=== PATIENT | female | born 1940 | race Caucasian/White ===

== ENCOUNTER 2017-02-06 15:46 | Outpatient (CLI) | payer OTHER, MEDICARE ==
[2017-02-06] MEDS ORDERED: ACETAMINOPHEN 325 MG TAB ONE (16:18)
[2017-02-06] MEDS ORDERED: ACETAMINOPHEN 325 MG TAB PO ONE (16:30)
== END 2017-02-06 20:00 | disposition home or self-care (01) ==
LOC: FOBOP 15:46
PROVIDERS: ATTEND Internal Medicine Hematology & Oncology
PROC: 30233N1 Transfusion of Nonautologous Red Blood Cells into Peripheral Vein, Percutaneous Approach (ICD-10-PCS; principal; 2017-02-06)
DX: D46.9 Myelodysplastic syndrome, unspecified (principal); Z88.2 Allergy status to sulfonamides
CPT/HCPCS: 36430; P9021

== ENCOUNTER 2017-02-12 02:13 | Inpatient (IN) | payer OTHER, MEDICARE ==
--- NOTE | 2017-02-12 02:21 | EDPHY ---
H & P HPI/ROS: HPI CHIEF COMPLAINT: Shortness of breath, cough HISTORY OF PRESENT ILLNESS: This patient very pleasant 76-year-old female she has significant past medical history for myelodysplastic syndrome, she recently had a blood transfusion of 1 unit packed red blood cells on Thursday. She tells me after getting this blood transfusion she immediately had chills she has been in bed over the entire weekend for the past 4 days with chills however no fever. Patient tells me that she has had a cough that is started nonproductive she does feel shortness of breath with dyspnea on exertion. Generalized weakness. No recorded fever at home. She does have nausea but no vomiting. Denies chest pain abdominal pain or back pain. Past Medical History: MDS, right-sided heart failure remote pulmonary embolism from prolonged hip surgery years ago Past Surgical History: No recent surgical history Social History: Denies daily use of drugs alcohol tobacco products Family History: Noncontributory ROS REVIEW OF SYSTEMS: A comprehensive 10 point review of systems is otherwise negative aside from elements mentioned in the history of present illness. Exam Constitutional appears well nontoxic, pale, triage nursing summary reviewed, vital signs reviewed, awake/alert. (Vital signs noted to be hypoxic 85%) Eyes normal conjunctivae and sclera, EOMI, PERRLA. HENT normal inspection, atraumatic, moist mucus membranes, no epistaxis, neck supple/ no meningismus, no raccoon eyes. Respiratory clear to auscultation bilaterally, normal breath sounds, no respiratory distress, no wheezing. Cardiovascular rate normal, regular rhythm, no murmur, no edema, distal pulses normal. Gastrointestinal soft, non-tender, no rebound, no guarding, normal bowel sounds, no distension, no pulsatile mass. Genitourinary no CVA tenderness. Musculoskeletal no midline vertebral tenderness, full range of motion, no calf swelling, no tenderness of extremities, no meningismus, good pulses, neurovascularly intact. Skin pale,pink, warm, & dry, no rash, skin atraumatic. Neurologic awake, alert and oriented x 3, AAOx3, moves all 4 extremities equally, motor intact, sensory intact, CN II-XII intact, normal cerebellar, normal vision, normal speech. Psychiatric normal mood/affect. Heme/Lymph/Immune no lymphadenopathy. Differential Diagnosis: includes but is not limited to in a particular order transfusion related lung injury or trauma early, pneumonia, pulmonary embolism, CHF, ACS, viral illness, influenza, dehydration, electrolyte abnormality, anemia , thrombocytopenia Medical Decision Making: Plan for this patient's patient have an IV established be placed on full cardiac rehabilitation specialist noted she is hypoxic at triage 85% patient be placed on supplemental oxygen should be given a breathing treatment, we will obtain blood cultures, lactic acid she will be gently hydrated, she will need a chest x-ray and a CT scan of her chest. I will also touch base with Oncology. Re-evaluation: ED x-ray chest one view: this shows cardiomegaly present, patchy infiltrates throughout lung reddy either diffuse pneumonia or pulmonary edema versus transfusion related lung injury 0312: The patient is afebrile however has a leukocytosis of 34,000 elevated lactic acid I will cover her with broad-spectrum antibiotics including IV vancomycin IV Zosyn she will have blood cultures. She will need a CT scan of her chest to make sure she does not have a pulmonary embolism and also help delineate these infiltrates. Differential includes pneumonia multifocal versus CHF versus transfusion related lung injury this patient will need hospitalization. 0318AM: I spoke with Dr. Arteaga with Oncology on-call he understands this patient be admitted to the hospital. He will see the patient in consultation. 0322AM: Re-examination at this time patient is resting comfortably no respiratory distress noted to be hypoxic upon arrival. She is pending a CT scan of her chest to rule out PE and further delineate lung parenchyma infiltrate. Differential is pulmonary embolism, heart failure, pneumonia. I have covered her with IV vanc and IV Zosyn for pneumonia given her white count, elevated lactic acid and hypoxia. She did receive 1 L normal saline fluid when she arrived here due to low blood pressure. Blood pressure has improved. She is hemodynamically stable at this time. Plan for this patient this time is admit to the hospitalist service Dr. Mcclain agrees to admit this patient reason for admission is hypoxia lung infiltrate. CT scan pending. Blood cultures have been pulled, lactic acid been pull, IV vancomycin IV Zosyn has been given. Most likely reason for hypoxia and infiltrates is decompensated heart failure given cardiomegaly elevated BNP[place] [id number] is most likely due to Neulasta. It is noted this patient is not febrile here. Hemodynamically stable safe for admission to the PCU. EKG interpretation by me on record in [facility] system. Impression time of EKG 3:20 a.m., this is sinus rhythm rate of 86 LVH present, left bundle-branch block present. This EKG does have some motion artifact in the inferior leads however when I compare this EKG to her old EKG 11/03/2016 there is no acute change specifically I do not appreciate acute ST elevation MN on this EKG. Critical Care: Total Critical Care Time Spent Managing this Patient: 65 Minutes. This time was spent Exclusively with this patient. This Care was exclusive of procedures. The Organ System/life at risk was respiratory, pulmonary This Patient was in Critical Condition because severe hypoxia CT scan of the angiogram chest with IV contrast The results of the study are negative for acute pulmonary embolism there is cardiomegaly present bilateral pulmonary edema consistent with decompensated heart failure. The study was read by Dr. Alcaraz. I viewed the images myself on the PACS system. 0424AM: This patient's CT scan consistent with decompensated acute heart failure. I have ordered her IV Lasix 40 mg. Restrict her fluids. She did receive IV vancomycin IV Zosyn due to patchy infiltrates on her lungs however most likely this is pulmonary edema less likely to be pneumonia. Patient admitted in stable condition to the hospitalist service. Source: Patient - Personal History Tetanus Vaccine Date: 2014 - Medical/Surgical History Hx Asthma: No Hx Chronic Respiratory Disease: No Hx Diabetes: No Hx Cardiac Disease: Yes Hx Renal Disease: Yes Hx Cirrhosis: No Hx Alcoholism: No Hx HIV/AIDS: No Hx Splenectomy or Spleen Trauma: No Other PMH: ANXIETY, HTN, KIDNEY DISFUNCTION, NEPHRITIS, HYPOTHYROID, GALLBLADDER OUT, ISCHEMIC COLOTIS, PARTIAL HYSTERECTOMY, L KNEE REPLACEMENT, R HIP REPLACEMENT - Social History Smoking Status: Never smoked Constitutional: Initial Vital Signs O2 Sat (%) 94 02/12/17 02:25 O2 Delivery Mode Room Air O2 (L/minute) 2 Allergies/Adverse Reactions: cefuroxime [Cefuroxime] Allergy (Severe, Verified 02/12/17 02:29) SYNCOPE Cephalosporins Allergy (Severe, Verified 02/12/17 02:29) THROAT SWELLING ciprofloxacin [From Cipro] Allergy (Severe, Verified 02/12/17 02:29) CRUSHING CHANG, SYNCOPE ciprofloxacin HCl [From Cipro] Allergy (Severe, Verified 02/12/17 02:29) CRUSHING CHANG, SYNCOPE fructooligosaccharides (FOS) [From Probiotic & Acidophilus] Allergy (Severe, Verified 02/12/17 02:29) LIPS SWELL, CRACK, REDDENED AREA BURNING FEELING Lactobacillus Combo No.3 [From Probiotic & Acidophilus] Allergy (Severe, Verified 02/12/17 02:29) LIPS SWELL, CRACK, REDDENED AREA BURNING FEELING levofloxacin [From Levaquin] Allergy (Severe, Verified 02/12/17 02:29) THROAT SWELLING Pantethine [From Probiotic & Acidophilus] Allergy (Severe, Verified 02/12/17 02: 29) LIPS SWELL, CRACK, REDDENED AREA BURNING FEELING Sulfa (Sulfonamide Antibiotics) Allergy (Severe, Verified 02/12/17 02:29) THROAT SWELLING, ANAPHYLACTIC Home Medications: Medication Instructions Recorded Pantoprazole Sodium [Protonix 40mg 40 mg PO DAILY 03/15/13 (*)] methYLPHENIDATE HCL [Ritalin 10mg 15 mg PO DAILY 02/27/15 (*)] Methenamine Fabian [Hiprex 1 gm (*)] 0.5 gm PO BID 04/24/16 ALPRAZolam [Xanax 0.5 MG (*)] 0.25 mg PO BID 11/03/16 Ascorbic Acid [Vitamin C 250 mg 250 mg PO DAILY 11/03/16 (*)] Aspirin EC [Aspirin EC 81 mg (*)] 81 mg PO DAILY 11/03/16 Calcium Carbonate [Oyster Shell 500 mg PO DAILY 11/03/16 Calcium 500 mg (*)] FEXOFENADINE HCL 90 mg PO BID 11/03/16 Furosemide [Lasix 40 MG (*)] 40 mg PO DAILY 11/03/16 Herbals/Supplements -Info Only 1 ea PO DAILY 11/03/16 Levothyroxine [Synthroid 125 mcg 125 mcg PO DAILY06 11/03/16 (*)] Multivitamins [Multivitamin (*)] 1 each PO DAILY 11/03/16 Nitrofurantoin Macrobid [Macrobid] 100 mg PO DAILY 11/03/16 Nortriptyline HCl [Pamelor 50 mg 100 mg PO HS 11/03/16 (*)] Potassium Cl [Klor-Con 20 meq (*)] 60 meq PO DAILY 11/03/16 Vit B Comp/C/FA/Iron/Vit E 1 each PO DAILY 11/03/16 [Vitamin B Complex Tablet] buPROPion [Wellbutrin 100mg (*)] 100 mg PO BID 11/03/16 methYLPHENIDATE HCL [Ritalin 10mg 10 mg PO DAILY@18 11/03/16 (*)] Medical Decision Making - Data Points Laboratory Results: Laboratory Results 02/12/17 02:35 02/12/17 02:35 02/12/17 02/12/17 02/12/17 02:59 02:40 02:35 WBC RBC Hgb Hct MCV MCH MCHC RDW Plt Count MPV Neut % (Auto) Lymph % (Auto) [place] % (Auto) Eos % (Auto) Baso % (Auto) Nucleat RBC Rel Count Absolute Neuts (auto) Absolute Lymphs (auto) Absolute Monos (auto) Absolute Eos (auto) Absolute Basos (auto) Absolute Nucleated RBC Immature Gran % Seg Neutrophils % Band Neutrophils % Lymphocytes % Monocytes % Eosinophils % Basophils % Immature Gran # Absolute Seg Neuts Absolute Band Neuts Absolute Monocytes Absolute Eosinophils Absolute Basophils Nucleated RBCs Differential Comment Platelet Estimate Polychromasia Hypochromasia Tear Drop Cells Oval Macrocytes Schistocytes Smear Review By PT INR APTT Puncture Site RIGHT RADIAL Patient Temperature 37.0 DEGREES DEGREES pCO2 30 mmHg L mmHg (34-38) pO2 82 mmHg H mmHg (65-75) Total CO2 20 mEq/L L mEq/L (23-27) ABG pH 7.41 (7.35-7.45) ABG O2 Saturation 95 % % (92-95) ABG Base Excess -4.7 mEq/L L mEq/L (-2.5-2.5) VBG Lactic Acid Total O2 Concentration 2.0 LITERS LITERS Sodium Potassium Chloride Carbon Dioxide Bicarbonate 19 mEq/L L mEq/L (22-26) Anion Gap BUN Creatinine Estimated GFR Glucose Calcium Total Bilirubin Conjugated Bilirubin Unconjugated Bilirubin AST ALT Alkaline Phosphatase Troponin I NT-Pro-B Natriuret Pep Total Protein Albumin Influenza Typ A,B (DFA) NEGATIVE FOR FLU (NEGATIVE) Patient ABO/Rh Pending Antibody Screen Pending 02/12/17 02/12/17 02/12/17 02:35 02:35 02:35 WBC 34.06 10^3/uL H 10^3/uL (3.80-9.50) RBC 2.00 10^6/uL L 10^6/uL (4.18-5.33) Hgb 7.4 g/dL L g/dL (12.6-16.3) Hct 22.7 % L % (38.0-47.0) MCV 113.5 fL H fL (81.5-99.8) MCH 37.0 pg H pg (27.9-34.1) MCHC 32.6 g/dL g/dL (32.4-36.7) RDW 26.7 % H % (11.5-15.2) Plt Count 93 10^3/uL L 10^3/uL (150-400) MPV 11.3 fL fL (8.7-11.7) Neut % (Auto) Not Reported Lymph % (Auto) Not Reported [place] % (Auto) Not Reported Eos % (Auto) Not Reported Baso % (Auto) Not Reported Nucleat RBC Rel Count 1.7 % H % (0.0-0.2) Absolute Neuts (auto) Not Reported Absolute Lymphs (auto) Not Reported Absolute Monos (auto) Not Reported Absolute Eos (auto) Not Reported Absolute Basos (auto) Not Reported Absolute Nucleated RBC 0.58 10^3/uL H 10^3/uL (0-0.01) Immature Gran % Not Reported Seg Neutrophils % 8 % % Band Neutrophils % 5 % % Lymphocytes % 14 % % Monocytes % 72 % % Eosinophils % 1 % % Basophils % 1 % % Immature Gran # Not Reported Absolute Seg Neuts 2.72 10^/uL 10^/uL (1.70-6.50) Absolute Band Neuts 1.70 10^3/uL H 10^3/uL (0.00-0.70) Absolute Monocytes 24.52 10^3/uL H 10^3/uL (0.30-0.80) Absolute Eosinophils 0.34 10^3/uL 10^3/uL (0.03-0.40) Absolute Basophils 0.34 10^3/uL H 10^3/uL (0.02-0.10) Nucleated RBCs 7 /100 WBC H /100 WBC (0-0) Differential Comment Platelet Estimate DECREASED L (ADEQ) Polychromasia 1+ H Hypochromasia 1+ H Tear Drop Cells 1+ H Oval Macrocytes 2+ H Schistocytes 1+ H Smear Review By Pending PT 18.2 SEC H SEC (12.0-15.0) INR 1.51 H (0.83-1.16) APTT 35.1 SEC SEC (23.0-38.0) Puncture Site Patient Temperature pCO2 pO2 Total CO2 ABG pH ABG O2 Saturation ABG Base Excess VBG Lactic Acid Total O2 Concentration Sodium 135 mEq/L mEq/L (134-144) Potassium 3.4 mEq/L L mEq/L (3.5-5.2) Chloride 103 mEq/L mEq/L (97-110) Carbon Dioxide 20 mEq/l L mEq/l (22-31) Bicarbonate Anion Gap 12 mEq/L mEq/L (8-16) BUN 19 mg/dL mg/dL (7-23) Creatinine 1.4 mg/dL H mg/dL (0.6-1.0) Estimated GFR 37 Glucose 154 mg/dL H mg/dL (70-100) Calcium 8.6 mg/dL mg/dL (8.5-10.4) Total Bilirubin 1.3 mg/dL mg/dL (0.1-1.4) Conjugated Bilirubin 0.7 mg/dL H mg/dL (0.0-0.5) Unconjugated Bilirubin 0.6 mg/dL mg/dL (0.0-1.1) AST 89 IU/L H IU/L (14-46) ALT 89 IU/L H IU/L (9-52) Alkaline Phosphatase 136 IU/L H IU/L (38-126) Troponin I 0.151 ng/mL H ng/mL (0-0.034) NT-Pro-B Natriuret Pep 7310 pg/mL H pg/mL (0-125) Total Protein 6.1 g/dL L g/dL (6.3-8.2) Albumin 3.3 g/dL L g/dL (3.5-5.0) Influenza Typ A,B (DFA) Patient ABO/Rh Antibody Screen 02/12/17 02:35 WBC RBC Hgb Hct MCV MCH MCHC RDW Plt Count MPV Neut % (Auto) Lymph % (Auto) [place] % (Auto) Eos % (Auto) Baso % (Auto) Nucleat RBC Rel Count Absolute Neuts (auto) Absolute Lymphs (auto) Absolute Monos (auto) Absolute Eos (auto) Absolute Basos (auto) Absolute Nucleated RBC Immature Gran % Seg Neutrophils % Band Neutrophils % Lymphocytes % Monocytes % Eosinophils % Basophils % Immature Gran # Absolute Seg Neuts Absolute Band Neuts Absolute Monocytes Absolute Eosinophils Absolute Basophils Nucleated RBCs Differential Comment Platelet Estimate Polychromasia Hypochromasia Tear Drop Cells Oval Macrocytes Schistocytes Smear Review By PT INR APTT Puncture Site Patient Temperature pCO2 pO2 Total CO2 ABG pH ABG O2 Saturation ABG Base Excess VBG Lactic Acid 2.2 mmol/L H mmol/L (0.7-2.1) Total O2 Concentration Sodium Potassium Chloride Carbon Dioxide Bicarbonate Anion Gap BUN Creatinine Estimated GFR Glucose Calcium Total Bilirubin Conjugated Bilirubin Unconjugated Bilirubin AST ALT Alkaline Phosphatase Troponin I NT-Pro-B Natriuret Pep Total Protein Albumin Influenza Typ A,B (DFA) Patient ABO/Rh Antibody Screen Medications Given: Discontinued Medications Albuterol/Ipratropium (Duoneb) 3 ml IH EDNOW ONE Stop: 02/12/17 02:33 Last Admin: 02/12/17 02:38 Dose: 3 ml Sodium Chloride (Ns) 1,000 mls @ 0 mls/hr IV ONCE ONE PRN Reason: Wide Open Stop: 02/12/17 02:32 Last Admin: 02/12/17 02:35 Dose: 1,000 mls Departure - Departure Disposition: [facility] Clinical Impression: Hypoxia Pneumonia Qualifiers: Pneumonia type: due to unspecified organism Laterality: bilateral Lung location : unspecified part of lung Qualified Code(s): J18.9 - Pneumonia, unspecified organism CHF (congestive heart failure) Qualifiers: Congestive heart failure type: systolic Congestive heart failure chronicity: acute Qualified Code(s): I50.21 - Acute systolic (congestive) heart failure Condition: Critical
[2017-02-12] MEDS ORDERED: NS 1,000 ML IV ONE (02:31)
[2017-02-12] MEDS ORDERED: IPRATROPIUM/ALBUTEROL 3 ML DEYVIAL IH ONE (02:32)
[2017-02-12 02:47] LABS: ABSOLUTE NRBC COUNT 0.58 10^3/uL (0-0.01); ADD DIFF? YES; ATYPICAL LYMPHOCYTE FLAG 110 (0-99); FRAGMENT RBC FLAG 80 (0-99); HEMATOCRIT 22.7 % (38.0-47.0); HEMOGLOBIN 7.4 g/dL (12.6-16.3); LEFT SHIFT FLG 10 (0-99); LIPEMIA HEMOLYSIS FLAG 80 (0-99); MEAN CELL HEMOGLOBIN CONCENTR. 32.6 g/dL (32.4-36.7); MEAN CELL VOLUME 113.5 fL (81.5-99.8); MEAN PLATELET VOLUME 11.3 fL (8.7-11.7); NRBC-AUTO% 1.7 % (0.0-0.2); PLATELET CLUMPS FLAG 0 (0-99); PLATELET COUNT 93 10^3/uL (150-400); RED CELL DISTRIBUTION WIDTH 26.7 % (11.5-15.2)
[2017-02-12 02:48] LABS: ADD MORPH? NO; ADD SCAN? NO
[2017-02-12 02:57] LABS: ALANINE AMINOTRANSFERASE 89 IU/L (9-52); ALBUMIN 3.3 g/dL (3.5-5.0); ALKALINE PHOSPHATASE 136 IU/L (38-126); ANION GAP 12 mEq/L (8-16); ASPARTATE AMINOTRANSFERASE 89 IU/L (14-46); BILIRUBIN,TOTAL 1.3 mg/dL (0.1-1.4); BILIRUBIN-CONJUGATED 0.7 mg/dL (0.0-0.5); BILIRUBIN-UNCONJUGATED 0.6 mg/dL (0.0-1.1); CALCIUM 8.6 mg/dL (8.5-10.4); CARBON DIOXIDE 20 mEq/l (22-31); CHLORIDE 103 mEq/L (97-110); CREATININE 1.4 mg/dL (0.6-1.0); GLOMERULAR FILTRATION RATE 37; GLUCOSE 154 mg/dL (70-100); INR 1.51 (0.83-1.16); POTASSIUM 3.4 mEq/L (3.5-5.2); PROTIME(PATIENT) 18.2 SEC (12.0-15.0); SODIUM 135 mEq/L (134-144); TOTAL PROTEIN 6.1 g/dL (6.3-8.2)
[2017-02-12 02:58] LABS: APTT 35.1 SEC (23.0-38.0)
[2017-02-12 03:09] LABS: TROPONIN I 0.151 ng/mL (0-0.034)
[2017-02-12 03:09] LABS: BASE EXCESS -4.7 mEq/L (-2.5-2.5); BICARBONATE 19 mEq/L (22-26); MEASURED OXYGEN SATURATION 95 % (92-95); PCO2 30 mmHg (34-38); PO2 82 mmHg (65-75); TCO2 20 mEq/L (23-27)
[2017-02-12] MEDS ORDERED: VANCOMYCIN HCL/NORMAL SALINE 250 ML IV ONE (03:10)
[2017-02-12] MEDS ORDERED: PIPERACILLIN/TAZO 4.5 GM/DEX 100 ML IV ONE (03:10)
[2017-02-12] MEDS ORDERED: IOPAMIDOL (ISOVUE 370) 100 ML BTL IV ONE (03:20)
[2017-02-12 03:36] LABS: MACROCYTES 2+; POLYCHROMASIA 1+
[2017-02-12 03:37] LABS: HYPOCHROMIA 1+; PLATELET ESTIMATE DECREASED (ADEQ); SCHISTOCYTES 1+
[2017-02-12] MEDS ORDERED: FUROSEMIDE 40 MG/4 ML VIAL IVP ONE (04:23)
[2017-02-12] MEDS ORDERED: ACETAMINOPHEN 325 MG TAB PO PRN (04:35)
[2017-02-12] MEDS ORDERED: ONDANSETRON DISINTEGRATING 4 MG TAB PO PRN (04:35)
[2017-02-12] MEDS ORDERED: ALBUTEROL 3 ML DEYVIAL IH PRN (04:35)
[2017-02-12] MEDS ORDERED: ONDANSETRON 4 MG/2 ML VIAL IVP PRN (04:35)
[2017-02-12] MEDS ORDERED: oxyCODONE IR 5 MG TAB PO PRN (04:35)
--- NOTE | 2017-02-12 05:50 | PDGENHP ---
History and Physical - Chief Complaint shortness of breath - History of Present Illness Patient is a 76 year old female with MDS, diastolic CHF, hypothyroidism and history of hypertension (now mostly resolved) who presents to the ED with complaint of chills, shortness of breath and cough. Patient is currently receiving treatment for her MDS with weekly injections and on 02/06 received her first PRBC transfusion for symptomatic anemia. Patient states prior to her transfusion she had felt generally fatigued and some dyspnea with exertion, but no symptoms of fever, chills, cough or chest pain. She awoke the following day feeling like she was coming down with the flu; describes some chills, generalized malaise and she reports she slept most of the day, with little PO intake. These symptoms continued and progressed so that by day of presentation she was reporting rigors, cough, headache and nausea, without vomiting. Since her symptoms started on 02/07, she has not had much oral food or fluid intake. She denies any overt chest pain, abdominal pain, diarrhea or dysuria. On arrival to the ED, patient was noted to be afebrile, but slightly hypotensive and hypoxic on room air, without tachycardia. Labs revealed significantly elevated wbc, monocyte predominance, as well as elevated Cr, elevated troponin and significantly elevated BNP. CXR showed bilateral infiltrates vs effusions. CT chest was then obtained and revealed diffuse pulmonary edema without obvious infiltrate/pneumonia. She was cultured, initiated on broad spectrum antibiotics and admitted to the hospitalist service for further management. History Information - Allergies/Home Medication List Allergies/Adverse Reactions: cefuroxime [Cefuroxime] Allergy (Severe, Verified 02/12/17 02:29) SYNCOPE Cephalosporins Allergy (Severe, Verified 02/12/17 02:29) THROAT SWELLING ciprofloxacin [From Cipro] Allergy (Severe, Verified 02/12/17 02:29) CRUSHING CHANG, SYNCOPE ciprofloxacin HCl [From Cipro] Allergy (Severe, Verified 02/12/17 02:29) CRUSHING CHANG, SYNCOPE fructooligosaccharides (FOS) [From Probiotic & Acidophilus] Allergy (Severe, Verified 02/12/17 02:29) LIPS SWELL, CRACK, REDDENED AREA BURNING FEELING Lactobacillus Combo No.3 [From Probiotic & Acidophilus] Allergy (Severe, Verified 02/12/17 02:29) LIPS SWELL, CRACK, REDDENED AREA BURNING FEELING levofloxacin [From Levaquin] Allergy (Severe, Verified 02/12/17 02:29) THROAT SWELLING Pantethine [From Probiotic & Acidophilus] Allergy (Severe, Verified 02/12/17 02: 29) LIPS SWELL, CRACK, REDDENED AREA BURNING FEELING Sulfa (Sulfonamide Antibiotics) Allergy (Severe, Verified 02/12/17 02:29) THROAT SWELLING, ANAPHYLACTIC Home Medications: Pantoprazole Sodium [Protonix 40mg (*)] 40 mg PO DAILY 03/15/13 [Last Taken Unknown] methYLPHENIDATE HCL [Ritalin 10mg (*)] 15 mg PO DAILY 02/27/15 [Last Taken Unknown] Methenamine Fabian [Hiprex 1 gm (*)] 0.5 gm PO BID 04/24/16 [Last Taken Unknown] ALPRAZolam [Xanax 0.5 MG (*)] 0.25 mg PO BID 11/03/16 [Last Taken Unknown] Ascorbic Acid [Vitamin C 250 mg (*)] 250 mg PO DAILY 11/03/16 [Last Taken Unknown] Aspirin EC [Aspirin EC 81 mg (*)] 81 mg PO DAILY 11/03/16 [Last Taken Unknown] Calcium Carbonate [Oyster Shell Calcium 500 mg (*)] 500 mg PO DAILY 11/03/16 [ Last Taken Unknown] FEXOFENADINE HCL 90 mg PO BID 11/03/16 [Last Taken Unknown] Furosemide [Lasix 40 MG (*)] 40 mg PO DAILY 11/03/16 [Last Taken Unknown] Herbals/Supplements -Info Only 1 ea PO DAILY 11/03/16 [Last Taken Unknown] Levothyroxine [Synthroid 125 mcg (*)] 125 mcg PO DAILY06 11/03/16 [Last Taken Unknown] Multivitamins [Multivitamin (*)] 1 each PO DAILY 11/03/16 [Last Taken Unknown] Nitrofurantoin Macrobid [Macrobid] 100 mg PO DAILY 11/03/16 [Last Taken Unknown] Nortriptyline HCl [Pamelor 50 mg (*)] 100 mg PO HS 11/03/16 [Last Taken Unknown] Potassium Cl [Klor-Con 20 meq (*)] 60 meq PO DAILY 11/03/16 [Last Taken Unknown] Vit B Comp/C/FA/Iron/Vit E [Vitamin B Complex Tablet] 1 each PO DAILY 11/03/16 [ Last Taken Unknown] buPROPion [Wellbutrin 100mg (*)] 100 mg PO BID 11/03/16 [Last Taken Unknown] methYLPHENIDATE HCL [Ritalin 10mg (*)] 10 mg PO DAILY@18 11/03/16 [Last Taken Unknown] I have personally reviewed and updated: family history, medical history, social history, surgical history - Past Medical History Additional medical history: Myelodysplastic disorder. hypothyroidism. diastolic CHF (negative lexiscan 10/2016). ADD. h/o ischemic colitis - Surgical History Additional surgical history: lumpectomy. cholecystectomy. R hip replacement. L TKA. bowel resection for an episode of ischemic bowel. appendectomy - Family History Positive for: non-pertinent - Social History Smoking Status: Never smoked Alcohol Use: None Drug Use: None Additional social history: Patient lives with her , requires 2 canes for ambulation Review of Systems ROS: 10pt was reviewed & negative except for what was stated in HPI & below Physical Exam Temp Pulse Resp BP Pulse Ox 36.8 C 90 20 113/69 94 02/12/17 05:25 02/12/17 05:25 02/12/17 05:25 02/12/17 05:25 02/12/17 05:25 O2 (L/minute) 2 Constitutional: no apparent distress, appears nourished, not in pain Eyes: PERRL, anicteric sclera, EOMI Ears, Nose, Mouth, Throat: hearing normal, ears appear normal, no oral mucosal ulcers, dry mucous membranes (extremely dry mm) Cardiovascular: regular rate and rhythym, no murmur, rub, or gallop, pulses symmetric bilaterally, No JVD, No edema Peripheral Pulses: 2+: dorsalis-pedis (R), dorsalis-pedis (L) Respiratory: no respiratory distress, no rales or rhonchi, inspiratory crackles (bilaterally ) Gastrointestinal: normoactive bowel sounds, soft, non-tender abdomen, no palpable masses, No guarding, No rebound, No distension Genitourinary: no bladder fullness, no bladder tenderness Skin: warm, normal color, no rashes or abrasions, no fluctuance, no induration, No mottled Musculoskeletal: full muscle strength, no muscle tenderness, normal joint ROM, no joint effusions Neurologic: AAOx3, sensation intact bilaterally, CN II-XII Intact, No weakness, No numbness, No facial droop Psychiatric: interacting appropriately, not anxious, not encephalopathic, thought process linear Lab Data & Imaging Review 02/12/17 02:35 02/12/17 02:35 WBC 34.06 10^3/uL (3.80-9.50) H 02/12/17 02:35 RBC 2.00 10^6/uL (4.18-5.33) L 02/12/17 02:35 Hgb 7.4 g/dL (12.6-16.3) L 02/12/17 02:35 Hct 22.7 % (38.0-47.0) L 02/12/17 02:35 MCV 113.5 fL (81.5-99.8) H 02/12/17 02:35 MCH 37.0 pg (27.9-34.1) H 02/12/17 02:35 MCHC 32.6 g/dL (32.4-36.7) 02/12/17 02:35 RDW 26.7 % (11.5-15.2) H 02/12/17 02:35 Plt Count 93 10^3/uL (150-400) L 02/12/17 02:35 MPV 11.3 fL (8.7-11.7) 02/12/17 02:35 Neut % (Auto) Not Reported 02/12/17 02:35 Lymph % (Auto) Not Reported 02/12/17 02:35 [place] % (Auto) Not Reported 02/12/17 02:35 Eos % (Auto) Not Reported 02/12/17 02:35 Baso % (Auto) Not Reported 02/12/17 02:35 Nucleat RBC Rel Count 1.7 % (0.0-0.2) H 02/12/17 02:35 Absolute Neuts (auto) Not Reported 02/12/17 02:35 Absolute Lymphs (auto) Not Reported 02/12/17 02:35 Absolute Monos (auto) Not Reported 02/12/17 02:35 Absolute Eos (auto) Not Reported 02/12/17 02:35 Absolute Basos (auto) Not Reported 02/12/17 02:35 Absolute Nucleated RBC 0.58 10^3/uL (0-0.01) H 02/12/17 02:35 Immature Gran % Not Reported 02/12/17 02:35 Seg Neutrophils % 8 % 02/12/17 02:35 Band Neutrophils % 5 % 02/12/17 02:35 Lymphocytes % 14 % 02/12/17 02:35 Monocytes % 72 % 02/12/17 02:35 Eosinophils % 1 % 02/12/17 02:35 Basophils % 1 % 02/12/17 02:35 Immature Gran # Not Reported 02/12/17 02:35 Absolute Seg Neuts 2.72 10^/uL (1.70-6.50) 02/12/17 02:35 Absolute Band Neuts 1.70 10^3/uL (0.00-0.70) H 02/12/17 02:35 Absolute Monocytes 24.52 10^3/uL (0.30-0.80) H 02/12/17 02:35 Absolute Eosinophils 0.34 10^3/uL (0.03-0.40) 02/12/17 02:35 Absolute Basophils 0.34 10^3/uL (0.02-0.10) H 02/12/17 02:35 Nucleated RBCs 7 /100 WBC (0-0) H 02/12/17 02:35 Differential Comment 02/12/17 02:35 Platelet Estimate DECREASED (ADEQ) L 02/12/17 02:35 Polychromasia 1+ H 02/12/17 02:35 Hypochromasia 1+ H 02/12/17 02:35 Tear Drop Cells 1+ H 02/12/17 02:35 Oval Macrocytes 2+ H 02/12/17 02:35 Schistocytes 1+ H 02/12/17 02:35 PT 18.2 SEC (12.0-15.0) H 02/12/17 02:35 INR 1.51 (0.83-1.16) H 02/12/17 02:35 APTT 35.1 SEC (23.0-38.0) 02/12/17 02:35 Puncture Site RIGHT RADIAL 02/12/17 02:59 Patient Temperature 37.0 DEGREES 02/12/17 02:59 pCO2 30 mmHg (34-38) L 02/12/17 02:59 pO2 82 mmHg (65-75) H 02/12/17 02:59 Total CO2 20 mEq/L (23-27) L 02/12/17 02:59 ABG pH 7.41 (7.35-7.45) 02/12/17 02:59 ABG O2 Saturation 95 % (92-95) 02/12/17 02:59 ABG Base Excess -4.7 mEq/L (-2.5-2.5) L 02/12/17 02:59 VBG Lactic Acid 1.5 mmol/L (0.7-2.1) D 02/12/17 04:09 Total O2 Concentration 2.0 LITERS 02/12/17 02:59 Sodium 135 mEq/L (134-144) 02/12/17 02:35 Potassium 3.4 mEq/L (3.5-5.2) L 02/12/17 02:35 Chloride 103 mEq/L (97-110) 02/12/17 02:35 Carbon Dioxide 20 mEq/l (22-31) L 02/12/17 02:35 Bicarbonate 19 mEq/L (22-26) L 02/12/17 02:59 Anion Gap 12 mEq/L (8-16) 02/12/17 02:35 BUN 19 mg/dL (7-23) 02/12/17 02:35 Creatinine 1.4 mg/dL (0.6-1.0) H 02/12/17 02:35 Estimated GFR 37 02/12/17 02:35 Glucose 154 mg/dL (70-100) H 02/12/17 02:35 Calcium 8.6 mg/dL (8.5-10.4) 02/12/17 02:35 Total Bilirubin 1.3 mg/dL (0.1-1.4) 02/12/17 02:35 Conjugated Bilirubin 0.7 mg/dL (0.0-0.5) H 02/12/17 02:35 Unconjugated Bilirubin 0.6 mg/dL (0.0-1.1) 02/12/17 02:35 AST 89 IU/L (14-46) H 02/12/17 02:35 ALT 89 IU/L (9-52) H 02/12/17 02:35 Alkaline Phosphatase 136 IU/L (38-126) H 02/12/17 02:35 Troponin I 0.151 ng/mL (0-0.034) H 02/12/17 02:35 NT-Pro-B Natriuret Pep 7310 pg/mL (0-125) H 02/12/17 02:35 Total Protein 6.1 g/dL (6.3-8.2) L 02/12/17 02:35 Albumin 3.3 g/dL (3.5-5.0) L 02/12/17 02:35 Influenza Typ A,B (DFA) NEGATIVE FOR FLU (NEGATIVE) 02/12/17 02:40 Patient ABO/Rh O POSITIVE 02/12/17 02:35 Antibody Screen POSITIVE 02/12/17 02:35 Visualized and Interpreted Chest x-ray results: Yes Chest X-Ray results: infiltrate (bilateral ) Visualized and Interpreted imaging results: Yes Interpretation: CT chest: bilateral pulmonary edema, cardiomegaly; no obvious infiltrate Visualized and Interpreted EKG results: Yes EKG Interpretation: Positive for: left bundle branch block (chronic since 2015) Assessment & Plan Assessment: Patient is a 76/F with diastolic dysfunction, MDS s/p recent PRBC transfusion, hypothyroidism who presents to the ED complaining of chills, cough and shortness of breath, which have been progressive over the past 5 days. ED work up revealed significantly leukocytosis, diffuse pulmonary edema, consistent with acute CHF exacerbation, with possible underlying pneumonia. Plan: # acute hypoxic respiratory failure Patient's main complaint on presentation was dyspnea and cough. Given her immunocompromised status, cxr and leukocytosis, leading differential includes acute pneumonia. Then CT was obtained and revealed findings more consistent with pulmonary edema/pleural effusions, rather than infiltrate, seemingly more consistent with acute diastolic heart failure exacerbation. Patient also reports symptoms started shortly after receiving a PRBC transfusion, although unlikely TRALI is also possible. PE was ruled out on CT. Will continue broad spectrum antibiotics for pneumonia coverage, give IV diuresis and monitor respiratory status. # leukocytosis, MDS Patient with a significant jump in her WBC since last check on 02/05, with monocyte predominance. Etiologies include acute infection vs acute worsening of MDS. Patient's oncology group has been notified of her admission. She does not meet sepsis criteria due to her lack of fever, tachypnea, tachycardia, however, given her immunocompromised status will continue empiric broad spectrum antibiotics until cultures result. UA and influenza are negative. # acute fluid overload, elevated troponin, diastolic dysfunction, LBBB Admission in 10/2016 was for decompensated HF due to septal dyskinesia presumed to be secondary to her LBBB. Lexiscan was performed in that admission and did not show evidence of reversible ischemia. Today, presenting work up reveals diffuse pulmonary edema, indeterminately elevated troponin and markedly elevated BNP. However, patient appears clinically dry (very dry mm, no lower extremity edema, reports history of decreased PO intake for past 5 days) and creatinine is elevated. She has been initiated on IV diuresis. Will cautiously continue diuresis, as tolerated by BP and renal function. Cardiology has also been consulted. Repeat TTE to assess for change in cardiomyopathy. # anemia, thrombocytopenia H/H are at patient's previous baseline. She denies any obvious signs of bleeding. Will cont to monitor h/h, platelets. If plts < 70, will hold dvt ppx. # elevated creatinine Cr is above previous baseline. May be related to decompensated heart failure. Will diurese and continue to trend. # hypothyroidism Cont home synthroid. # dispo: admit to inpatient service for likely > 2 [place] stay. # gen: cardiac diet DVT ppx: lovenox DNR, as discussed with patient on this admission
[2017-02-12] MEDS: ENOXAPARIN 40 MG/0.4 ML SYR SC SCH (09:13)
--- NOTE | 2017-02-12 11:39 | ECHO ---
[id number] + + [address] : : [place] [address] : : [phone] + + Adult Echocardiographic Report + -------+ :Name: KEITH NOONAN JStudy Date: 02/12/2017 07:59 AM : : Hospital Admission Number: [id number] Locati on: 221: :: 1940 Gender: Female Height: 68 in : :Age: 76 yrs Race: WH Weight: 168 lb : :Reason For Study: Eval LV/RV Fx : : BSA: 1.9 meter s2 : :History: Pulmonary Edema : + -------+ MMode/2D Measurements \T\ Calculations IVSd: 0.82 cm LVIDd: 4.1 cm FS: 37.4 % Ao root diam: 2.8 cm LVPWd: 0.89 cm LVIDs: 2.6 cm EDV(Teich): 76.0 ml ACS: 1.9 cm ESV(Teich): 24.4 ml EF(Teich): 67.9 % Normal Measurement Values: + + :LVIDd (3.5-5.7cm) IVSd (0.6-1.1cm) LVPWd (0.6-1.1cm) Aortic Root (2.0-3.7cm)Left Atrium (1.5-4.0cm): :LV Vol(d) (76-115ml) LV Vol(s) (29-48ml) Ejec Fraction (50-65%)PV Freddie (0.6- 1.2m/s) TV Freddie (0.4-1.0m/s) : :MV E Freddie (0.8-1.0m/s)MV A Freddie (0.3-1.0m/s)LVOT Freddie (0.7-1.2m/s) Asc Ao Freddie ( 0.9-1.8m/s) : + + Doppler Measurements \T\ Calculations MV E max freddie: Ao V2 max: LV V1 max: PA V2 max: 80.9 cm/sec 142.5 cm/sec 100.7 cm/sec 95.0 cm/sec MV A max freddie: Ao max PG: LV V1 max PG: PA max P.2 cm/sec 8.1 mmHg 4.1 mmHg 3.6 mmHg MV E/A: 0.79 TR max freddie: 298.6 cm/sec TR max P.7 mmHg RAP systole: 5.0 mmHg RVSP(TR): 40.7 mmHg Left Ventricle The left ventricle is normal in size. There is normal left ventricular wall thickness. The left ventricular ejection fraction is normal. There is Doppler evidence for diastolic dysfunction. Ejection Fraction = 68%. Flattened septum is consistent with RV pressure/volume overload. Right Ventricle The right ventricle is normal size. Atria The left atrial size is normal. Right atrial size is normal. Mitral Valve The mitral valve is normal in structure and function. There is no evidence of mitral valve prolapse. There is no mitral valve stenosis. There is mild to moderate mitral regurgitation. Tricuspid Valve There is trace tricuspid regurgitation. Right ventricular systolic pressure is 41mmHg. There is Doppler evidence for mild pulmonary hypertension. Pulmonary pressures most likely underestimated due to right venticular function. Aortic Valve The aortic valve opens well. Mild Aortic Valve Calcification. There is no aortic stenosis. There is no aortic insufficiency. Pulmonic Valve The pulmonic valve is normal in structure and function. Great Vessels The aortic root is normal size. Pericardium/Pleural Fat pad versus pericardial effusion. Conclusion A complete two-dimensional transthoracic echocardiogram was performed (2D, M-mode, Doppler and color flow Doppler). The patient has a dilated IVC. Compared to prior study, changes are noted. The left ventricular ejection fraction is normal. There is Doppler evidence for diastolic dysfunction. Ejection Fraction = 68%. Flattened septum is consistent with RV pressure/volume overload. The right ventricle is normal size. The mitral valve is normal in structure and function. There is trace tricuspid regurgitation. Right ventricular systolic pressure is 41mmHg. There is Doppler evidence for mild pulmonary hypertension. Pulmonary pressures most likely underestimated due to right venticular function. The aortic valve opens well. Mild Aortic Valve Calcification The pulmonic valve is normal in structure and function. Fat pad versus pericardial effusion. The patient has a dilated IVC. Compared to prior study, changes are noted. Final Reading Physician: Shelby Feliciano signed on 02/12/2017 11:38 AM Ordering Physician: Brooklyn Mcclain Performed By: Sorin Rose, NOHEMYCS
--- NOTE | 2017-02-12 12:34 | GCON ---
[f rep st] CONSULTATION CARDIOLOGY CONSULTATION REFERRING PHYSICIAN: Brooklyn Mcclain MD REASON FOR CONSULTATION: We were asked by Dr. Mcclain of [facility] to evaluate the patient for her new worsening shortness of breath. PRIMARY ONCOLOGIST: Dr. Radha Molina. HISTORY OF PRESENT ILLNESS: The patient is a 76-year-old female who has been followed by our office for diastolic heart failure. She also has a known history of myelodysplastic syndrome, hypothyroidism, chronic left bundle branch block, hypertension, who is admitted for shortness of breath. She reports being in her usual state of health up until last week. She was seen at her oncologist's office and was told that due to her low blood counts, she would benefit from having a transfusion. This was done on February 06. On Thursday morning, she awoke feeling chilled. The next day, on Thursday, she had stronger chills. On Thursday, she felt very poorly and was in bed all day. She noted associated headache, nausea, aching in her bones, and very low energy. On Thursday, the chills had subsided; however, her headache persisted, for which she took Tylenol. She noted very poor appetite. Yesterday, she was short of breath at rest, with associated wheezing and "bubbling" in her chest. She was coughing, but this was nonproductive. She had 2 episodes of chest pain during the course of the day. It was a left-sided discomfort without radiation. She noted it at 2/10. She describes it as a dull discomfort. There was no associated diaphoresis or nausea with it. She came in overnight due to her witnessing episodes of apnea, followed by coughing. She has also been having 2-3 pillow orthopnea. Typically, she was sleeping on 1 pillow prior to last week. Her last admission was in October for diastolic heart failure. Her echo at that time showed an EF of 63% with [id number] MR. Her nuclear stress test with Lexiscan was negative for any ischemia. Upon arrival to the ED on this admission, the patient was noted to be afebrile, hypoxic on room air, with a very elevated white blood cell count at 36. Her BNP was elevated higher than her baseline at 7300. Her chest x-ray showed bilateral infiltrates. A CT chest was also obtained, and this showed diffuse pulmonary edema, without evidence of overt pneumonia. Currently, she denies any chest pain, dyspnea, palpitations, or dizziness. In general, she has been very limited in her physical activity due to hip pain. PAST MEDICAL HISTORY: 1. Chronic left bundle branch block. 2. Osteoporosis. 3. Anxiety and depression. 4. GERD. 5. Hypothyroidism. 6. Diastolic heart failure. 7. ADD. 8. History of ischemic colitis. 9. 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 10. Hip and knee osteoarthritis. PAST SURGICAL HISTORY: 1. Lumpectomy, which was benign. 2. Cholecystectomy. 3. Right hip replacement in 1997, requiring 3 units of packed red blood cells for anemia. 4. History of left TKA. 5. History of bowel resection for ischemic colitis. 6. History of appendectomy. 7. History of 2 C-sections. 8. History of hysterectomy. MEDICATIONS: Outpatient medications are reported to be lisinopril, potassium, furosemide, aspirin, Tylenol, Tums, multivitamin, Xanax, calcium, fexofenadine, levothyroxine, Macrobid, methenamine, pantoprazole, Pamelor, vitamin B complex, methylphenidate, bupropion, ascorbic acid. ALLERGIES: Cefuroxime, cephalosporin, ciprofloxacin, fructooligosaccharides, lactobacillus, pantethine, and sulfonamides. FAMILY HISTORY: CVA, type 2 diabetes mellitus, liver cancer, and lung cancer. SOCIAL HISTORY: Patient is . She is a never smoker. She denies any alcohol use. REVIEW OF SYSTEMS: As per HPI. A complete 10-point review of systems was obtained and is negative, except for what is dictated. PHYSICAL EXAM: VITAL SIGNS: BP of 106/60, heart rate of 76, respirations 16, O2 saturation 92% on 2 L/minute, temp of 98.1 degrees Fahrenheit. GENERAL: She is a very pleasant female, appearing somewhat pale. HEENT: Normocephalic, atraumatic. Eyes are round and equal in size. NECK: With no JVD. HEART: Regular rate and rhythm. LUNGS: Clear, with mild crackles diffusely. ABDOMEN : Soft, nontender, with normoactive bowel sounds. SKIN: Warm and dry, without edema present. PSYCH: Normal mood and affect for given situation. LABORATORY DATA: CBC with WBC 34.06, hemoglobin 7.4, hematocrit 22.7, platelet count of 93. BMP was sodium 135, potassium 3.4, chloride 103, CO2 20, BUN 19, creatinine 1.4. Glucose 154. AST 89, ALT 89. Troponin 0.151, followed by a troponin of 0.141. NT proBNP of 7300. Negative flu. IMPRESSION AND PLAN: The patient is a 76-year-old female who presents with acute onset of shortness of breath after a recent transfusion. 1. Acute hypoxic respiratory failure. She presented with an O2 saturation of 85% on room air. Her chest x-ray and CTA rule out definite pneumonia. Likely, her hypoxia is related to her pulmonary edema. 2. Acute diastolic heart failure. She has a history of chronic diastolic heart failure and had been stable on her Lasix dosing. Echo has been obtained and is being finalized at this point. Her BNP is much higher than previous measurements in the 100s. Query if some of this could be a delayed reaction to her transfusion. A one-time dose of furosemide has been given. She does appear clinically dry given the elevated creatinine and no lower extremity edema. We will cautiously re-dose her on oral diuretics. 3. Leukocytosis. She has had a very significant increase in her white blood cell count. We recommend that Hem/Onc be consulted on patient's further care regarding this. 4. Elevated troponin. This is minimally elevated and is flat. She has had a negative nuclear stress test. Given her anemia and overall looking euvolemic versus clinically dry, she may have an elevated troponin related to her fluid status. Will await Oncology's input regarding possible transfusion reaction. /[id number]/MODL MTDD
[2017-02-12] MEDS: PIPERACILLIN/TAZO 3.375 GM/DEX 50 ML IV SCH ×3 (12:38→22:41)
[2017-02-12] MEDS ORDERED: PIPERACILLIN/TAZO 3.375 GM/DEX 50 ML IV SCH (14:00)
--- NOTE | 2017-02-12 14:30 | GPROG ---
[f rep st] PROGRESS NOTE HEMATOLOGIC DIAGNOSIS: Myelodysplastic syndrome. HISTORY OF PRESENT ILLNESS: The patient is a 76-year-old white female known to our service, taken c are of by Dr. Radha Molina for myelodysplastic syndrome. Her diagnosis was established in September and she is known to have RAEB-1 with a previous bone marrow showing 5% to 10% blasts, good karyoty pe, 30% ring sideroblasts, but has developed progressive pancytopenia and was last seen 01/30/2017 i n our office. She has been on Aranesp therapy without significant improvement in her anemia. She was hospitalized earlier today through the [facility] Emergency Department and i s now being followed up by me as part of her inpatient Hematology/Oncology followup. The patient had red blood cell transfusion last February 06 and was stable until she developed chills without fever on February 07 which gradually worsened. She developed headache, skelet al pain, joint pain, anorexia and chest tightness over the next several days. She had a nonproducti ve cough and wheezing and then came to the hospital with worsening symptomatology Thursday night af ter midnight and was admitted earlier this morning through the emergency department. She was found to have hypoxemia cephalization on chest x-ray and CTA of the chest without evidence for pulmonary e mbolism. She has now been hospitalized on . The patient's acute history is notable as above. She also noted some GI discomfort. Her pulmonary symptoms are new to her. In October, she was h ospitalized for diastolic heart failure. In the emergency department, she had a BNP over 7000. 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 PRIOR SURGICAL HISTORY: Right hip replacement 1997, left total knee, ischemic colitis requiring bow el resection, appendectomy, x2, total abdominal hysterectomy, cholecystectomy. ALLERGIES: Cefuroxime, ciprofloxacin, lactobacillus, sulfa medications. OUTPATIENT MEDICINES: Noted. SOCIAL HISTORY: She is . Has had a radiation exposure as noted above in an occupational set ting. No history of alcohol or tobacco use. PHYSICAL EXAMINATION: GENERAL: This is a pleasant middle-aged white female who looks pale. Has a nasal cannula oxygen in place, but is in no acute distress. HEENT: No facial asymmetry. Sclerae anicteric. Oral mucosa intact. NECK: There is no JVD. No HJR. LUNGS: Goff show crackles at the right lung base. PMI nondisplaced. HEART: Regular rhythm. NECK: No thyroid enlargement or lymphadenopathy. ABDOMEN: Soft without mass, tenderness or HSM. Bowel sounds normal. EXTREMITIES: No peripheral edema. SKIN: Intact. No ecchymoses. No petechiae. LABORATORY REVIEW: Hemoglobin 7.4, platelet count 93. White count 34, potassium 3.4, BUN 19, creat inine 1.4, glucose 154. ALT 89, AST 89. Troponin 0.15. Influenza assay negative. Chest x-ray shows cephalization. CT of the chest shows no pulmonary embolism with cephalization. Echocardiography shows ejection fraction of 68%. IMPRESSION: Acute cardiopulmonary decompensation, possibly related to blood transfusion without porfirio dence of right-sided heart failure, now improving since hospitalization. Started antibiotic therapy and given a single dose of furosemide diuresis. COMMENTS: This patient has been refractory to initial treatment with Aranesp and was being consider ed for other therapies. She has now developed an intervening presentation of hypoxemia, which may b e related to her recent red cell transfusion such as transfusion-associated lung injury. I think th e next 24 hour course will help determine whether this is implicated in her deterioration or otherwi se. Her in-hospital management is noted and appreciated Cardiology input noted. Continue current measures. Monitor vital signs, telemetry, and lab findings. No acute need for tra nsfusion support. Our service will follow during her hospitalization. /[id number]/MODL
--- NOTE | 2017-02-12 14:56 | CPEKG ---
Heart Rate: 81 RR Interval: 741 P-R Interval: 188 QRSD Interval: 102 QT Interval: 436 QTC Interval: 506 P [place]: 63 QRS [place]: 80 T Wave [place]: 183 EKG Severity - ABNORMAL ECG - EKG Impression: SINUS RHYTHM EKG Impression: VENTRICULAR PREMATURE COMPLEX EKG Impression: PROBABLE INFERIOR INFARCT, AGE INDETERMINATE EKG Impression: ABNRM R PROG, CONSIDER ASMI OR LEAD PLACEMENT EKG Impression: ABNORMAL T, CONSIDER ISCHEMIA, ANT-LAT LEADS EKG Impression: BORDERLINE PROLONGED QT INTERVAL EKG Impression: Resolution of left bundle-branch block since November 03, 2016 EKG Impression: Low voltage throughout Electronically Signed By: Zheng Calvillo 12-Feb-2017 14:59:18
--- NOTE | 2017-02-12 15:06 | CPEKG ---
Heart Rate: 86 RR Interval: 698 P-R Interval: 167 QRSD Interval: 170 QT Interval: 436 QTC Interval: 522 P [place]: 57 QRS [place]: -75 T Wave [place]: 80 EKG Severity - ABNORMAL ECG - EKG Impression: SINUS TACHYCARDIA EKG Impression: VENTRICULAR PREMATURE COMPLEX EKG Impression: PROBABLE LEFT ATRIAL ABNORMALITY EKG Impression: NONSPECIFIC IVCD WITH LAD EKG Impression: LEFT VENTRICULAR HYPERTROPHY EKG Impression: More obvious left bundle branch block on November 03, 2016 EKG Impression: Significant artifact interferes with accurate reading. Please consider EKG Impression: repeating. Electronically Signed By: Zheng Calvillo 15-Feb-2017 12:23:02
[2017-02-12] MEDS ORDERED: NITROFURANTOIN MACROBID 100 MG CAP PO PRN (15:26)
[2017-02-12] MEDS ORDERED: CALCIUM CARBONATE 500 MG CHEWABLE TAB PO PRN (15:26)
--- NOTE | 2017-02-12 15:39 | HOSPPROG ---
Hospitalist Progress Note Assessment/Plan: # pulmonary infiltrates - ddx pna vs TRALI vs TACO - I favor TRALI at this point - check resp viral PCR - cont abx for now - hold an additional dose of lasix in setting of elevated SCr # leukocytosis/MDS - unclear if new leukocytosis represents a leukemic transformation # elev trop - appreciate cards eval - likely d/t demand # DNR # lovenox Subjective: less SOB Objective: Vital Signs Temp Pulse Resp BP Pulse Ox 36.7 C 76 16 106/60 92 02/12/17 11:24 02/12/17 11:24 02/12/17 11:24 02/12/17 11:24 02/12/17 11:24 02/11/17 02/12/17 02/13/17 05:59 05:59 05:59 Intake Total 1000 300 Output Total 80 750 Balance 920 -450 PT 18.2 SEC (12.0-15.0) H 02/12/17 02:35 INR 1.51 (0.83-1.16) H 02/12/17 02:35 - Physical Exam Constitutional: no apparent distress, appears nourished Cardiovascular: regular rate and rhythym, no murmur, rub, or gallop Respiratory: no respiratory distress, other (bilat basilar crackles), No expiratory wheeze, No inspiratory crackles Gastrointestinal: normoactive bowel sounds, soft, non-tender abdomen, no palpable masses ICD10 Worksheet Patient Problems: Problems Problem Status Onset CHF (congestive heart failure) Acute Hypoxia Acute Pneumonia Acute Cardiomegaly Acute LBBB (left bundle branch block) Acute Peripheral edema Acute
[2017-02-12] MEDS: ALPRAZolam 0.25 MG TAB PO SCH (16:11)
[2017-02-12] MEDS: NORTRIPTYLINE HCL 50 MG CAP PO SCH (20:23)
[2017-02-12] MEDS: METHENAMINE HIPP 1 GM TAB PO SCH (20:23)
[2017-02-12] MEDS: buPROPion 100 MG TAB PO SCH (20:29)
[2017-02-12] MEDS: ASPIRIN EC 81 MG TAB PO SCH (20:30)
[2017-02-12] MEDS: CALCIUM CARBONATE 500 MG TAB PO SCH (20:35)
[2017-02-12] MEDS ORDERED: FEXOFENADINE HCL PO SCH (21:00)
[2017-02-12] MEDS: guaiFENesin/CODEINE PHOS 10 ML UDCUP PO PRN (22:48)
[2017-02-13 04:37] LABS: LEFT SHIFT FLG 0 (0-99); LIPEMIA HEMOLYSIS FLAG 80 (0-99); PLATELET CLUMPS FLAG 0 (0-99)
[2017-02-13 04:53] LABS: ANION GAP 11 mEq/L (8-16); CALCIUM 7.9 mg/dL (8.5-10.4); CARBON DIOXIDE 21 mEq/l (22-31); CHLORIDE 107 mEq/L (97-110); CREATININE 1.3 mg/dL (0.6-1.0); GLOMERULAR FILTRATION RATE 40; GLUCOSE 127 mg/dL (70-100); POTASSIUM 3.1 mEq/L (3.5-5.2); SODIUM 139 mEq/L (134-144)
[2017-02-13 04:55] LABS: ABSOLUTE NRBC COUNT 0.15 10^3/uL (0-0.01); FRAGMENT RBC FLAG 80 (0-99); HEMATOCRIT 19.5 % (38.0-47.0); MEAN CELL HEMOGLOBIN 36.9 pg (27.9-34.1); MEAN CELL HEMOGLOBIN CONCENTR. 31.8 g/dL (32.4-36.7); MEAN PLATELET VOLUME 12.8 fL (8.7-11.7); NRBC-AUTO% 0.9 % (0.0-0.2); PLATELET COUNT 82 10^3/uL (150-400); RED BLOOD CELL COUNT 1.68 10^6/uL (4.18-5.33)
[2017-02-13 05:11] LABS: ADD DIFF? YES; ADD MORPH? NO; ADD SCAN? NO; ATYPICAL LYMPHOCYTE FLAG 100 (0-99); HEMOGLOBIN 6.2 g/dL (12.6-16.3); MEAN CELL VOLUME 116.1 fL (81.5-99.8); RED CELL DISTRIBUTION WIDTH 26.9 % (11.5-15.2)
[2017-02-13 06:15] LABS: POLYCHROMASIA 1+; SCHISTOCYTES 1+
[2017-02-13 06:16] LABS: ACANTHOCYTES 1+; MACROCYTES 2+
[2017-02-13 06:17] LABS: PLATELET ESTIMATE DECREASED (ADEQ)
[2017-02-13] MEDS: PIPERACILLIN/TAZO 3.375 GM/DEX 50 ML IV SCH ×4 (06:31→23:20)
[2017-02-13] MEDS: LEVOTHYROXINE 125 MCG TAB PO SCH (06:34)
[2017-02-13] MEDS: POTASSIUM CL 20 MEQ TAB PO SCH (08:54)
[2017-02-13] MEDS: ALPRAZolam 0.25 MG TAB PO SCH ×2 (08:55→14:50)
[2017-02-13] MEDS: ASCORBIC ACID 250 MG TAB PO SCH (08:56)
[2017-02-13] MEDS: METHENAMINE HIPP 1 GM TAB PO SCH ×2 (08:56→21:19)
[2017-02-13] MEDS: PANTOPRAZOLE SODIUM 40 MG TAB PO SCH (08:56)
[2017-02-13] MEDS: CETIRIZINE 10 MG TAB PO SCH (08:56)
[2017-02-13] MEDS: buPROPion 100 MG TAB PO SCH ×2 (08:58→21:19)
[2017-02-13] MEDS ORDERED: ALPRAZolam 0.5 MG TAB PO SCH ×2 (09:00→14:00)
[2017-02-13] MEDS: ENOXAPARIN 40 MG/0.4 ML SYR SC SCH (09:11)
[2017-02-13] MEDS ORDERED: FUROSEMIDE 40 MG/4 ML VIAL IVP ONE (12:25)
--- NOTE | 2017-02-13 12:50 | SOAPPROG ---
SOAP Progress Note Assessment/Plan: Assessment: 1. Diastolic dysfunction. 2. Abnormal EKG with intermittent left bundle branch block. Impression: Stable hemodynamics. EKG today shows normal ventricular conduction with T-wave inversions. Her troponins have drifted down. BNP is decreased. Recommendations are for continued medical therapy with clinical follow-up. Plan: 02/13/17 12:47 Subjective: Patient is feeling somewhat better. She is having no symptoms at rest. She is weak with walking. She denies chest pain, PND, orthopnea, palpitations, syncope, near syncope. Objective: Ambulatory Orders Aspirin EC [Aspirin EC 81 mg (*)] 81 mg PO HS 11/03/16 Furosemide [Lasix 40 MG (*)] 60 mg PO DAILY 11/03/16 Levothyroxine [Synthroid 125 mcg (*)] 125 mcg PO DAILY06 11/03/16 Potassium Cl [Klor-Con 20 meq (*)] 40 meq PO DAILY 11/03/16 Lisinopril [Zestril 5 mg (*)] 5 mg PO DAILY PRN 02/12/17 Vital Signs Temp Pulse Resp BP Pulse Ox 36.6 C 87 19 113/66 97 02/13/17 11:47 02/13/17 11:47 02/13/17 11:47 02/13/17 11:47 02/13/17 11:47 Laboratory Results 02/13/17 04:13 02/13/17 04:13 02/12/17 02/13/17 02/14/17 05:59 05:59 05:59 Intake Total 1000 1050 Output Total 80 1650 Balance 920 -600 PT 18.2 SEC (12.0-15.0) H 02/12/17 02:35 INR 1.51 (0.83-1.16) H 02/12/17 02:35 Laboratory Tests 02/12/17 02/12/17 02/12/17 02:35 05:40 12:08 Troponin I 0.151 H 0.141 H 0.067 H NT-Pro-B Natriuret Pep 7310 H 02/12/17 02/13/17 18:45 04:13 Troponin I 0.055 H NT-Pro-B Natriuret Pep 1440 H Physical Exam - Physical Exam General Appearance: alert, no apparent distress Neck: non-tender, full range of motion Respiratory: chest non-tender, lungs clear Cardiac/Chest: normal peripheral pulses, regular rate, rhythm, No edema, No gallop, No JVD ICD10 Worksheet Patient Problems: Problems Problem Status Onset Cardiomegaly Acute Peripheral edema Acute LBBB (left bundle branch block) Acute Hypoxia Acute Pneumonia Acute CHF (congestive heart failure) Acute Review of Systems - Review of Systems Constitutional: denies: chills, fever EENTM: no symptoms reported Respiratory: no symptoms reported Cardiac: no symptoms reported Gastrointestinal/Abdominal: no symptoms reported Genitourinary: no symptoms Musculoskelatal: no symptoms
--- NOTE | 2017-02-13 12:57 | HOSPPROG ---
Hospitalist Progress Note Assessment/Plan: # pulmonary infiltrates - ddx pna vs TRALI vs TACO - I favor TRALI at this point - check resp viral PCR - pending - cont abx for now - hope to stop soon - lasix again today # leukocytosis/MDS - unclear if new leukocytosis represents a leukemic transformation - appreciate onc assistance # anemia - will defer transfusion to heme # diastolic dysfunction # elev trop - appreciate cards eval - likely d/t demand # DNR # lovenox ## chart reviewed (Dr Lopez's note) ECG personally reviewed - precordial TWIs Subjective: has many questions about prognosis, treatments Objective: Vital Signs Temp Pulse Resp BP Pulse Ox 36.6 C 87 19 113/66 97 02/13/17 11:47 02/13/17 11:47 02/13/17 11:47 02/13/17 11:47 02/13/17 11:47 Laboratory Results 02/13/17 04:13 02/13/17 04:13 02/12/17 02/13/17 02/14/17 05:59 05:59 05:59 Intake Total 1000 1050 Output Total 80 1650 Balance 920 -600 PT 18.2 SEC (12.0-15.0) H 02/12/17 02:35 INR 1.51 (0.83-1.16) H 02/12/17 02:35 - Physical Exam Constitutional: no apparent distress, appears nourished Cardiovascular: regular rate and rhythym, no murmur, rub, or gallop Respiratory: no respiratory distress, inspiratory crackles (bilat bases), No reduced air movement, No rhonchi Gastrointestinal: normoactive bowel sounds, soft, non-tender abdomen, no palpable masses ICD10 Worksheet Patient Problems: Problems Problem Status Onset Cardiomegaly Acute Peripheral edema Acute LBBB (left bundle branch block) Acute Hypoxia Acute Pneumonia Acute CHF (congestive heart failure) Acute
[2017-02-13] MEDS ORDERED: ACETAMINOPHEN 325 MG TAB PO ONE (13:16)
[2017-02-13] MEDS ORDERED: ACETAMINOPHEN 500 MG TAB PO PRN (13:18)
--- NOTE | 2017-02-13 13:23 | SOAPPROG ---
SOAP Progress Note Assessment/Plan: Assessment: 1.) MDS- having shown no meaningful response to escalating doses of EPO/ Aranesp in the outpt. setting. With CHF and hypoxemic circumstances possibly related to vol. overload or transfusion reaction - lung injury (TRALI)- though lung injury occurs within 6 hours of transfusion to meet this diagnostic criterion. Nonetheless, with decline to Hgb of 6.2 today, she wants to continue with medical care and discontinuation of transfusion support would lead to end of life situation very rapidly. Therefore, as discussed with the patient at length, will transfuse 2 U PRBCs tomorrow AM with std. premeds and will add IV methylprednisolone prior to transfusion. Will check LDH and serum haptoglobin to evaluate for hemolysis prior to transfusion tomorrow. Plan: 1.) See above discussion. 2.) Transfuse 2 U PRBCs tomorrow with premeds + steroids. 3.) Contiune diuresis, monitoring and supportive measures. 4.) Possibly home if stable in next 48-72 hours. Pt agreeable as described here. 02/13/17 13:23 Subjective: Feeling better with inpt. care, no new sx. Denies sx. of GI or blood loss Objective: Pale, alert, talkative, in NAD. HEENT- anicteric, no oral lesions Neck - supple Chest- bibasilar crackles CVS- distant HS, RR, no S3, S4 ABD- soft, NT, BS+, no mass or HSM EXT- warm, well perfused Labs- note Hgb down to 6.2 PLT 82, WBC down to 17.2 BUN/Cr 25/1.3, K3.1 Vital Signs Temp Pulse Resp BP Pulse Ox 36.6 C 87 19 113/66 97 02/13/17 11:47 02/13/17 11:47 02/13/17 11:47 02/13/17 11:47 02/13/17 11:47 Laboratory Results 02/13/17 04:13 02/13/17 04:13 02/12/17 02/13/17 02/14/17 05:59 05:59 05:59 Intake Total 1000 1050 Output Total 80 1650 Balance 920 -600 PT 18.2 SEC (12.0-15.0) H 02/12/17 02:35 INR 1.51 (0.83-1.16) H 02/12/17 02:35 ICD10 Worksheet Patient Problems: Problems Problem Status Onset CHF (congestive heart failure) Acute Hypoxia Acute Pneumonia Acute Cardiomegaly Acute LBBB (left bundle branch block) Acute Peripheral edema Acute
[2017-02-13 16:22] LABS: RESPPCR RESULT SEE COMMENTS
[2017-02-13] MEDS: ASPIRIN EC 81 MG TAB PO SCH (21:18)
[2017-02-13] MEDS: NORTRIPTYLINE HCL 50 MG CAP PO SCH (21:19)
[2017-02-13] MEDS: CALCIUM CARBONATE 500 MG TAB PO SCH (21:19)
[2017-02-13] MEDS: guaiFENesin/CODEINE PHOS 10 ML UDCUP PO PRN (21:26)
[2017-02-14] MEDS: PIPERACILLIN/TAZO 3.375 GM/DEX 50 ML IV SCH ×2 (05:20→11:59)
[2017-02-14] MEDS: LEVOTHYROXINE 125 MCG TAB PO SCH (05:20)
[2017-02-14 05:26] LABS: ANION GAP 9 mEq/L (8-16); CALCIUM 8.2 mg/dL (8.5-10.4); CARBON DIOXIDE 24 mEq/l (22-31); CHLORIDE 108 mEq/L (97-110); CREATININE 1.3 mg/dL (0.6-1.0); GLOMERULAR FILTRATION RATE 40; GLUCOSE 110 mg/dL (70-100); LACTATE DEHYDROGENASE 652 IU/L (313-618); POTASSIUM 3.2 mEq/L (3.5-5.2); SODIUM 141 mEq/L (134-144)
[2017-02-14] MEDS ORDERED: ACETAMINOPHEN 325 MG TAB PO ONE (07:00)
[2017-02-14] MEDS ORDERED: D5W IV SCH (09:00)
[2017-02-14] MEDS ORDERED: METHYLPREDNISOLONE SOD SUCC IV SCH (09:00)
[2017-02-14] MEDS: methylPREDNISolone SOD SUCC 125 MG/2 ML VIAL IVP SCH (09:16)
[2017-02-14] MEDS: ENOXAPARIN 40 MG/0.4 ML SYR SC SCH (09:19)
[2017-02-14] MEDS: PANTOPRAZOLE SODIUM 40 MG TAB PO SCH (09:26)
[2017-02-14] MEDS: POLYETHYLENE GLYCOL 3350 17 GM PKT PO PRN (09:35)
[2017-02-14] MEDS: METHENAMINE HIPP 1 GM TAB PO SCH ×2 (09:35→20:52)
[2017-02-14] MEDS: ALPRAZolam 0.25 MG TAB PO SCH ×2 (09:39→14:06)
[2017-02-14] MEDS: CETIRIZINE 10 MG TAB PO SCH (09:40)
[2017-02-14] MEDS: buPROPion 100 MG TAB PO SCH ×2 (09:40→20:51)
[2017-02-14] MEDS: POTASSIUM CL 20 MEQ TAB PO SCH (09:40)
[2017-02-14] MEDS: ASCORBIC ACID 250 MG TAB PO SCH (09:42)
[2017-02-14] MEDS: FUROSEMIDE 40 MG/4 ML VIAL IVP SCH ×2 (12:00→16:47)
--- NOTE | 2017-02-14 12:46 | HOSPPROG ---
Hospitalist Progress Note Assessment/Plan: # pulmonary infiltrates - ddx pna vs TRALI vs TACO - I favor TACO at this point - taper abx to augmentin - cont lasix # leukocytosis/MDS - unclear if new leukocytosis represents a leukemic transformation - appreciate onc assistance # anemia - transfusing 2U PRBC today, lasix 40 iv between each unit - positive TAZ - possible component of hemolysis # diastolic dysfunction # elev trop - appreciate cards eval - likely d/t demand # DNR # lovenox ## moderate risk getting repeat transfusion Subjective: nervious about getting a transfusion today Objective: Vital Signs Temp Pulse Resp BP Pulse Ox 36.8 C 80 19 109/62 96 02/14/17 08:00 02/14/17 08:00 02/14/17 08:00 02/14/17 08:00 02/14/17 08:00 Microbiology 02/12/17 05:15 Urine Culture - Final Urine,Clean Catch Gram Neg 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 Laboratory Results 02/13/17 04:13 02/14/17 04:43 02/13/17 02/14/17 02/15/17 05:59 05:59 05:59 Intake Total 1050 620 Output Total 1650 3400 Balance -600 -2780 PT 18.2 SEC (12.0-15.0) H 02/12/17 02:35 INR 1.51 (0.83-1.16) H 02/12/17 02:35 - Physical Exam Constitutional: no apparent distress, appears nourished Cardiovascular: regular rate and rhythym, no murmur, rub, or gallop Respiratory: no respiratory distress, inspiratory crackles (bilat basilar), No expiratory wheeze, No rhonchi Gastrointestinal: normoactive bowel sounds, soft, non-tender abdomen, no palpable masses ICD10 Worksheet Patient Problems: Problems Problem Status Onset Cardiomegaly Acute Peripheral edema Acute LBBB (left bundle branch block) Acute Hypoxia Acute Pneumonia Acute CHF (congestive heart failure) Acute
[2017-02-14] MEDS: BENEFIBER/NUTRISOURCE FIBER PKT 1 EACH PO SCH ×2 (13:52→20:51)
--- NOTE | 2017-02-14 15:30 | SOAPPROG ---
SOAP Progress Note Assessment/Plan: Assessment: 1.) MDS- having shown no meaningful response to escalating doses of EPO/ Aranesp in the outpt. setting. Her WBC is down to 17k, but she does have 8% blasts today. In view of her increasing transfusion requirement the question is whether or not she has had a transformation into an acute leukemia. Depending on the results of her bone marrow biopsy (I'll arrange as an outpatient this week), we discussed Rx with Vidaza vs. best supportive care vs. induction. 2.) Severe symptomatic anemia with pulmonary infiltrates - TACO vs TRALI. She is getting 2 units of PRBC today with aggressive diuresis. Plan: 1.) See above discussion. 2.) Transfuse 2 U PRBCs today with premeds + steroids. 3.) Contiune diuresis, monitoring and supportive measures. I spent approximately 40 minutes at the bedside with the patient and family discussing the above issues and in coordination of care. Subjective: Biggest complaint is L hip pain (not new) and fatigue. She is worried about her bone marrow and underlying change in her disease process as well as the possibility of transformation into acute leukemia. She would like to have her bone marrow biopsy done LILIAN next week so that she can evaluate her options for care going forward. 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
[2017-02-14] MEDS: ASPIRIN EC 81 MG TAB PO SCH (20:51)
[2017-02-14] MEDS: NORTRIPTYLINE HCL 50 MG CAP PO SCH (20:51)
[2017-02-14] MEDS: CALCIUM CARBONATE 500 MG TAB PO SCH (20:51)
[2017-02-14] MEDS: AMOXICILLIN/CLAVULANATE POT 875/125 MG TAB PO SCH (20:51)
[2017-02-15 04:50] LABS: ADD DIFF? YES; ATYPICAL LYMPHOCYTE FLAG 0 (0-99); FRAGMENT RBC FLAG 40 (0-99); HEMATOCRIT 28.5 % (38.0-47.0); HEMOGLOBIN 9.6 g/dL (12.6-16.3); LEFT SHIFT FLG 50 (0-99); LIPEMIA HEMOLYSIS FLAG 80 (0-99); MEAN CELL HEMOGLOBIN CONCENTR. 33.7 g/dL (32.4-36.7); MEAN CELL VOLUME 106.7 fL (81.5-99.8); MEAN PLATELET VOLUME 11.2 fL (8.7-11.7); NRBC-AUTO% 0.9 % (0.0-0.2); PLATELET CLUMPS FLAG 0 (0-99); PLATELET COUNT 82 10^3/uL (150-400); RED BLOOD CELL COUNT 2.67 10^6/uL (4.18-5.33)
[2017-02-15 04:53] LABS: RED CELL DISTRIBUTION WIDTH 25.2 % (11.5-15.2)
[2017-02-15 04:57] LABS: ADD MORPH? NO; ADD SCAN? NO
[2017-02-15 05:03] LABS: ANION GAP 10 mEq/L (8-16); CALCIUM 8.5 mg/dL (8.5-10.4); CARBON DIOXIDE 29 mEq/l (22-31); CHLORIDE 104 mEq/L (97-110); CREATININE 1.2 mg/dL (0.6-1.0); GLOMERULAR FILTRATION RATE 44; GLUCOSE 127 mg/dL (70-100); POTASSIUM 3.3 mEq/L (3.5-5.2); SODIUM 143 mEq/L (134-144)
[2017-02-15] MEDS: LEVOTHYROXINE 125 MCG TAB PO SCH (06:04)
[2017-02-15 06:11] LABS: POLYCHROMASIA 1+
[2017-02-15 06:12] LABS: PLATELET ESTIMATE DECREASED (ADEQ); SCHISTOCYTES 1+; TOXIC VACUOLIZATION PRESENT
[2017-02-15 06:13] LABS: ACANTHOCYTES 1+; MACROCYTES 1+
[2017-02-15] MEDS: ALPRAZolam 0.25 MG TAB PO SCH ×2 (08:26→15:03)
[2017-02-15] MEDS: AMOXICILLIN/CLAVULANATE POT 875/125 MG TAB PO SCH ×2 (08:27→22:12)
[2017-02-15] MEDS: METHENAMINE HIPP 1 GM TAB PO SCH ×2 (08:27→22:12)
[2017-02-15] MEDS: buPROPion 100 MG TAB PO SCH ×2 (08:28→22:12)
[2017-02-15] MEDS: PANTOPRAZOLE SODIUM 40 MG TAB PO SCH (08:28)
[2017-02-15] MEDS: POTASSIUM CL 20 MEQ TAB PO SCH (08:28)
[2017-02-15] MEDS: CETIRIZINE 10 MG TAB PO SCH (08:28)
[2017-02-15] MEDS: BENEFIBER/NUTRISOURCE FIBER PKT 1 EACH PO SCH ×2 (08:30→22:24)
[2017-02-15] MEDS: FUROSEMIDE 40 MG/4 ML VIAL IVP SCH ×2 (08:30→15:03)
[2017-02-15] MEDS: ASCORBIC ACID 250 MG TAB PO SCH (08:31)
[2017-02-15] MEDS: methylPREDNISolone SOD SUCC 125 MG/2 ML VIAL IVP SCH (08:32)
[2017-02-15] MEDS: ENOXAPARIN 40 MG/0.4 ML SYR SC SCH (08:32)
[2017-02-15] MEDS: POLYETHYLENE GLYCOL 3350 17 GM PKT PO PRN (08:44)
--- NOTE | 2017-02-15 11:43 | SOAPPROG ---
SOAP Progress Note Assessment/Plan: Assessment: 1.) MDS- having shown no meaningful response to escalating doses of EPO/ Aranesp in the outpt. setting. Her WBC is up to 45K with 12% blasts. I suspect she is transforming into an acute leukemia. I think it is OK to discharge her today. I am arranging for a bone marrow biopsy in the office tomorrow 02/16/2017. She has a history of radiation and benzene exposure. 2.) She tolerated her 2 units of PRBC yesterday with aggressive diuresis. Her pulmonary infiltrates are better today. I suspect she had TACO and not TRALI. Plan: 1.) See above discussion. 2.) d/c to home with plans to be seen in the office for a bmbx on 02/16/2017 3.) Contiune diuresis, monitoring and supportive measures. Subjective: She feels much better today. She feels stronger. L hip feels stronger. 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 Laboratory Results 02/15/17 04:09 02/15/17 04:09 02/13/17 02/14/17 02/15/17 23:59 23:59 23:59 Intake Total 360 2110 400 Output Total 3200 4450 200 Balance -2840 -2340 200 PT 18.2 SEC (12.0-15.0) H 02/12/17 02:35 INR 1.51 (0.83-1.16) H 02/12/17 02:35 Physical Exam - Physical Exam General Appearance: alert, no apparent distress Respiratory: No rales Cardiac/Chest: regular rate, rhythm Abdomen: normal bowel sounds Skin: pallor (but better than yesterday) Neuro/Psych: normal mood/affect, oriented x 3 ICD10 Worksheet Patient Problems: Problems Problem Status Onset CHF (congestive heart failure) Acute Hypoxia Acute Pneumonia Acute Cardiomegaly Acute LBBB (left bundle branch block) Acute Peripheral edema Acute
--- NOTE | 2017-02-15 15:50 | HOSPPROG ---
Hospitalist Progress Note Assessment/Plan: # pulmonary infiltrates - ddx pna vs TRALI vs TACO - I favor TACO at this point - taper abx to augmentin - will dc soon - cont lasix 40 iv bid # hypoxia - continues d/t pulm edema # leukocytosis/MDS - unclear if new leukocytosis represents a leukemic transformation - planning BMBx as outpatient # anemia - better after transfusion - she has a warm auto agglutinin on TAZ testing # diastolic dysfunction # elev trop - appreciate cards eval - likely d/t demand # DNR # lovenox ## CXR personally reviewed chart reviewed including Dr Jones's note Subjective: slightly less SOB today; Objective: Vital Signs Temp Pulse Resp BP Pulse Ox 36.6 C 84 18 106/59 L 95 02/15/17 12:00 02/15/17 12:00 02/15/17 12:00 02/15/17 12:00 02/15/17 12:00 Microbiology 02/12/17 05:15 Urine Culture - Final Urine,Clean Catch Gram Neg 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 Laboratory Results 02/15/17 04:09 02/15/17 04:09 02/14/17 02/15/17 02/16/17 05:59 05:59 05:59 Intake Total 620 1950 500 Output Total 3400 4350 800 Balance -2780 -2400 -300 PT 18.2 SEC (12.0-15.0) H 02/12/17 02:35 INR 1.51 (0.83-1.16) H 02/12/17 02:35 - Physical Exam Constitutional: no apparent distress, appears nourished Cardiovascular: regular rate and rhythym, no murmur, rub, or gallop, systolic murmur Respiratory: no respiratory distress, no rales or rhonchi, clear to auscultation Gastrointestinal: normoactive bowel sounds, soft, non-tender abdomen, no palpable masses ICD10 Worksheet Patient Problems: Problems Problem Status Onset Cardiomegaly Acute Peripheral edema Acute LBBB (left bundle branch block) Acute Hypoxia Acute Pneumonia Acute CHF (congestive heart failure) Acute
[2017-02-15] MEDS: NORTRIPTYLINE HCL 50 MG CAP PO SCH (22:11)
[2017-02-15] MEDS: CALCIUM CARBONATE 500 MG TAB PO SCH (22:12)
[2017-02-15] MEDS: ASPIRIN EC 81 MG TAB PO SCH (22:18)
[2017-02-16 04:50] LABS: ANION GAP 9 mEq/L (8-16); CALCIUM 8.6 mg/dL (8.5-10.4); CARBON DIOXIDE 29 mEq/l (22-31); CHLORIDE 104 mEq/L (97-110); CREATININE 1.1 mg/dL (0.6-1.0); GLOMERULAR FILTRATION RATE 49; GLUCOSE 126 mg/dL (70-100); SODIUM 142 mEq/L (134-144)
[2017-02-16] MEDS: LEVOTHYROXINE 125 MCG TAB PO SCH (05:43)
[2017-02-16] MEDS: CETIRIZINE 10 MG TAB PO SCH (09:24)
[2017-02-16] MEDS: ENOXAPARIN 40 MG/0.4 ML SYR SC SCH (09:24)
[2017-02-16] MEDS: AMOXICILLIN/CLAVULANATE POT 875/125 MG TAB PO SCH (09:24)
[2017-02-16] MEDS: FUROSEMIDE 40 MG/4 ML VIAL IVP SCH ×2 (09:24→14:20)
[2017-02-16] MEDS: PANTOPRAZOLE SODIUM 40 MG TAB PO SCH (09:24)
[2017-02-16] MEDS: buPROPion 100 MG TAB PO SCH (09:25)
[2017-02-16] MEDS: METHENAMINE HIPP 1 GM TAB PO SCH (09:25)
[2017-02-16] MEDS: ASCORBIC ACID 250 MG TAB PO SCH (09:27)
[2017-02-16] MEDS: POTASSIUM CL 20 MEQ TAB PO SCH (09:27)
[2017-02-16] MEDS: ALPRAZolam 0.25 MG TAB PO SCH ×2 (09:27→14:11)
[2017-02-16] MEDS: BENEFIBER/NUTRISOURCE FIBER PKT 1 EACH PO SCH ×2 (09:29→09:36)
[2017-02-16 12:56] VITALS: BP 124/71; PULSE 127; RESP 21; TEMP 97.7; O2SAT 92
[2017-02-16] MEDS ORDERED: POTASSIUM CL 20 MEQ TAB PO ONE (14:51)
--- NOTE | 2017-02-16 16:45 | SOAPPROG ---
SOAP Progress Note Assessment/Plan: Assessment: Myelodysplastic syndrome, concern re: transformation to acute leukemia. Plan: - d/c to home today - BMBx this Thursday in clinic - will make additional Rx plans based on those results 02/16/17 16:44 Subjective: feeling better today. ready to go home. Objective: exam: Gen NAD Lungs CTAB CV RRR no MGR Abd: +BS NT ND Ext: 1+ edema Vital Signs Temp Pulse Resp BP Pulse Ox 36.5 C 127 H 21 H 124/71 H 92 02/16/17 12:00 02/16/17 12:00 02/16/17 12:00 02/16/17 12:00 02/16/17 12:00 Laboratory Results 02/15/17 04:09 02/16/17 04:12 02/15/17 02/16/17 02/17/17 05:59 05:59 05:59 Intake Total 1950 2175 Output Total 4350 1600 600 Balance -2400 575 -600 PT 18.2 SEC (12.0-15.0) H 02/12/17 02:35 INR 1.51 (0.83-1.16) H 02/12/17 02:35 ICD10 Worksheet Patient Problems: Problems Problem Status Onset CHF (congestive heart failure) Acute Hypoxia Acute Pneumonia Acute Cardiomegaly Acute LBBB (left bundle branch block) Acute Peripheral edema Acute
--- NOTE | 2017-02-16 19:37 | GDS ---
[f rep st] DISCHARGE SUMMARY DIAGNOSES: 1. Pulmonary infiltrates suspected likely due to TACO (transfusion-associated circulatory overload) . 2. Hypoxia. 3. Leukocytosis and myelodysplastic syndrome. 4. Anemia. 5. Diastolic dysfunction. 6. Mildly elevated troponin. HOSPITAL COURSE: A 76-year-old female who is admitted with shortness of breath. It started a few d ays before her presentation, notably the evening after she had gotten her 1st blood transfusion for MDS. Chest x-ray showed bilateral diffuse pulmonary infiltrates. She was initially treated for pneum onia as well as diuresed. Given clinical course, cardiopulmonary overload is much more likely. On the day of discharge, she is ambulating without oxygen, maintaining her saturations above 92%. Jordy espinoza had previously been taking 60 mg of furosemide at home due to some diastolic dysfunction and volum e overload. She had been getting 40 mg IV b.i.d. here. I will give her 40 mg p.o. b.i.d. as well as increasing her home potassium for the time being. She is scheduled to get labs, including chemistrie s, 4 days after discharge. She may be able to go back down to her previous home dose of furosemide a nd potassium at that point. I have discussed this with her as well as Dr. Lara. For her MDS, notably her leukocytosis has gotten significantly worse. There is some concern that thi s may represent a leukemic transformation. She will get a bone marrow biopsy 4 days after discharge as well. BILLING: I spent more than 30 minutes on the day of discharge coordinating care. /[id number]/MODL
== END 2017-02-16 17:31 | disposition home or self-care (01) | DRG 641 ==
LOC: F2W 05:01
PROVIDERS: ADMIT Internal Medicine; ATTEND Internal Medicine
PROC: 30233N1 Transfusion of Nonautologous Red Blood Cells into Peripheral Vein, Percutaneous Approach (ICD-10-PCS; principal; 2017-02-14)
DX: E87.71 Transfusion associated circulatory overload (principal); R09.02 Hypoxemia; D46.9 Myelodysplastic syndrome, unspecified; I11.0 Hypertensive heart disease with heart failure; I50.32 Chronic diastolic (congestive) heart failure; E03.9 Hypothyroidism, unspecified; Z96.652 Presence of left artificial knee joint; Z96.641 Presence of right artificial hip joint
CPT/HCPCS: 83010-90; 86860-90; 86870-90; 86905-90; 86922-90; 97110-GP; 97116-GP; 97161-GP; 99001-90; G8978-GP-CK; G8979-GP-CJ; G8981-GP-CJ; J1200; J1650; J2543; J2930; J3370; P9016; Q9967

== ENCOUNTER 2017-02-24 14:42 | Inpatient (IN) | payer OTHER, MEDICARE ==
[2017-02-24] MEDS ORDERED: ONDANSETRON 4 MG/2 ML VIAL IVP PRN (15:57)
[2017-02-24] MEDS ORDERED: oxyCODONE IR 5 MG TAB PO PRN (15:57)
[2017-02-24] MEDS ORDERED: ALLOPURINOL 100 MG TAB PO SCH (16:00)
--- NOTE | 2017-02-24 16:38 | CPEKG ---
Heart Rate: 88 RR Interval: 682 P-R Interval: 208 QRSD Interval: 164 QT Interval: 424 QTC Interval: 513 P [place]: 70 QRS [place]: -56 T Wave [place]: 89 EKG Severity - ABNORMAL ECG - EKG Impression: SINUS RHYTHM EKG Impression: IVCD, CONSIDER ATYPICAL LBBB EKG Impression: LBBB PATTERN HAS RETURNED IN COMPARISON TO PRIOR ECG FINDINGS Electronically Signed By: Sekou Mackenzie 26-Feb-2017 00:46:35
--- NOTE | 2017-02-24 16:59 | GHP ---
[f rep st] HISTORY AND PHYSICAL DATE OF ADMISSION: 02/24/2017 CHIEF COMPLAINT: Renal failure. 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 She was just discharged by me 8 days ago. On a previous hospitalization, she had what I think is likely TACO due to a transfusion. She has known diastolic dysfunction. She was diuresed as an inpatient eventually received another transfusion which was fol lowed with Lasix without a significant reaction. She was discharged home on Lasix. She also takes lisinopril but no NSAIDs. She presented to see Dr. De Anda with Oncology today for a followup. Labs today are notable for a creatinine of 2.1 with a uric acid of 13.2. Her white count is notably 121, 000. She has 16% blasts seen and 63% monocytes. Her platelets are 69. She tells me that her breathing has felt good since discharge. She has not been terribly short of b reath though she has taken her pulse ox regularly and notes that it is usually around 90% or 91%, so metimes will drop lower. Her urine recently has been less productive and it has been cloudy. She d oes not have any dysuria. PAST MEDICAL/SURGICAL HISTORY: 1. MDS/AML as above. 2. Hypothyroid. 3. Diastolic CHF. 4. Attention deficit disorder. 5. History of ischemic colitis. 6. Lumpectomy. 7. Cholecystectomy. 8. Right hip replacement. 9. Left TKA. 10. Bowel resection for ischemic bowel. 11. Appendectomy. MEDICATIONS: Please see medication reconciliation. ALLERGIES: She has multiple allergies including cefuroxime, cephalosporin, ciprofloxacin, levofloxa jacques, pantethine and sulfa, lactobacillus, other probiotics and acidophilus. FAMILY HISTORY: No AML or MDS. SOCIAL HISTORY: She is . She lives with her . She never smoked. She does not use a lcohol or any other drugs. REVIEW OF SYSTEMS: Ten-point review of systems is conducted and is negative except per HPI. PHYSICAL EXAM: VITAL SIGNS: Blood pressure 115/64, heart rate 94, respiration rate 16, saturating 91% on room air, temperature is 36.9. GENERAL: The patient is a pleasant female who is resting com fortably in bed. Otherwise, in no acute distress. HEENT: Shows her to be normocephalic, atraumati c. CARDIOVASCULAR: Shows a 2/6 crescendo-decrescendo murmur heard best at the left upper sternal b order. PULMONARY: Shows rales in the right base with very mild rales in the left base. She is not in any respiratory distress. LUNGS: Otherwise clear. ABDOMEN: Soft, nontender, nondistended. S KIN: Shows no rash. : No [place]. NEUROLOGIC: Shows her to be alert and oriented x3. She is mo ving all extremities. PSYCHIATRIC: Shows normal mood and affect. EXTREMITIES: Shows left lower e xtremity with 1+ pitting edema. Right lower extremity with trace pitting edema. LABS: White count 121,000, uric acid 13, creatinine 2.1, BUN 33, LDH is 1437. DATA: 1. I reviewed her chart. 2. I discussed this with Dr. De Anda. We will admit to med/surg for renal failure. IMPRESSION/PLAN: A 76-year-old female with myelodysplastic syndrome/AML who presents with new renal failure. 1. Renal failure: Suspect that this is likely due to tumor lysis syndrome in the setting of a whit e count of 120,000 with 16% blasts. She is also occasionally taking lisinopril, has been on Lasix. We will treat her with rasburicase, dose per Oncology, and allopurinol. We will also give her gent le hydration knowing that she was volume overloaded as recently as 1 week ago. She will notify us i f she gets short of breath at all. I have checked urine electrolytes as well as a urinalysis. If c reatinine is not improved tomorrow, would involve Renal. 2. Myelodysplastic syndrome/AML: She is quite concerned about starting treatment as soon as possib le. Per Dr. De Anda's recommendation, I have written her to get Hydrea, dose per Oncology, at [address] Desai is aware of her admission. 3. Diastolic dysfunction, currently no signs of volume overload: We will check a chest x-ray now a nd tomorrow morning. We will get a BNP. We will follow daily weights and I's and O's. We will megha ch closely for signs of pulmonary edema and place her on a pulse ox. 4. Attention deficit disorder: Continue her Ritalin. 5. Hypothyroid: Continue her Synthroid. /[id number]/MODL
[2017-02-24] MEDS ORDERED: RASBURICASE 3 MG in NS 50 ML IV ONE (17:00)
[2017-02-24] MEDS ORDERED: NITROFURANTOIN MACROBID 100 MG CAP PO PRN (17:28)
[2017-02-24] MEDS ORDERED: NON-FORMULARY NEW DRUG (Ondansetron [Zofran Odt] 8 MG) PO SCH (17:30)
--- NOTE | 2017-02-24 17:44 | GCON ---
[f rep st] CONSULTATION ONCOLOGY INITIAL VISIT PRIMARY ONCOLOGIST: Dr. Molina or Dr. Jones. REASON FOR VISIT: Elevated creatinine and hyperuricemia. HISTORY OF PRESENT ILLNESS: The patient is a 76-year-old woman with myelodysplastic syndrome. A pr evious bone marrow on September 2016 showed good karyotype, 5-10% blasts and 30% ring sideroblasts. However, since the beginning of the year she has had progressive pancytopenia and she had been tried on Aranesp without significant improvement. On Thursday, she underwent a bone marrow biopsy and at t he time her white count had jumped up to 126,000. Previously, in the end of January, it was 13,000. Hemoglobin was 9.9 g/dL and platelet count was 87,000. She was back in to see Dr. De Anda today to re view the bone marrow biopsy, which revealed acute myelogenous leukemia with myelodysplasia, 38% jhon ts and blast equivalents, 85% cellularity with multilineage dyspoiesis and cytogenetics are still pe nding. She was otherwise doing well and was going to go home with some hydroxyurea because she has had a little bit of dyspnea and increased fatigue. However, when her labs returned, her creatinine had jumped up to 2.1 from 1 and her uric acid had jumped up to 13.2. Dr. De Anda recommended admissio n to the hospital to help get her situation under better control with the plan of perhaps starting t reatment next week. ALLERGIES: She is allergic to cefuroxime, ciprofloxacin, lactobacillus and sulfa. HOME MEDICATIONS: Include vitamin C, Zofran, Ritalin, nortriptyline, multivitamin, Lasix, fexofenad ine, bupropion, calcium carbonate, aspirin, alprazolam, potassium, B complex, pantoprazole, nitrofur antoin, lisinopril and Synthroid. 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 Hwang. SURGICAL HISTORY: Includes right hip replacement in 1998, left knee replacement, ischemic colitis r equiring bowel resection, appendectomy, , abdominal hysterectomy and cholecystectomy. SOCIAL HISTORY: She is . Denies tobacco or alcohol use. FAMILY HISTORY: Her mother and aunts had pernicious anemia. Mother of lung cancer. She was a smoker. Father of liver cancer. REVIEW OF SYSTEMS: Ten-point review is performed, pertinent positives in HPI otherwise negative. PHYSICAL EXAMINATION: VITAL SIGNS: Temperature is 36.9, pulse is 94, blood pressure is 115/64, sat urating 91% on room air. GENERAL: She is mildly pale but in no distress. HEENT: Sclerae are cirilo cteric. Her oral mucosa does have some small petechiae. LUNGS: Clear without wheezing. CARDIAC: Regular with soft systolic murmur. ABDOMEN: Soft. She is tender in the left upper quadrant and s he has a palpable spleen tip. NODE: Reveals no peripheral lymphadenopathy. NEUROLOGIC: Grossly i ntact. LABS: Today, her white count was 121,000 with 7000 neutrophils. Previous flow showed that she has had about 30% blasts peripheral blood. Hemoglobin was 8.9, platelet count 69,000. BUN and creatini ne were 33 and 2.1. Her other chemistries were okay except for LDH was elevated at 1400 and uric ac id was 13.2. IMPRESSION: 1. 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 2. Hyperuricemia. 3. Elevated creatinine. 4. Worsening pancytopenia. 5. Congestive heart failure. PLAN: Admit her to the hospital and gently hydrate her. We will have to watch carefully with her h istory of CHF. In the meantime, we will bring her uric acid down with rasburicase. I will start wi th just 3 mg and we will reassess. We will also start her on 300 mg twice daily of allopurinol. We will also start on hydroxyurea 1 g q.8 hours and need to watch her other blood counts closely as sh e may start needing to have transfusion support. The plan is if we can reverse the acute kidney dys function she might be able to go home in a couple days and then start new chemotherapy on Thursday. /[id number]/MODL
[2017-02-24 18:30] LABS: COLOR YELLOW; LEUKOCYTE ESTERASE,URINE NEGATIVE (NEGATIVE); NITRITE,URINE NEGATIVE (NEGATIVE)
[2017-02-24 18:44] LABS: GRANULAR CASTS 25-50 /lpf (0-1); MUCUS TRACE /lpf (NONE-1+)
[2017-02-24] MEDS ORDERED: FEXOFENADINE HCL PO SCH (21:00)
[2017-02-24] MEDS: ONDANSETRON DISINTEGRATING 4 MG TAB PO SCH (21:05)
[2017-02-24] MEDS: METHENAMINE HIPP 1 GM TAB PO SCH (21:17)
[2017-02-24] MEDS: NORTRIPTYLINE HCL 50 MG CAP PO SCH (21:21)
[2017-02-24] MEDS: HYDROXYUREA 500 MG CAP PO SCH (21:21)
[2017-02-24] MEDS: ALLOPURINOL 300 MG TAB PO SCH (21:22)
[2017-02-24] MEDS ORDERED: NORTRIPTYLINE HCL 50 MG CAP PO ONE (21:30)
[2017-02-24] MEDS: buPROPion 100 MG TAB PO SCH (21:41)
[2017-02-24] MEDS: NS 1,000 ML IV SCH (21:54)
[2017-02-25] MEDS: ONDANSETRON DISINTEGRATING 4 MG TAB PO SCH ×3 (01:40→18:27)
[2017-02-25 05:14] LABS: ABSOLUTE NRBC COUNT 0.17 10^3/uL (0-0.01); ADD DIFF? YES; ATYPICAL LYMPHOCYTE FLAG 0 (0-99); FRAGMENT RBC FLAG 60 (0-99); HEMATOCRIT 24.4 % (38.0-47.0); HEMOGLOBIN 7.6 g/dL (12.6-16.3); LEFT SHIFT FLG 50 (0-99); LIPEMIA HEMOLYSIS FLAG 80 (0-99); MEAN CELL HEMOGLOBIN 34.5 pg (27.9-34.1); MEAN CELL HEMOGLOBIN CONCENTR. 31.1 g/dL (32.4-36.7); MEAN CELL VOLUME 110.9 fL (81.5-99.8); MEAN PLATELET VOLUME 9.7 fL (8.7-11.7); NRBC-AUTO% 0.2 % (0.0-0.2); PLATELET CLUMPS FLAG 10 (0-99); PLATELET COUNT 53 10^3/uL (150-400)
[2017-02-25 05:19] LABS: ADD MORPH? NO; RED CELL DISTRIBUTION WIDTH 23.2 % (11.5-15.2)
[2017-02-25 05:21] LABS: ADD SCAN? NO
[2017-02-25 05:30] LABS: ALANINE AMINOTRANSFERASE 39 IU/L (9-52); ALBUMIN 3.1 g/dL (3.5-5.0); ALKALINE PHOSPHATASE 68 IU/L (38-126); ANION GAP 7 mEq/L (8-16); ASPARTATE AMINOTRANSFERASE 27 IU/L (14-46); BILIRUBIN,TOTAL 0.4 mg/dL (0.1-1.4); CALCIUM 8.8 mg/dL (8.5-10.4); CARBON DIOXIDE 24 mEq/l (22-31); CHLORIDE 107 mEq/L (97-110); GLOMERULAR FILTRATION RATE 24; GLUCOSE 110 mg/dL (70-100); LACTATE DEHYDROGENASE 1072 IU/L (313-618); POTASSIUM 3.9 mEq/L (3.5-5.2); SODIUM 138 mEq/L (134-144); TOTAL PROTEIN 5.6 g/dL (6.3-8.2); URIC ACID 7.1 mg/dL (2.5-6.8)
[2017-02-25 05:57] LABS: ACANTHOCYTES 1+; MACROCYTES 1+; MICROCYTES 1+; POLYCHROMASIA 1+
[2017-02-25 05:58] LABS: PLATELET ESTIMATE DECREASED (ADEQ); SCHISTOCYTES 1+
[2017-02-25] MEDS: HYDROXYUREA 500 MG CAP PO SCH ×3 (06:02→20:41)
[2017-02-25] MEDS: LEVOTHYROXINE 125 MCG TAB PO SCH (06:02)
--- NOTE | 2017-02-25 10:18 | HOSPPROG ---
Hospitalist Progress Note Assessment/Plan: # ALETHEA -concerning for failure 2/2 Tumor lysis syndrome -baseline creatinine 1.0 - 2.0 in clinic with WBC 120 and uric acid of 13 creatinine remains 2.0 this am after IVF and rasburicase EKG (personally reviewed and interpreted) sinus LBBB no acute changes- potassium 3.9 - s/p rasburicase (uric acid 7.o this am) - cont IVF - consulting nephrology # AML - WBC count 120 this am - hydroxyurea/rasburicase/allopurinol started overnight working to stabilize renal function for outpatient treatment after discharge - oncology following # chronic diastolic heart failure- patient with recent hospitalization for volume overload- oxygen saturations 98% on 2 L chest x-ray( personally reviewed and interpreted) without pulmonary edema - careful hydration - monitoring closely # hypothyroidism- continue Synthroid replacement # attention deficit disorder- continue Ritalin # prophylaxis- holding heparin secondary to platelets of 50 # diet as tolerated # disposition- greater than 2 midnights the patient is presenting with acute kidney injury thought related to AML needs Nephrology consultation and care I have discussed the case with the Pharm D- we will closely monitor uric acid and cell counts after treatment with rasburicase Subjective: very tired Objective: Vital Signs Temp Pulse Resp BP Pulse Ox 36.4 C 78 16 108/58 L 98 02/25/17 07:52 02/25/17 07:52 02/25/17 07:52 02/25/17 07:52 02/25/17 07:52 Laboratory Results 02/25/17 04:55 02/25/17 04:55 02/24/17 02/25/17 02/26/17 05:59 05:59 05:59 Intake Total 400 900 Output Total 400 Balance 0 900 - Physical Exam Constitutional: appears nourished Eyes: anicteric sclera Ears, Nose, Mouth, Throat: moist mucous membranes Cardiovascular: regular rate and rhythym Respiratory: no respiratory distress, no rales or rhonchi Gastrointestinal: normoactive bowel sounds, soft, non-tender abdomen Genitourinary: no bladder fullness Skin: warm, normal color Musculoskeletal: No asymmetric calves Neurologic: AAOx3 Psychiatric: interacting appropriately, not anxious Lymph, Heme, Immunologic: no cervical LAD ICD10 Worksheet Patient Problems: Problems Problem Status Onset CHF (congestive heart failure) Acute Cardiomegaly Acute Hypoxia Acute LBBB (left bundle branch block) Acute Peripheral edema Acute Pneumonia Acute
[2017-02-25] MEDS: ALLOPURINOL 300 MG TAB PO SCH ×2 (10:28→20:42)
[2017-02-25] MEDS: METHENAMINE HIPP 1 GM TAB PO SCH ×2 (10:28→20:40)
[2017-02-25] MEDS: PANTOPRAZOLE SODIUM 40 MG TAB PO SCH (10:29)
[2017-02-25] MEDS: ALPRAZolam 0.5 MG TAB PO SCH ×2 (10:29→15:45)
[2017-02-25] MEDS: CETIRIZINE 10 MG TAB PO SCH (10:30)
[2017-02-25] MEDS: buPROPion 100 MG TAB PO SCH ×2 (10:37→20:42)
[2017-02-25] MEDS: NS 1,000 ML IV SCH (10:45)
--- NOTE | 2017-02-25 14:45 | SOAPPROG ---
SOMATHEW Progress Note Assessment/Plan: E&M for AML/MDS * AML from underlying MDS: plan is to stabilize her counts and kidney dysfunction so she can start chemotherapy next week; probably Azacitidine. * Leukocytosis: Hydrea started yesterday and will continue at 1 gm/ 8 hours * Anemia and thrombocytopenia: due to underlying disease; no need for transfusion today * Acute renal failure: Scr stable; continue gentle hydration * Hyperuricemia: Rasburicase given 02/24 and is better; continue allopurinol bid. Subjective: She is feeling better today without acute complaints. Objective: Vital Signs Temp Pulse Resp BP Pulse Ox 36.9 C 89 16 105/56 L 95 02/25/17 11:53 02/25/17 11:53 02/25/17 11:53 02/25/17 11:53 02/25/17 11:53 Laboratory Results 02/25/17 04:55 02/25/17 04:55 02/24/17 02/25/17 02/26/17 05:59 05:59 05:59 Intake Total 400 900 Output Total 400 Balance 0 900 Laboratory Tests 02/24/17 02/24/17 02/25/17 09:12 09:12 04:55 WBC 121.26 H* 102.01 H* Hgb 8.9 L 7.6 L Plt Count 69 L 53 L Creatinine 2.1 H Uric Acid 13.2 H Phosphorus 02/25/17 04:55 WBC Hgb Plt Count Creatinine 2.0 H Uric Acid 7.1 H D Phosphorus 4.3 Physical Exam - Physical Exam General Appearance: no apparent distress Respiratory: lungs clear Cardiac/Chest: regular rate, rhythm Abdomen: splenomegaly ICD10 Worksheet Patient Problems: Problems Problem Status Onset CHF (congestive heart failure) Acute Cardiomegaly Acute Hypoxia Acute LBBB (left bundle branch block) Acute Peripheral edema Acute Pneumonia Acute
[2017-02-25] MEDS: NORTRIPTYLINE HCL 50 MG CAP PO SCH (20:41)
[2017-02-26] MEDS: ONDANSETRON DISINTEGRATING 4 MG TAB PO SCH ×3 (02:05→17:50)
[2017-02-26] MEDS: HYDROXYUREA 500 MG CAP PO SCH ×3 (04:33→20:35)
[2017-02-26] MEDS: LEVOTHYROXINE 125 MCG TAB PO SCH (04:33)
[2017-02-26 04:36] LABS: HEMATOCRIT 22.9 % (38.0-47.0); HEMOGLOBIN 7.1 g/dL (12.6-16.3); MEAN CELL VOLUME 112.8 fL (81.5-99.8); RED BLOOD CELL COUNT 2.03 10^6/uL (4.18-5.33)
[2017-02-26 04:37] LABS: RED CELL DISTRIBUTION WIDTH 23.1 % (11.5-15.2)
[2017-02-26 05:10] LABS: ALBUMIN 2.9 g/dL (3.5-5.0); ANION GAP 7 mEq/L (8-16); CALCIUM 8.3 mg/dL (8.5-10.4); CARBON DIOXIDE 25 mEq/l (22-31); CHLORIDE 109 mEq/L (97-110); CREATININE 1.6 mg/dL (0.6-1.0); GLOMERULAR FILTRATION RATE 32; GLUCOSE 124 mg/dL (70-100); POTASSIUM 3.7 mEq/L (3.5-5.2); SODIUM 141 mEq/L (134-144); URIC ACID 1.9 mg/dL (2.5-6.8)
[2017-02-26] MEDS: METHENAMINE HIPP 1 GM TAB PO SCH ×2 (09:34→20:36)
[2017-02-26] MEDS: CETIRIZINE 10 MG TAB PO SCH (09:35)
[2017-02-26] MEDS: PANTOPRAZOLE SODIUM 40 MG TAB PO SCH (09:36)
[2017-02-26] MEDS: buPROPion 100 MG TAB PO SCH ×2 (09:36→20:36)
[2017-02-26] MEDS: ALLOPURINOL 300 MG TAB PO SCH ×2 (09:37→20:35)
[2017-02-26] MEDS: ALPRAZolam 0.5 MG TAB PO SCH ×2 (09:37→13:50)
--- NOTE | 2017-02-26 10:10 | HOSPPROG ---
Hospitalist Progress Note Assessment/Plan: DIAGNOSES: # ALETHEA -likely due to hyperuricemia from Tumor lysis syndrome - s/p rasburicase 02/24 and receiving allopurinol - cont IVF -creatinine improved to 1.6 today -reviewed the uric acid level with clinical pharmacist, there is concern for possible false low reading as there can be interactions in the tube between the medication and uric acid; needs repeating # AML - -on hydroxy urea - white count decreased to 92,000 today -slightly decreased hemoglobin is 7.1 today platelets 53 # chronic diastolic heart failure -recently diuresed as an inpatient, no sign of volume overload or heart failure now # hypothyroidism -on Synthroid replacement # attention deficit disorder- continue Ritalin # prophylaxis- holding heparin secondary to platelets of 50 # diet as tolerated # disposition- greater than 2 midnights the patient is presenting with acute kidney injury thought related to AML needs Nephrology consultation and care PLANS: -continue hydration and allopurinol, follow renal function and- uric acid level -repeat uric acid level pending as above -Will discuss her anemia with Dr. 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, my review: Exam: alert oriented Fairly depressed affect, but is conversing normally, no signs of suicidality skin warm dry color ok resps not labored lungs clear BSs heart regular abd soft nondistended nontender, bowel sounds present limbs warm, no edema iv site ok Objective: Vital Signs Temp Pulse Resp BP Pulse Ox 36.9 C 102 H 16 116/60 92 02/26/17 08:00 02/26/17 08:00 02/26/17 08:00 02/26/17 08:00 02/26/17 08:00 Laboratory Results 02/26/17 04:26 02/26/17 04:26 02/25/17 02/26/17 02/27/17 06:59 06:59 06:59 Intake Total 1300 2357 275 Output Total 400 1000 Balance 900 1357 275 ICD10 Worksheet Patient Problems: Problems Problem Status Onset CHF (congestive heart failure) Acute Cardiomegaly Acute Hypoxia Acute LBBB (left bundle branch block) Acute Peripheral edema Acute Pneumonia Acute
--- NOTE | 2017-02-26 12:13 | SOAPPROG ---
SOAP Progress Note Assessment/Plan: Assessment:Plan: ARF-improving -creatinine down to 1.6 -baseline 1.1 -lytes okay -urine output good -volume replete -CPM TLS-uric acid down to 1.9 -management per Heme -discussed with patient the role of dialysis if things become unstable 02/26/17 12:09 Subjective: stable overnite Objective: Vital Signs Temp Pulse Resp BP Pulse Ox 36.9 C 102 H 16 116/60 92 02/26/17 08:00 02/26/17 08:00 02/26/17 08:00 02/26/17 08:00 02/26/17 08:00 Laboratory Results 02/26/17 04:26 02/26/17 04:26 02/25/17 02/26/17 02/27/17 05:59 05:59 05:59 Intake Total 400 3257 275 Output Total 400 1000 Balance 0 2257 275 Physical Exam - Physical Exam General Appearance: WD/WN, alert, no apparent distress EENT: normal ENT inspection Neck: normal inspection Respiratory: decreased breath sounds (at bases) Cardiac/Chest: regular rate, rhythm, systolic murmur (2/6) Abdomen: normal bowel sounds, non-tender Extremities: swelling (trace) ICD10 Worksheet Patient Problems: Problems Problem Status Onset CHF (congestive heart failure) Acute Cardiomegaly Acute Hypoxia Acute LBBB (left bundle branch block) Acute Peripheral edema Acute Pneumonia Acute
[2017-02-26] MEDS: ONDANSETRON DISINTEGRATING 4 MG TAB PO PRN (13:50)
[2017-02-26] MEDS: NS 1,000 ML IV SCH (15:15)
--- NOTE | 2017-02-26 15:15 | SOAPPROG ---
SOAP Progress Note Assessment/Plan: E&M for AML/MDS * AML from underlying MDS: plan is to stabilize her counts and kidney dysfunction so she can start Azacitidine next week. * Leukocytosis: Continue Hydrea 1 gm/ 8 hours * Anemia and thrombocytopenia: due to underlying disease; will give one unit of blood today * Acute renal failure: Scr improved; continue gentle hydration; appreciate nephrology input * Hyperuricemia: Rasburicase given 02/24 and is better; continue allopurinol bid. Subjective: Little nauseated and tired today. No other c/o. Objective: Vital Signs Temp Pulse Resp BP Pulse Ox 36.9 C 102 H 16 125/60 H 92 02/26/17 08:00 02/26/17 08:00 02/26/17 08:00 02/26/17 14:08 02/26/17 08:00 Laboratory Results 02/26/17 04:26 02/26/17 04:26 02/25/17 02/26/17 02/27/17 05:59 05:59 05:59 Intake Total 400 3257 525 Output Total 400 1000 1300 Balance 0 2257 -082 Physical Exam - Physical Exam General Appearance: no apparent distress Respiratory: crackles Cardiac/Chest: tachycardia Abdomen: non-tender, soft ICD10 Worksheet Patient Problems: Problems Problem Status Onset CHF (congestive heart failure) Acute Cardiomegaly Acute Hypoxia Acute LBBB (left bundle branch block) Acute Peripheral edema Acute Pneumonia Acute
[2017-02-26] MEDS: ACETAMINOPHEN 325 MG TAB PO PRN ×2 (16:26→20:36)
[2017-02-26] MEDS: NORTRIPTYLINE HCL 50 MG CAP PO SCH (20:36)
[2017-02-26] MEDS: BENEFIBER/NUTRISOURCE FIBER PKT 1 EACH PO SCH (20:39)
[2017-02-27] MEDS: ONDANSETRON DISINTEGRATING 4 MG TAB PO SCH ×3 (04:45→18:13)
[2017-02-27] MEDS: HYDROXYUREA 500 MG CAP PO SCH ×3 (04:45→22:58)
[2017-02-27] MEDS: LEVOTHYROXINE 125 MCG TAB PO SCH (04:45)
[2017-02-27] MEDS: NS 1,000 ML IV SCH (04:46)
[2017-02-27 04:54] LABS: ABSOLUTE NRBC COUNT 0.07 10^3/uL (0-0.01); ADD DIFF? YES; ADD MORPH? YES; ATYPICAL LYMPHOCYTE FLAG 0 (0-99); FRAGMENT RBC FLAG 40 (0-99); HEMATOCRIT 25.9 % (38.0-47.0); HEMOGLOBIN 8.3 g/dL (12.6-16.3); LEFT SHIFT FLG 20 (0-99); LIPEMIA HEMOLYSIS FLAG 80 (0-99); MEAN CELL HEMOGLOBIN 34.6 pg (27.9-34.1); MEAN CELL VOLUME 107.9 fL (81.5-99.8); NRBC-AUTO% 0.1 % (0.0-0.2); PLATELET CLUMPS FLAG 20 (0-99)
[2017-02-27 04:57] LABS: ALBUMIN 2.9 g/dL (3.5-5.0); ANION GAP 6 mEq/L (8-16); CARBON DIOXIDE 25 mEq/l (22-31); CHLORIDE 108 mEq/L (97-110); CREATININE 1.4 mg/dL (0.6-1.0); GLOMERULAR FILTRATION RATE 37; GLUCOSE 138 mg/dL (70-100); POTASSIUM 3.4 mEq/L (3.5-5.2); SODIUM 139 mEq/L (134-144)
[2017-02-27 04:59] LABS: PLATELET COUNT 46 10^3/uL (150-400); RED CELL DISTRIBUTION WIDTH 23.2 % (11.5-15.2)
[2017-02-27 05:48] LABS: ACANTHOCYTES 1+; MACROCYTES 1+; SCHISTOCYTES 1+
[2017-02-27 05:49] LABS: PLATELET ESTIMATE DECREASED (ADEQ)
[2017-02-27] MEDS: PANTOPRAZOLE SODIUM 40 MG TAB PO SCH (08:48)
[2017-02-27] MEDS: ONDANSETRON DISINTEGRATING 4 MG TAB PO PRN ×2 (08:48→14:00)
[2017-02-27] MEDS ORDERED: POLYETHYLENE GLYCOL 3350 17 GM PKT PO PRN (09:22)
[2017-02-27] MEDS ORDERED: BISACODYL 10 MG SUPP PR PRN (09:22)
[2017-02-27] MEDS ORDERED: LACTULOSE 20 GM/30 ML UDCUP PO PRN (09:22)
[2017-02-27] MEDS ORDERED: MAGNESIUM HYDROXIDE 30 ML UDCUP PO PRN (09:22)
[2017-02-27] MEDS: CETIRIZINE 10 MG TAB PO SCH (09:32)
[2017-02-27] MEDS: ALLOPURINOL 300 MG TAB PO SCH ×2 (09:32→21:25)
[2017-02-27] MEDS: METHENAMINE HIPP 1 GM TAB PO SCH ×2 (09:32→21:26)
[2017-02-27] MEDS: BENEFIBER/NUTRISOURCE FIBER PKT 1 EACH PO SCH ×4 (09:35→21:27)
[2017-02-27] MEDS: POLYETHYLENE GLYCOL 3350 17 GM PKT PO PRN (09:35)
[2017-02-27] MEDS: FUROSEMIDE 40 MG/4 ML VIAL IVP SCH ×2 (09:42→15:58)
[2017-02-27] MEDS: buPROPion 100 MG TAB PO SCH ×2 (09:44→21:25)
[2017-02-27] MEDS: ALPRAZolam 0.5 MG TAB PO SCH ×2 (09:47→14:00)
--- NOTE | 2017-02-27 10:55 | SOAPPROG ---
SOAP Progress Note Assessment/Plan: Assessment: 1)Non-oliguric ALETHEA -baseline Cr 1.1 -improved with IVF, down to 1.4 today- ok to give dose lasix today as looks a bit volume up, hold IVF today- will need to resume low dose IVF though nay when time for chemo -at risk for deterioration given tumor lysis and will need continued close monitoring of labs 2)AML -WBC improving, oncology planning Azacitidine soon, on hydroxyurea -low plts and anemia- received PRBCs 02/26 3)Hypokalemia -replete gently today 4)high uric acid s/p rasburicase and on allopurinol, stable (now low) and continue to follow closely 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 Tells me she feels a bit congested and will get some lasix. No cp, n/v. Cr improved, good UOP. On 2L O2. Objective: Vital Signs Temp Pulse Resp BP Pulse Ox 36.8 C 92 18 126/58 H 94 02/27/17 07:43 02/27/17 07:43 02/27/17 07:43 02/27/17 07:43 02/27/17 07:43 Laboratory Results 02/27/17 04:20 02/27/17 04:20 02/26/17 02/27/17 02/28/17 05:59 05:59 05:59 Intake Total 3257 2756 Output Total 1000 2800 900 Balance 2257 44 900 Physical Exam - Physical Exam General Appearance: no apparent distress, other (on O2 by NC, not tachypneic, lying in bed comfortably) EENT: other (mmm) Neck: supple Respiratory: lungs clear Cardiac/Chest: regular rate, rhythm, other (no rub) Abdomen: normal bowel sounds, non-tender, soft Skin: warm/dry Extremities: other (trace bilat LE edema) Neuro/Psych: alert, oriented x 3 ICD10 Worksheet Patient Problems: Problems Problem Status Onset CHF (congestive heart failure) Acute Cardiomegaly Acute Hypoxia Acute LBBB (left bundle branch block) Acute Peripheral edema Acute Pneumonia Acute
--- NOTE | 2017-02-27 11:03 | HOSPPROG ---
Hospitalist Progress Note Assessment/Plan: DIAGNOSES: # ALETHEA -likely due to hyperuricemia from Tumor lysis syndrome; -s/p rasburicase 02/24 and receiving allopurinol -creatinine improved to 1.4 today # AML - -on hydroxy urea -white count decreased to 77,000 today -hemoglobin up to 8.3 after transfusion yesterday, platelets down slightly 46 # mild acute on chronic diastolic heart failure -at this point is developing some rales and sensation of chest congestion, no anginal symptoms or arrhythmia # hypothyroidism -on Synthroid replacement # attention deficit disorder- continue Ritalin # prophylaxis- holding heparin secondary to platelets of 50 # diet as tolerated # disposition- greater than 2 midnights the patient is presenting with acute kidney injury thought related to AML needs Nephrology consultation and care PLANS: -for now will hold IV fluids due to her pulmonary edema, and will give Lasix but follow uric acid levels very closely, may need to resume some hydration -continue allopurinol, follow renal function and uric acid level -follow blood counts closely SUBJECTIVE: Less depressed today Does feel some chest congestion without angina or palpitations symptoms Eating well OBJECTIVE Vitals reviewed: Stable without fever 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, my review: Exam: alert oriented Fairly depressed affect, but is conversing normally, no signs of suicidality skin warm dry color ok resps not labored lungs some bibasilar rales are now present heart regular abd soft nondistended nontender, bowel sounds present limbs warm, no edema iv site ok Objective: Vital Signs Temp Pulse Resp BP Pulse Ox 36.8 C 92 18 126/58 H 94 02/27/17 07:43 02/27/17 07:43 02/27/17 07:43 02/27/17 07:43 02/27/17 07:43 Laboratory Results 02/27/17 04:20 02/27/17 04:20 02/26/17 02/27/17 02/28/17 06:59 06:59 06:59 Intake Total 2357 2756 Output Total 1000 2800 900 Balance 5770 -34 -900 ICD10 Worksheet Patient Problems: Problems Problem Status Onset CHF (congestive heart failure) Acute Cardiomegaly Acute Hypoxia Acute LBBB (left bundle branch block) Acute Peripheral edema Acute Pneumonia Acute
[2017-02-27] MEDS ORDERED: POTASSIUM CL 20 MEQ/15 ML UDCUP PO ONE (13:07)
[2017-02-27] MEDS: ACETAMINOPHEN 325 MG TAB PO PRN (14:13)
--- NOTE | 2017-02-27 14:38 | SOAPPROG ---
TERESITA Progress Note Assessment/Plan: E&M for AML/MDS * AML from underlying MDS: plan is to stabilize her counts and kidney dysfunction so she can start Azacitidine on Thursday in the office. * Leukocytosis: Continue Hydrea 1 gm/ 8 hours; much improved * Anemia and thrombocytopenia: due to underlying disease; will d/w internal medicine about give another unit * Acute renal failure: Scr improved; continue gentle hydration; * Hyperuricemia: Rasburicase given 02/24 and is better; continue allopurinol bid. Subjective: Not feeling as well today due to chest congestion. Objective: Vital Signs Temp Pulse Resp BP Pulse Ox 37.3 C 103 H 22 H 130/56 H 91 L 02/27/17 12:05 02/27/17 12:03 02/27/17 12:05 02/27/17 12:03 02/27/17 12:03 Laboratory Results 02/27/17 04:20 02/27/17 04:20 02/26/17 02/27/17 02/28/17 05:59 05:59 05:59 Intake Total 3257 2756 Output Total 1000 2800 2800 Balance 2257 -44 -2800 Laboratory Tests 02/25/17 02/25/17 02/26/17 04:55 04:55 04:26 WBC 102.01 H* Hgb 7.6 L Plt Count 53 L Creatinine 2.0 H 1.6 H Uric Acid 7.1 H D 1.9 L D 02/26/17 02/27/17 02/27/17 04:26 04:20 04:20 WBC 92.22 H* 77.61 H* Hgb 7.1 L 8.3 L Plt Count 53 L 46 L Creatinine 1.4 H Uric Acid Physical Exam - Physical Exam General Appearance: no apparent distress Respiratory: crackles, rales Cardiac/Chest: tachycardia, systolic murmur Abdomen: non-tender, soft ICD10 Worksheet Patient Problems: Problems Problem Status Onset CHF (congestive heart failure) Acute Cardiomegaly Acute Hypoxia Acute LBBB (left bundle branch block) Acute Peripheral edema Acute Pneumonia Acute
[2017-02-27 15:39] LABS: COLOR YELLOW; LEUKOCYTE ESTERASE,URINE TRACE (NEGATIVE); NITRITE,URINE NEGATIVE (NEGATIVE)
[2017-02-27 15:45] LABS: MUCUS TRACE /lpf (NONE-1+)
[2017-02-27] MEDS: NORTRIPTYLINE HCL 50 MG CAP PO SCH (21:25)
[2017-02-27] MEDS: SENNOSIDES/DOCUSATE SODIUM TAB PO SCH (21:25)
[2017-02-28] MEDS: ONDANSETRON DISINTEGRATING 4 MG TAB PO SCH ×3 (02:33→18:38)
[2017-02-28 05:39] LABS: ADD DIFF? YES; ATYPICAL LYMPHOCYTE FLAG 0 (0-99); FRAGMENT RBC FLAG 40 (0-99); HEMATOCRIT 24.9 % (38.0-47.0); HEMOGLOBIN 8.3 g/dL (12.6-16.3); LEFT SHIFT FLG 20 (0-99); LIPEMIA HEMOLYSIS FLAG 80 (0-99); MEAN CELL HEMOGLOBIN CONCENTR. 33.3 g/dL (32.4-36.7); MEAN CELL VOLUME 105.1 fL (81.5-99.8); PLATELET CLUMPS FLAG 30 (0-99); RED BLOOD CELL COUNT 2.37 10^6/uL (4.18-5.33)
[2017-02-28 05:40] LABS: PLATELET COUNT 38 10^3/uL (150-400); RED CELL DISTRIBUTION WIDTH 22.7 % (11.5-15.2)
[2017-02-28 05:41] LABS: ADD MORPH? NO; ADD SCAN? NO
[2017-02-28 05:45] LABS: ALBUMIN 2.8 g/dL (3.5-5.0); ANION GAP 4 mEq/L (8-16); CALCIUM 7.8 mg/dL (8.5-10.4); CARBON DIOXIDE 28 mEq/l (22-31); CHLORIDE 103 mEq/L (97-110); CREATININE 1.4 mg/dL (0.6-1.0); GLOMERULAR FILTRATION RATE 37; GLUCOSE 118 mg/dL (70-100); MAGNESIUM 1.9 mg/dL (1.6-2.3); POTASSIUM 3.4 mEq/L (3.5-5.2); SODIUM 135 mEq/L (134-144); URIC ACID 1.8 mg/dL (2.5-6.8)
[2017-02-28 06:13] LABS: MACROCYTES 1+
[2017-02-28 06:14] LABS: ACANTHOCYTES 1+; PLATELET ESTIMATE DECREASED (ADEQ); SCHISTOCYTES 1+
[2017-02-28] MEDS: LEVOTHYROXINE 125 MCG TAB PO SCH (06:14)
[2017-02-28] MEDS: HYDROXYUREA 500 MG CAP PO SCH ×3 (06:14→20:27)
[2017-02-28] MEDS: ALLOPURINOL 300 MG TAB PO SCH ×2 (08:59→20:27)
[2017-02-28] MEDS: PANTOPRAZOLE SODIUM 40 MG TAB PO SCH (08:59)
[2017-02-28] MEDS: SENNOSIDES/DOCUSATE SODIUM TAB PO SCH ×2 (08:59→20:27)
[2017-02-28] MEDS: METHENAMINE HIPP 1 GM TAB PO SCH ×2 (08:59→20:28)
[2017-02-28] MEDS: CETIRIZINE 10 MG TAB PO SCH (09:00)
[2017-02-28] MEDS: ALPRAZolam 0.5 MG TAB PO SCH ×2 (09:00→14:25)
[2017-02-28] MEDS: BENEFIBER/NUTRISOURCE FIBER PKT 1 EACH PO SCH ×3 (09:00→20:27)
[2017-02-28] MEDS: POLYETHYLENE GLYCOL 3350 17 GM PKT PO PRN (09:01)
[2017-02-28] MEDS: FUROSEMIDE 40 MG/4 ML VIAL IVP SCH ×2 (09:02→14:25)
[2017-02-28] MEDS: buPROPion 100 MG TAB PO SCH ×2 (09:06→20:27)
--- NOTE | 2017-02-28 11:40 | SOAPPROG ---
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 2. Leukocytosis 3. Tumor lysis syndrome 4. Volume overload Her peripheral blast count is coming down nicely on Hydrea (3000 mg daily in divided doses). Tumor lysis resolving as well and creatine is near normal at 1.4. Fever last night likely due to lysis of blast cells. urine culture results appears to be a contaminant. Plan: - continue to diurese x 1 more day - should be ready for discharge tomorrow - f/u in clinic on Friday 03/02 for first dose of Vidaza 02/28/17 11:38 Subjective: feeling much better today. Objective: exam: comfortable, NAD Lungs: crackles @ bases CV RRR no MGR Abd: +BS NT ND Ext: 1+ edema Neuro: a+ox3 Vital Signs Temp Pulse Resp BP Pulse Ox 36.3 C 89 16 102/50 L 96 02/28/17 08:35 02/28/17 08:35 02/28/17 08:35 02/28/17 08:35 02/28/17 08:35 Laboratory Results 02/28/17 05:10 02/28/17 05:10 02/27/17 02/28/17 03/01/17 05:59 05:59 05:59 Intake Total 2756 2250 Output Total 2800 2800 1300 Balance -44 -550 -1300 ICD10 Worksheet Patient Problems: Problems Problem Status Onset CHF (congestive heart failure) Acute Cardiomegaly Acute Hypoxia Acute LBBB (left bundle branch block) Acute Peripheral edema Acute Pneumonia Acute
--- NOTE | 2017-02-28 13:05 | HOSPPROG ---
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 mild acute on chronic diastolic heart failure vs pneumonia vs inflammatory due to tumor lysis -better today but remains dyspneic and hypoxemic # hypothyroidism -on Synthroid replacement # attention deficit disorder -continue Ritalin # prophylaxis- holding heparin secondary to platelets of 50 # diet as tolerated # disposition- greater than 2 midnights the patient is presenting with acute kidney injury thought related to AML needs Nephrology consultation and care PLANS: -continue lasix, will recheck cxr later today -continue allopurinol, follow renal function and uric acid level -follow blood counts closely SUBJECTIVE: still with cough and dyspnea but both a bit better than yest no pain no nausea, eating ok no chills OBJECTIVE Vitals reviewed: still w some tachypneano fever overnight or today so far, otherwise stable still hypoxemia, 82% on room air Exam: alert oriented notably less depressed skin warm dry color ok resps not labored lungs rales present but decreased heart regular abd soft nondistended nontender, bowel sounds present limbs warm, no edema iv site ok wbc down to 50 K, plts down to 38 K uric acid remains low, creat stable Objective: Vital Signs Temp Pulse Resp BP Pulse Ox 36.3 C 89 16 102/50 L 96 02/28/17 08:35 02/28/17 08:35 02/28/17 08:35 02/28/17 08:35 02/28/17 08:35 Laboratory Results 02/28/17 05:10 02/28/17 05:10 02/27/17 02/28/17 03/01/17 06:59 06:59 06:59 Intake Total 2756 2250 Output Total 2800 3300 1600 Balance -44 1050 -1600 ICD10 Worksheet Patient Problems: Problems Problem Status Onset CHF (congestive heart failure) Acute Cardiomegaly Acute Hypoxia Acute LBBB (left bundle branch block) Acute Peripheral edema Acute Pneumonia Acute
--- NOTE | 2017-02-28 15:28 | SOAPPROG ---
SOAP Progress Note Assessment/Plan: Assessment: 1)Non-oliguric ALETHEA -baseline Cr 1.1 -improved with IVF,stable at 1.4 today- ok for prn lasix, holding IVF -at risk for deterioration given tumor lysis and when chemo starts and will need continued close monitoring of labs 2)AML -WBC improving, oncology planning Azacitidine soon, on hydroxyurea -low plts and anemia- received PRBCs 02/26 3)Hypoxia- CXR with interstitial edema- ?TRALI vs related to AML vs volume. Symptoms improved some today but still requiring O2. 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 No cp, n/v. She tells me she is hoping to d/c tomorrow. Objective: Vital Signs Temp Pulse Resp BP Pulse Ox 36.3 C 89 16 102/50 L 93 02/28/17 08:35 02/28/17 08:35 02/28/17 08:35 02/28/17 08:35 02/28/17 12:10 Laboratory Results 02/28/17 05:10 02/28/17 05:10 02/27/17 02/28/17 03/01/17 05:59 05:59 05:59 Intake Total 2756 2250 Output Total 2800 2800 2525 Balance -44 -966 -2527 Physical Exam - Physical Exam General Appearance: alert, no apparent distress EENT: other (mmm) Neck: supple Respiratory: other (crackles bilat bases) Cardiac/Chest: regular rate, rhythm, other (no rub) Abdomen: normal bowel sounds, non-tender, soft Extremities: other (trace LE edema bilat) Neuro/Psych: alert, oriented x 3 ICD10 Worksheet Patient Problems: Problems Problem Status Onset CHF (congestive heart failure) Acute Cardiomegaly Acute Hypoxia Acute LBBB (left bundle branch block) Acute Peripheral edema Acute Pneumonia Acute
[2017-02-28] MEDS: NORTRIPTYLINE HCL 50 MG CAP PO SCH (20:26)
[2017-03-01 04:55] LABS: ABSOLUTE NRBC COUNT 0.02 10^3/uL (0-0.01); ADD DIFF? YES; ATYPICAL LYMPHOCYTE FLAG 0 (0-99); FRAGMENT RBC FLAG 40 (0-99); HEMOGLOBIN 7.4 g/dL (12.6-16.3); LEFT SHIFT FLG 0 (0-99); LIPEMIA HEMOLYSIS FLAG 80 (0-99); MEAN CELL HEMOGLOBIN 34.4 pg (27.9-34.1); MEAN CELL HEMOGLOBIN CONCENTR. 32.2 g/dL (32.4-36.7); NRBC-AUTO% 0.1 % (0.0-0.2); PLATELET CLUMPS FLAG 10 (0-99); RED BLOOD CELL COUNT 2.15 10^6/uL (4.18-5.33)
[2017-03-01 04:57] LABS: RED CELL DISTRIBUTION WIDTH 22.2 % (11.5-15.2)
[2017-03-01 04:59] LABS: ADD MORPH? NO; ADD SCAN? NO; PLATELET COUNT 26 10^3/uL (150-400)
[2017-03-01 05:08] LABS: ALBUMIN 2.8 g/dL (3.5-5.0); ANION GAP 7 mEq/L (8-16); CALCIUM 7.8 mg/dL (8.5-10.4); CARBON DIOXIDE 30 mEq/l (22-31); CHLORIDE 101 mEq/L (97-110); CREATININE 1.4 mg/dL (0.6-1.0); GLOMERULAR FILTRATION RATE 37; GLUCOSE 115 mg/dL (70-100); POTASSIUM 3.1 mEq/L (3.5-5.2); SODIUM 138 mEq/L (134-144); URIC ACID 2.3 mg/dL (2.5-6.8)
[2017-03-01 05:28] LABS: ACANTHOCYTES 1+; MACROCYTES 1+; PLATELET ESTIMATE DECREASED (ADEQ); SCHISTOCYTES 1+
[2017-03-01] MEDS: LEVOTHYROXINE 125 MCG TAB PO SCH (05:45)
[2017-03-01] MEDS: HYDROXYUREA 500 MG CAP PO SCH ×2 (05:45→21:04)
[2017-03-01] MEDS: ONDANSETRON DISINTEGRATING 4 MG TAB PO SCH ×3 (05:46→18:35)
--- NOTE | 2017-03-01 10:04 | SOAPPROG ---
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 2. Leukocytosis 3. Tumor lysis syndrome 4. Volume overload Her peripheral blast count is coming down nicely on Hydrea. Tumor lysis resolving as well and creatine is near normal at 1.4. Plan: - ok for discharge from my perspective - lower hydrea to 1000 mg BID; will likely d/c when she starts Vidaza - f/u in clinic tomorrow to begin Vidaza Subjective: feeling better today. Objective: exam: NAD Lungs: scant crackles @ bases CV RRR no MGR Abd: +BS ND NT Ext: 1+ edema Skin: no petechie Vital Signs Temp Pulse Resp BP Pulse Ox 36.6 C 78 16 106/54 L 94 03/01/17 09:25 03/01/17 09:25 03/01/17 09:25 03/01/17 09:25 03/01/17 09:25 Laboratory Results 03/01/17 04:22 03/01/17 04:22 02/28/17 03/01/17 03/02/17 05:59 05:59 05:59 Intake Total 2250 440 Output Total 2600 7263 Balance -550 -4414 ICD10 Worksheet Patient Problems: Problems Problem Status Onset CHF (congestive heart failure) Acute Cardiomegaly Acute Hypoxia Acute LBBB (left bundle branch block) Acute Peripheral edema Acute Pneumonia Acute
[2017-03-01] MEDS: SENNOSIDES/DOCUSATE SODIUM TAB PO SCH ×2 (10:33→21:04)
[2017-03-01] MEDS: ALPRAZolam 0.5 MG TAB PO SCH ×2 (10:35→15:08)
[2017-03-01] MEDS: METHENAMINE HIPP 1 GM TAB PO SCH ×2 (10:35→21:02)
[2017-03-01] MEDS: CETIRIZINE 10 MG TAB PO SCH (10:35)
[2017-03-01] MEDS: PANTOPRAZOLE SODIUM 40 MG TAB PO SCH (10:35)
[2017-03-01] MEDS: buPROPion 100 MG TAB PO SCH ×2 (10:36→21:10)
[2017-03-01] MEDS: ALLOPURINOL 300 MG TAB PO SCH ×2 (10:37→21:05)
[2017-03-01] MEDS: FUROSEMIDE 40 MG/4 ML VIAL IVP SCH ×2 (10:41→15:08)
[2017-03-01] MEDS: POLYETHYLENE GLYCOL 3350 17 GM PKT PO PRN (10:58)
[2017-03-01] MEDS: BENEFIBER/NUTRISOURCE FIBER PKT 1 EACH PO SCH ×3 (12:50→21:08)
--- NOTE | 2017-03-01 15:09 | HOSPPROG ---
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 -white count decreased to 50,000 today -platelets down slightly 38 # Acute hypoxemic resp failure; appears due most likely to volume overload with history of diastolic heart failure and large volume resuscitation given here at this time, currently diuresing with Lasix -better today but remains dyspneic and hypoxemic # acute pancytopenia from chemotherapy for leukemia -no specific transfusion indications at this time # hypothyroidism -on Synthroid replacement # attention deficit disorder -continue Ritalin # prophylaxis- holding heparin secondary to platelets of 26,000 # diet as tolerated Overall she is much better and stabilized from a tumor lysis syndrome and renal standpoint. She is improving remarkably in terms of her respiratory issues. However at this point she remains too weak to be able to get by at home by herself and her is currently hospitalized with upper GI bleed. PLANS: -continue lasix, will recheck cxr later today -continue allopurinol, follow renal function and uric acid level -follow blood counts closely - Continue PT and OT SUBJECTIVE: feeling better overall, less sob, but still very weak and sob during exertion and w exertional hypoxemia eating well no other new sxs OBJECTIVE Vitals reviewed: stable without fever Exam: alert oriented notably less depressed skin warm dry color ok resps not labored lungs rales present but decreased heart regular abd soft nondistended nontender, bowel sounds present limbs warm, no edema iv site ok wbc down to 17 K, plts down to 26 K, hemoglobin 7.4 uric acid remains low, creat stable Objective: Vital Signs Temp Pulse Resp BP Pulse Ox 36.6 C 96 20 106/54 L 92 03/01/17 09:25 03/01/17 12:51 03/01/17 12:51 03/01/17 09:25 03/01/17 12:51 Laboratory Results 03/01/17 04:22 03/01/17 04:22 02/28/17 03/01/17 03/02/17 06:59 06:59 06:59 Intake Total 2250 440 Output Total 3300 4325 440 Balance -1050 -3885 -440 ICD10 Worksheet Patient Problems: Problems Problem Status Onset CHF (congestive heart failure) Acute Cardiomegaly Acute Hypoxia Acute LBBB (left bundle branch block) Acute Peripheral edema Acute Pneumonia Acute
[2017-03-01] MEDS: NORTRIPTYLINE HCL 50 MG CAP PO SCH (21:02)
[2017-03-01] MEDS: ONDANSETRON DISINTEGRATING 4 MG TAB PO PRN (21:04)
[2017-03-02 05:21] LABS: ADD DIFF? YES; ADD MORPH? YES; ADD SCAN? YES; ATYPICAL LYMPHOCYTE FLAG 0 (0-99); FRAGMENT RBC FLAG 20 (0-99); HEMATOCRIT 23.9 % (38.0-47.0); HEMOGLOBIN 7.9 g/dL (12.6-16.3); LEFT SHIFT FLG 0 (0-99); LIPEMIA HEMOLYSIS FLAG 80 (0-99); MEAN CELL HEMOGLOBIN 35.3 pg (27.9-34.1); MEAN CELL HEMOGLOBIN CONCENTR. 33.1 g/dL (32.4-36.7); MEAN CELL VOLUME 106.7 fL (81.5-99.8); PLATELET CLUMPS FLAG 10 (0-99); RED BLOOD CELL COUNT 2.24 10^6/uL (4.18-5.33)
[2017-03-02 05:26] LABS: RED CELL DISTRIBUTION WIDTH 21.7 % (11.5-15.2)
[2017-03-02] MEDS: ONDANSETRON DISINTEGRATING 4 MG TAB PO SCH ×3 (05:33→17:12)
[2017-03-02 05:34] LABS: ALBUMIN 2.8 g/dL (3.5-5.0); ANION GAP 7 mEq/L (8-16); CALCIUM 7.9 mg/dL (8.5-10.4); CARBON DIOXIDE 30 mEq/l (22-31); CHLORIDE 101 mEq/L (97-110); CREATININE 1.3 mg/dL (0.6-1.0); GLOMERULAR FILTRATION RATE 40; GLUCOSE 119 mg/dL (70-100); POTASSIUM 3.1 mEq/L (3.5-5.2); SODIUM 138 mEq/L (134-144)
[2017-03-02] MEDS: LEVOTHYROXINE 125 MCG TAB PO SCH (05:36)
[2017-03-02 06:07] LABS: ACANTHOCYTES 1+; PLATELET ESTIMATE DECREASED (ADEQ); SCHISTOCYTES 1+
[2017-03-02 06:08] LABS: MACROCYTES 1+
[2017-03-02 06:50] LABS: SCAN POSITIVE
[2017-03-02 06:53] LABS: PLATELET COUNT 24 10^3/uL (150-400)
[2017-03-02] MEDS: HYDROXYUREA 500 MG CAP PO SCH (09:11)
[2017-03-02] MEDS: ALPRAZolam 0.5 MG TAB PO SCH ×2 (09:12→14:31)
[2017-03-02] MEDS: PANTOPRAZOLE SODIUM 40 MG TAB PO SCH (09:12)
[2017-03-02] MEDS: FUROSEMIDE 40 MG/4 ML VIAL IVP SCH ×2 (09:12→14:31)
[2017-03-02] MEDS: ALLOPURINOL 300 MG TAB PO SCH (09:12)
[2017-03-02] MEDS: CETIRIZINE 10 MG TAB PO SCH (09:12)
[2017-03-02] MEDS: METHENAMINE HIPP 1 GM TAB PO SCH ×2 (09:13→20:03)
[2017-03-02] MEDS: SENNOSIDES/DOCUSATE SODIUM TAB PO SCH ×2 (09:28→20:03)
[2017-03-02] MEDS: POLYETHYLENE GLYCOL 3350 17 GM PKT PO PRN (09:32)
[2017-03-02] MEDS: buPROPion 100 MG TAB PO SCH ×2 (09:38→20:03)
[2017-03-02] MEDS: BENEFIBER/NUTRISOURCE FIBER PKT 1 EACH PO SCH ×3 (09:38→20:05)
[2017-03-02 11:10] LABS: RESPPCR RESULT SEE COMMENTS
--- NOTE | 2017-03-02 15:10 | SOAPPROG ---
SOAP Progress Note Assessment/Plan: Assessment: Assessment: 1. 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 2. Leukocytosis, resolved 3. Tumor lysis syndrome 4. Volume overload Her peripheral blast count is coming down nicely on Hydrea. Tumor lysis resolving as well and creatine is near normal at 1.3. Plan: - will decrease hydrea to 1000 mg daily, d/c when stronger and able to care for self at home 03/02/17 15:08 Subjective: Feels better was able to climb stairs but a bit of an effort Objective: Vital Signs Temp Pulse Resp BP Pulse Ox 97.3 F 72 20 100/52 L 93 03/02/17 08:23 03/02/17 08:23 03/02/17 08:23 03/02/17 08:23 03/02/17 08:23 Microbiology 02/27/17 15:30 Urine Culture - Final Urine,Clean Catch Escherichia Coli Three [place] Types Laboratory Results 03/02/17 04:34 03/02/17 04:34 03/01/17 03/02/17 03/03/17 05:59 05:59 05:59 Intake Total 440 1086 660 Output Total 4825 3740 1700 [facility] -4385 -2654 -1040 ICD10 Worksheet Patient Problems: Problems Problem Status Onset CHF (congestive heart failure) Acute Cardiomegaly Acute Hypoxia Acute LBBB (left bundle branch block) Acute Peripheral edema Acute Pneumonia Acute
--- NOTE | 2017-03-02 17:15 | HOSPPROG ---
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 -on hydroxy urea -white count decreased to 5,000 today; Blasts decreased drom 3880 to 170 -platelets down slightly 38, anemia a bit better today # Acute hypoxemic resp failure; appears due most likely to volume overload with history of diastolic heart failure and large volume resuscitation given here at this time -currently diuresing well with Lasix and doing much better but still needs low flow O2, fairly symptomatic without it # acute pancytopenia from chemotherapy for leukemia -no specific transfusion indications at this time # hypothyroidism -on Synthroid replacement # attention deficit disorder -continue Ritalin # prophylaxis- holding heparin secondary to platelets of 26,000 # diet as tolerated Overall she is much better and stabilized from a tumor lysis syndrome and renal standpoint. She is improving remarkably in terms of her respiratory issues. However at this point she remains weak and will need another day for us to set up things for DC home; importantly we are getting a bed for her first floor (she failed stairs here) and setting up home health aids (her currently admitted here w UGI bleed) PLANS: -continue lasix -continue allopurinol, follow renal function and uric acid level -follow blood counts closely -Continue PT and OT -likely home tomorrow w [facility] and hosptial bed SUBJECTIVE: feeling better overall, less sob, but still very weak and sob during exertion and w exertional hypoxemia eating well no other new sxs OBJECTIVE Vitals reviewed: stable without fever Exam: alert oriented notably less depressed skin warm dry color ok resps not labored lungs rales present but decreased heart regular abd soft nondistended nontender, bowel sounds present limbs warm, no edema iv site ok wbc down to 5 K, plts down to 24 K, hemoglobin up slightly 7.9 uric acid remains low, creat stable Objective: Vital Signs Temp Pulse Resp BP Pulse Ox 36.9 C 90 18 120/68 95 03/02/17 16:01 03/02/17 16:01 03/02/17 16:01 03/02/17 16:01 03/02/17 16:01 Microbiology 02/27/17 15:30 Urine Culture - Final Urine,Clean Catch Escherichia Coli Three [place] Types Laboratory Results 03/02/17 04:34 03/02/17 04:34 03/01/17 03/02/17 03/03/17 06:59 06:59 06:59 Intake Total 440 1086 1060 Output Total 4325 3740 2700 Balance -3885 -2654 -1640 ICD10 Worksheet Patient Problems: Problems Problem Status Onset CHF (congestive heart failure) Acute Cardiomegaly Acute Hypoxia Acute LBBB (left bundle branch block) Acute Peripheral edema Acute Pneumonia Acute
[2017-03-02] MEDS: NORTRIPTYLINE HCL 50 MG CAP PO SCH (20:03)
[2017-03-03] MEDS: ONDANSETRON DISINTEGRATING 4 MG TAB PO SCH ×3 (03:35→17:04)
[2017-03-03] MEDS: LEVOTHYROXINE 125 MCG TAB PO SCH (05:54)
[2017-03-03] MEDS: FUROSEMIDE 40 MG/4 ML VIAL IVP SCH ×2 (09:14→17:05)
[2017-03-03] MEDS: POLYETHYLENE GLYCOL 3350 17 GM PKT PO PRN (09:15)
[2017-03-03] MEDS: METHENAMINE HIPP 1 GM TAB PO SCH ×2 (09:15→21:54)
[2017-03-03] MEDS: SENNOSIDES/DOCUSATE SODIUM TAB PO SCH ×2 (09:16→21:54)
[2017-03-03] MEDS: CETIRIZINE 10 MG TAB PO SCH (09:17)
[2017-03-03] MEDS: HYDROXYUREA 500 MG CAP PO SCH (09:17)
[2017-03-03] MEDS: PANTOPRAZOLE SODIUM 40 MG TAB PO SCH (09:18)
[2017-03-03] MEDS: ALPRAZolam 0.5 MG TAB PO SCH ×2 (09:19→13:17)
[2017-03-03] MEDS: BENEFIBER/NUTRISOURCE FIBER PKT 1 EACH PO SCH ×3 (09:19→21:55)
--- NOTE | 2017-03-03 10:54 | SOAPPROG ---
SOAP Progress Note Assessment/Plan: Assessment: Assessment: 1. 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 2. Leukocytosis, resolved 3. Tumor lysis syndrome 4. Volume overload 5.hypokalemia Her peripheral blast count is coming down nicely on Hydrea. Tumor lysis resolving as well and creatine is near normal at 1.3 as of yesterday Plan: - will d/c on hydrea to 1000 mg daily, if todays labs ok , plan on follow up for outpt Jahaira, primary oncologist is Dr Jones 03/02/17 15:08 03/03/17 10:51 Subjective: Feels ok this am Objective: Vital Signs Temp Pulse Resp BP Pulse Ox 97.8 F 78 16 94/50 L 96 03/03/17 07:53 03/03/17 07:53 03/03/17 07:53 03/03/17 07:53 03/03/17 07:53 Microbiology 02/27/17 15:30 Urine Culture - Final Urine,Clean Catch Escherichia Coli Three [place] Types Laboratory Results 03/02/17 04:34 03/02/17 04:34 03/02/17 03/03/17 03/04/17 05:59 05:59 05:59 Intake Total 1086 2635 325 Output Total 3740 2700 Balance -2654 -65 325 Physical Exam - Physical Exam General Appearance: alert, no apparent distress Respiratory: lungs clear ICD10 Worksheet Patient Problems: Problems Problem Status Onset CHF (congestive heart failure) Acute Cardiomegaly Acute Hypoxia Acute LBBB (left bundle branch block) Acute Peripheral edema Acute Pneumonia Acute
[2017-03-03] MEDS: buPROPion 100 MG TAB PO SCH ×2 (11:31→21:54)
[2017-03-03 11:59] LABS: ANION GAP 11 mEq/L (8-16); CARBON DIOXIDE 30 mEq/l (22-31); CHLORIDE 97 mEq/L (97-110); CREATININE 1.2 mg/dL (0.6-1.0); GLOMERULAR FILTRATION RATE 44; GLUCOSE 160 mg/dL (70-100); POTASSIUM 2.8 mEq/L (3.5-5.2); SODIUM 138 mEq/L (134-144)
[2017-03-03] MEDS ORDERED: POTASSIUM Cl (KCl) 100 ML IV ONE ×2 (12:15→13:05)
[2017-03-03] MEDS ORDERED: POTASSIUM CL 20 MEQ TAB PO ONE (12:15)
--- NOTE | 2017-03-03 12:33 | HOSPPROG ---
Hospitalist Progress Note Assessment/Plan: # ALETHEA on CKD - resolved, likely d/t TLS # acute hypoxic resp failure - better today, d/t pulm edema - cont lasix # hypokalemia - replete # MDS/AML conversion - will start tx with Vidaza as outpatient - hydroxyurea # anemia # diastolic dysfunction # ADHD - Ritalin # hypothyroid - synthroid # DNR # lovenox Subjective: breathing feels better Objective: Vital Signs Temp Pulse Resp BP Pulse Ox 36.6 C 103 H 16 94/50 L 92 03/03/17 07:53 03/03/17 10:53 03/03/17 07:53 03/03/17 07:53 03/03/17 10:53 Microbiology 02/27/17 15:30 Urine Culture - Final Urine,Clean Catch Escherichia Coli Three [place] Types Laboratory Results 03/02/17 04:34 03/03/17 11:11 03/02/17 03/03/17 03/04/17 05:59 05:59 05:59 Intake Total 1086 2635 325 Output Total 9110 2700 Balance -2654 -65 325 - Time Spent With Patient Time Spent with Patient: greater than 35 minutes Time Spent with Patient: Greater than 35 minutes spent on this patients care, greater than 50% of time spent counseling, educating, and coordinating care regarding the above mentioned plan. - Physical Exam Constitutional: no apparent distress, appears nourished Respiratory: no respiratory distress ICD10 Worksheet Patient Problems: Problems Problem Status Onset Cardiomegaly Acute Peripheral edema Acute LBBB (left bundle branch block) Acute Hypoxia Acute Pneumonia Acute CHF (congestive heart failure) Acute
[2017-03-03] MEDS: NORTRIPTYLINE HCL 50 MG CAP PO SCH (21:54)
[2017-03-04] MEDS: ONDANSETRON DISINTEGRATING 4 MG TAB PO SCH ×2 (01:48→09:48)
[2017-03-04] MEDS: LEVOTHYROXINE 125 MCG TAB PO SCH (05:41)
[2017-03-04 06:02] LABS: ANION GAP 7 mEq/L (8-16); CALCIUM 8.2 mg/dL (8.5-10.4); CARBON DIOXIDE 31 mEq/l (22-31); CHLORIDE 100 mEq/L (97-110); CREATININE 1.2 mg/dL (0.6-1.0); GLOMERULAR FILTRATION RATE 44; GLUCOSE 118 mg/dL (70-100); POTASSIUM 3.2 mEq/L (3.5-5.2); SODIUM 138 mEq/L (134-144)
[2017-03-04 06:14] VITALS: RESP 16; O2SAT 96
[2017-03-04] MEDS ORDERED: POTASSIUM CL 10 MEQ TAB PO SCH (09:00)
[2017-03-04 09:33] VITALS: BP 110/60; PULSE 94; TEMP 98
[2017-03-04] MEDS: METHENAMINE HIPP 1 GM TAB PO SCH (09:47)
[2017-03-04] MEDS: ALPRAZolam 0.5 MG TAB PO SCH ×2 (09:47→13:15)
[2017-03-04] MEDS: HYDROXYUREA 500 MG CAP PO SCH (09:48)
[2017-03-04] MEDS: SENNOSIDES/DOCUSATE SODIUM TAB PO SCH (09:48)
[2017-03-04] MEDS: CETIRIZINE 10 MG TAB PO SCH (09:48)
[2017-03-04] MEDS: PANTOPRAZOLE SODIUM 40 MG TAB PO SCH (09:49)
[2017-03-04] MEDS: FUROSEMIDE 40 MG/4 ML VIAL IVP SCH (09:49)
[2017-03-04] MEDS: BENEFIBER/NUTRISOURCE FIBER PKT 1 EACH PO SCH (09:50)
[2017-03-04] MEDS: buPROPion 100 MG TAB PO SCH (09:52)
[2017-03-04 11:24] LABS: ADD DIFF? YES; ADD MORPH? YES; ADD SCAN? YES; ATYPICAL LYMPHOCYTE FLAG 0 (0-99); FRAGMENT RBC FLAG 20 (0-99); HEMATOCRIT 26.3 % (38.0-47.0); HEMOGLOBIN 8.6 g/dL (12.6-16.3); LEFT SHIFT FLG 0 (0-99); LIPEMIA HEMOLYSIS FLAG 80 (0-99); MEAN CELL HEMOGLOBIN 34.4 pg (27.9-34.1); MEAN CELL HEMOGLOBIN CONCENTR. 32.7 g/dL (32.4-36.7); MEAN CELL VOLUME 105.2 fL (81.5-99.8); PLATELET CLUMPS FLAG 0 (0-99)
[2017-03-04 11:30] LABS: PLATELET COUNT 36 10^3/uL (150-400); RED CELL DISTRIBUTION WIDTH 20.3 % (11.5-15.2)
--- NOTE | 2017-03-04 12:28 | GDS ---
[f rep st] DISCHARGE SUMMARY ALL DIAGNOSES: 1. [id number] kidney injury. 2. Acute hypoxic respiratory failure. 3. Pulmonary edema. 4. Hypokalemia. 5. 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 6. Anemia. 7. Thrombocytopenia. 8. Diastolic dysfunction. 9. Attention deficit hyperactivity disorder. 10. Hypothyroid. HOSPITAL COURSE: A 76-year-old female admitted with worsening renal function. This is likely due t o urate nephropathy in the setting of conversion to from MDS to AML. She was initially treated with rasburicase with significant improvement in her uric acid as well as renal function. She has been started on hydroxyurea with good response. Initially, her furosemide and potassium were held; those have been restarted. She was requiring some oxygen given her pulmonary edema. However, she does n ot have an oxygen requirement on discharge. FOLLOWUP: 1. She will go to our [facility] [place] office today for Vidaza. 2. She will make lab appointments for later this week and desires to follow up with Dr. Jones. BILLING: I spent more than 30 minutes on the day of discharge coordinating care. /[id number]/MODL
[2017-03-04 12:29] LABS: ELLIPTOCYTES 1+; PLATELET ESTIMATE DECREASED (ADEQ)
--- NOTE | 2017-03-04 15:57 | PDIAF ---
- Diagnosis Diagnosis: Renal Failure Code Status: Do Not Resuscitate - Medication Management Discharge Medications: Medications to Continue on Transfer Pantoprazole Sodium [Protonix 40mg (*)] 40 mg PO DAILY 03/15/13 [Last Taken 10/02] methYLPHENIDATE HCL [Ritalin 10mg (*)] 15 mg PO DAILY 02/27/15 [Last Taken 02/24] Methenamine Fabian [Hiprex 1 gm (*)] 0.5 gm PO BID 04/24/16 [Last Taken 02/24/17] ALPRAZolam [Xanax 0.5 MG (*)] 0.25 mg PO DAILY@14 11/03/16 [Last Taken 02/24/17] Ascorbic Acid [Vitamin C 250 mg (*)] 250 mg PO DAILY 11/03/16 [Last Taken ] Calcium Carbonate [Oyster Shell Calcium 500 mg (*)] 500 mg PO HS 11/03/16 [Last Taken Unknown] FEXOFENADINE HCL 90 mg PO BID 11/03/16 [Last Taken 02/11/17] Levothyroxine [Synthroid 125 mcg (*)] 125 mcg PO DAILY06 11/03/16 [Last Taken ] Multivitamins [Multivitamin (*)] 1 each PO DAILY 11/03/16 [Last Taken 02/10/17] Nitrofurantoin Macrobid [Macrobid] 100 mg PO DAILY PRN 11/03/16 [Last Taken ] Nortriptyline HCl [Pamelor 50 mg (*)] 100 mg PO HS 11/03/16 [Last Taken 02/23/17 ] buPROPion [Wellbutrin 100mg (*)] 100 mg PO BID 11/03/16 [Last Taken 02/24/17] methYLPHENIDATE HCL [Ritalin 10mg (*)] 10 mg PO DAILY@14 11/03/16 [Last Taken ] ALPRAZolam [Xanax 0.5 MG (*)] 0.5 mg PO DAILY 02/12/17 [Last Taken 02/24/17] Calcium Carbonate [Tums 500MG (*)] 500 mg PO TID PRN 02/12/17 [Last Taken ] Allopurinol [Zyloprim] 300 mg PO BID 02/24/17 [Last Taken Unknown] Ondansetron [Zofran Odt] 8 mg PO Q8H 02/24/17 [Last Taken Unknown] Furosemide [Lasix] 40 mg PO BID #60 tab 03/04/17 [Last Taken Unknown] Hydroxyurea [Hydrea 500 mg (*)] 1,000 mg PO DAILY cap 03/04/17 [Last Taken Unknown] Hydroxyurea [Hydrea 500 mg (*)] 1,000 mg PO DAILY #60 cap 03/04/17 [Last Taken Unknown] Ondansetron Odt [Zofran Odt 4 mg (*)] 4 mg PO Q4 #30 tab 03/04/17 [Last Taken Unknown] Potassium Cl [Klor-Con 20 meq (*)] 20 meq PO DAILY@16 #30 tab 03/04/17 [Last Taken Unknown] Potassium Cl [Klor-Con 20 meq (*)] 40 meq PO DAILY #60 tab 03/04/17 [Last Taken Unknown] Discharge Medications: Refer to the Discharge Home Medication list for PRN reason. - Orders Services needed: Home Care, Registered Nurse, Physical Therapy Home Care Face to Face: I certify that this patient was under my care and that I had the required [id number] encounter meeting the encounter requirements on the discharge day. My findings support the fact that the patient is homebound as defined in CMS Chapter 7 Medicare Benefits Manual 30.1.1, The condition of the patient is such that there exists a normal inability to leave home and consequently, leaving home would require a considerable and taxing effort. - Follow Up Care Current Providers and Referrals: Airam Doan MD [Primary Care Provider] -
[2017-03-04] MEDS ORDERED: POTASSIUM CL 20 MEQ TAB PO SCH (16:00)
[2017-03-04 18:21] LABS: SCAN POSITIVE
== END 2017-03-04 14:32 | disposition home or self-care (01) | DRG 682 ==
LOC: F1N 15:37 → PREOBSVTOIN 15:50
PROVIDERS: ADMIT Internal Medicine; ATTEND Student in an Organized Health Care Education/Training Program
PROC: 30233N1 Transfusion of Nonautologous Red Blood Cells into Peripheral Vein, Percutaneous Approach (ICD-10-PCS; principal; 2017-02-26)
DX: N17.8 Other acute kidney failure (principal); J96.01 Acute respiratory failure with hypoxia; J81.1 Chronic pulmonary edema; C92.00 Acute myeloblastic leukemia, not having achieved remission; D61.818 Other pancytopenia; I50.32 Chronic diastolic (congestive) heart failure; E87.6 Hypokalemia; D46.9 Myelodysplastic syndrome, unspecified; E03.9 Hypothyroidism, unspecified; F90.9 Attention-deficit hyperactivity disorder, unspecified type; Z96.652 Presence of left artificial knee joint; Z96.641 Presence of right artificial hip joint
CPT/HCPCS: 86860-90; 86870-90; 97116-GP; 97162-GP; 97164-GP; 97530-GP; G8978-GP-CI; G8978-GP-CJ; G8979-GP-CI; G8980-GP-CI; J2783; P9016

== ENCOUNTER 2017-03-09 16:45 | Outpatient (CLI) | payer OTHER, MEDICARE ==
[2017-03-09] MEDS ORDERED: ACETAMINOPHEN 325 MG TAB PO ONE (17:30)
== END 2017-03-09 21:58 | disposition home or self-care (01) ==
LOC: FOBOP 16:45
PROVIDERS: ATTEND Internal Medicine Hematology & Oncology
PROC: 30233N1 Transfusion of Nonautologous Red Blood Cells into Peripheral Vein, Percutaneous Approach (ICD-10-PCS; principal; 2017-03-09)
DX: D46.9 Myelodysplastic syndrome, unspecified (principal); C92.00 Acute myeloblastic leukemia, not having achieved remission; D46.21 Refractory anemia with excess of blasts 1
CPT/HCPCS: 36430; P9040

== ENCOUNTER 2017-03-14 03:16 | Inpatient (IN) | payer OTHER, MEDICARE ==
[2017-03-14] MEDS ORDERED: ONDANSETRON 4 MG/2 ML VIAL ONE (03:30)
[2017-03-14] MEDS ORDERED: METOCLOPRAMIDE 10 MG/2 ML VIAL IVP ONE (03:43)
[2017-03-14] MEDS ORDERED: NS 1,000 ML IV ONE ×3 (03:43→06:10)
[2017-03-14] MEDS ORDERED: ONDANSETRON 4 MG/2 ML VIAL IVP ONE ×2 (03:45→04:30)
[2017-03-14] MEDS ORDERED: NS 50 ML BAG IV ONE (03:47)
--- NOTE | 2017-03-14 03:49 | EDPHY ---
H & P Stated Complaint: N and V and "bloody diarrhea" since 2099, recent chemo Time Seen by Provider: 03/14/17 03:33 HPI/ROS: HPI The patient presents with abdominal pain, nausea and vomiting and bloody diarrhea for the last 1 day. Her symptoms began at about 9:00 p.m. when she felt nauseated and vomited several times. She then had 3 episodes of bloody diarrhea after using senna to have a bowel movement because she was feeling constipated. 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 She has not had any fevers. 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 She had a transfusion earlier this week. REVIEW OF SYSTEMS Constitutional: No fever, no chills. Eyes: No discharge. ENT: No sore throat. Cardiovascular: No chest pain, no palpitations. Respiratory: No cough, no shortness of breath. Gastrointestinal: No abdominal pain, no vomiting. Genitourinary: No hematuria. Musculoskeletal: No back pain. Skin: No rashes. Neurological: No headache. 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 Soc Hx: Housed with her PHYSICAL General Appearance: Pale and uncomfortable appearing Eyes: Pupils equal and round no pallor or injection ENT, Mouth: Mucous membranes dry Respiratory: There are no retractions, lungs are clear to auscultation Cardiovascular: Regular rate and rhythm Gastrointestinal: Abdomen is soft with mild tenderness in the left lower quadrant Neurological: A&O, moves all extremities Skin: Warm and dry, no rashes Musculoskeletal: Neck is supple non tender Extremities: symmetrical, full range of motion Psychiatric: Patient is oriented X 3, there is no agitation Source: Patient, Family, Old records - Personal History Current Tetanus/Diphtheria Vaccine: Yes Current Tetanus Diphtheria and Acellular Pertussis (TDAP): Yes Tetanus Vaccine Date: 2014 - Medical/Surgical History Hx Asthma: No Hx Chronic Respiratory Disease: No Hx Diabetes: No Hx Cardiac Disease: Yes Hx Renal Disease: Yes Hx Cirrhosis: No Hx Alcoholism: No Hx HIV/AIDS: No Hx Splenectomy or Spleen Trauma: No Other PMH: ANXIETY, HTN, KIDNEY DISFUNCTION, NEPHRITIS, HYPOTHYROID, GALLBLADDER OUT, ISCHEMIC COLOTIS, PARTIAL COLOCTEMY,HYSTERECTOMY, L KNEE REPLACEMENT, R HIP REPLACEMENT, BETA RADIATION EXPOSURE FROM WORK, R SIDED CHF, elevated uric acid levels - Social History Smoking Status: Never smoked Constitutional: Initial Vital Signs Temperature (C) 36.5 C 03/14/17 03:43 Heart Rate 107 H 03/14/17 03:43 Respiratory Rate 20 03/14/17 03:43 Blood Pressure 118/69 03/14/17 03:43 O2 Sat (%) 92 03/14/17 03:43 O2 Delivery Mode Nasal Cannula O2 (L/minute) 2 Allergies/Adverse Reactions: cefuroxime [Cefuroxime] Allergy (Severe, Verified 02/12/17 02:29) SYNCOPE Cephalosporins Allergy (Severe, Verified 02/12/17 02:29) THROAT SWELLING ciprofloxacin [From Cipro] Allergy (Severe, Verified 02/12/17 02:29) CRUSHING CHANG, SYNCOPE ciprofloxacin HCl [From Cipro] Allergy (Severe, Verified 02/12/17 02:29) CRUSHING CHANG, SYNCOPE fructooligosaccharides (FOS) [From Probiotic & Acidophilus] Allergy (Severe, Verified 02/12/17 02:29) LIPS SWELL, CRACK, REDDENED AREA BURNING FEELING Lactobacillus Combo No.3 [From Probiotic & Acidophilus] Allergy (Severe, Verified 02/12/17 02:29) LIPS SWELL, CRACK, REDDENED AREA BURNING FEELING levofloxacin [From Levaquin] Allergy (Severe, Verified 02/12/17 02:29) THROAT SWELLING Pantethine [From Probiotic & Acidophilus] Allergy (Severe, Verified 02/12/17 02: 29) LIPS SWELL, CRACK, REDDENED AREA BURNING FEELING Sulfa (Sulfonamide Antibiotics) Allergy (Severe, Verified 02/12/17 02:29) THROAT SWELLING, ANAPHYLACTIC Home Medications: Medication Instructions Recorded Pantoprazole Sodium [Protonix 40mg 40 mg PO DAILY 03/15/13 (*)] methYLPHENIDATE HCL [Ritalin 10mg 15 mg PO DAILY 02/27/15 (*)] Methenamine Fabian [Hiprex 1 gm (*)] 0.5 gm PO BID 04/24/16 ALPRAZolam [Xanax 0.5 MG (*)] 0.25 mg PO DAILY@14 11/03/16 Calcium Carbonate [Oyster Shell 500 mg PO HS 11/03/16 Calcium 500 mg (*)] FEXOFENADINE HCL 90 mg PO BID 11/03/16 Levothyroxine [Synthroid 125 mcg 125 mcg PO DAILY06 11/03/16 (*)] Multivitamins [Multivitamin (*)] 1 each PO DAILY 11/03/16 Nitrofurantoin Macrobid [Macrobid] 100 mg PO DAILY PRN 11/03/16 Nortriptyline HCl [Pamelor 50 mg 100 mg PO HS 11/03/16 (*)] buPROPion [Wellbutrin 100mg (*)] 100 mg PO BID 11/03/16 methYLPHENIDATE HCL [Ritalin 10mg 10 mg PO DAILY@14 11/03/16 (*)] ALPRAZolam [Xanax 0.5 MG (*)] 0.5 mg PO DAILY 02/12/17 Allopurinol [Zyloprim] 300 mg PO DAILY 02/24/17 Ondansetron [Zofran Odt] 8 mg PO BID PRN 02/24/17 Furosemide [Lasix] 40 mg PO BID #60 tab 03/04/17 Potassium Cl [Klor-Con 20 meq (*)] 20 meq PO DAILY@16 #30 tab 03/04/17 Potassium Cl [Klor-Con 20 meq (*)] 40 meq PO DAILY #60 tab 03/04/17 Lisinopril [Lisinopril] 5 mg PO DAILY PRN 03/14/17 Medical Decision Making - Diagnostics Imaging Results: Chest x-ray two view shows cardiomegaly, no infiltrate, interpreted by me, radiology interpretation is pending. CT scan abdomen pelvis with IV contrast demonstrates colitis most prominently in the sigmoid colon, no free air, discussed with Dr. Montemayor of Radiology. ED Course/Re-evaluation: 4:45a- Patient began to experience rigors in the emergency room. Repeat lactate was checked and went from 3.1 to 5.5. Patient has received IV fluids, however now we will give her the full fluid bolus for sepsis. She does have a history of pulmonary edema so we will have to watch her closely. I have ordered her meropenem as well, she does have a cephalosporin allergy. I have held on her CT scan as I would like her to receive fluids and antibiotics before she goes to have imaging. Her blood pressure is stable in the 120s over 70s. 6:45 a.m.- The patient was given a fluid bolus, meropenem. She had improvement in her symptoms and felt better, however her blood pressure was marginal in the 100s to 1 teens over 50s to 60s with maps just above 65. She says this is actually close to her usual blood pressures. She is pancytopenic with low platelets. She also is DNR. I discussed with her placement of central line, given her low maps. She would like to avoid this, however if it is necessary, she agrees to proceed. I will hold on this for now given that she is stable. 7:30 a.m.- CT scan is performed and demonstrates colitis. It appears to be more infectious on CT scan then ischemic. I feel this is likely infectious given her sepsis. We will need to monitor her clinically. I have discussed the case with Dr. Horn of the hospitalist service and he will admit the patient. I have ordered her a bed. We will plan to transfuse her given her hemoglobin of 7 and her sepsis. Differential Diagnosis: This is a 76-year-old female with recent diagnosis of AML on chemotherapy, also with history of colon resection for ischemic colitis, who presents with nausea, vomiting, abdominal pain, bloody stools for the last several hours. On exam, she is tachycardic in the 100s, she has mild tenderness of her left lower quadrant. Differential diagnosis includes recurrent ischemic colitis, diverticulitis, viral gastroenteritis, toxin mediated enterocolitis. Plan for IV fluid bolus, basic labs, CT scan of abdomen. Critical Care Time: CRITICAL CARE Critical care time spent by me, Dr. Pimentel, exclusively with this patient was 60 minutes, exclusive of PA time and exclusive of procedures. The organ system at risk was cardiac, abdominal and I gave IV fluids, antibiotics, transfer the patient to the ICU to prevent worsening of the patients condition. - Data Points Laboratory Results: Laboratory Results 03/14/17 03:34 03/14/17 03:34 Microbiology Results: MICROBIOLOGY 03/14/17 06:15 Stool Gastrointestinal Tract Panel (PCR) - Final No Organism Detected Medications Given: Discontinued Medications Acetaminophen (Tylenol) 1,000 mg PO EDNOW ONE Stop: 03/14/17 04:31 Last Admin: 03/14/17 05:11 Dose: 1,000 mg Sodium Chloride (Ns) 1,000 mls @ 0 mls/hr IV ONCE ONE PRN Reason: Wide Open Stop: 03/14/17 03:44 Last Admin: 03/14/17 03:52 Dose: 1,000 mls Meropenem 1 gm/ Sodium (Chloride) 120 mls @ 120 mls/hr IV EDNOW ONE PRN Reason: Protocol Stop: 03/14/17 05:48 Last Admin: 03/14/17 05:00 Dose: 120 mls Sodium Chloride (Ns) 1,000 mls @ 0 mls/hr IV ONCE ONE PRN Reason: Wide Open Stop: 03/14/17 04:54 Last Admin: 03/14/17 04:45 Dose: 1,000 mls Sodium Chloride (Ns) 1,000 mls @ 0 mls/hr IV ONCE ONE PRN Reason: Wide Open Stop: 03/14/17 06:11 Last Admin: 03/14/17 06:10 Dose: 1,000 mls Sodium Chloride (Ns) 1,000 mls @ 125 mls/hr IV CONT MICHELE Stop: 09/10/17 08:29 Last Admin: 03/14/17 09:22 Dose: 1,000 mls Metoclopramide HCl (Reglan Injection) 10 mg IVP EDNOW ONE Stop: 03/14/17 03:44 Last Admin: 03/14/17 03:53 Dose: 10 mg Ondansetron HCl (Zofran) 4 mg IVP EDNOW ONE Stop: 03/14/17 03:46 Last Admin: 03/14/17 03:40 Dose: 4 mg Ondansetron HCl (Zofran) 4 mg IVP EDNOW ONE Stop: 03/14/17 04:31 Last Admin: 03/14/17 05:11 Dose: 4 mg Departure - Departure Disposition: [facility] In[facility] Acute Clinical Impression: Pancytopenia, Colitis Sepsis Qualifiers: Sepsis type: sepsis due to unspecified organism Qualified Code(s): A41.9 - Sepsis, unspecified organism AML (acute myeloid leukemia) Qualifiers: Leukemia Active/Remission status: without remission Qualified Code(s): C92.00 - Acute myeloblastic leukemia, not having achieved remission Condition: Critical
[2017-03-14 03:51] LABS: % IMMATURE GRANULYOCYTES 1.5 % (0.0-1.1); ABSOLUTE IMMATURE GRANULOCYTES 0.03 10^3/uL (0.00-0.10); ADD DIFF? NO; ADD MORPH? NO; ADD SCAN? YES; ATYPICAL LYMPHOCYTE FLAG 80 (0-99); FRAGMENT RBC FLAG 20 (0-99); HEMATOCRIT 22.6 % (38.0-47.0); HEMOGLOBIN 7.5 g/dL (12.6-16.3); LEFT SHIFT FLG 0 (0-99); LIPEMIA HEMOLYSIS FLAG 80 (0-99); MEAN CELL HEMOGLOBIN 33.5 pg (27.9-34.1); MEAN CELL HEMOGLOBIN CONCENTR. 33.2 g/dL (32.4-36.7); MEAN CELL VOLUME 100.9 fL (81.5-99.8); PLATELET CLUMPS FLAG 10 (0-99); RED BLOOD CELL COUNT 2.24 10^6/uL (4.18-5.33)
[2017-03-14 03:53] LABS: PLATELET COUNT 33 10^3/uL (150-400)
[2017-03-14 03:57] LABS: ALANINE AMINOTRANSFERASE 33 IU/L (9-52); ALBUMIN 3.9 g/dL (3.5-5.0); ALKALINE PHOSPHATASE 93 IU/L (38-126); ANION GAP 11 mEq/L (8-16); ASPARTATE AMINOTRANSFERASE 21 IU/L (14-46); BILIRUBIN,TOTAL 0.9 mg/dL (0.1-1.4); BILIRUBIN-CONJUGATED 0.3 mg/dL (0.0-0.5); BILIRUBIN-UNCONJUGATED 0.6 mg/dL (0.0-1.1); CALCIUM 9.6 mg/dL (8.5-10.4); CARBON DIOXIDE 27 mEq/l (22-31); CHLORIDE 98 mEq/L (97-110); CREATININE 1.4 mg/dL (0.6-1.0); GLOMERULAR FILTRATION RATE 37; GLUCOSE 158 mg/dL (70-100); POTASSIUM 3.4 mEq/L (3.5-5.2); SODIUM 136 mEq/L (134-144); TOTAL PROTEIN 6.9 g/dL (6.3-8.2)
[2017-03-14 03:58] LABS: INR 1.11 (0.83-1.16); PROTIME(PATIENT) 14.2 SEC (12.0-15.0)
[2017-03-14 03:59] LABS: APTT 29.2 SEC (23.0-38.0)
[2017-03-14] MEDS ORDERED: IOPAMIDOL (ISOVUE-300) 100 ML BTL IV ONE (04:18)
[2017-03-14 04:23] LABS: SCAN NEGATIVE
[2017-03-14 04:28] LABS: PLATELET ESTIMATE DECREASED (ADEQ)
[2017-03-14] MEDS ORDERED: ACETAMINOPHEN 500 MG TAB PO ONE (04:30)
[2017-03-14] MEDS ORDERED: MEROPENEM 1 GM in NS 100 ML IV ONE (04:49)
[2017-03-14 07:08] LABS: COLOR YELLOW; LEUKOCYTE ESTERASE,URINE NEGATIVE (NEGATIVE); NITRITE,URINE NEGATIVE (NEGATIVE)
[2017-03-14 07:19] LABS: MUCUS TRACE /lpf (NONE-1+)
[2017-03-14] MEDS ORDERED: NS 1,000 ML IV SCH ×2 (08:30→19:00)
--- NOTE | 2017-03-14 09:28 | GHP ---
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 She presents to the hospital early this morning with rigors and some bloody diarrhea. Yesterday at about 9 p.m. she felt rigors and then had them a couple of times during the night. She feels consti pated but is also having liquid stool. At about 11 p.m. she noticed some blood in the stool, a few tablespoons again and then she sought care early this morning, being seen in the ER at about 3 a.m. She denies cough or shortness of breath or chest pain. She has no other abdominal pain. She has h ad an appendectomy in the past. She has had no painful areas on her skin. No urgency, frequency, d ysuria. She is currently not taking antibiotics although she is receiving chemotherapy in the form of hydroxyurea and Vidaza. Her primary oncologist is Dr. Zheng Jones. In the emergency department she had a CT scan showing colitis. She received IV bolus for sepsis and was noted to be pancytopenic. REVIEW OF SYSTEMS: Complete 10-point review of systems conducted. Negative except as noted in the HPI. She expressed concern about getting a transfusion because of a previous episode of TACO known as transfusion associated circulatory overload. PAST MEDICAL HISTORY: 1. 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 2. History of colon resection for ischemic colitis. 3. 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 4. Attention deficit hyperactivity disorder. 5. Hypothyroidism. 6. Diastolic heart failure. 7. Multiple lumpectomies. 8. Cholecystectomy. 9. History of right hip replacement. 10. Left knee arthroplasty. 11. Depression/anxiety. ALLERGIES: Cefuroxime, cephalosporin, ciprofloxacin, fructooligosaccharides lactobacillus combo. Le vofloxacin, pantethine. Sulfa fructooligosaccharides, lactobacillus and pantethine are all componen ts of probiotics. HOME MEDICATIONS: Include Ritalin, bupropion, potassium, ondansetron, nortriptyline, nitrofurantoin , multivitamin, ethanamine, levothyroxine, hydroxyurea, furosemide, fexofenadine, calcium carbonate, ascorbic acid, allopurinol, alprazolam. SOCIAL HISTORY: She lived in [place] for 50 years. Lifelong nonsmoker. Nondrinker. prese nt at the bedside. FAMILY HISTORY: Parents . PHYSICAL EXAMINATION: Presenting vitals, temp 38.9, blood pressure 122/80, pulse 133, breathing 20 times a minute, 94% on 2 L. In general, no acute distress. Sclerae anicteric. Oropharynx clear. Mucous membranes are dry. Neck is supple without lymphadenopathy or JVD. Lungs clear to auscultati on bilaterally. Heart is S1, S2, tachycardic. Abdomen is soft, nontender, nondistended. Bowel richard nds are hypoactive but present. There is no rebound or guarding. Lower extremities show 1+ edema b ilaterally. Calves are nontender. Skin is without rash. Neurologic exam is nonfocal. White count 2.03, hemoglobin and hematocrit is 7.5 and 23.6, yesterday it was 7.3 and 21.5. Her hem oglobin has been lingering in the 7s since the twenty-first. Platelets are low at 33. INR is 1.11. Venous lactate on presentation was 3.1, and it viri to 5.5, it has now fallen to 2.4. Sodium 136, potassium 3.4, chloride 98, bicarb 27, BUN 34, creatinine 1.4. Her baseline is in the low 1s, this is actually even a little better than she has been. LFTs are normal. UA shows 1-3 red cells, 1-3 white cells, otherwise unremarkable. Chest x-ray, interpreted by me, shows no acute cardiopulmonary disease although radiologist suggests findings consistent with CHF. Abdominal CAT scan; I have rev iewed and discussed with the emergency medicine doctor it shows colitis with some firm stool in it. There is no official read as of yet. I have discussed the case with Dr. Floresita Pimentel. ASSESSMENT AND PLAN: This is a 76-year-old female with AML who presents with sepsis. 1. Sepsis. The source is likely her colon. Patient is at very high risk for C difficile and I braon l empirically treat with p.o. vancomycin as well as continue meropenem broad-spectrum antibiotics. ER started a GI panel. I verified this includes C difficile. This patient is high risk for the dev elopment of toxic megacolon. I have discussed the case with Dr. Ashlyn Morales who will be assuming her care today, and should she be C difficile negative, she will discontinue the vancomycin. Lungs and urine are relatively exonerated by the workup but I think meropenem therapy alone is reasonable. 2. We will follow her lactate to resolution. I have ordered a lactate for approximately 11 o'clock this morning. She has received IV fluids and will now be getting blood. 3. Anemia. The patient has hematologic malignancy and is getting active chemotherapy. There appea rs to be scant, if any, active bleeding. She will receive 2 units of packed cells for a crit that i s essentially stable. Once again, I do not suspect a tremendous amount of active bleeding but certa inly should she develop more bright red blood per rectum, then this needs to be considered. For the time being, endoscopy is not considered. 4. Acute myelogenous leukemia. Chemotherapy is on hold given her critical illness. Oncology will see her today. Dr. Morales will speak with them. 5. Prophylaxis. Pharmacologic prophylaxis contraindicated given her pancytopenia. 6. ADHD/depression/anxiety. Will continue her medicines once they have been reconciled. 7. Acute kidney injury. This is likely secondary to urate nephropathy. Review of her long-standin g creatinine suggests that her baseline is in the low 1's, which is essentially where she is. Prior to diagnosis in late October, she had normal creatinine. Will follow. Dose medications according ly. 8. Disposition: Inpatient status, step-down unit. /[id number]/MODL
[2017-03-14] MEDS ORDERED: FAMOTIDINE 20 MG/NACL 50 ML IV SCH (10:30)
--- NOTE | 2017-03-14 10:57 | HOSPPROG ---
Hospitalist Progress Note Assessment/Plan: Pt admitted this am. Chart reviewed. Pt seen and examined. Septic shock - MAP in the 40's after >30 cc/kg NS boluses. Place PICC (opt for PICC over central line given low platelets), start pressors. Cont to trend lactate (coming down). Given her h/o ischemic colitis s/p partial colectomy with elevated lactate and hematochezia, considered recurrent ischemic colitis vs infectious / neutropenic colitis. Discussed case with Dr. Godinez, gen surg, who doubts ischemic colitis given her lack of obvious vascular dz. GI pathogen panel negative. D/C PO Vanc. Cont Meropenem. Will review case with ID. Neutropenia - As above, cover for neutropenic colitis, f/u ID recs. AML recently converted from MDS - Followed by Dr. Jones. I've requested Oncology consult from Dr. De Anda. Pancytopenia secondary to chemo - plts 33K. Scant rectal bleeding, if more significant bleeding occurs, will give plts. 2 units prbc's ordered. Will give IV Lasix after transfusion to prevent volume overload given her h/o TACO. ALETHEA - baseline Cr 1.1 - 1.3, up to 1.4 here in setting of sepsis. Volume resuscitation, follow. Holding Lasix, Lisinopril. Depression / Anxiety - cont outpt meds once reconciled. Dispo - ICU Greater than 30 minutes spent providing critical care including managing septic shock, securing central venous access and initiating pressors. Subjective: Pt doing okay. Some abdominal discomfort. Reports h/o constipation and straining prior to rectal bleeding. No fevers. No CP or SOB. Objective: Vital Signs Temp Pulse Resp BP Pulse Ox 37.2 C 108 H 12 95/34 L 98 03/14/17 09:12 03/14/17 10:17 03/14/17 10:17 03/14/17 10:17 03/14/17 10:17 03/13/17 03/14/17 03/15/17 05:59 05:59 05:59 Intake Total 3000 Balance 3000 PT 14.2 SEC (12.0-15.0) 03/14/17 03:34 INR 1.11 (0.83-1.16) 03/14/17 03:34 - Physical Exam Constitutional: chronically ill appearing Eyes: PERRL Ears, Nose, Mouth, Throat: moist mucous membranes Cardiovascular: regular rate and rhythym Respiratory: no respiratory distress, clear to auscultation Gastrointestinal: normoactive bowel sounds, other (soft, nd, moderate TTP, some voluntary guarding, no r/r) Skin: warm Musculoskeletal: full muscle strength Neurologic: AAOx3 Psychiatric: interacting appropriately ICD10 Worksheet Patient Problems: Problems Problem Status Onset AML (acute myeloid leukemia) Acute Colitis Acute Pancytopenia Acute Sepsis Acute CHF (congestive heart failure) Acute Cardiomegaly Acute Hypoxia Acute LBBB (left bundle branch block) Acute Peripheral edema Acute Pneumonia Acute
[2017-03-14] MEDS ORDERED: PHENYLEPHRINE HCL 50 MG in D5W 250 ML IV SCH (11:00)
[2017-03-14] MEDS ORDERED: VASOPRESSIN/DEXTROSE 250 ML IV SCH (11:00)
[2017-03-14] MEDS ORDERED: DOBUTamine/DEXTROSE 250 ML IV SCH (11:00)
[2017-03-14 11:04] LABS: MIXED VENOUS O2 SATURATION 99 % (65-75)
[2017-03-14] MEDS ORDERED: FEXOFENADINE HCL PO SCH (11:15)
[2017-03-14] MEDS ORDERED: VANCOMYCIN 125 MG/2.5 ML UDL PO SCH (12:00)
[2017-03-14] MEDS: buPROPion 100 MG TAB PO SCH ×2 (12:00→21:10)
[2017-03-14] MEDS: PANTOPRAZOLE SODIUM 40 MG TAB PO SCH (12:00)
[2017-03-14] MEDS: ACETAMINOPHEN 325 MG TAB PO PRN ×2 (14:19→21:10)
[2017-03-14] MEDS: ALPRAZolam 0.5 MG TAB PO SCH (14:32)
--- NOTE | 2017-03-14 14:52 | GHP ---
[f rep st] HISTORY AND PHYSICAL DATE OF ADMISSION: 03/14/2017 HISTORY OF PRESENT ILLNESS: The patient is a 76-year-old female with a history of mild dysplasia which recently evolved into acute myelogenous leukemia. She was hospitalized at [facility] a few weeks ago with a very high white count and renal failure. This was improved with hydration, Hydrea and allopurinol. She has recently been started on Vidaza as an outpatient. She was admitted last night complaining of rigors and bloody diarrhea. She was febrile with a temperature of 38.9. She was admitted and placed on broad- spectrum antibiotics as well as oral vancomycin to cover for C. diff. She was hypotensive and was given fluid resuscitation. Currently, she feels somewhat better. Her white count is 2000 with an ANC of 750, hemoglobin 7.5, hematocrit 22.6, platelets are 33,000. A ct scan showed evidence of inflammation in the sigmoid colon area, although at least by history she has lexi a resection of her sigmoid colon. PAST MEDICAL HISTORY: Significant for AML, history of colon resection for ischemic colitis, history of acute kidney injury, attention deficit disorder, hypothyroidism, diastolic heart failure, multiple lumpectomies, cholecystectomy , history of right hip replacement, left knee arthroplasty, and some depression and anxiety. PHYSICAL EXAMINATION: GENERAL: She is alert. VITAL SIGNS: Blood pressure 97/ 66, pulse 105, respiratory rate 22, temperature 100.9. EYES: She is not icteric. LUNGS: Clear. THROAT: Pharynx unremarkable. CARDIAC: Unremarkable except for tachycardia. ABDOMEN: Normal bowel sounds and is nontender. CBC is as discussed above. Sodium is 136, potassium 3.4, creatinine 1.4. Panel for GI pathogens is negative IMPRESSION: Patient with AML on Vidaza. She is immunocompromised and presumably has sepsis, possibly from a GI source, may be some variant of neutropenic colitis. PLAN: The plan is to continue with broad-spectrum antibiotics. Pressors as needed. She is going to be transfused 1 and possibly 2 units of packed RBCs. Hold plt txn for now unless evidence of bleeding. Our service will follow with you. /[id number]/MODL MTDD
[2017-03-14] MEDS ORDERED: LIDOCAINE 1% 30 ML SDV ONE (15:17)
--- NOTE | 2017-03-14 15:29 | GCON ---
[f rep st] CONSULTATION PULMONARY/CRITICAL CARE CONSULTATION DATE OF CONSULTATION: 03/14/2017 REFERRING PHYSICIAN: Ashlyn Morales MD REASON FOR REFERRAL: Evaluation and management of hypotension and anemia. HISTORY: Ms. Agustin is a 76-year-old woman with a history of AML, currently on hydroxyurea and Vidaza. She was admitted to the hospital early this morning with rigors and some intermittent diarrhea alternating with constipation that was accompanied by some bloody stools. She denies any chest pain or shortness of breath and does not have abdominal pain. She is not having any dysuria, cough, shortness of breath or chest pain. She was seen in the emergency department, and a CT scan showed colitis. She was started on IV fluids, and the sepsis protocol was initiated. PAST MEDICAL HISTORY: 1. AML following several years of MDS. 2. History of colon resection for ischemic colitis. 3. History of recent acute kidney injury. 4. ADD. 5. Hypothyroid. 6. Diastolic heart failure. 7. Depression/anxiety. MEDICATIONS: Include Ritalin, bupropion, ondansetron, nortriptyline, nitrofurantoin, phentermine, levothyroxine, hydroxyurea, furosemide, fexofenadine, allopurinol, and alprazolam. ALLERGIES: Cephalosporins, ciprofloxacin, levofloxacin. SOCIAL HISTORY: The patient does not smoke or drink. She is and lives in [place]. FAMILY HISTORY: Unremarkable. REVIEW OF SYSTEMS: A 10-point review of systems adds nothing to the history of present illness. PHYSICAL EXAMINATION: GENERAL: The patient is awake, alert, and in no acute distress. VITAL SIGNS: Blood pressure is 97/66 with a mean arterial pressure of 73. Her mean arterial pressure was 50 two hours ago, but it has responded to a red blood cell transfusion as well as fluids. Heart rate is 105. Her temperature is 38.3. Oxygen saturations are 99% on 2 L. HEENT: Normocephalic and atraumatic. No icterus. NECK: No adenopathy. Trachea is midline. CHEST : Clear to auscultation. CARDIAC: Regular, tachycardia without murmur. ABDOMEN: Soft. She has no tenderness. Bowel sounds are present. EXTREMITIES : No clubbing, cyanosis, or edema. LABORATORY: White blood count is 2.0 with a hemoglobin of 7.5 and MCV of 100.9. Her platelet count is 33. Chemistry group shows a potassium of 3.4 with a creatinine of 1.4 and BUN of 34. Her glucose is 158. Lactate is 1.7, down from 5.5 earlier this morning. Urinalysis is unremarkable. Influenza A and B are negative. A GI panel is negative, including C. diff. A chest x-ray is unremarkable. Images reviewed. A CT scan of the abdomen shows thickening of the sigmoid colon with pericolic edema. ASSESSMENT: 1. Severe sepsis. The patient has an elevated lactate as well as hypotension that has taken a while to respond to IV fluids. She has now met the blood pressure goal of therapy without the use of pressors. The most likely sources would appear to be a colitis, perhaps infectious or ischemic, although the patient's abdominal exam is fairly benign currently. She is negative for C. diff. 2. Anemia. This is likely related to bone marrow failure as well as sepsis. The patient has received a unit of packed red blood cells and will receive another one shortly. 3. Renal insufficiency. The patient's creatinine appears to be slightly higher than her recent baseline of 1.1-1.2. This is likely related to the sepsis. 4. Thrombocytopenia. This has been chronic and likely related to her underlying leukemia. 5. Neutropenia. RECOMMENDATIONS: 1. Agree with empiric meropenem for probable neutropenic colitis. In addition , this would cover other possible sources including respiratory tract infections. 2. ID will be consulted to help guide antibiotic management. 3. Continue sepsis protocol with a goal of achieving a mean arterial pressure of greater than 65. 4. Follow CBC following transfusion of red blood cells. /[id number]/MODL MTDD
[2017-03-14] MEDS: NOREPINEPHRINE/NS 500 ML IV SCH (16:33)
[2017-03-14] MEDS: ONDANSETRON 4 MG/2 ML VIAL IVP PRN (16:44)
[2017-03-14] MEDS ORDERED: PROTOCOL POTASSIUM 1 DOSE MISC PRN (17:05)
--- NOTE | 2017-03-14 17:29 | GCON ---
[f rep st] CONSULTATION INFECTIOUS DISEASE CONSULTATION DATE OF CONSULTATION: 03/14/2017 REASON FOR CONSULTATION: Neutropenic fever. 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 She took a senna S 4 tablets and subsequently describes increased abdominal c ramping, passing hard stool followed by a bowel movement with bright red blood per rectum with some liquid and hard stool. She had some, as above, mild abdominal cramping but not to the degree when s he had ischemic colitis 10 years ago. She presented to the emergency room for further evaluation an d underwent a CT scan which showed thickening of the sigmoid wall with associated edema of the peric olic fat associated with a small amount of ascites. Blood cultures were taken, and patient was empi rically started on meropenem 1 g IV q.12. Patient denies any recent travel. She does have contact with her 9-year-old grandchild but not repo rtedly ill. REVIEW OF SYSTEMS: A complete 10-point review of systems was performed and is negative except as me ntioned in the HPI. PAST MEDICAL/SURGICAL HISTORY: 1. 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 Patient received her la st dose of Vidaza March 08. 2. History of colon resection secondary to ischemic colitis. 3. 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 4. ADD. 5. Hypothyroidism. 6. Diastolic heart failure. 7. Multiple lumpectomies. 8. Cholecystectomy. 9. Appendectomy. 10. Left hip replacement. 11. Right hip replacement. 12. Left knee arthroplasty. 13. Depression. 14. Hysterectomy. ALLERGIES: Cephalosporins and Cipro, need to follow up on specific reactions. Levofloxacin causes throat swelling, cephalosporins throat swelling, and sulfa throat swelling. HOME MEDICATIONS: Ritalin, bupropion, potassium, Zofran, nitrofurantoin but she has not been taking this recently, multivitamin, ethionamide, hydroxy urea, Lasix, potassium, Pepcid, calcium carbonate , vitamin C, allopurinol, and alprazolam. She was started on meropenem 1 g IV q.12 as above in hous e. SOCIAL HISTORY: Lived in [place] 50 years. Lifelong nonsmoker, nondrinker. FAMILY HISTORY: Positive for lung cancer and coronary artery disease. PHYSICAL EXAMINATION: VITAL SIGNS: Blood pressure 103/46, heart rate 103, respiratory rates 15, sa turation 97% on 2 L, temperature 38.5. GENERAL: This is a pleasant woman with fluent speech. Nota ble pallor. HEENT: She has conjunctival pallor. No conjunctival hemorrhages. Oropharynx is dry. Good dentition. NECK: Supple. No lymphadenopathy. CARDIOVASCULAR: Regular rate and rhythm with a 2/6 systolic murmur. CHEST: Fair inspiratory effort. No crackles were appreciated. ABDOMEN: Diffuse discomfort to palpation. No peritoneal signs. Bowel sounds are present. She had some ecch ymotic lesions at injection sites of chemotherapy. EXTREMITIES: She had trace lower extremity [place] a. No joint swelling. SKIN: No rashes. LINES: She had a left upper extremity PICC line that was just placed. Branham was in place with ambe r urine. NEUROLOGICAL: She was alert and oriented x4. Moving all 4 extremities equally. LABORATORIES: Urinalysis was negative for RBCs and WBCs. WBC is 2.0, hematocrit 22, platelets of 3 3 with 36% neutrophils, 46% , 15% . ANC is 750. Creatinine is 1.4. INR 1.1. Lactate on presentation peaked at 5.5. Influenza PCR was negative. CT scan as per HPI. Chest x-ray showed no focal infiltrates but evidence of chronic CHF. ASSESSMENT AND PLAN: This is a 76-year-old woman with acute myelogenous leukemia, status post Vidaz a approximately 1 week ago. Presents with fever, abdominal pain, and diarrhea with CT showing sigmo id colitis. Patient with relatively low ANC of 750 and negative GI PCR panel suggested that her col itis is in the spectrum of neutropenic enterocolitis. Also concern patient described rigors yesterd ay evening, increasing concern for complication of bacteremia. 1. Septic shock likely due to neutropenic enterocolitis, concern for bacteremia. 2. Pancytopenia due to chemotherapy including neutropenia, anemia, and thrombocytopenia. 3. Acute on chronic renal failure with a creatinine 1.4. RECOMMENDATIONS: 1. Agree with meropenem renally dosed at 1 g IV q.12. 2. If persistent fever without clear source, may have to consider evaluating ascites. 3. Follow blood cultures. Past culture data was reviewed, and the patient has no history of resist ant organisms. Thank you for this consultation. Will continue to follow on a daily basis. /[id number]/MODL
[2017-03-14] MEDS: MEROPENEM 1 GM in NS 100 ML IV SCH ×2 (17:31→21:10)
[2017-03-14 18:16] LABS: HEMATOCRIT 21.4 % (38.0-47.0); HEMOGLOBIN 7.5 g/dL (12.6-16.3)
[2017-03-14 18:28] LABS: POTASSIUM 2.8 mEq/L (3.5-5.2)
[2017-03-14] MEDS: POTASSIUM Cl (KCl) 50 ML IV SCH ×2 (20:09→20:10)
[2017-03-14] MEDS ORDERED: PROTOCOL MAGNESIUM 1 DOSE IV PRN (21:01)
[2017-03-14] MEDS ORDERED: MAGNESIUM SULF 1 GM/DEXTROSE 100 ML IV ONE (21:04)
[2017-03-14] MEDS: NORTRIPTYLINE HCL 50 MG CAP PO SCH (21:10)
[2017-03-15 01:02] LABS: POTASSIUM 2.7 mEq/L (3.5-5.2)
[2017-03-15] MEDS: POTASSIUM Cl (KCl) 50 ML IV SCH ×3 (02:42→06:50)
[2017-03-15] MEDS: NOREPINEPHRINE/NS 500 ML IV SCH (05:00)
[2017-03-15 05:19] LABS: ADD DIFF? YES; ADD MORPH? NO; ATYPICAL LYMPHOCYTE FLAG 0 (0-99); FRAGMENT RBC FLAG 0 (0-99); HEMATOCRIT 22.8 % (38.0-47.0); HEMOGLOBIN 7.8 g/dL (12.6-16.3); LEFT SHIFT FLG 10 (0-99); LIPEMIA HEMOLYSIS FLAG 90 (0-99); MEAN CELL HEMOGLOBIN 34.1 pg (27.9-34.1); MEAN CELL HEMOGLOBIN CONCENTR. 34.2 g/dL (32.4-36.7); MEAN CELL VOLUME 99.6 fL (81.5-99.8); MEAN PLATELET VOLUME 10.3 fL (8.7-11.7); PLATELET CLUMPS FLAG 20 (0-99); RED BLOOD CELL COUNT 2.29 10^6/uL (4.18-5.33); RED CELL DISTRIBUTION WIDTH 18.5 % (11.5-15.2)
[2017-03-15 05:29] LABS: ANION GAP 6 mEq/L (8-16); CARBON DIOXIDE 25 mEq/l (22-31); CHLORIDE 109 mEq/L (97-110); CREATININE 0.9 mg/dL (0.6-1.0); GLOMERULAR FILTRATION RATE > 60; GLUCOSE 144 mg/dL (70-100); MAGNESIUM 1.9 mg/dL (1.6-2.3); POTASSIUM 3.2 mEq/L (3.5-5.2); SODIUM 140 mEq/L (134-144)
[2017-03-15 05:37] LABS: ADD SCAN? NO
[2017-03-15 05:38] LABS: PLATELET COUNT 20 10^3/uL (150-400)
[2017-03-15 05:39] LABS: INR 1.55 (0.83-1.16); PROTIME(PATIENT) 18.6 SEC (12.0-15.0)
[2017-03-15 05:40] LABS: APTT 37.4 SEC (23.0-38.0)
[2017-03-15] MEDS: LEVOTHYROXINE 125 MCG TAB PO SCH (05:50)
[2017-03-15] MEDS: ONDANSETRON 4 MG/2 ML VIAL IVP PRN ×3 (05:50→20:30)
[2017-03-15] MEDS: PANTOPRAZOLE SODIUM 40 MG TAB PO SCH (05:51)
[2017-03-15 06:35] LABS: MACROCYTES 1+; MICROCYTES 1+
[2017-03-15 06:36] LABS: KERATOCYTES 1+; PLATELET ESTIMATE DECREASED (ADEQ)
[2017-03-15] MEDS: ALPRAZolam 0.5 MG TAB PO SCH ×2 (08:27→14:27)
[2017-03-15] MEDS: buPROPion 100 MG TAB PO SCH ×2 (08:28→20:30)
[2017-03-15] MEDS: CETIRIZINE 10 MG TAB PO SCH (08:28)
--- NOTE | 2017-03-15 09:07 | PCMIDPN ---
Assessment/Plan: Sepsis due to Neutropenic fever with current working etiology is enterocolitis. Still with significant fever but relative hemodynamic stability. GI panel PCR negative and blood cultures are NGTD. CT shows findings consistent with sigmoid inflammation. ANC better today with bands is totaling 1800. Patient reports less abdominal pain but persistent nausea. Suspect blood on initial presentation may have been hemorrhoids. Pneumonia she is currently on chronic O2 at 2 L and no focal infiltrates on chest x-ray yesterday. LFTs on admission normal --continue meropenem, increase dose to 1 g IV Q 8 with improved renal function after hydration --if continued fever tomorrow consider antifungal coverage and/or reimaging. --duration of antibiotic therapy dependent on response Medications Meropenem 1 g IV Q 12, # 1 Microbiology 03/14 blood cultures (2): No growth today Subjective: Persistent nausea and diarrhea, no further blood. Objective: Vital Signs Temp Pulse Resp BP Pulse Ox 37.8 C 93 21 H 108/42 L 96 03/15/17 04:57 03/15/17 04:57 03/15/17 04:57 03/15/17 04:00 03/15/17 04:57 Laboratory Results 03/15/17 04:45 03/15/17 04:45 03/14/17 03/15/17 03/16/17 05:59 05:59 05:59 Intake Total 6809 Output Total 1050 Balance 5759 Tm 38.6 General: Pale woman, pleasant with fluent speech HEENT fair dentition moist mucous membranes no oral ulcerations or exudates Cardiovascular tachycardic regular rate Chest: Poor inspiratory effort, decreased breath sounds in the bases Abdomen: Slight distention mild discomfort to palpation of the bilateral lower quadrants, bowel sounds present to slightly hyperactive Extremities: Mild lower extremity edema Left upper extremity PICC C/D/I Skin: No rashes, notable pallor ICD10 Worksheet Patient Problems: Problems Problem Status Onset AML (acute myeloid leukemia) Acute Colitis Acute Pancytopenia Acute Sepsis Acute CHF (congestive heart failure) Acute Cardiomegaly Acute Hypoxia Acute LBBB (left bundle branch block) Acute Peripheral edema Acute Pneumonia Acute
[2017-03-15] MEDS: MEROPENEM 1 GM in NS 100 ML IV SCH ×2 (09:42→16:36)
[2017-03-15] MEDS ORDERED: FUROSEMIDE 20 MG/2 ML VIAL IVP ONE (10:11)
--- NOTE | 2017-03-15 10:16 | HOSPPROG ---
Hospitalist Progress Note Assessment/Plan: Septic shock - Has PICC, on Levophed, maintaining MAP >65. Suspect source is neutropenic enterocolitis. Appreciate ID assistance. -Cont Meropenem, dose adjusted for improved renal function -Follow culture data -Wean pressors as able Neutropenic fever - neutropenia resolved. WBC's on the rise. AML recently converted from MDS - Followed by Dr. Jones. Appreciate Oncology input. Chemo on hold while acutely ill. Pancytopenia secondary to chemo - plts down to 20K, no e/o bleeding. Hgb stable. S/P 2 units prbc's, which she tolerated well despite her h/o TACO. Volume overload, mild - she required aggressive IVF resuscitation for septic shock, now with signs/symptoms of volume overload, which she is susceptible to given hx above. -20 mg IV Lasix today ALETHEA - Cr 1.4 --> 0.9 today after IVF resuscitation. Giving Lasix today as above , cont to hold Lisinopril. Depression / Anxiety - cont outpt meds Dispo - ICU for ongoing pressor needs, remove chapman after diuresis Subjective: Pt c/o orthopnea and SOB. She feels volume overloaded. Has persistent fevers. Abdominal pain is a bit improved. Still having diarrhea, but no bloody stools. Objective: Vital Signs Temp Pulse Resp BP Pulse Ox 38.4 C H 98 24 H 119/63 96 03/15/17 09:00 03/15/17 09:00 03/15/17 09:00 03/15/17 09:00 03/15/17 09:00 Laboratory Results 03/15/17 04:45 03/15/17 04:45 03/14/17 03/15/17 03/16/17 05:59 05:59 05:59 Intake Total 6809 Output Total 1050 Balance 5759 PT 18.6 SEC (12.0-15.0) H 03/15/17 04:45 INR 1.55 (0.83-1.16) H 03/15/17 04:45 - Physical Exam Constitutional: no apparent distress Eyes: PERRL Ears, Nose, Mouth, Throat: moist mucous membranes Cardiovascular: regular rate and rhythym Respiratory: no respiratory distress, inspiratory crackles Gastrointestinal: normoactive bowel sounds, soft, non-tender abdomen Skin: warm Musculoskeletal: generalized weakness, other (1+ b/l LE edema) Neurologic: AAOx3 Psychiatric: interacting appropriately ICD10 Worksheet Patient Problems: Problems Problem Status Onset AML (acute myeloid leukemia) Acute Colitis Acute Pancytopenia Acute Sepsis Acute CHF (congestive heart failure) Acute Cardiomegaly Acute Hypoxia Acute LBBB (left bundle branch block) Acute Peripheral edema Acute Pneumonia Acute
[2017-03-15] MEDS: ACETAMINOPHEN 325 MG TAB PO PRN ×2 (12:31→21:41)
--- NOTE | 2017-03-15 13:00 | SOAPPROG ---
SOAP Progress Note Assessment/Plan: Assessment: 1. AML, wbc increasing with monocytosis, if continues may need to restart hydrea 2.Neutropenic colitis, on antibiotics 3. anemia, thrombocytopenia, minimal response to 2 units prbcs. probably plts tomorrow 4. increased inr Plan: Continue iv antibiotics, continue to monitor counts, vit k today 03/15/17 12:55 Subjective: Feels ok, some abd discomfort Objective: Vital Signs Temp Pulse Resp BP Pulse Ox 101.5 F H 95 15 115/53 L 98 03/15/17 12:32 03/15/17 12:32 03/15/17 12:00 03/15/17 12:32 03/15/17 12:00 Laboratory Results 03/15/17 04:45 03/15/17 04:45 03/14/17 03/15/17 03/16/17 05:59 05:59 05:59 Intake Total 6809 400 Output Total 1050 1400 Balance 5759 -1000 PT 18.6 SEC (12.0-15.0) H 03/15/17 04:45 INR 1.55 (0.83-1.16) H 03/15/17 04:45 ICD10 Worksheet Patient Problems: Problems Problem Status Onset AML (acute myeloid leukemia) Acute Colitis Acute Pancytopenia Acute Sepsis Acute CHF (congestive heart failure) Acute Cardiomegaly Acute Hypoxia Acute LBBB (left bundle branch block) Acute Peripheral edema Acute Pneumonia Acute
[2017-03-15] MEDS ORDERED: PHYTONADIONE 10 MG in NS 50 ML IV ONE (13:01)
--- NOTE | 2017-03-15 14:27 | PDINTPN ---
Building Guard Deputy Sheriff Progress Note Assessment/Plan: Assessment: Severe Sepsis: Likely due to neutropenic colitis. Neutropenia resolved. Symptoms persist but improving a bit. Meeting sepsis goals, with adequate MAP, but still requiring low-dose NE to do so. Anemia: Stable Thrombocytopenia: Plts down today. No signs active bleeding. ALETHEA: Improved, with normal Cr and good uring output. Hypokalemia Plan: Wean NE as tolerated. D/C Branham. Follow lytes. Continue Meropenem. 03/15/17 14:27 Subjective: Feels a bit better, was dyspneic this AM, now better. Has some abdominal bloating, gas, and discomfort. Starting to take PO. Objective: Vital Signs Temp Pulse Resp BP Pulse Ox 38.7 C H 101 H 20 109/65 92 03/15/17 13:45 03/15/17 13:45 03/15/17 13:45 03/15/17 13:45 03/15/17 13:45 Laboratory Results 03/15/17 04:45 03/15/17 04:45 03/14/17 03/15/17 03/16/17 05:59 05:59 05:59 Intake Total 6809 760 Output Total 1050 1950 Balance 5759 -1190 PT 18.6 SEC (12.0-15.0) H 03/15/17 04:45 INR 1.55 (0.83-1.16) H 03/15/17 04:45 Physical Exam - Physical Exam General Appearance: alert, no apparent distress EENT: normal ENT inspection Neck: normal inspection Respiratory: lungs clear, normal breath sounds Cardiac/Chest: regular rate, rhythm, No edema Abdomen: normal bowel sounds, soft, No non-tender (mildly tender), No organomegaly Skin: normal color, warm/dry Extremities: normal inspection Neuro/Psych: alert, normal mood/affect, oriented x 3 ICD10 Worksheet Patient Problems: Problems Problem Status Onset AML (acute myeloid leukemia) Acute Colitis Acute Pancytopenia Acute Sepsis Acute CHF (congestive heart failure) Acute Cardiomegaly Acute Hypoxia Acute LBBB (left bundle branch block) Acute Peripheral edema Acute Pneumonia Acute
[2017-03-15 18:29] LABS: POTASSIUM 3.3 mEq/L (3.5-5.2)
[2017-03-15] MEDS ORDERED: POTASSIUM Cl (KCl) 50 ML IV SCH (19:57)
[2017-03-15] MEDS: NORTRIPTYLINE HCL 50 MG CAP PO SCH (20:30)
[2017-03-15] MEDS ORDERED: POTASSIUM Cl (KCl) 50 ML IV ONE (21:00)
[2017-03-16] MEDS: NOREPINEPHRINE/NS 500 ML IV SCH (00:31)
[2017-03-16] MEDS: MEROPENEM 1 GM in NS 100 ML IV SCH ×3 (00:37→16:32)
[2017-03-16 00:51] LABS: POTASSIUM 3.4 mEq/L (3.5-5.2)
[2017-03-16] MEDS ORDERED: POTASSIUM Cl (KCl) 50 ML IV ONE ×2 (01:00→02:00)
[2017-03-16 05:56] LABS: ABSOLUTE NRBC COUNT 0.02 10^3/uL (0-0.01); ADD DIFF? YES; ADD MORPH? NO; ATYPICAL LYMPHOCYTE FLAG 0 (0-99); FRAGMENT RBC FLAG 0 (0-99); HEMOGLOBIN 7.4 g/dL (12.6-16.3); LEFT SHIFT FLG 0 (0-99); LIPEMIA HEMOLYSIS FLAG 80 (0-99); MEAN CELL HEMOGLOBIN 34.3 pg (27.9-34.1); MEAN CELL HEMOGLOBIN CONCENTR. 33.6 g/dL (32.4-36.7); MEAN CELL VOLUME 101.9 fL (81.5-99.8); NRBC-AUTO% 0.3 % (0.0-0.2); PLATELET CLUMPS FLAG 0 (0-99); RED BLOOD CELL COUNT 2.16 10^6/uL (4.18-5.33); RED CELL DISTRIBUTION WIDTH 17.4 % (11.5-15.2)
[2017-03-16 05:59] LABS: ADD SCAN? NO; PLATELET COUNT 20 10^3/uL (150-400)
[2017-03-16 06:16] LABS: ANION GAP 5 mEq/L (8-16); CALCIUM 7.9 mg/dL (8.5-10.4); CARBON DIOXIDE 25 mEq/l (22-31); CHLORIDE 107 mEq/L (97-110); CREATININE 0.8 mg/dL (0.6-1.0); GLOMERULAR FILTRATION RATE > 60; GLUCOSE 118 mg/dL (70-100); MAGNESIUM 1.8 mg/dL (1.6-2.3); POTASSIUM 3.8 mEq/L (3.5-5.2); SODIUM 137 mEq/L (134-144)
[2017-03-16 06:26] LABS: MACROCYTES 1+
[2017-03-16 06:27] LABS: MICROCYTES 1+
[2017-03-16 06:28] LABS: PLATELET ESTIMATE DECREASED (ADEQ)
[2017-03-16 06:29] LABS: HYPOCHROMIA 1+
[2017-03-16] MEDS: LEVOTHYROXINE 125 MCG TAB PO SCH (06:29)
[2017-03-16] MEDS: PANTOPRAZOLE SODIUM 40 MG TAB PO SCH (06:29)
[2017-03-16] MEDS: CETIRIZINE 10 MG TAB PO SCH (07:25)
[2017-03-16] MEDS: buPROPion 100 MG TAB PO SCH ×2 (07:25→20:22)
[2017-03-16] MEDS: ALPRAZolam 0.5 MG TAB PO SCH ×2 (07:25→13:54)
[2017-03-16] MEDS ORDERED: POTASSIUM CL 10 MEQ TAB PO ONE ×3 (07:40→19:30)
[2017-03-16] MEDS ORDERED: MAGNESIUM SULF 1 GM/DEXTROSE 100 ML IV ONE (07:42)
--- NOTE | 2017-03-16 10:15 | SOAPPROG ---
SOAP Progress Note Assessment/Plan: Assessment: 1) AML arising from preceding MDS (s/p 1 cycle Vidaza completed 03/08) 2) Pancytopenia secondary to #1 3) Neutropenic colitis 4) Elevated INR (? secondary to nutritional deficiency) Plan: Overall doing well. Minimal abdominal pain at this point. Diarrhea improved, but not completely resolved. Continue ABX. Will hold off on transfusion today. WBC count better. Monocytosis heralds marrow recovery. No blasts seen on smear yesterday. Will repeat INR today. If remains elevated, could give 1 dose PO Vitamin K (5 mg ). Hopeful d/c over next 2 - 3 days. Plan discussed with patient and nursing. 03/16/17 10:10 Subjective: Feels better. Tolerating diet. Minimal abd pain. Objective: Vital Signs Temp Pulse Resp BP Pulse Ox 36.8 C 96 23 H 108/57 L 95 03/16/17 07:34 03/16/17 09:00 03/16/17 07:34 03/16/17 09:00 03/16/17 07:34 Laboratory Results 03/16/17 05:40 03/16/17 05:40 03/15/17 03/16/17 03/17/17 05:59 05:59 05:59 Intake Total 6809 4035 400 Output Total 1050 2410 600 Balance 5759 1625 -200 PT 18.6 SEC (12.0-15.0) H 03/15/17 04:45 INR 1.55 (0.83-1.16) H 03/15/17 04:45 - Time Spent With Patient Time Spent With Patient: 25 minutes Physical Exam - Physical Exam General Appearance: alert, no apparent distress EENT: PERRL/EOMI Abdomen: non-tender, soft Neuro/Psych: alert, normal mood/affect ICD10 Worksheet Patient Problems: Problems Problem Status Onset AML (acute myeloid leukemia) Acute Colitis Acute Pancytopenia Acute Sepsis Acute CHF (congestive heart failure) Acute Cardiomegaly Acute Hypoxia Acute LBBB (left bundle branch block) Acute Peripheral edema Acute Pneumonia Acute
[2017-03-16] MEDS ORDERED: FUROSEMIDE 20 MG/2 ML VIAL IVP ONE (10:18)
--- NOTE | 2017-03-16 10:26 | PCMIDPN ---
Assessment/Plan: Assessment: neutropenic enterocolitis -- improving on meropenem. White blood cell count has recovered. Plan to continue empiric coverage. Suspect at least 7 days required. If blood cultures become positive this increases to 2 weeks. Plan: 1. Continue meropenem IV. 2. Follow clinical course. 3. Follow blood cultures. Subjective: Fevers yesterday but none today so far. Patient feels well and is eager to get up and walk. No other overnight events. Objective: Meropenem #2 Vital Signs Temp Pulse Resp BP Pulse Ox 36.8 C 96 23 H 108/57 L 95 03/16/17 07:34 03/16/17 09:00 03/16/17 07:34 03/16/17 09:00 03/16/17 07:34 Laboratory Results 03/16/17 05:40 03/16/17 05:40 03/15/17 03/16/17 03/17/17 05:59 05:59 05:59 Intake Total 6809 4035 400 Output Total 1050 2410 600 Balance 5759 1625 -200 - Physical Exam General Appearance: WD/WN, alert, no apparent distress, non-toxic Respiratory: lungs clear, normal breath sounds, No respiratory distress Cardiac/Chest: regular rate, rhythm, No tachycardia Skin: normal color, warm/dry, No rash Neuro/Psych: alert, normal mood/affect, oriented x 3 ICD10 Worksheet Patient Problems: Problems Problem Status Onset AML (acute myeloid leukemia) Acute Colitis Acute Pancytopenia Acute Sepsis Acute CHF (congestive heart failure) Acute Cardiomegaly Acute Hypoxia Acute LBBB (left bundle branch block) Acute Peripheral edema Acute Pneumonia Acute
--- NOTE | 2017-03-16 13:08 | HOSPPROG ---
Hospitalist Progress Note Assessment/Plan: 76 yo F with hx of AML presenting with sepsis in the setting of colitis # Septic shock - now resolved and maintaining BP off of levophed. Source of infection presumed to be enterocolitis as next. Continued merrem. GI panel and blood cultures negative. # neutropenic colitis: abdominal CT personally reviewed showing sigmoid inflammation with etiology presumably being neutropenic colitis. Symptomatically improving. # pancytopenia: in setting of AML with recent chemo, wbc improving, remains anemic s/p transfusion of 2 units prbcs during this hospitalization, platelets remain low but no e/o bleeding. 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 , now better than baseline # depression/anxiety: stable on op meds # chronic hip pain: limiting mobility, working with pt/ot, may need snf # dispo: IP status, will require another 1-2 days in house likely Patient new to my care. Old records reviewed and summarized as above. Care plan reviewed on multidisciplinary team rounds. Subjective: no significant overnight events, patient notes she is currently feeling better, a bit of residual abdominal pain but much better than it was Objective: Vital Signs Temp Pulse Resp BP Pulse Ox 37 C 92 16 114/69 94 03/16/17 12:00 03/16/17 12:00 03/16/17 12:00 03/16/17 12:00 03/16/17 12:00 Laboratory Results 03/16/17 05:40 03/16/17 05:40 03/15/17 03/16/17 03/17/17 05:59 05:59 05:59 Intake Total 6809 4035 900 Output Total 1050 2410 1550 Balance 5759 1625 -650 PT 18.6 SEC (12.0-15.0) H 03/15/17 04:45 INR 1.55 (0.83-1.16) H 03/15/17 04:45 awake alert nad anicteric op clear rrr no mrg left basilar crackles, normal wob soft nt nd trace ble edema warm dry pale oriented appropriate ICD10 Worksheet Patient Problems: Problems Problem Status Onset Cardiomegaly Acute Peripheral edema Acute LBBB (left bundle branch block) Acute Hypoxia Acute Pneumonia Acute CHF (congestive heart failure) Acute Sepsis Acute AML (acute myeloid leukemia) Acute Pancytopenia Acute Colitis Acute
[2017-03-16] MEDS: ALTEPLASE 2 MG VIAL IVP PRN ×2 (15:44→16:31)
[2017-03-16 16:15] LABS: INR 1.25 (0.83-1.16); PROTIME(PATIENT) 15.7 SEC (12.0-15.0)
--- NOTE | 2017-03-16 16:33 | PDINTPN ---
Die Keeper Progress Note Assessment/Plan: Assessment: Severe Sepsis: Likely due to neutropenic colitis. Neutropenia resolved. Symptoms persist but improving. Sepsis resolving. 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 Anemia: Stable. Hct 22. Thrombocytopenia: Plts remain at 20,000. No signs active bleeding. Follow ALETHEA: Resolved. Hypokalemia - on replacement protocols Plan: Continue supportive care, follow lab. Continue Meropenem. 30 minutes of critical care time spent directly with the patient. Discussed with the patient directly, nursing, the ICU multi disciplinary team. Subjective: Feels better. Denies abdominal pain. Denies shortness of breath. Objective: Vital Signs Temp Pulse Resp BP Pulse Ox 37 C 90 15 109/56 L 96 03/16/17 13:46 03/16/17 13:46 03/16/17 13:46 03/16/17 13:46 03/16/17 13:46 Laboratory Results 03/16/17 05:40 03/16/17 05:40 03/15/17 03/16/17 03/17/17 05:59 05:59 05:59 Intake Total 6809 4035 900 Output Total 1050 2410 1550 Balance 5759 1625 -650 PT 15.7 SEC (12.0-15.0) H 03/16/17 15:45 INR 1.25 (0.83-1.16) H 03/16/17 15:45 Laboratory Tests 03/14/17 03/16/17 03/16/17 08:47 05:40 15:45 PT 15.7 H INR 1.25 H Calcium 7.9 L Magnesium 1.8 Influenza A & B (PCR) NEGATIVE FOR FLU Physical Exam - Physical Exam General Appearance: alert, no apparent distress, moderate distress, other (In chair) EENT: other (Nasal cannula 2 L, 94%) Neck: normal inspection (No obvious JVD) Respiratory: lungs clear, decreased breath sounds (At bases), No rhonchi, No wheezing Cardiac/Chest: regular rate, rhythm Abdomen: soft, No normal bowel sounds (Decreased, present), No non-tender (Some tenderness in the lower abdomen) Pelvic Exam: other (Branham catheter out, good urine output) Skin: normal color, warm/dry Extremities: pedal edema (Trace +) Neuro/Psych: no motor/sensory deficits, No cognition abnormalities ICD10 Worksheet Patient Problems: Problems Problem Status Onset Cardiomegaly Acute Peripheral edema Acute LBBB (left bundle branch block) Acute Hypoxia Acute Pneumonia Acute CHF (congestive heart failure) Acute Sepsis Acute AML (acute myeloid leukemia) Acute Pancytopenia Acute Colitis Acute
[2017-03-16 19:00] LABS: POTASSIUM 3.5 mEq/L (3.5-5.2)
[2017-03-16] MEDS: NORTRIPTYLINE HCL 50 MG CAP PO SCH (20:22)
[2017-03-16] MEDS: ONDANSETRON 4 MG/2 ML VIAL IVP PRN (22:17)
[2017-03-16] MEDS: CALCIUM CARBONATE 500 MG CHEWABLE TAB PO PRN (22:35)
[2017-03-17] MEDS: MEROPENEM 1 GM in NS 100 ML IV SCH ×3 (00:22→16:35)
[2017-03-17] MEDS: LEVOTHYROXINE 125 MCG TAB PO SCH (05:33)
[2017-03-17 05:47] LABS: ABSOLUTE NRBC COUNT 0.02 10^3/uL (0-0.01); ADD DIFF? YES; ADD SCAN? NO; ATYPICAL LYMPHOCYTE FLAG 0 (0-99); FRAGMENT RBC FLAG 0 (0-99); HEMATOCRIT 18.8 % (38.0-47.0); LEFT SHIFT FLG 0 (0-99); LIPEMIA HEMOLYSIS FLAG 80 (0-99); MEAN CELL HEMOGLOBIN 33.2 pg (27.9-34.1); MEAN CELL HEMOGLOBIN CONCENTR. 32.4 g/dL (32.4-36.7); MEAN CELL VOLUME 102.2 fL (81.5-99.8); MEAN PLATELET VOLUME 11.5 fL (8.7-11.7); NRBC-AUTO% 0.5 % (0.0-0.2); PLATELET CLUMPS FLAG 10 (0-99); RED BLOOD CELL COUNT 1.84 10^6/uL (4.18-5.33); RED CELL DISTRIBUTION WIDTH 17.1 % (11.5-15.2)
[2017-03-17 06:01] LABS: HEMOGLOBIN 6.1 g/dL (12.6-16.3)
[2017-03-17 06:05] LABS: ADD MORPH? NO; ANION GAP 5 mEq/L (8-16); CALCIUM 7.6 mg/dL (8.5-10.4); CARBON DIOXIDE 26 mEq/l (22-31); CHLORIDE 106 mEq/L (97-110); CREATININE 0.8 mg/dL (0.6-1.0); GLOMERULAR FILTRATION RATE > 60; GLUCOSE 100 mg/dL (70-100); PLATELET COUNT 17 10^3/uL (150-400); POTASSIUM 3.4 mEq/L (3.5-5.2); SODIUM 137 mEq/L (134-144)
[2017-03-17 07:13] LABS: MACROCYTES 1+; MICROCYTES 1+; PLATELET ESTIMATE DECREASED (ADEQ)
[2017-03-17] MEDS: CETIRIZINE 10 MG TAB PO SCH (08:45)
[2017-03-17] MEDS: buPROPion 100 MG TAB PO SCH ×2 (08:45→19:49)
[2017-03-17] MEDS: ALPRAZolam 0.5 MG TAB PO SCH ×2 (08:45→15:18)
[2017-03-17] MEDS: PANTOPRAZOLE SODIUM 40 MG TAB PO SCH (08:45)
--- NOTE | 2017-03-17 11:44 | SOAPPROG ---
SOAP Progress Note Assessment/Plan: Assessment: 1) AML arising from preceding MDS (s/p 1 cycle Vidaza completed 03/08) 2) Pancytopenia secondary to #1 3) Neutropenic colitis (improved) 4) Elevated INR (? secondary to nutritional deficiency)--improving without intervention Plan: Continued improvement. Agree with plan for PRBC transfusion. Will likely will need platelets tomorrow. Will hold off on platelet transfusion today. The blood in her stool is likely secondary to her resolving colitis. No intervention currently. Expect that this should gradually improve. Case d/w ID. Will consider transitioning her to an oral abx in anticipation of possible d/c in the next few days. Next Vidaza would be due April 06. Will plan on giving as outpatient. Plan d/w patient. Her questions were answered. 03/16/17 10:10 03/17/17 11:40 03/17/17 11:40 Subjective: Feels better. Tolerating oral diet. Rates abd pain as a 1/10. Had one episode BRBPR this AM. Objective: Vital Signs Temp Pulse Resp BP Pulse Ox 37.0 C 82 18 97/52 L 97 03/17/17 08:00 03/17/17 08:00 03/17/17 08:00 03/17/17 08:00 03/17/17 08:00 Laboratory Results 03/17/17 05:30 03/17/17 05:30 03/16/17 03/17/17 03/18/17 05:59 05:59 05:59 Intake Total 4035 1422 Output Total 2410 1900 Balance 1625 -478 PT 15.7 SEC (12.0-15.0) H 03/16/17 15:45 INR 1.25 (0.83-1.16) H 03/16/17 15:45 - Time Spent With Patient Time Spent With Patient: 25 minutes Physical Exam - Physical Exam General Appearance: alert, no apparent distress EENT: PERRL/EOMI Abdomen: non-tender Neuro/Psych: alert, normal mood/affect ICD10 Worksheet Patient Problems: Problems Problem Status Onset AML (acute myeloid leukemia) Acute Colitis Acute Pancytopenia Acute Sepsis Acute CHF (congestive heart failure) Acute Cardiomegaly Acute Hypoxia Acute LBBB (left bundle branch block) Acute Peripheral edema Acute Pneumonia Acute
[2017-03-17] MEDS ORDERED: POTASSIUM CL 10 MEQ TAB PO ONE ×2 (12:04→19:30)
--- NOTE | 2017-03-17 12:10 | PCMIDPN ---
Assessment/Plan: Assessment/Plan: 1. Sepsis secondary to neutrapenic colitis: -Currently on broad coverage with Merem - blood cx ngtd - stool study neg - no further fevers. last fever on 03/15/17. - Continue with Merem for now. -care coordinated with Hem/Onc 2. Multiple antibiotic allergies: significant - cephalosporins-throat swelling, levaquin -throat swelling, sulfa- throat swelling Meds merem 1 q8-#4 overall (initially started on 03/14/17, dose changed on 03/15/17) Subjective: Afebrile. She is feeling better overall. still with low level of pain in right and mid lower abdomen. Watery loose stools with some blood present.Denies nausea. Appetite intact. Denies sob but occasinally with cough/phlegm. On 4L o2 via nc. Objective: Vital Signs Temp Pulse Resp BP Pulse Ox 37.0 C 82 18 97/52 L 97 03/17/17 08:00 03/17/17 08:00 03/17/17 08:00 03/17/17 08:00 03/17/17 08:00 Laboratory Results 03/17/17 05:30 03/17/17 05:30 03/16/17 03/17/17 03/18/17 05:59 05:59 05:59 Intake Total 4035 1422 Output Total 2410 1900 Balance 1625 -808 - Physical Exam General Appearance: alert, no apparent distress Respiratory: coarse breath sounds (mild) Cardiac/Chest: regular rate, rhythm Extremities: No swelling Abdomen: normal bowel sounds, soft, tender (right lower abdomen. no guarding.), No distended Skin: No rash ICD10 Worksheet Patient Problems: Problems Problem Status Onset AML (acute myeloid leukemia) Acute Colitis Acute Pancytopenia Acute Sepsis Acute CHF (congestive heart failure) Acute Cardiomegaly Acute Hypoxia Acute LBBB (left bundle branch block) Acute Peripheral edema Acute Pneumonia Acute
--- NOTE | 2017-03-17 12:57 | HOSPPROG ---
Hospitalist Progress Note Assessment/Plan: 76 yo F with hx of AML presenting with sepsis in the setting of colitis # Septic shock - now resolved and maintaining BP off of levophed. Source of infection presumed to be enterocolitis as next. Continued merrem. GI panel and blood cultures negative. # neutropenic colitis: abdominal CT personally reviewed showing sigmoid inflammation with etiology presumably being neutropenic colitis. Symptomatically improving, no longer having any abdominal pain and eating well. # pancytopenia: in setting of AML with recent chemo, wbc improving, will transfuse another 2 units prbc today for hct of 18, plts low but no e/o active bleeding. Did have blood in stool during this stay in setting of colitis as above, but no e/o significant active bleeding. Discussed with patient that OP colonoscopy could be considered in the future, but would not do that currently unless e/o significant blood loss. 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 , now better than baseline # depression/anxiety: stable on op meds # chronic hip pain: limiting mobility, working with pt/ot, may need snf # dispo: IP status, will require another 1-2 days in house likely Subjective: no significant overnight events, patient feeling better today, has more of an appetite Objective: Vital Signs Temp Pulse Resp BP Pulse Ox 37.0 C 82 18 97/52 L 97 03/17/17 08:00 03/17/17 08:00 03/17/17 08:00 03/17/17 08:00 03/17/17 08:00 Laboratory Results 03/17/17 05:30 03/17/17 05:30 03/16/17 03/17/17 03/18/17 05:59 05:59 05:59 Intake Total 4035 1422 Output Total 2410 1900 Balance 1625 -478 PT 15.7 SEC (12.0-15.0) H 03/16/17 15:45 INR 1.25 (0.83-1.16) H 03/16/17 15:45 awake alert nad anicteric op clear rrr no mrg left basilar crackles, normal wob soft nt nd trace ble edema warm dry pale oriented appropriate - Time Spent With Patient Time Spent with Patient: greater than 35 minutes Time Spent with Patient: Greater than 35 minutes spent on this patients care, greater than 50% of time spent counseling, educating, and coordinating care regarding the above mentioned plan. ICD10 Worksheet Patient Problems: Problems Problem Status Onset AML (acute myeloid leukemia) Acute Colitis Acute Pancytopenia Acute Sepsis Acute CHF (congestive heart failure) Acute Cardiomegaly Acute Hypoxia Acute LBBB (left bundle branch block) Acute Peripheral edema Acute Pneumonia Acute
--- NOTE | 2017-03-17 14:14 | PDINTPN ---
Caterer'S Aide Progress Note Assessment/Plan: Assessment: Severe Sepsis: Likely due to neutropenic colitis. Neutropenia resolved. Symptoms persist but improving. Sepsis resolving. 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 Anemia: Hct 18, for 2 units of packed red cells today. Thrombocytopenia: Plts remain low, 17,000 today. No signs active bleeding. Follow ALETHEA: Resolved. Hypokalemia - on replacement protocols Plan: Continue supportive care, follow lab. Blood today. Continue Meropenem per Infectious Disease. I will sign off at this point. Please call if I can be of further assistance. Subjective: Doing well. No complaints. Denies significant abdominal pain. No shortness of breath. Objective: Vital Signs Temp Pulse Resp BP Pulse Ox 37.0 C 82 18 97/52 L 97 03/17/17 08:00 03/17/17 08:00 03/17/17 08:00 03/17/17 08:00 03/17/17 08:00 Laboratory Results 03/17/17 05:30 03/17/17 05:30 03/16/17 03/17/17 03/18/17 05:59 05:59 05:59 Intake Total 4035 1422 Output Total 2410 1900 Balance 1625 -478 PT 15.7 SEC (12.0-15.0) H 03/16/17 15:45 INR 1.25 (0.83-1.16) H 03/16/17 15:45 Physical Exam - Physical Exam EENT: other (Nasal cannula 3 L: ) Neck: normal inspection ( 99%) Respiratory: lungs clear, decreased breath sounds Cardiac/Chest: regular rate, rhythm Abdomen: soft, No normal bowel sounds (Decreased, present), No non-tender ( Decreased tenderness) Skin: warm/dry, pallor Extremities: pedal edema (Trace +) Neuro/Psych: no motor/sensory deficits, No cognition abnormalities ICD10 Worksheet Patient Problems: Problems Problem Status Onset Cardiomegaly Acute Peripheral edema Acute LBBB (left bundle branch block) Acute Hypoxia Acute Pneumonia Acute CHF (congestive heart failure) Acute Sepsis Acute AML (acute myeloid leukemia) Acute Pancytopenia Acute Colitis Acute
[2017-03-17 18:01] LABS: POTASSIUM 3.5 mEq/L (3.5-5.2)
[2017-03-17] MEDS: NORTRIPTYLINE HCL 50 MG CAP PO SCH (19:49)
[2017-03-17] MEDS: CALCIUM CARBONATE 500 MG CHEWABLE TAB PO PRN (19:49)
[2017-03-17] MEDS: ONDANSETRON 4 MG/2 ML VIAL IVP PRN (20:37)
[2017-03-18] MEDS: MEROPENEM 1 GM in NS 100 ML IV SCH ×4 (00:07→23:50)
[2017-03-18] MEDS: LEVOTHYROXINE 125 MCG TAB PO SCH (05:44)
[2017-03-18 06:11] LABS: HEMATOCRIT 24.8 % (38.0-47.0); HEMOGLOBIN 8.4 g/dL (12.6-16.3); LIPEMIA HEMOLYSIS FLAG 90 (0-99); MEAN CELL HEMOGLOBIN 33.3 pg (27.9-34.1); MEAN CELL HEMOGLOBIN CONCENTR. 33.9 g/dL (32.4-36.7); MEAN CELL VOLUME 98.4 fL (81.5-99.8); PLATELET CLUMPS FLAG 0 (0-99); RED BLOOD CELL COUNT 2.52 10^6/uL (4.18-5.33); RED CELL DISTRIBUTION WIDTH 16.6 % (11.5-15.2)
[2017-03-18 06:33] LABS: ANION GAP 5 mEq/L (8-16); CALCIUM 7.9 mg/dL (8.5-10.4); CARBON DIOXIDE 26 mEq/l (22-31); CHLORIDE 106 mEq/L (97-110); CREATININE 0.8 mg/dL (0.6-1.0); GLOMERULAR FILTRATION RATE > 60; GLUCOSE 103 mg/dL (70-100); MAGNESIUM 1.8 mg/dL (1.6-2.3); POTASSIUM 3.8 mEq/L (3.5-5.2); SODIUM 137 mEq/L (134-144)
[2017-03-18 07:06] LABS: PLATELET COUNT 19 10^3/uL (150-400)
[2017-03-18 07:36] LABS: PLATELET ESTIMATE DECREASED (ADEQ)
[2017-03-18] MEDS: ALPRAZolam 0.5 MG TAB PO SCH ×2 (09:08→14:01)
[2017-03-18] MEDS: CETIRIZINE 10 MG TAB PO SCH (09:08)
[2017-03-18] MEDS: PANTOPRAZOLE SODIUM 40 MG TAB PO SCH (09:08)
[2017-03-18] MEDS: buPROPion 100 MG TAB PO SCH ×2 (09:08→21:38)
[2017-03-18] MEDS ORDERED: POTASSIUM CL 10 MEQ TAB PO ONE ×2 (09:52→21:40)
[2017-03-18] MEDS ORDERED: MAGNESIUM SULF 1 GM/DEXTROSE 100 ML IV ONE ×3 (09:53→09:56)
[2017-03-18] MEDS ORDERED: FUROSEMIDE 20 MG/2 ML VIAL IVP ONE (10:33)
--- NOTE | 2017-03-18 12:12 | PCMIDPN ---
Assessment/Plan: Assessment/Plan: * Neutropenic enterocolitis with associated AML and ongoing neutropenia: Clinically improved without abdominal pain. Suspect likely to have protracted neutropenia. Continue meropenem given allergy history. Allergies will make transition to oral therapy problematic although patient has tolerated penicillin in past raising possibility of Augmentin. However, she is concerned about diarrhea with use of amoxicillin which she has experienced in the past. Other option may be to complete course of therapy with ertapenem as outpatient once ready for discharge. 03/18/17 12:09 Subjective: Patient feels much better. No abdominal pain or diarrhea. Tolerating oral intake. Objective: Vital Signs Temp Pulse Resp BP Pulse Ox 36.7 C 84 14 118/60 91 L 03/18/17 08:00 03/18/17 08:00 03/18/17 08:00 03/18/17 08:00 03/18/17 08:00 Laboratory Results 03/18/17 05:50 03/18/17 05:50 03/17/17 03/18/17 03/19/17 05:59 05:59 05:59 Intake Total 1422 1550 Output Total 1900 650 Balance -478 900 Meropenem # 5 Blood cultures x2 no growth GI pathogen panel by PCR negative - Physical Exam General Appearance: alert, no apparent distress EENT: pharynx normal, No scleral icterus Respiratory: other (Decreased breath sounds right base), No respiratory distress Cardiac/Chest: regular rate, rhythm Extremities: No inflammation Abdomen: non-tender, No distended - Line/s LUE PICC Lines: No drainage, No erythema ICD10 Worksheet Patient Problems: Problems Problem Status Onset AML (acute myeloid leukemia) Acute Colitis Acute Pancytopenia Acute Sepsis Acute CHF (congestive heart failure) Acute Cardiomegaly Acute Hypoxia Acute LBBB (left bundle branch block) Acute Peripheral edema Acute Pneumonia Acute
--- NOTE | 2017-03-18 13:50 | SOAPPROG ---
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 secondary to nutritional deficiency)--improved without intervention Plan: Continued improvement. She had a good response to PRBC transfusion yesterday. She does not require blood transfusion today. Her blood counts are improving. I think that she could potentially be discharged tomorrow or Thursday. She does have a follow up appointment at [facility] on Thursday of this week. ID favors completing a course of Ertapenem as outpatient. Will discuss possible discharge with hopitalist service. The blood in her stool is likely secondary to her resolving colitis. No intervention currently. Expect that this should gradually improve. Next Vidaza would be due April 06. Will plan on giving as outpatient. Plan d/w patient and family. Her questions were answered. Subjective: Feels well. Working with PT. Good response to PRBC transfusion yesterday. Objective: Vital Signs Temp Pulse Resp BP Pulse Ox 36.7 C 84 14 118/60 91 L 03/18/17 08:00 03/18/17 08:00 03/18/17 08:00 03/18/17 08:00 03/18/17 08:00 Laboratory Results 03/18/17 05:50 03/18/17 05:50 03/17/17 03/18/17 03/19/17 05:59 05:59 05:59 Intake Total 1422 1550 Output Total 1900 650 Balance -478 900 PT 15.7 SEC (12.0-15.0) H 03/16/17 15:45 INR 1.25 (0.83-1.16) H 03/16/17 15:45 - Time Spent With Patient Time Spent With Patient: 25 minutes Physical Exam - Physical Exam General Appearance: alert, no apparent distress EENT: PERRL/EOMI Abdomen: non-tender, soft Neuro/Psych: alert, normal mood/affect ICD10 Worksheet Patient Problems: Problems Problem Status Onset AML (acute myeloid leukemia) Acute Colitis Acute Pancytopenia Acute Sepsis Acute CHF (congestive heart failure) Acute Cardiomegaly Acute Hypoxia Acute LBBB (left bundle branch block) Acute Peripheral edema Acute Pneumonia Acute
--- NOTE | 2017-03-18 15:38 | HOSPPROG ---
Hospitalist Progress Note Assessment/Plan: 76 yo F with hx of AML presenting with sepsis in the setting of colitis # Septic shock - now resolved and maintaining BP off of levophed. Source of infection presumed to be enterocolitis as next. Continued merrem. GI panel and blood cultures negative. # neutropenic colitis: abdominal CT personally reviewed showing sigmoid inflammation with etiology presumably being neutropenic colitis. Symptomatically improving, no longer having any abdominal pain and eating well. Treated with merrrem currently, given multiple allergies will likely transition to ertapenem for discharge. Reviewed plan with ID/case mgmt. # pancytopenia: in setting of AML with recent chemo, wbc improving, s/p tranfusion of 2 units 5/2 and feeling better, wbc improving, plts still low but no indication for tx currently # volume overload: in setting of recent sepsis and fluid resuscitation as well as blood tx, weight is up 9kg since admission, starting lasix IV today # acute hypoxic respiratory failure: has had o2 as low as 85% on RA, improved to mid to high 90s on 2-3 L, weaning as able. Likely due to volume overload as above as well as likely atelectasis, will get repeat cxr. IS/ambulation. 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 Further hx obtained from patients present at bedside. Subjective: no significant overnight events, patient currently feeling well, denies new issues overnight other than increased shortness of breath and new cough, eating well, walking is better but still weak Objective: Vital Signs Temp Pulse Resp BP Pulse Ox 36.7 C 84 14 118/60 91 L 03/18/17 08:00 03/18/17 08:00 03/18/17 08:00 03/18/17 08:00 03/18/17 08:00 Laboratory Results 03/18/17 05:50 03/18/17 05:50 03/17/17 03/18/17 03/19/17 05:59 05:59 05:59 Intake Total 1422 1550 Output Total 1900 650 Balance -478 900 PT 15.7 SEC (12.0-15.0) H 03/16/17 15:45 INR 1.25 (0.83-1.16) H 03/16/17 15:45 awake alert nad anicteric op clear rrr no mrg bibasilar crackles, normal wob soft nt nd 1+ ble edema warm dry pale oriented appropriate - Time Spent With Patient Time Spent with Patient: greater than 35 minutes Time Spent with Patient: Greater than 35 minutes spent on this patients care, greater than 50% of time spent counseling, educating, and coordinating care regarding the above mentioned plan. ICD10 Worksheet Patient Problems: Problems Problem Status Onset AML (acute myeloid leukemia) Acute Colitis Acute Pancytopenia Acute Sepsis Acute CHF (congestive heart failure) Acute Cardiomegaly Acute Hypoxia Acute LBBB (left bundle branch block) Acute Peripheral edema Acute Pneumonia Acute
[2017-03-18] MEDS: FUROSEMIDE 20 MG/2 ML VIAL IVP SCH (16:27)
[2017-03-18 18:15] LABS: POTASSIUM 3.4 mEq/L (3.5-5.2)
[2017-03-18] MEDS: NORTRIPTYLINE HCL 50 MG CAP PO SCH (21:38)
[2017-03-18] MEDS: ONDANSETRON DISINTEGRATING 4 MG TAB PO PRN (22:08)
[2017-03-19 04:43] LABS: ADD DIFF? YES; ADD MORPH? NO; ATYPICAL LYMPHOCYTE FLAG 0 (0-99); FRAGMENT RBC FLAG 0 (0-99); HEMATOCRIT 24.8 % (38.0-47.0); HEMOGLOBIN 8.4 g/dL (12.6-16.3); LEFT SHIFT FLG 0 (0-99); LIPEMIA HEMOLYSIS FLAG 90 (0-99); MEAN CELL HEMOGLOBIN 33.2 pg (27.9-34.1); MEAN CELL HEMOGLOBIN CONCENTR. 33.9 g/dL (32.4-36.7); MEAN PLATELET VOLUME 11.3 fL (8.7-11.7); PLATELET CLUMPS FLAG 10 (0-99); RED BLOOD CELL COUNT 2.53 10^6/uL (4.18-5.33); RED CELL DISTRIBUTION WIDTH 16.1 % (11.5-15.2)
[2017-03-19 04:46] LABS: ADD SCAN? NO
[2017-03-19 04:48] LABS: PLATELET COUNT 25 10^3/uL (150-400)
[2017-03-19 04:56] LABS: ANION GAP 5 mEq/L (8-16); CARBON DIOXIDE 30 mEq/l (22-31); CHLORIDE 104 mEq/L (97-110); CREATININE 0.8 mg/dL (0.6-1.0); GLOMERULAR FILTRATION RATE > 60; GLUCOSE 100 mg/dL (70-100); POTASSIUM 3.5 mEq/L (3.5-5.2); SODIUM 139 mEq/L (134-144)
[2017-03-19] MEDS: LEVOTHYROXINE 125 MCG TAB PO SCH (05:35)
[2017-03-19 05:51] LABS: ELLIPTOCYTES 1+; PLATELET ESTIMATE DECREASED (ADEQ)
[2017-03-19 05:52] LABS: MICROCYTES 1+
[2017-03-19] MEDS: FUROSEMIDE 20 MG/2 ML VIAL IVP SCH ×2 (07:57→14:55)
[2017-03-19] MEDS: buPROPion 100 MG TAB PO SCH ×2 (07:57→20:42)
[2017-03-19] MEDS: PANTOPRAZOLE SODIUM 40 MG TAB PO SCH (07:57)
[2017-03-19] MEDS: ALPRAZolam 0.5 MG TAB PO SCH ×2 (07:57→14:55)
[2017-03-19] MEDS: CETIRIZINE 10 MG TAB PO SCH (07:58)
[2017-03-19] MEDS: MEROPENEM 1 GM in NS 100 ML IV SCH ×3 (07:58→23:57)
[2017-03-19] MEDS ORDERED: POTASSIUM CL 20 MEQ/15 ML UDCUP PO ONE (08:00)
[2017-03-19] MEDS: ONDANSETRON DISINTEGRATING 4 MG TAB PO PRN ×2 (08:43→20:44)
--- NOTE | 2017-03-19 10:14 | SOAPPROG ---
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 secondary to nutritional deficiency)--improved without intervention Plan: Continued improvement. She does not require blood transfusion today. Her blood counts are improving. She is ok for discharge from a Hematology standpoint. She will likely be sent home tomorrow. ID favors completing a course of Ertapenem as outpatient. Next Vidaza would be due April 06. Will plan on giving as outpatient. I will notify Dr. Jones of her impending discharge. Plan d/w patient. Her questions were answered. 03/19/17 10:11 Subjective: Feels well. Hoping to go home soon. Denies abdominal pain or diarrhea. Objective: Vital Signs Temp Pulse Resp BP Pulse Ox 36.8 C 88 20 111/54 L 89 L 03/19/17 07:22 03/19/17 07:22 03/19/17 07:22 03/19/17 07:22 03/19/17 07:22 Laboratory Results 03/19/17 04:15 03/19/17 04:15 03/18/17 03/19/17 03/20/17 05:59 05:59 05:59 Intake Total 1550 24 Output Total 650 1500 Balance 900 -1476 PT 15.7 SEC (12.0-15.0) H 03/16/17 15:45 INR 1.25 (0.83-1.16) H 03/16/17 15:45 - Time Spent With Patient Time Spent With Patient: 20 minutes Physical Exam - Physical Exam General Appearance: alert, no apparent distress EENT: PERRL/EOMI Abdomen: non-tender, soft Neuro/Psych: alert, normal mood/affect ICD10 Worksheet Patient Problems: Problems Problem Status Onset AML (acute myeloid leukemia) Acute Colitis Acute Pancytopenia Acute Sepsis Acute CHF (congestive heart failure) Acute Cardiomegaly Acute Hypoxia Acute LBBB (left bundle branch block) Acute Peripheral edema Acute Pneumonia Acute
--- NOTE | 2017-03-19 11:24 | HOSPPROG ---
Hospitalist Progress Note Assessment/Plan: DIAGNOSES: # Septic shock, resolved # neutropenic colitist. 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 I have reviewed today in detail with Dr Bell Overall she has made very good progress. At this point is up walking in the hallways eating well, has minimal abdominal discomfort and a benign exam. She remains neutropenic so she will require ongoing antibiotic therapy. There are no current indications for transfusion and her counts actually are potentially starting to trend up at this point She had excellent ejection fraction 68% on her echocardiogram 02/12; as there is a concern for possible cardiotoxicity of chemotherapy we should reassess w echo at this time. Howerver, she does have diastolic dysfunction on echo, and with 4 units of RBCs as well as large volume of IVF resuscitation, severe anemia, and low albumin, her fluid retention could be due to these factors, so until we assess w echo would not assume that cardiotoxicity is present. PLANS: -echocardiogram -diuresis -PT OT SUBJECTIVE: Feels better with better energy, not short of breath, eating, walking short distances on hallway OBJECTIVE Vitals reviewed: Stable without fever Manager Clinical [employer], my review: Sinus Exam: alert oriented skin warm dry color ok resps not labored lungs clear BSs heart regular abd soft nondistended nontender, bowel sounds present limbs warm, slight edema iv site ok Objective: Vital Signs Temp Pulse Resp BP Pulse Ox 36.8 C 88 20 111/54 L 89 L 03/19/17 07:22 03/19/17 07:22 03/19/17 07:22 03/19/17 07:22 03/19/17 07:22 Laboratory Results 03/19/17 04:15 03/19/17 04:15 03/18/17 03/19/17 03/20/17 06:59 06:59 06:59 Intake Total 1550 24 Output Total 650 1500 Balance 900 -1476 PT 15.7 SEC (12.0-15.0) H 03/16/17 15:45 INR 1.25 (0.83-1.16) H 03/16/17 15:45 ICD10 Worksheet Patient Problems: Problems Problem Status Onset AML (acute myeloid leukemia) Acute Colitis Acute Pancytopenia Acute Sepsis Acute CHF (congestive heart failure) Acute Cardiomegaly Acute Hypoxia Acute LBBB (left bundle branch block) Acute Peripheral edema Acute Pneumonia Acute
--- NOTE | 2017-03-19 13:56 | PCMIDPN ---
Assessment/Plan: Assessment: neutropenic enterocolitis while on treatment for AML. Neutropenia ongoing. Mild at present but unclear when this will fully resolved. Given her underlying reports of allergies to penicillin and cephalosporins we will continue on meropenem. Plan: 1. Continue meropenem IV. 2. Follow clinical course. 3. Determine clinically how long IV meropenem should continue versus change to oral antibiotics. Patient requests that amoxicillin is not the oral agent due to past experiences with severe diarrhea. 03/19/17 13:54 Subjective: Patient is resting in her hospital bed. She is in good spirits. She has no complaints of fevers or chills. No abdominal discomfort at present. Objective: Meropenem # 6 Vital Signs Temp Pulse Resp BP Pulse Ox 36.9 C 84 18 110/58 L 94 03/19/17 11:41 03/19/17 11:41 03/19/17 11:41 03/19/17 11:41 03/19/17 11:41 Laboratory Results 03/19/17 04:15 03/19/17 04:15 03/18/17 03/19/17 03/20/17 05:59 05:59 05:59 Intake Total 1550 24 Output Total 650 1500 Balance 900 -1476 - Physical Exam General Appearance: WD/WN, alert, no apparent distress, non-toxic Respiratory: lungs clear, normal breath sounds, No respiratory distress Cardiac/Chest: regular rate, rhythm, tachycardia (Occasional) Skin: normal color, warm/dry, No rash Neuro/Psych: alert, normal mood/affect, oriented x 3 ICD10 Worksheet Patient Problems: Problems Problem Status Onset AML (acute myeloid leukemia) Acute Colitis Acute Pancytopenia Acute Sepsis Acute CHF (congestive heart failure) Acute Cardiomegaly Acute Hypoxia Acute LBBB (left bundle branch block) Acute Peripheral edema Acute Pneumonia Acute
[2017-03-19 19:21] LABS: POTASSIUM 3.5 mEq/L (3.5-5.2)
[2017-03-19] MEDS ORDERED: POTASSIUM CL 10 MEQ TAB PO ONE (19:40)
[2017-03-19] MEDS: NORTRIPTYLINE HCL 50 MG CAP PO SCH (20:55)
[2017-03-20] MEDS: LEVOTHYROXINE 125 MCG TAB PO SCH (05:06)
[2017-03-20 05:35] LABS: POTASSIUM 3.8 mEq/L (3.5-5.2)
[2017-03-20] MEDS: buPROPion 100 MG TAB PO SCH ×2 (10:00→20:54)
[2017-03-20] MEDS: PANTOPRAZOLE SODIUM 40 MG TAB PO SCH (10:00)
[2017-03-20] MEDS: ALPRAZolam 0.25 MG TAB PO SCH ×2 (10:00→15:31)
[2017-03-20] MEDS: MEROPENEM 1 GM in NS 100 ML IV SCH ×2 (10:00→16:18)
[2017-03-20] MEDS: CETIRIZINE 10 MG TAB PO SCH (10:00)
[2017-03-20] MEDS: FUROSEMIDE 20 MG/2 ML VIAL IVP SCH ×2 (10:00→15:31)
[2017-03-20] MEDS: ALPRAZolam 0.5 MG TAB PO SCH (10:01)
[2017-03-20] MEDS ORDERED: POTASSIUM CL 10 MEQ TAB PO ONE (11:30)
--- NOTE | 2017-03-20 12:22 | PDIAF ---
- Diagnosis Diagnosis: Neutropenic enterocolitis Code Status: Do Not Resuscitate - Medication Management Discharge Medications: Medications to Continue on Transfer Pantoprazole Sodium [Protonix 40mg (*)] 40 mg PO DAILY 03/15/13 [Last Taken 10/02] methYLPHENIDATE HCL [Ritalin 10mg (*)] 15 mg PO DAILY 02/27/15 [Last Taken 02/24] Methenamine Fabian [Hiprex 1 gm (*)] 0.5 gm PO BID 04/24/16 [Last Taken 02/24/17] ALPRAZolam [Xanax 0.5 MG (*)] 0.25 mg PO DAILY@14 11/03/16 [Last Taken 02/24/17] Calcium Carbonate [Oyster Shell Calcium 500 mg (*)] 500 mg PO HS 11/03/16 [Last Taken Unknown] FEXOFENADINE HCL 90 mg PO BID 11/03/16 [Last Taken 02/11/17] Levothyroxine [Synthroid 125 mcg (*)] 125 mcg PO DAILY06 11/03/16 [Last Taken ] Multivitamins [Multivitamin (*)] 1 each PO DAILY 11/03/16 [Last Taken 02/10/17] Nitrofurantoin Macrobid [Macrobid] 100 mg PO DAILY PRN 11/03/16 [Last Taken ] Nortriptyline HCl [Pamelor 50 mg (*)] 100 mg PO HS 11/03/16 [Last Taken 02/23/17 ] buPROPion [Wellbutrin 100mg (*)] 100 mg PO BID 11/03/16 [Last Taken 02/24/17] methYLPHENIDATE HCL [Ritalin 10mg (*)] 10 mg PO DAILY@14 11/03/16 [Last Taken ] ALPRAZolam [Xanax 0.5 MG (*)] 0.5 mg PO DAILY 02/12/17 [Last Taken 02/24/17] Allopurinol [Zyloprim] 300 mg PO DAILY 02/24/17 [Last Taken Unknown] Ondansetron [Zofran Odt] 8 mg PO BID PRN 02/24/17 [Last Taken Unknown] Furosemide [Lasix] 40 mg PO BID #60 tab 03/04/17 [Last Taken Unknown] Potassium Cl [Klor-Con 20 meq (*)] 20 meq PO DAILY@16 #30 tab 03/04/17 [Last Taken Unknown] Potassium Cl [Klor-Con 20 meq (*)] 40 meq PO DAILY #60 tab 03/04/17 [Last Taken Unknown] Lisinopril [Lisinopril] 5 mg PO DAILY PRN 03/14/17 [Last Taken Unknown] Retirement Antibiotics: Ertapenem 1 g IV daily Retirement Antibiotic Stop Date: 03/30/17 Discharge Medications: Refer to the Discharge Home Medication list for PRN reason. PICC Care - Routine: Yes - Labs/Radiology CBC Date: 03/23/17 (Fax to Dr. Andrews [phone]) CMP Date: 03/23/17 (Fax to Dr. Andrews [phone]) - Follow Up Care Current Providers and Referrals: Airam Doan MD [Primary Care Provider] - As per Instructions Alfonso Andrews MD [Medical Doctor] - (Patient has an appointment to see Dr. Andrews ThursdayMarch 27 at 10:00 a.m. at the [facility])
--- NOTE | 2017-03-20 12:28 | PCMIDPN ---
Assessment/Plan: 1. 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 The diarrhea that she had on admission has completely stopped and now the patient is constipated. Had extensive discussion with her regarding pathogenesis of this process and prognosis. I do not feel (given the patient's myriad antibiotic allergies), that oral therapy is possible. Will proceed with once daily ertapenem for 2 weeks after defervescence, which would be a stop date of over 45 minutes was spent with March 30. The patient's absolute neutrophil count is approximately 422. I spoke with Dr. Cook who feels that given her underlying disease it is unlikely to get higher than that. The CT of her abdomen on admission showed thickening of the sigmoid only without evidence of surrounding abscess or perforation, although this was with intravenous contrast only. She was never bacteremic, and improved fairly quickly. She will likely need a follow-up CT scan before chemotherapy is initiated again. This was explained to her. A follow-up appointment was made in our clinic with Dr. Andrews ThursdayMarch 27 at 10:00 a.m.. I conveyed all of this information to Luz Maria, the social security benefits interviewer on this floor who will work on her disposition. Suspect she can go home tomorrow once all of her antibiotic plans have been arranged. It is unclear whether not she will need to go to [facility]. Transfer of care summary completed. Also of note, the patient states that she has had discomfort in her right lower quadrant off and on for the past 4 years and is concerned that she could have ischemic bowel in addition. I explained to her that I would not perform a colonoscopy at this point in time given her inflamed colon. CT scan did not show typical manifestations of ischemic bowel, either. I told her given her concern, that she could follow up with Dr. Henson about this, her population health manager. She may need an angiogram. Over 45 minutes was spent with this patient today, answering questions about the pathogenesis of her disease, and coordinating care. Subjective: Has multiple questions about her care moving forward and plans for antibiotic therapy. Feels much better. Is constipated and concerned that she would like to have a bowel movement prior to discharge. No nausea or vomiting. Has some discomfort in her right lower quadrant. Concerned that she could have ischemic bowel on top of this process. Objective: Meropenem 1 g IV daily day 7. Afebrile Vital Signs Temp Pulse Resp BP Pulse Ox 36.8 C 89 15 100/60 95 03/20/17 08:00 03/20/17 08:00 03/20/17 08:00 03/20/17 08:00 03/20/17 08:00 Laboratory Results 03/19/17 04:15 03/20/17 05:00 03/19/17 03/20/17 03/21/17 05:59 05:59 05:59 Intake Total 24 1446 600 Output Total 2401 198 8227 Balance -1476 1046 -650 Blood cultures negative GI PCR negative - Physical Exam General Appearance: alert, no apparent distress EENT: pharynx normal, No scleral icterus, No thrush Respiratory: lungs clear Cardiac/Chest: regular rate, rhythm Abdomen: soft, distended, other (Hypoactive bowel sounds.) Skin: other (Upper extremity looks fine), No rash ICD10 Worksheet Patient Problems: Problems Problem Status Onset AML (acute myeloid leukemia) Acute Colitis Acute Pancytopenia Acute Sepsis Acute CHF (congestive heart failure) Acute Cardiomegaly Acute Hypoxia Acute LBBB (left bundle branch block) Acute Peripheral edema Acute Pneumonia Acute
--- NOTE | 2017-03-20 13:32 | SOAPPROG ---
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 secondary to nutritional deficiency)--improved without intervention Plan: Continued improvement. She does not require blood transfusion currently. Her blood counts are improving. She is ok for discharge from a Hematology standpoint. She was due for d/c today, but this is being delayed one day to allow for her constipation to resolve. ID favors completing a course of Ertapenem as outpatient. D/W Dr. King. The patient will likely have chronic neutropenia for many months. Next Vidaza would be due April 06. Will plan on giving as outpatient. I have notified Dr. Jones of her impending discharge. Plan d/w patient, Dr. King, Dr. Ceron. Her questions were answered. 03/19/17 10:11 03/20/17 13:29 Subjective: Feels well. C/O constipation Objective: Vital Signs Temp Pulse Resp BP Pulse Ox 36.8 C 89 15 100/60 95 03/20/17 08:00 03/20/17 08:00 03/20/17 08:00 03/20/17 08:00 03/20/17 08:00 Laboratory Results 03/19/17 04:15 03/20/17 05:00 03/19/17 03/20/17 03/21/17 05:59 05:59 05:59 Intake Total 24 1446 600 Output Total 8535 841 2998 Balance -1476 1046 -650 PT 15.7 SEC (12.0-15.0) H 03/16/17 15:45 INR 1.25 (0.83-1.16) H 03/16/17 15:45 - Time Spent With Patient Time Spent With Patient: 25 minutes Physical Exam - Physical Exam General Appearance: alert, no apparent distress EENT: PERRL/EOMI Abdomen: non-tender, soft Neuro/Psych: alert, normal mood/affect ICD10 Worksheet Patient Problems: Problems Problem Status Onset AML (acute myeloid leukemia) Acute Colitis Acute Pancytopenia Acute Sepsis Acute CHF (congestive heart failure) Acute Cardiomegaly Acute Hypoxia Acute LBBB (left bundle branch block) Acute Peripheral edema Acute Pneumonia Acute
[2017-03-20] MEDS: POLYETHYLENE GLYCOL 3350 17 GM PKT PO SCH (16:15)
--- NOTE | 2017-03-20 16:54 | HOSPPROG ---
Hospitalist Progress Note Assessment/Plan: DIAGNOSES: # Septic shock, resolved # neutropenic colitist. 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 I met at the bedside with the patient and Dr. Zheng Cook today. At this point she is recovering well from her infection. Due to her ongoing neutropenia she will need to continue with a prolonged course of antibiotic. This has been outlined by Dr. King. She should be able to discharge very soon. I have encouraged her to keep walking to build up strength in anticipation of getting home. We did discuss in detail her need for ongoing anti tumor therapy, and she should be able to keep on schedule with this. PLANS: - Continue current antibiotics -Her antibiotics will need to be intravenous throughout the course due to her allergies -Physical occupational therapy, increase activity as able SUBJECTIVE: Again feel somewhat better today with good energy, walking in the hallway, eating well. Her main complaint is that she has not had a bowel movement since 5 days ago. There is no abdominal pain or nausea vomiting with this. No fever symptoms OBJECTIVE Vitals reviewed: Stable without fever Exam: alert oriented skin warm dry color ok resps not labored lungs clear BSs heart regular abd soft nondistended nontender, bowel sounds present limbs warm, slight edema iv site ok Objective: Vital Signs Temp Pulse Resp BP Pulse Ox 36.8 C 89 15 100/60 95 03/20/17 08:00 03/20/17 08:00 03/20/17 08:00 03/20/17 08:00 03/20/17 08:00 Laboratory Results 03/19/17 04:15 03/20/17 05:00 03/19/17 03/20/17 03/21/17 06:59 06:59 06:59 Intake Total 24 1696 350 Output Total 6875 526 5842 Balance -1476 1296 -2101 PT 15.7 SEC (12.0-15.0) H 03/16/17 15:45 INR 1.25 (0.83-1.16) H 03/16/17 15:45 ICD10 Worksheet Patient Problems: Problems Problem Status Onset AML (acute myeloid leukemia) Acute Colitis Acute Pancytopenia Acute Sepsis Acute CHF (congestive heart failure) Acute Cardiomegaly Acute Hypoxia Acute LBBB (left bundle branch block) Acute Peripheral edema Acute Pneumonia Acute
[2017-03-20] MEDS: NORTRIPTYLINE HCL 50 MG CAP PO SCH (20:54)
[2017-03-21] MEDS: MEROPENEM 1 GM in NS 100 ML IV SCH (00:35)
[2017-03-21 04:52] VITALS: RESP 16
[2017-03-21] MEDS: LEVOTHYROXINE 125 MCG TAB PO SCH (05:07)
[2017-03-21 05:34] LABS: POTASSIUM 3.8 mEq/L (3.5-5.2)
[2017-03-21] MEDS ORDERED: ERTAPENEM 1 GM in NS 100 ML IV SCH (09:00)
[2017-03-21] MEDS: ALPRAZolam 0.25 MG TAB PO SCH ×2 (09:20→14:19)
[2017-03-21] MEDS: CETIRIZINE 10 MG TAB PO SCH (09:22)
[2017-03-21] MEDS: PANTOPRAZOLE SODIUM 40 MG TAB PO SCH (09:22)
[2017-03-21] MEDS: POLYETHYLENE GLYCOL 3350 17 GM PKT PO SCH (09:22)
[2017-03-21] MEDS: buPROPion 100 MG TAB PO SCH (09:22)
[2017-03-21] MEDS: FUROSEMIDE 20 MG/2 ML VIAL IVP SCH ×2 (09:22→14:19)
[2017-03-21] MEDS: ONDANSETRON DISINTEGRATING 4 MG TAB PO PRN (11:30)
[2017-03-21] MEDS ORDERED: MAGNESIUM HYDROXIDE 30 ML UDCUP PO ONE (11:32)
[2017-03-21] MEDS ORDERED: POTASSIUM CL 10 MEQ TAB PO ONE ×2 (11:37→14:30)
--- NOTE | 2017-03-21 13:12 | SOAPPROG ---
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 * Pancytopenia secondary to #1 and chemo: was improving; will check blood today to make sure counts are stable * Neutropenic colitis: improved with higher wbc and abx; She is to continue Ertapenem outpatient and f/u with Dr. King. * Constipation: will try MOM today * Disposition: ok to go home per heme if counts stable and able to have bm. Needs to f/u with Dr. Jones next week. Subjective: She is feeling better although still no bowel movement. Miralax restarted. Swelling left knee is better and she is walking the halls. Objective: Vital Signs Temp Pulse Resp BP Pulse Ox 36.9 C 84 16 108/62 93 03/21/17 08:00 03/21/17 08:00 03/21/17 08:00 03/21/17 08:00 03/21/17 08:00 Laboratory Results 03/19/17 04:15 03/21/17 05:05 03/20/17 03/21/17 03/22/17 05:59 05:59 05:59 Intake Total 1446 2100 Output Total 400 3051 Balance 1046 -951 PT 15.7 SEC (12.0-15.0) H 03/16/17 15:45 INR 1.25 (0.83-1.16) H 03/16/17 15:45 Physical Exam - Physical Exam General Appearance: no apparent distress Respiratory: lungs clear Cardiac/Chest: regular rate, rhythm Abdomen: normal bowel sounds, soft, distended ICD10 Worksheet Patient Problems: Problems Problem Status Onset AML (acute myeloid leukemia) Acute Colitis Acute Pancytopenia Acute Sepsis Acute CHF (congestive heart failure) Acute Cardiomegaly Acute Hypoxia Acute LBBB (left bundle branch block) Acute Peripheral edema Acute Pneumonia Acute
[2017-03-21] MEDS ORDERED: MAGNESIUM HYDROXIDE 30 ML UDCUP PO PRN (15:10)
--- NOTE | 2017-03-21 16:29 | PDIAF ---
- Diagnosis Diagnosis: Neutropenic enterocolitis Code Status: Do Not Resuscitate - Medication Management Discharge Medications: Medications to Continue on Transfer Pantoprazole Sodium [Protonix 40mg (*)] 40 mg PO DAILY 03/15/13 [Last Taken 10/02] methYLPHENIDATE HCL [Ritalin 10mg (*)] 15 mg PO DAILY 02/27/15 [Last Taken 02/24] Methenamine Fabian [Hiprex 1 gm (*)] 0.5 gm PO BID 04/24/16 [Last Taken 02/24/17] ALPRAZolam [Xanax 0.5 MG (*)] 0.25 mg PO DAILY@14 11/03/16 [Last Taken 02/24/17] Calcium Carbonate [Oyster Shell Calcium 500 mg (*)] 500 mg PO HS 11/03/16 [Last Taken Unknown] FEXOFENADINE HCL 90 mg PO BID 11/03/16 [Last Taken 02/11/17] Levothyroxine [Synthroid 125 mcg (*)] 125 mcg PO DAILY06 11/03/16 [Last Taken ] Multivitamins [Multivitamin (*)] 1 each PO DAILY 11/03/16 [Last Taken 02/10/17] Nortriptyline HCl [Pamelor 50 mg (*)] 100 mg PO HS 11/03/16 [Last Taken 02/23/17 ] buPROPion [Wellbutrin 100mg (*)] 100 mg PO BID 11/03/16 [Last Taken 02/24/17] methYLPHENIDATE HCL [Ritalin 10mg (*)] 10 mg PO DAILY@14 11/03/16 [Last Taken ] ALPRAZolam [Xanax 0.5 MG (*)] 0.5 mg PO DAILY 02/12/17 [Last Taken 02/24/17] Allopurinol [Zyloprim] 300 mg PO DAILY 02/24/17 [Last Taken Unknown] Ondansetron [Zofran Odt] 8 mg PO BID PRN 02/24/17 [Last Taken Unknown] Furosemide [Lasix 40 MG (*)] 40 mg PO BID #60 tab 03/04/17 [Last Taken Unknown] Lisinopril 5 mg PO DAILY PRN 03/14/17 [Last Taken Unknown] Ertapenem [INVanz] 1 gm IV DAILY vial 03/21/17 [Last Taken Unknown] 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 PICC Care - Routine: Yes - Orders Diet Recommendation: no restrictions on diet Diet Texture: Regular Texture Diet - Labs/Radiology CBC Date: 03/23/17 (Fax to Dr. Andrews [phone]) CMP Date: 03/23/17 (Fax to Dr. Andrews [phone]) - Follow Up Care Current Providers and Referrals: Airam Doan MD [Primary Care Provider] - As per Instructions Alfonso Andrews MD [Medical Doctor] - (Patient has an appointment to see Dr. Andrews ThursdayMarch 27 at 10:00 a.m. at the [facility])
[2017-03-21 16:40] VITALS: BP 118/68; PULSE 95; TEMP 98.1; O2SAT 91
[2017-03-21 17:08] LABS: ADD DIFF? YES; ADD MORPH? NO; ADD SCAN? NO; ATYPICAL LYMPHOCYTE FLAG 0 (0-99); FRAGMENT RBC FLAG 0 (0-99); HEMATOCRIT 28.3 % (38.0-47.0); HEMOGLOBIN 9.6 g/dL (12.6-16.3); LEFT SHIFT FLG 10 (0-99); LIPEMIA HEMOLYSIS FLAG 90 (0-99); MEAN CELL HEMOGLOBIN 33.8 pg (27.9-34.1); MEAN CELL HEMOGLOBIN CONCENTR. 33.9 g/dL (32.4-36.7); MEAN CELL VOLUME 99.6 fL (81.5-99.8); MEAN PLATELET VOLUME 11.4 fL (8.7-11.7); PLATELET CLUMPS FLAG 0 (0-99); PLATELET COUNT 70 10^3/uL (150-400); RED BLOOD CELL COUNT 2.84 10^6/uL (4.18-5.33); RED CELL DISTRIBUTION WIDTH 15.9 % (11.5-15.2)
[2017-03-21 17:56] LABS: HYPOCHROMIA 1+; PLATELET ESTIMATE DECREASED (ADEQ)
--- NOTE | 2017-03-21 19:43 | GDS ---
[f rep st] DISCHARGE SUMMARY DISCHARGE DIAGNOSES: 1. Acute neutropenic enterocolitis. 2. Septic shock. 3. Acute hypoxic respiratory failure, multifactorial etiology. 4. Volume overload. 5. Pancytopenia due to acute myelogenous leukemia and chemotherapy. 6. Acute kidney injury. CONSULTATIONS: Dr. Ronna Quijano of Infectious Disease. Dr. Fletcher Adams of Critical Care Medicine. Dr. Yung De Anda of Hematology/Oncology. PROCEDURES: CT scan of abdomen and PICC line insertion. HOSPITAL COURSE: The patient is a 76-year-old woman with chronic marrow disorder recently transform ed into acute myelogenous leukemia. She had recently been treated with chemotherapy and came into [facility] at this time with confusion and signs of septic shock. The source of her sepsis appeare d to be neutropenic colitis identified by CT scan. Blood cultures and intestinal cultures did not r eveal any particular organism and there is no sign of C difficile. She was admitted to the hospital , treated with vigorous resuscitation and other measures for managing her shock as well as antibioti cs. During the course of her hospital stay, she had a very complete recovery of all of her symptoms . Her encephalopathy is completely resolved, shock completely resolved, no organ failure or dysfunc tion at this time. She is eating and drinking without difficulty and having bowel movements with no abdominal pain or nausea. Fevers are resolved. She had pancytopenia from her chemotherapy and her numbers have improved nicely with total white cell count currently at 4500, and neutrophil count at 1370. Her anemia has actually improved from a hemoglobin low at 6.1, back up to 9.6 at this time. At this point, the patient is felt stable for discharge to home, but she will be with ongoing antib iotics in the outpatient setting. This will be managed by Dr. Montemayor from the [facility]. She has a PICC line in place and that will stay in place while she is receiving her antibiotics. The patie nt does not require any dietary restrictions at this point. She will follow up closely in the oncol ogy clinic. She will follow up with Dr. Jones and Dr. Molina in the oncology clinic. /[id number]/MODL
[2017-03-22] MEDS ORDERED: MAGNESIUM HYDROXIDE 30 ML UDCUP PO PRN (11:32)
== END 2017-03-21 19:44 | disposition home health service (06) | DRG 871 ==
LOC: F2N 08:58 → F1N 03-19 16:31
PROVIDERS: ADMIT Internal Medicine; ATTEND Internal Medicine
PROC: 02HV33Z Insertion of Infusion Device into Superior Vena Cava, Percutaneous Approach (ICD-10-PCS; principal; 2017-03-14)
DX: A41.9 Sepsis, unspecified organism (principal); R65.21 Severe sepsis with septic shock; K52.1 Toxic gastroenteritis and colitis; T45.1X5A Adverse effect of antineoplastic and immunosuppressive drugs, initial encounter; D61.810 Antineoplastic chemotherapy induced pancytopenia; J96.01 Acute respiratory failure with hypoxia; N17.9 Acute kidney failure, unspecified; G93.40 Encephalopathy, unspecified; C92.00 Acute myeloblastic leukemia, not having achieved remission; E87.70 Fluid overload, unspecified; I10 Essential (primary) hypertension; Z66 Do not resuscitate
CPT/HCPCS: 96365; 97116-GP; 97161-GP; 97165-GO; 97535-GO; C1751; G8978-GP-CK; G8979-GP-CI; G8987-GO-CJ; G8988-GO-CI; J1335; J2185; J2405; J2765; J2997; J3430; J3475; P9016; Q9967

== ENCOUNTER 2017-03-24 20:49 | Emergency (ER) | payer OTHER, MEDICARE ==
[2017-03-24 20:55] VITALS: RESP 18; TEMP 98.2
--- NOTE | 2017-03-24 22:01 | EDPHY ---
H & P <Floresita Pimentel - Last Filed: 03/25/17 01:20> Stated Complaint: R LOW BACK PAIN THIS A.M., RECENT D/C FOR SEPTIC COLITIS Source: Patient Exam Limitations: No limitations - Personal History Current Tetanus/Diphtheria Vaccine: Yes Current Tetanus Diphtheria and Acellular Pertussis (TDAP): Yes Tetanus Vaccine Date: 2014 - Medical/Surgical History Hx Asthma: No Hx Chronic Respiratory Disease: No Hx Diabetes: No Hx Cardiac Disease: Yes Hx Renal Disease: Yes Hx Cirrhosis: No Hx Alcoholism: No Hx HIV/AIDS: No Hx Splenectomy or Spleen Trauma: No Other PMH: ANXIETY, HTN, KIDNEY DISFUNCTION, NEPHRITIS, HYPOTHYROID, GALLBLADDER OUT, ISCHEMIC COLOTIS, PARTIAL COLOCTEMY,HYSTERECTOMY, L KNEE REPLACEMENT, R HIP REPLACEMENT, BETA RADIATION EXPOSURE FROM WORK, R SIDED CHF, elevated uric acid levels - Family History Significant Family History: No pertinent family hx - Social History Smoking Status: Never smoked Alcohol Use: Sober Drug Use: None <Abraham Cruz - Last Filed: 03/25/17 07:20> Time Seen by Provider: 03/24/17 21:46 HPI/ROS: CHIEF COMPLAINT: Right-sided rib pain HISTORY OF PRESENT ILLNESS: The patient is a 76-year-old female with a history of acute myelogenous leukemia on chemotherapy with pancytopenia was admitted last week for septic shock and acute neutropenic enterocolitis as well as acute kidney injury. She was discharged 3 days ago. She also has a history of CHF. She states that last night, during her deep breathing exercises she had sudden right-sided rib pain. Today it has progressed upper back. She is concerned that she has a PE or pulmonary edema. Oxygen saturations 97% on room air. She denies abdominal pain, chest pain shortness of breath. She denies cough or fever. She has not had any leg pain or swelling. She is not on a blood thinner. She does not have any urinary symptoms. REVIEW OF SYSTEMS: Constitutional: denies: chills, fever, recent illness, recent injury EENTM: denies: blurred vision, double vision, nose congestion Respiratory: See HPI denies: cough, shortness of breath Cardiac: denies: chest pain, irregular heart rate, lightheadedness, palpitations Gastrointestinal/Abdominal: denies: abdominal pain, diarrhea, nausea, vomiting, blood streaked stools Genitourinary: denies: dysuria, frequency, hematuria, pain Musculoskeletal: denies: joint pain, muscle pain Skin: denies: lesions, rash, jaundice, bruising Neurological: denies: headache, numbness, paresthesia, tingling, dizziness, weakness Hematologic/Lymphatic: denies: blood clots, easy bleeding, easy bruising Immunologic/allergic: denies: HIV/AIDS, transplant EXAM: GENERAL: Well-appearing, well-nourished and in no acute distress. HEAD: Atraumatic, normocephalic. EYES: Pupils equal round and reactive to light, extraocular movements intact, sclera anicteric, conjunctiva are normal. ENT: TMs normal, nares patent, oropharynx clear without exudates. Moist mucous membranes. NECK: Normal range of motion, supple without lymphadenopathy or JVD. LUNGS: Very mild crackles bilaterally at bases HEART: Regular rate and rhythm without murmurs, rubs or gallops. ABDOMEN: Soft, nontender, normoactive bowel sounds. No guarding, no rebound. No masses appreciated. BACK: No CVA tenderness, no spinal tenderness, step-offs or deformities EXTREMITIES: Normal range of motion, no pitting or edema. No clubbing or cyanosis. NEUROLOGICAL: Cranial nerves II through XII grossly intact. Normal speech, normal gait. 5/5 strength, normal movement in all extremities, normal sensation PSYCH: Normal mood, normal affect. SKIN: Warm, dry, normal turgor, no visible rashes or lesions. (Abraham Cruz) Constitutional: Initial Vital Signs Temperature (C) 36.8 C 03/24/17 20:52 Heart Rate 88 03/24/17 20:52 Respiratory Rate 18 03/24/17 20:52 Blood Pressure 131/73 H 03/24/17 20:52 O2 Sat (%) 91 L 03/24/17 20:52 O2 Delivery Mode Room Air Allergies/Adverse Reactions: cefuroxime [Cefuroxime] Allergy (Severe, Verified 03/24/17 20:55) SYNCOPE Cephalosporins Allergy (Severe, Verified 03/24/17 20:55) THROAT SWELLING ciprofloxacin [From Cipro] Allergy (Severe, Verified 03/24/17 20:55) CRUSHING CHANG, SYNCOPE ciprofloxacin HCl [From Cipro] Allergy (Severe, Verified 03/24/17 20:55) CRUSHING CHANG, SYNCOPE fructooligosaccharides (FOS) [From Probiotic & Acidophilus] Allergy (Severe, Verified 03/24/17 20:55) LIPS SWELL, CRACK, REDDENED AREA BURNING FEELING Lactobacillus Combo No.3 [From Probiotic & Acidophilus] Allergy (Severe, Verified 03/24/17 20:55) LIPS SWELL, CRACK, REDDENED AREA BURNING FEELING levofloxacin [From Levaquin] Allergy (Severe, Verified 03/24/17 20:55) THROAT SWELLING Pantethine [From Probiotic & Acidophilus] Allergy (Severe, Verified 03/24/17 20: 55) LIPS SWELL, CRACK, REDDENED AREA BURNING FEELING Sulfa (Sulfonamide Antibiotics) Allergy (Severe, Verified 03/24/17 20:55) THROAT SWELLING, ANAPHYLACTIC Home Medications: Medication Instructions Recorded Pantoprazole Sodium [Protonix 40mg 40 mg PO DAILY 03/15/13 (*)] methYLPHENIDATE HCL [Ritalin 10mg 15 mg PO DAILY 02/27/15 (*)] Methenamine Fabian [Hiprex 1 gm (*)] 0.5 gm PO BID 04/24/16 ALPRAZolam [Xanax 0.5 MG (*)] 0.25 mg PO DAILY@14 11/03/16 Calcium Carbonate [Oyster Shell 500 mg PO HS 11/03/16 Calcium 500 mg (*)] FEXOFENADINE HCL 90 mg PO BID 11/03/16 Levothyroxine [Synthroid 125 mcg 125 mcg PO DAILY06 11/03/16 (*)] Multivitamins [Multivitamin (*)] 1 each PO DAILY 11/03/16 Nortriptyline HCl [Pamelor 50 mg 100 mg PO HS 11/03/16 (*)] buPROPion [Wellbutrin 100mg (*)] 100 mg PO BID 11/03/16 methYLPHENIDATE HCL [Ritalin 10mg 10 mg PO DAILY@14 11/03/16 (*)] ALPRAZolam [Xanax 0.5 MG (*)] 0.5 mg PO DAILY 02/12/17 Allopurinol [Zyloprim] 300 mg PO DAILY 02/24/17 Ondansetron [Zofran Odt] 8 mg PO BID PRN 02/24/17 Furosemide [Lasix 40 MG (*)] 40 mg PO BID #60 tab 03/04/17 Lisinopril 5 mg PO DAILY PRN 03/14/17 Ertapenem [INVanz] 1 gm IV DAILY vial 03/21/17 Medical Decision Making - Diagnostics Imaging: Discussed imaging studies w/ call centre supervisor Radiologist <Floresita Pimentel - Last Filed: 03/25/17 01:20> <Abraham Cruz - Last Filed: 03/25/17 07:20> - Diagnostics EKG Interpretation: An EKG obtained and was read and documented in trace view. Please see trace view for full reading and report. Sinus rhythm, left bundle branch block, unchanged from previous (Abraham Cruz) Imaging Results: Imaging Impressions Chest/Thorax CTA 03/24/17 21:59 Impression: 1. No evidence of thrombopulmonary embolic disease. 2. Small to moderate right pleural effusion and right basilar consolidation, likely compressive atelectasis. 3. Resolved left pleural effusion and improving left basilar atelectasis. 4. Minimal cardiomegaly. No failure. 5. No explanation for back pain. Mild multilevel degenerative disk disease unchanged. Findings discussed with Emergency Department physician, Dr. Pimentel at 2016 23:55. ED Course/Re-evaluation: I received sign-out on this patient from Dr. Cruz at change of shift. Labs have been checked and are relatively unremarkable, her hemoglobin has dropped slightly though I do not feel this is contributing to her symptomatology. CT scan does show small sized pleural effusion at right lung base, which was present on prior imaging. This could be due to atelectasis. I have discussed this finding with her. I have advised her to continue using her incentive spirometer and take her Lasix. She has a primary care follow-up appointment in 2 days. At that time she can be reassessed and if her pain continues, she can decide with her doctor if she needs to increase her Lasix. She will be discharged from the emergency room and is happy with this plan. (Floresita Pimentel) 11:00 p.m. care transferred to Dr. Pimentel, lab work and CT pending. If the patient does not have a PE and has mild CHF I suspect she may be managed appropriately as an outpatient. (Abraham Cruz) Differential Diagnosis: Partial list of the Differential diagnosis considered include but were not limited to; PE, CHF and although unlikely based on the history and physical exam, I also considered pneumonia, pleural effusion, pericarditis, pneumothorax , rib fracture kidney infection. (Abraham Cruz) - Data Points Laboratory Results: Laboratory Results 03/24/17 22:25 03/24/17 22:25 03/24/17 03/24/17 03/24/17 22:25 22:25 22:25 WBC 4.39 10^3/uL 10^3/uL (3.80-9.50) RBC 2.65 10^6/uL L 10^6/uL (4.18-5.33) Hgb 8.8 g/dL L g/dL (12.6-16.3) Hct 26.4 % L % (38.0-47.0) MCV 99.6 fL fL (81.5-99.8) MCH 33.2 pg pg (27.9-34.1) MCHC 33.3 g/dL g/dL (32.4-36.7) RDW 15.9 % H % (11.5-15.2) Plt Count 134 10^3/uL L 10^3/uL (150-400) MPV 10.4 fL fL (8.7-11.7) Neut % (Auto) Not Reported Lymph % (Auto) Not Reported [place] % (Auto) Not Reported Eos % (Auto) Not Reported Baso % (Auto) Not Reported Nucleat RBC Rel Count 0.0 % % (0.0-0.2) Absolute Neuts (auto) Not Reported Absolute Lymphs (auto) Not Reported Absolute Monos (auto) Not Reported Absolute Eos (auto) Not Reported Absolute Basos (auto) Not Reported Absolute Nucleated RBC 0.00 10^3/uL 10^3/uL (0-0.01) Immature Gran % Not Reported Seg Neutrophils % 20 % % Band Neutrophils % 7 % % Lymphocytes % 32 % % Monocytes % 38 % % Metamyelocytes % 3 % % Immature Gran # Not Reported Absolute Seg Neuts 0.88 10^/uL L 10^/uL (1.70-6.50) Absolute Band Neuts 0.31 10^3/uL 10^3/uL (0.00-0.70) Absolute Lymphocytes 1.40 10^3/uL 10^3/uL (1.00-3.00) Absolute Monocytes 1.67 10^3/uL H 10^3/uL (0.30-0.80) Absolute Metamyelocyte 0.13 10^3/mL H 10^3/mL (0.00-0.00) Toxic Granulation PRESENT H Platelet Estimate DECREASED L (ADEQ) Hypochromasia 1+ H Tear Drop Cells 1+ H Oval Macrocytes 1+ H Smear Review By Pending PT 14.7 SEC SEC (12.0-15.0) INR 1.15 (0.83-1.16) APTT 34.2 SEC SEC (23.0-38.0) Sodium 136 mEq/L mEq/L (134-144) Potassium 3.4 mEq/L L mEq/L (3.5-5.2) Chloride 100 mEq/L mEq/L (97-110) Carbon Dioxide 29 mEq/l mEq/l (22-31) Anion Gap 7 mEq/L L mEq/L (8-16) BUN 14 mg/dL mg/dL (7-23) Creatinine 0.9 mg/dL mg/dL (0.6-1.0) Estimated GFR > 60 Glucose 101 mg/dL H mg/dL (70-100) Calcium 8.6 mg/dL mg/dL (8.5-10.4) Total Bilirubin 0.9 mg/dL mg/dL (0.1-1.4) Conjugated Bilirubin 0.4 mg/dL mg/dL (0.0-0.5) Unconjugated Bilirubin 0.5 mg/dL mg/dL (0.0-1.1) AST 20 IU/L IU/L (14-46) ALT 32 IU/L IU/L (9-52) Alkaline Phosphatase 78 IU/L IU/L (38-126) Troponin I < 0.012 ng/mL ng/mL (0-0.034) NT-Pro-B Natriuret Pep 112 pg/mL pg/mL (0-125) Total Protein 6.0 g/dL L g/dL (6.3-8.2) Albumin 3.2 g/dL L g/dL (3.5-5.0) Lipase 69.0 IU/L IU/L (23-300) Departure <Riguzzi,Floresita - Last Filed: 03/25/17 01:20> <Abraham Cruz - Last Filed: 03/25/17 07:20> - Departure Disposition: Home, Routine, Self-Care Clinical Impression: Right-sided chest pain, Pleural effusion Condition: Good Instructions: Pleural Effusion (ED) Additional Instructions: Your CT scan did show that there is some fluid on your right lung known as a pleural effusion. This is something that you have had before on your other x- rays and does not appear to be new. However, it could be the cause of some of your symptoms. I would follow up with your doctor as planned in 2 days to see if you should increase your Lasix dose. Please return to the emergency room if you're worse in any way. Referrals: Airam Doan MD [Primary Care Provider] - As per Instructions
[2017-03-24] MEDS ORDERED: IOPAMIDOL (ISOVUE 370) 100 ML BTL IV ONE (22:02)
[2017-03-24 22:48] LABS: ADD DIFF? YES; ADD MORPH? NO; ADD SCAN? NO; ATYPICAL LYMPHOCYTE FLAG 0 (0-99); FRAGMENT RBC FLAG 0 (0-99); HEMATOCRIT 26.4 % (38.0-47.0); HEMOGLOBIN 8.8 g/dL (12.6-16.3); LEFT SHIFT FLG 0 (0-99); LIPEMIA HEMOLYSIS FLAG 80 (0-99); MEAN CELL HEMOGLOBIN 33.2 pg (27.9-34.1); MEAN CELL HEMOGLOBIN CONCENTR. 33.3 g/dL (32.4-36.7); MEAN CELL VOLUME 99.6 fL (81.5-99.8); MEAN PLATELET VOLUME 10.4 fL (8.7-11.7); PLATELET CLUMPS FLAG 0 (0-99); PLATELET COUNT 134 10^3/uL (150-400); RED BLOOD CELL COUNT 2.65 10^6/uL (4.18-5.33); RED CELL DISTRIBUTION WIDTH 15.9 % (11.5-15.2)
[2017-03-24 23:02] LABS: APTT 34.2 SEC (23.0-38.0); INR 1.15 (0.83-1.16); PROTIME(PATIENT) 14.7 SEC (12.0-15.0)
--- NOTE | 2017-03-24 23:04 | CPEKG ---
Heart Rate: 73 RR Interval: 822 P-R Interval: 220 QRSD Interval: 156 QT Interval: 464 QTC Interval: 512 P [place]: 59 QRS [place]: -66 T Wave [place]: 95 EKG Severity - ABNORMAL ECG - EKG Impression: SINUS RHYTHM EKG Impression: FIRST DEGREE AV BLOCK EKG Impression: LEFT BUNDLE BRANCH BLOCK Electronically Signed By: Abraham Cruz 24-Mar-2017 23:19:24
[2017-03-24 23:06] LABS: ALANINE AMINOTRANSFERASE 32 IU/L (9-52); ALBUMIN 3.2 g/dL (3.5-5.0); ALKALINE PHOSPHATASE 78 IU/L (38-126); ANION GAP 7 mEq/L (8-16); ASPARTATE AMINOTRANSFERASE 20 IU/L (14-46); BILIRUBIN,TOTAL 0.9 mg/dL (0.1-1.4); BILIRUBIN-CONJUGATED 0.4 mg/dL (0.0-0.5); BILIRUBIN-UNCONJUGATED 0.5 mg/dL (0.0-1.1); CALCIUM 8.6 mg/dL (8.5-10.4); CARBON DIOXIDE 29 mEq/l (22-31); CHLORIDE 100 mEq/L (97-110); CREATININE 0.9 mg/dL (0.6-1.0); GLOMERULAR FILTRATION RATE > 60; GLUCOSE 101 mg/dL (70-100); POTASSIUM 3.4 mEq/L (3.5-5.2); SODIUM 136 mEq/L (134-144)
[2017-03-24 23:18] LABS: TROPONIN I < 0.012 ng/mL (0-0.034)
[2017-03-24 23:44] LABS: PLATELET ESTIMATE DECREASED (ADEQ)
[2017-03-24 23:54] LABS: HYPOCHROMIA 1+; MACROCYTES 1+; TOXIC GRANULATION PRESENT
[2017-03-25 00:53] VITALS: BP 108/76; PULSE 82; O2SAT 92
== END 2017-03-25 00:25 | disposition home or self-care (01) ==
DX: J90 Pleural effusion, not elsewhere classified (principal); I10 Essential (primary) hypertension; I50.9 Heart failure, unspecified; Z85.6 Personal history of leukemia
CPT/HCPCS: 71275; 93005; 99285; Q9967

== ENCOUNTER → 2017-04-08 | Day surgery (SDC) | payer OTHER, MEDICARE ==
[~2017-04-08] MED LIST: ACETAMINOPHEN 325 MG TAB ONE; ACETAMINOPHEN 325 MG TAB PO ONE
== END | disposition home or self-care (01) ==
LOC: FOBOP 14:03
PROVIDERS: ATTEND Internal Medicine Hematology & Oncology
PROC: 30233N1 Transfusion of Nonautologous Red Blood Cells into Peripheral Vein, Percutaneous Approach (ICD-10-PCS; principal; 2017-04-08)
DX: C92.00 Acute myeloblastic leukemia, not having achieved remission (principal)
CPT/HCPCS: 36430; P9040; J1642

== ENCOUNTER → 2017-04-11 | Outpatient (CLI) | payer OTHER, MEDICARE | LOC: FOBOP 08:02 | PROVIDERS: ATTEND Internal Medicine Hematology & Oncology | PROC: 30233N1 Transfusion of Nonautologous Red Blood Cells into Peripheral Vein, Percutaneous Approach (ICD-10-PCS; principal; 2017-04-11) | DX: C92.50 Acute myelomonocytic leukemia, not having achieved remission (principal) | CPT/HCPCS: 36430; J1642; P9040; 86860-90; 86870-90; 86905-90 ==

== ENCOUNTER → 2017-04-25 | Outpatient (CLI) | payer OTHER, MEDICARE ==
[~2017-04-25] MED LIST changes: -ACETAMINOPHEN 325 MG TAB ONE
== END ==
LOC: EDSTATUS 07:30 → FOBOP 11:00
PROVIDERS: ATTEND Internal Medicine Hematology & Oncology
PROC: 30233N1 Transfusion of Nonautologous Red Blood Cells into Peripheral Vein, Percutaneous Approach (ICD-10-PCS; principal; 2017-04-25)
DX: D46.9 Myelodysplastic syndrome, unspecified (principal); C92.00 Acute myeloblastic leukemia, not having achieved remission
CPT/HCPCS: 36430; P9040; J1642

== ENCOUNTER 2017-05-18 14:44 | Emergency (ER) | payer OTHER, MEDICARE ==
[2017-05-18 14:56] VITALS: RESP 16
--- NOTE | 2017-05-18 15:07 | EDPHY ---
H & P Stated Complaint: Told she has elevated WBC's by PCP, Hx of septic colon. HPI/ROS: HPI CHIEF COMPLAINT: Possible bacteremia HISTORY OF PRESENT ILLNESS: This patient is a 76-year-old female, significant past medical history for septic shock with enterocolitis, AML, acute kidney injury and hypoxic respiratory failure she was in the hospital for prolonged stay, she presents emergency room as she states that on Thursday she was called and was told that she has positive blood cultures by [facility] was told to come to the emergency room. 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 3 days later. She does not endorse fatigue, and chills. She denies having a fever. Of note I did review her microbiology and blood cultures and I do not see positive blood cultures. I will touch base with [facility] to see if they have other blood work were not aware of. Past Medical History: AML, recent hospitalization for enterocolitis, septic shock, hypoxic respiratory failure, acute kidney injury Past Surgical History: Left arm PICC line Social History: Denies daily use of drugs alcohol tobacco products Family History: Noncontributory ROS REVIEW OF SYSTEMS: A comprehensive 10 point review of systems is otherwise negative aside from elements mentioned in the history of present illness. Exam Constitutional appears well nontoxic triage nursing summary reviewed, vital signs reviewed, awake/alert. Eyes normal conjunctivae and sclera, EOMI, PERRLA. HENT normal inspection, atraumatic, moist mucus membranes, no epistaxis, neck supple/ no meningismus, no raccoon eyes. Respiratory clear to auscultation bilaterally, normal breath sounds, no respiratory distress, no wheezing. Cardiovascular rate normal, regular rhythm, no murmur, no edema, distal pulses normal. Gastrointestinal soft, non-tender, no rebound, no guarding, normal bowel sounds, no distension, no pulsatile mass. Genitourinary no CVA tenderness. Musculoskeletal left arm PICC line present, no midline vertebral tenderness, full range of motion, no calf swelling, no tenderness of extremities, no meningismus, good pulses, neurovascularly intact. Skin pink, warm, & dry, no rash, skin atraumatic. Neurologic awake, alert and oriented x 3, AAOx3, moves all 4 extremities equally, motor intact, sensory intact, CN II-XII intact, normal cerebellar, normal vision, normal speech. Psychiatric normal mood/affect. Heme/Lymph/Immune no lymphadenopathy. Differential Diagnosis: Includes but is not limited to in a particular order: Possible bacteremia, sepsis, electrolyte disturbance, anemia Medical Decision Making: Plan for this patient [facility]. Determine if we need to do new blood cultures new blood work. Determine if there is positive blood cultures already. Re-evaluation: 1532: I spoke with Dr. Lara who reviewed the note in [facility] and was noted on Thursday she had routine blood work that on 1 blood smear there was bacteria noted. She was called and notified about this on Thursday. She was told to come the emergency room for blood cultures. Of note here in emergency room she appears well nontoxic no fever. Will obtain blood work, blood cultures. Dr. Lara updated. Recommends not starting antibiotics unless she is febrile here or appears toxic which she does not. Will pull blood cultures and follow these up closely. Most likely allow patient to go home however she is due to get a blood transfusion today. Plan will be blood work here, blood cultures, and most likely discharge for blood transfusion that is scheduled for later today. 1614: Blood cultures have been pulled. Patient remained stable here. Hemodynamically stable. No fever. Blood work reviewed she is chronically anemic , chronic thrombocytopenia, and neutropenia. This is all approximately at her baseline. I will allow the patient to go home. She is due for blood transfusion today. Blood cultures have been pulled. She understands to keep her phone available case her blood cultures grow out positive. I have no indication that she is septic or bacteremic here at this time. I did give this patient strict return precautions understands return emergency room if she develops worsening chills, fatigue, shortness of breath, fever. She understands return for call her about positive blood cultures immediately. She should also follow up at [facility] this Thursday previously scheduled appointment. Source: Patient - Personal History Tetanus Vaccine Date: 2014 - Medical/Surgical History Hx Asthma: No Hx Chronic Respiratory Disease: No Hx Diabetes: No Hx Cardiac Disease: Yes Hx Renal Disease: Yes Hx Cirrhosis: No Hx Alcoholism: No Hx HIV/AIDS: No Hx Splenectomy or Spleen Trauma: No Other PMH: ANXIETY, HTN, KIDNEY DISFUNCTION, NEPHRITIS, HYPOTHYROID, GALLBLADDER OUT, ISCHEMIC COLOTIS, PARTIAL COLOCTEMY,HYSTERECTOMY, L KNEE REPLACEMENT, R HIP REPLACEMENT, BETA RADIATION EXPOSURE FROM WORK, R SIDED CHF, elevated uric acid levels - Social History Smoking Status: Never smoked Constitutional: Initial Vital Signs Temperature (C) 36.6 C 05/18/17 14:47 Heart Rate 97 05/18/17 14:47 Respiratory Rate 16 05/18/17 14:47 Blood Pressure 144/72 H 05/18/17 14:47 O2 Sat (%) 97 05/18/17 14:47 O2 Delivery Mode Room Air Allergies/Adverse Reactions: cefuroxime [Cefuroxime] Allergy (Severe, Verified 03/24/17 20:55) SYNCOPE Cephalosporins Allergy (Severe, Verified 03/24/17 20:55) THROAT SWELLING ciprofloxacin [From Cipro] Allergy (Severe, Verified 03/24/17 20:55) CRUSHING CHANG, SYNCOPE ciprofloxacin HCl [From Cipro] Allergy (Severe, Verified 03/24/17 20:55) CRUSHING CHANG, SYNCOPE fructooligosaccharides (FOS) [From Probiotic & Acidophilus] Allergy (Severe, Verified 03/24/17 20:55) LIPS SWELL, CRACK, REDDENED AREA BURNING FEELING Lactobacillus Combo No.3 [From Probiotic & Acidophilus] Allergy (Severe, Verified 03/24/17 20:55) LIPS SWELL, CRACK, REDDENED AREA BURNING FEELING levofloxacin [From Levaquin] Allergy (Severe, Verified 03/24/17 20:55) THROAT SWELLING Pantethine [From Probiotic & Acidophilus] Allergy (Severe, Verified 03/24/17 20: 55) LIPS SWELL, CRACK, REDDENED AREA BURNING FEELING Sulfa (Sulfonamide Antibiotics) Allergy (Severe, Verified 03/24/17 20:55) THROAT SWELLING, ANAPHYLACTIC Home Medications: Medication Instructions Recorded Pantoprazole Sodium [Protonix 40mg 40 mg PO DAILY 03/15/13 (*)] methYLPHENIDATE HCL [Ritalin 10mg 15 mg PO DAILY 02/27/15 (*)] Methenamine Fabian [Hiprex 1 gm (*)] 0.5 gm PO BID 04/24/16 ALPRAZolam [Xanax 0.5 MG (*)] 0.25 mg PO DAILY@14 11/03/16 Calcium Carbonate [Oyster Shell 500 mg PO HS 11/03/16 Calcium 500 mg (*)] FEXOFENADINE HCL 90 mg PO BID 11/03/16 Levothyroxine [Synthroid 125 mcg 125 mcg PO DAILY06 11/03/16 (*)] Multivitamins [Multivitamin (*)] 1 each PO DAILY 11/03/16 Nortriptyline HCl [Pamelor 50 mg 100 mg PO HS 11/03/16 (*)] buPROPion [Wellbutrin 100mg (*)] 100 mg PO BID 11/03/16 methYLPHENIDATE HCL [Ritalin 10mg 10 mg PO DAILY@14 11/03/16 (*)] ALPRAZolam [Xanax 0.5 MG (*)] 0.5 mg PO DAILY 02/12/17 Allopurinol [Zyloprim] 300 mg PO DAILY 02/24/17 Ondansetron [Zofran Odt] 8 mg PO BID PRN 02/24/17 Furosemide [Lasix 40 MG (*)] 40 mg PO BID #60 tab 03/04/17 Lisinopril 5 mg PO DAILY PRN 03/14/17 Ertapenem [INVanz] 1 gm IV DAILY vial 03/21/17 Medical Decision Making - Data Points Laboratory Results: Laboratory Results 05/18/17 15:45 05/18/17 15:45 05/18/17 15:45 Smear Review By Justyn GRAHAM MD Departure - Departure Disposition: Home, Routine, Self-Care Clinical Impression: Pancytopenia Condition: Good Instructions: Neutropenia (ED) Additional Instructions: 1. Return to the emergency room immediately if he develops high fever, you do not feel well. 2. Please keep your phone available in case we call you about blood culture results. 3. Please follow up with a [facility] as well on Thursday I believe you have an appointment that day. Referrals: Airam Doan MD [Primary Care Provider] - As per Instructions
[2017-05-18 15:53] LABS: % IMMATURE GRANULYOCYTES 0.4 % (0.0-1.1); ABSOLUTE IMMATURE GRANULOCYTES 0.01 10^3/uL (0.00-0.10); ADD DIFF? NO; ADD MORPH? YES; ADD SCAN? NO; ATYPICAL LYMPHOCYTE FLAG 0 (0-99); FRAGMENT RBC FLAG 0 (0-99); HEMATOCRIT 20.8 % (38.0-47.0); LEFT SHIFT FLG 0 (0-99); LIPEMIA HEMOLYSIS FLAG 80 (0-99); MEAN CELL HEMOGLOBIN 32.7 pg (27.9-34.1); MEAN CELL HEMOGLOBIN CONCENTR. 33.2 g/dL (32.4-36.7); MEAN CELL VOLUME 98.6 fL (81.5-99.8); MEAN PLATELET VOLUME 11.1 fL (8.7-11.7); PLATELET CLUMPS FLAG 0 (0-99); PLATELET COUNT 60 10^3/uL (150-400); RED BLOOD CELL COUNT 2.11 10^6/uL (4.18-5.33); RED CELL DISTRIBUTION WIDTH 16.4 % (11.5-15.2)
[2017-05-18 15:54] LABS: HEMOGLOBIN 6.9 g/dL (12.6-16.3)
[2017-05-18 16:26] LABS: ANION GAP 12 mEq/L (8-16); CALCIUM 9.6 mg/dL (8.5-10.4); CARBON DIOXIDE 25 mEq/l (22-31); CHLORIDE 105 mEq/L (97-110); CREATININE 0.9 mg/dL (0.6-1.0); GLOMERULAR FILTRATION RATE > 60; GLUCOSE 106 mg/dL (70-100); POTASSIUM 3.5 mEq/L (3.5-5.2); SODIUM 142 mEq/L (134-144)
[2017-05-18 16:47] LABS: HYPOCHROMIA 1+; MICROCYTES 1+; PLATELET ESTIMATE DECREASED (ADEQ)
[2017-05-18 16:49] VITALS: BP 130/70; PULSE 80; TEMP 98.2; O2SAT 93
== END 2017-05-18 16:49 | disposition home or self-care (01) ==
DX: D61.818 Other pancytopenia (principal); I10 Essential (primary) hypertension

== ENCOUNTER 2017-05-20 10:26 | Outpatient (CLI) | payer OTHER, MEDICARE ==
[2017-05-20 11:43] VITALS: BP 101/58; PULSE 83; TEMP 98.6; O2SAT 100
[2017-05-20] MEDS ORDERED: ACETAMINOPHEN 325 MG TAB PO ONE (11:45)
== END 2017-05-20 18:45 | disposition home or self-care (01) ==
LOC: FOBOP 10:26
PROVIDERS: ATTEND Internal Medicine Hematology & Oncology
PROC: 30233N1 Transfusion of Nonautologous Red Blood Cells into Peripheral Vein, Percutaneous Approach (ICD-10-PCS; principal; 2017-05-20)
DX: C92.00 Acute myeloblastic leukemia, not having achieved remission (principal)
CPT/HCPCS: 36430; P9040

== ENCOUNTER 2017-06-11 13:44 | Outpatient (CLI) | payer OTHER, MEDICARE | END 2017-06-11 18:00 | disposition home or self-care (01) | LOC: FOBOP 13:44 | PROVIDERS: ATTEND Internal Medicine Hematology & Oncology | PROC: 30233N1 Transfusion of Nonautologous Red Blood Cells into Peripheral Vein, Percutaneous Approach (ICD-10-PCS; principal; 2017-06-11) | CPT/HCPCS: 36430; P9016; P9040; 86922-90 ==

== ENCOUNTER 2017-06-14 10:25 | Inpatient (IN) | payer OTHER, MEDICARE ==
--- NOTE | 2017-06-14 11:09 | EDPHY ---
H & P Time Seen by Provider: 06/14/17 11:08 HPI/ROS: Chief complaint. Nausea/vomiting, fever HPI. Patient is a 76-year-old female with nausea and chills and fever to 100.1 degrees. She has been having chemotherapy for acute myeloid leukemia for the past several days. She received a blood transfusion 3 days ago. She has had similar symptoms of chills and nausea with her last cycle. She has been having upper respiratory symptoms and cough. Fever today 100.1 degrees. She feels she has congestion in chest. No chest pain. No abdominal pain. No diarrhea. No urinary symptoms. He ROS Constitutional. Fever and chills as well as weakness Eyes. no problems with vision ENT. no sore throat, no nasal drainage Cardiovascular. no chest pain Respiratory. Congestion and cough Abdominal. no abdominal pain, no nausea/vomiting, no diarrhea . no problems urinating MS. no calf pain/swelling, no neck/back pain, no joint pain Skin. no rash Lymph. no swollen glands Neuro. no headache, no dizziness, no difficulty walking or with speech Past Medical/Surgical History: Acute myeloid leukemia, hypertension, nephritis, hypothyroidism, cholecystectomy , hysterectomy, knee replacement, hip replacement, CHF Social History: , nonsmoker, no alcohol Smoking Status: Never smoked Physical Exam: General Appearance: Alert well-developed female mild distress. Vital signs significant for heart rate 103 Eyes: Pupils equal and round no pallor or injection. ENT, Mouth: Mucous membranes are dry. Respiratory: No retractions but rhonchi and maybe rales in the left lower lobe. Cardiovascular: Regular rate and rhythm. Gastrointestinal: Abdomen is soft and nontender, no masses, bowel sounds normal. Neurological: Awake and alert, sensory and motor exams grossly normal. Skin: Warm and dry, no rashes. Musculoskeletal: Neck is supple nontender. Extremities symmetrical, full range of motion. Psychiatric: Patient is oriented X 3, there is no agitation. Constitutional: Initial Vital Signs Temperature (C) 36.8 C 06/14/17 10:29 Heart Rate 103 H 06/14/17 10:29 Respiratory Rate 16 06/14/17 10:29 O2 Sat (%) 93 06/14/17 10:29 O2 Delivery Mode Room Air Allergies/Adverse Reactions: cefuroxime [Cefuroxime] Allergy (Severe, Verified 06/14/17 13:43) SYNCOPE Cephalosporins Allergy (Severe, Verified 06/14/17 13:43) THROAT SWELLING ciprofloxacin [From Cipro] Allergy (Severe, Verified 06/14/17 13:43) CRUSHING CHANG, SYNCOPE fructooligosaccharides (FOS) [From Probiotic & Acidophilus] Allergy (Severe, Verified 06/14/17 13:43) LIPS SWELL, CRACK, REDDENED AREA BURNING FEELING Lactobacillus Combo No.3 [From Probiotic & Acidophilus] Allergy (Severe, Verified 06/14/17 13:43) LIPS SWELL, CRACK, REDDENED AREA BURNING FEELING levofloxacin [From Levaquin] Allergy (Severe, Verified 06/14/17 13:43) THROAT SWELLING Pantethine [From Probiotic & Acidophilus] Allergy (Severe, Verified 06/14/17 13: 43) LIPS SWELL, CRACK, REDDENED AREA BURNING FEELING Sulfa (Sulfonamide Antibiotics) Allergy (Severe, Verified 06/14/17 13:43) THROAT SWELLING, ANAPHYLACTIC Home Medications: Medication Instructions Recorded Pantoprazole Sodium [Protonix 40mg 40 mg PO DAILY 03/15/13 (*)] Methenamine Fabian [Hiprex 1 gm (*)] 0.5 gm PO BID 04/24/16 ALPRAZolam [Xanax 0.5 MG (*)] 0.25 mg PO DAILY@14 11/03/16 Calcium Carbonate [Oyster Shell 500 mg PO HS 11/03/16 Calcium 500 mg (*)] FEXOFENADINE HCL 90 mg PO BID 11/03/16 Levothyroxine [Synthroid 125 mcg 125 mcg PO DAILY06 11/03/16 (*)] Multivitamins [Multivitamin (*)] 1 each PO DAILY 11/03/16 Nortriptyline HCl [Pamelor 50 mg 100 mg PO HS 11/03/16 (*)] buPROPion [Wellbutrin 100mg (*)] 100 mg PO BID 11/03/16 ALPRAZolam [Xanax 0.5 MG (*)] 0.5 mg PO DAILY 02/12/17 Ondansetron [Zofran Odt] 8 mg PO BID PRN 02/24/17 Furosemide [Lasix 40 MG (*)] 40 mg PO BID #60 tab 03/04/17 Lisinopril 5 mg PO DAILY PRN 03/14/17 Ascorbic Acid [Vitamin C] 300 mg PO DAILY 06/14/17 Estradiol [Estrace] 1 elinor VG EVERY OTHER DAY 06/14/17 Furosemide [Lasix 40 MG (*)] 20 mg PO DAILY 06/14/17 Glucosam/Chondr/Collagn/Hyalur 1 each PO DAILY 06/14/17 [Glucosamine & Chondroitin Cap] Hydrocodone/Acetaminophen 1 - 2 each PO Q6H PRN 06/14/17 [Hydrocodon-Acetaminophen 5-325] Methylphenidate HCl [Ritalin 5mg 5 mg PO TID@08,,17 06/14/17 (*)] Nitrofurantoin Macrocrystal 100 mg PO DAILY PRN 06/14/17 [Nitrofurantoin] Potassium Chloride 20 meq PO BID 06/14/17 Potassium Chloride 40 meq PO DAILY 06/14/17 Medical Decision Making - Diagnostics Imaging Results: Imaging Impressions Chest X-Ray 06/14/17 11:10 Impression: Suspect airways disease with patchy left lower lung opacity, atelectasis versus pneumonia. Chest x-ray reviewed by me and discussed with Dr. Montemayor shows likely left lower lobe pneumonia Procedures: IV normal saline. Zofran for nausea ED Course/Re-evaluation: Re-evaluation patient is stable. The patient, her , and I discussed imaging lab results. We discussed treatment plan including recommendation for admission. They expressed understanding and agreement I consulted and discussed case with Dr. Funk, hospitalist who agrees to the admission. Dr. Hendrix sees the patient in the emergency department and as the patient has extensive antibiotic allergies will discuss antibiotics with Infectious Disease Differential Diagnosis: This would be a health care acquired pneumonia as the patient has been undergoing chemotherapy frequent visits to the hospital rather than a community- acquired pneumonia. Patient is vulnerable to infection and she has leukemia and recent chemotherapy - Data Points Laboratory Results: Laboratory Results 06/14/17 12:13 06/14/17 12:13 06/14/17 06/14/17 06/14/17 12:13 12:13 12:13 WBC 18.12 10^3/uL H 10^3/uL (3.80-9.50) RBC 2.34 10^6/uL L 10^6/uL (4.18-5.33) Hgb 7.9 g/dL L g/dL (12.6-16.3) Hct 23.6 % L % (38.0-47.0) MCV 100.9 fL H fL (81.5-99.8) MCH 33.8 pg pg (27.9-34.1) MCHC 33.5 g/dL g/dL (32.4-36.7) RDW 21.0 % H % (11.5-15.2) Plt Count 64 10^3/uL L 10^3/uL (150-400) MPV 11.5 fL fL (8.7-11.7) Neut % (Auto) Not Reported Lymph % (Auto) Not Reported Griggs % (Auto) Not Reported Eos % (Auto) Not Reported Baso % (Auto) Not Reported Nucleat RBC Rel Count 0.2 % % (0.0-0.2) Absolute Neuts (auto) Not Reported Absolute Lymphs (auto) Not Reported Absolute Monos (auto) Not Reported Absolute Eos (auto) Not Reported Absolute Basos (auto) Not Reported Absolute Nucleated RBC 0.03 10^3/uL H 10^3/uL (0-0.01) Immature Gran % Not Reported Seg Neutrophils % 19 % % Band Neutrophils % 6 % % Lymphocytes % 13 % % Monocytes % 62 % % Immature Gran # Not Reported Absolute Seg Neuts 3.44 10^/uL 10^/uL (1.70-6.50) Absolute Band Neuts 1.09 10^3/uL H 10^3/uL (0.00-0.70) Absolute Lymphocytes 2.36 10^3/uL 10^3/uL (1.00-3.00) Absolute Monocytes 11.23 10^3/uL H 10^3/uL (0.30-0.80) Toxic Granulation PRESENT H Platelet Estimate DECREASED L (ADEQ) Hypochromasia 1+ H Tear Drop Cells 1+ H Oval Macrocytes 1+ H Acanthocytes (Spur) 1+ H Keratocytes 1+ H Smear Review By Pending PT 14.8 SEC SEC (12.0-15.0) INR 1.16 (0.83-1.16) APTT 39.1 SEC H SEC (23.0-38.0) VBG Lactic Acid Sodium 138 mEq/L mEq/L (134-144) Potassium 3.3 mEq/L L mEq/L (3.5-5.2) Chloride 104 mEq/L mEq/L (97-110) Carbon Dioxide 25 mEq/l mEq/l (22-31) Anion Gap 9 mEq/L mEq/L (8-16) BUN 16 mg/dL mg/dL (7-23) Creatinine 1.0 mg/dL mg/dL (0.6-1.0) Estimated GFR 54 Glucose 115 mg/dL H mg/dL (70-100) Calcium 9.0 mg/dL mg/dL (8.5-10.4) Total Bilirubin 1.2 mg/dL D mg/dL (0.1-1.4) 06/14/17 12:13 WBC RBC Hgb Hct MCV MCH MCHC RDW Plt Count MPV Neut % (Auto) Lymph % (Auto) Griggs % (Auto) Eos % (Auto) Baso % (Auto) Nucleat RBC Rel Count Absolute Neuts (auto) Absolute Lymphs (auto) Absolute Monos (auto) Absolute Eos (auto) Absolute Basos (auto) Absolute Nucleated RBC Immature Gran % Seg Neutrophils % Band Neutrophils % Lymphocytes % Monocytes % Immature Gran # Absolute Seg Neuts Absolute Band Neuts Absolute Lymphocytes Absolute Monocytes Toxic Granulation Platelet Estimate Hypochromasia Tear Drop Cells Oval Macrocytes Acanthocytes (Spur) Keratocytes Smear Review By PT INR APTT VBG Lactic Acid 0.5 mmol/L L mmol/L (0.7-2.1) Sodium Potassium Chloride Carbon Dioxide Anion Gap BUN Creatinine Estimated GFR Glucose Calcium Total Bilirubin Medications Given: Discontinued Medications Sodium Chloride (Ns) 1,000 mls @ 0 mls/hr IV EDNOW ONE; Wide Open PRN Reason: Protocol Stop: 06/14/17 11:39 Last Admin: 06/14/17 12:25 Dose: 1,000 mls Ondansetron HCl (Zofran) 4 mg IVP EDNOW ONE Stop: 06/14/17 11:39 Last Admin: 06/14/17 12:26 Dose: 4 mg Departure - Departure Disposition: [facility] Clinical Impression: Pneumonia Qualifiers: Pneumonia type: due to unspecified organism Laterality: left Lung location: lower lobe of lung Qualified Code(s): J18.1 - Lobar pneumonia, unspecified organism Condition: Fair
[2017-06-14] MEDS ORDERED: NS 1,000 ML IV ONE (11:38)
[2017-06-14] MEDS ORDERED: ONDANSETRON 4 MG/2 ML VIAL IVP ONE (11:38)
[2017-06-14 12:24] LABS: ABSOLUTE NRBC COUNT 0.03 10^3/uL (0-0.01); ADD DIFF? YES; ADD MORPH? YES; ATYPICAL LYMPHOCYTE FLAG 0 (0-99); FRAGMENT RBC FLAG 0 (0-99); HEMATOCRIT 23.6 % (38.0-47.0); HEMOGLOBIN 7.9 g/dL (12.6-16.3); LEFT SHIFT FLG 0 (0-99); LIPEMIA HEMOLYSIS FLAG 80 (0-99); MEAN CELL HEMOGLOBIN 33.8 pg (27.9-34.1); MEAN CELL HEMOGLOBIN CONCENTR. 33.5 g/dL (32.4-36.7); MEAN CELL VOLUME 100.9 fL (81.5-99.8); MEAN PLATELET VOLUME 11.5 fL (8.7-11.7); NRBC-AUTO% 0.2 % (0.0-0.2); PLATELET CLUMPS FLAG 0 (0-99); PLATELET COUNT 64 10^3/uL (150-400); RED BLOOD CELL COUNT 2.34 10^6/uL (4.18-5.33)
[2017-06-14 12:25] LABS: ADD SCAN? NO
[2017-06-14 12:32] LABS: INR 1.16 (0.83-1.16); PROTIME(PATIENT) 14.8 SEC (12.0-15.0)
[2017-06-14 12:33] LABS: APTT 39.1 SEC (23.0-38.0)
[2017-06-14 12:35] LABS: ANION GAP 9 mEq/L (8-16); BILIRUBIN,TOTAL 1.2 mg/dL (0.1-1.4); CARBON DIOXIDE 25 mEq/l (22-31); CHLORIDE 104 mEq/L (97-110); GLOMERULAR FILTRATION RATE 54; GLUCOSE 115 mg/dL (70-100); POTASSIUM 3.3 mEq/L (3.5-5.2); SODIUM 138 mEq/L (134-144)
[2017-06-14 13:16] LABS: HYPOCHROMIA 1+; MACROCYTES 1+
[2017-06-14 13:17] LABS: ACANTHOCYTES 1+; KERATOCYTES 1+; PLATELET ESTIMATE DECREASED (ADEQ); TOXIC GRANULATION PRESENT
[2017-06-14] MEDS ORDERED: ONDANSETRON DISINTEGRATING 4 MG TAB PO PRN (14:09)
[2017-06-14] MEDS ORDERED: NITROFURANTOIN MACROCRYSTAL 100 MG PO PRN (14:16)
[2017-06-14] MEDS ORDERED: NITROFURANTOIN MACROBID 100 MG CAP PO PRN (14:23)
[2017-06-14] MEDS ORDERED: NS 1,000 ML IV SCH (14:45)
[2017-06-14] MEDS ORDERED: HYDROCODONE/APAP 5/325 TAB PO PRN (14:59)
[2017-06-14] MEDS ORDERED: VANCOMYCIN 1.25 GM in D5W 250 ML IV SCH (15:00)
[2017-06-14] MEDS ORDERED: POTASSIUM CL 20 MEQ TAB PO ONE (15:04)
--- NOTE | 2017-06-14 15:11 | GHP ---
[f rep st] HISTORY AND PHYSICAL DATE OF ADMISSION: 06/14/2017 CHIEF COMPLAINT: Fevers and chills. 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 After chemo she developed fatigue, chills, and had a fever to 100.1 last night. Awoke with shortness of breath today especially with activity. Noted increased leg swelling specifically in her left leg along with calf pain. She developed a new cough starting yesterday afternoon with some nausea. No emesis or diarrhea. Reported a headache starting today. She felt achy all over like throughout her muscles and joints. She presented to the emergency room earlier in May with feeling somewhat similar symptoms after infusion, but the shortness of breath, cough, and myalgias are new. No ill contacts. REVIEW OF SYSTEMS: I completed a 10-point review of systems, negative except as noted in HPI. PAST MEDICAL HISTORY: 1. 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 2. History of neutropenic enterocolitis requiring prolonged IV treatment. 3. Pulmonary hypertension with an RVSP 41 mmHg. 4. Depression. 5. Diastolic heart failure. 6. Pancytopenia. 7. Left bundle-branch block. 8. Hypothyroidism. 9. Chronic pain secondary to left hip arthritis. 10. The patient reports history of murmur. PAST SURGICAL HISTORY: Multiple lumpectomies, right TKA, cholecystectomy, C- section x2. FAMILY HISTORY: Mother with lung cancer. Father with liver cancer, CVA throughout both sides of the family. SOCIAL HISTORY: . Lives with her here in [place]. No illicits , tobacco, or alcohol. PHYSICAL EXAMINATION: VITAL SIGNS: Temperature 37.7, blood pressure 128/60, heart rate 94-103, respirations 16, 93% on room air. GENERAL: Patient appears tired. Eyes closed, mildly pale. HEENT: PERRLA. Dry mucous membranes. CV: Tachy but regular. 2/6 systolic murmur left upper sternal border. LUNGS: Clear to auscultation. ABDOMEN: Soft, nontender, nondistended. Positive bowel sounds. : No suprapubic or CVA tenderness. MUSCULOSKELETAL: 5/5 upper and lower extremity strength. Pain over left calf with palpation. Bilateral swelling but more on the left. NEURO: 2-12 intact. She appears tired, slow to answer questions. PSYCHIATRIC: Alert and oriented x3. LABS: WBCs 18, hemoglobin 7, hematocrit 23, MCV 100. Platelets are 64. Absolute segs 3.4. INR is 1.1. PT 14, PTT 39, lactate 0.5; sodium 138, potassium 3.5, chloride 104, creatinine 1.0, glucose 54, glucose 115, total bilirubin 1.2. TEST DATA: Chest x-ray personally reviewed by me: Patchy left lobe consolidation hard to see on AP but see a positive spine sign on lateral. ASSESSMENT AND PLAN: 1. Sepsis: mild tachy, elevated white count, infiltrate on CXR. Consider pneumonitis with chemo. Blood cultures, procalcitonin are pending. Lactate was normal. Blood pressure stable. Not neutropenic. Will cover with Meropenem given multiple drug allergies. Low suspicion for MRSA. Check viral panel, urine Legionella.. CT chest to further eval 2. Tachycardia: suspected infection versus chemo reaction. Will give IV fluids. 3. Chronic pain due to left hip arthritis, not tolerating p.o. at this time. Will give p.r.n. IV morphine. Trial Lidoderm patch. 4. Left leg swelling and tenderness: previously documented as more swollen, but she reports new pain and calf TTP on exam. US pending. 5. AML: MDS conversion. On azacitidine cycle 4, second dose yesterday. Dr. Argueta evaluated patient. 6. History of neutropenic enterocolitis. s/p extended IV ertapenem therapy 7. Macrocytic anemia: H/H stable 8. Thrombocytopenia: due to chemo. No active bleeding 9. Leukocytosis: infection vs. chemo reaction. Studies pending as above, plus UA 10. Hypothyroidism. Continue Synthroid. 11. Nausea. P.r.n. IV antiemetics. 12. History of left bundle-branch block, stable. 13. History of murmur: chronic per patient 14. Diet: Regular. 15. Deep vein thrombosis prophylaxis, medium risk. Lovenox. Patient warrants inpt admission given concern for sepsis, requiring IV abx, CT /[id number]/MODL MTDD
[2017-06-14] MEDS: AZITHROMYCIN IV 500 MG in D5W 250 ML IV SCH (15:48)
[2017-06-14] MEDS: MEROPENEM 1 GM in NS 100 ML IV SCH ×2 (15:50→21:44)
[2017-06-14] MEDS ORDERED: CALCIUM CARBONATE 500 MG CHEWABLE TAB PO PRN (16:52)
--- NOTE | 2017-06-14 17:32 | GCON ---
[f rep st] CONSULTATION NEW PATIENT CONSULTATION DATE OF CONSULTATION: 06/14/2017 REFERRING PHYSICIAN: Dede Hendrix MD REASON FOR CONSULTATION: The patient is known to my colleague, Dr. 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 She is admitted for weakness and low-grade fever. HISTORY OF PRESENT ILLNESS: The patient is a very pleasant, 76-year-old woman, who is under the car e of Dr. Jones for AML. She was previously diagnosed with a RAD-1, and was on Aranesp for a perio d of time, and then she became transfusion-dependent. More recently, she was diagnosed with acute m yeloid leukemia, and was initiated on Vidaza. She is undergoing her 4th cycle this week. She is ge tting 5 days of therapy in a row. Today, she called complaining of severe weakness, fever, and naus ea. She directed herself to the emergency room. Vital signs in the emergency room showed a tempera ture of 36.8, pulse of 103, respiration rate 16, saturating 93% on room air. She was given Zofran, IV fluids. Chest x-ray showed possible left lower lobe infiltrate. She does report she has been congested. She denies emesis. She reports the left lower extremity helton s been more painful. This extremity is always more swollen. Apparently, she has severe osteoarthri tis of the left hip. As far as AML, she has been seen in consult by Dr. Phillips at the [facility]. She is planning on starting sorafenib this next week as part of her AML therapy. She i s not a transplant candidate at this time. CBC reviewed, and shows no acute worsening of anemia, and no neutropenia. She reports her fever was as high as 101.1 at home. She intermittently gets transfused. I will note that her most recent bone marrow shows residual AML with MDS related changes, 16% blasts . Normal cellularity with marrow monocytosis. Increased iron stores and ringed sideroblasts. She has pathogenic mutations and FLT3, TET2, RUNX1 and SF3B1 gene. PAST MEDICAL HISTORY: Significant for left bundle branch block, diastolic CHF, hypothyroidism, GERD , previous admission for ischemic colitis, status post bowel resection, osteoporosis, previous XRT e xposure as occupation. PAST SURGICAL HISTORY: Right hip replacement, left total knee replacement, appendectomy, x2, ROEL, and cholecystectomy. FAMILY HISTORY: Noncontributory. MEDICINES: Reviewed in EMR and noted. ALLERGIES: Also noted. SOCIAL HISTORY: Radiation exposure noted from previous occupation, does not currently smoke or use alcohol. PHYSICAL EXAM: VITAL SIGNS: Today temp 36.8, pulse 103, respiration rate 16, satting 93% on room a ir. GENERAL: She is an elderly woman, chronically ill appearing, not in acute distress. HEENT: A nicteric. Oropharynx is clear without mucositis. NECK: Supple. HEART: Regular rate and rhythm w ith a 2-3/6 systolic ejection murmur at the right upper border. LUNGS: Bibasilar crackles. Otherw ise, she is moving air well. No rhonchi. ABDOMEN: Soft. She is minimally tender to palpation thr oughout. I did not appreciate a spleen or liver. EXTREMITIES: LOWER EXTREMITIES: She has got lef t greater than right lower extremity edema. Left lower extremity painful to palpation. LABORATORY DATA: IMAGING: Chest x-ray that shows possible left lower lobe opacity versus atelectas is. Labs have been reviewed, and show her chronic anemia. She does not have an absolute neutropeni a, and her CMP is baseline. ASSESSMENT AND PLAN: A 76-year-old woman with acute myelogenous leukemia, currently undergoing 4th cycle of Vidaza. Plan is to start sorafenib this next week. The patient is admitted with weakness, low-grade fever, and nausea. 1. Weakness, low-grade fever, nausea, possible pneumonia versus other infection versus weakness rel ated to Vidaza. Discussed with Internal Medicine. We will admit, start antibiotics, and watch her closely. She has no other infectious symptoms at this time, but we will complete infectious workup. 2. Acute myelogenous leukemia, not a transplant candidate. She has been refractory to Aranesp, and now is on Vidaza. She will be starting sorafenib within the next week under the direction of Dr. Cecilio Phillips at the [facility]. She currently does not require any transfusions, but w e will continue to monitor in the hospital. 3. Left lower extremity pain and swelling. The swelling has been chronic. The pain is possibly ne w, pending left lower extremity ultrasound with Doppler. 4. Nausea, multifactorial, p.r.n. antiemetics. 5. Other medical issues per Internal Medicine. Thank you for this consult. We will continue to follow along. /[id number]/MODL
[2017-06-14 17:47] LABS: COLOR YELLOW; LEUKOCYTE ESTERASE,URINE NEGATIVE (NEGATIVE); NITRITE,URINE NEGATIVE (NEGATIVE)
[2017-06-14] MEDS: LIDOCAINE 5% 1 EA PATCH TD SCH (19:28)
[2017-06-14] MEDS: METHENAMINE HIPP 1 GM TAB PO SCH (19:30)
[2017-06-14] MEDS: CALCIUM CARBONATE 500 MG TAB PO SCH (19:30)
[2017-06-14] MEDS: buPROPion 100 MG TAB PO SCH (19:30)
[2017-06-14] MEDS: NORTRIPTYLINE HCL 50 MG CAP PO SCH (19:31)
[2017-06-14] MEDS: BENEFIBER/NUTRISOURCE FIBER PKT 1 EACH PO SCH (19:32)
[2017-06-14] MEDS: ACETAMINOPHEN 325 MG TAB PO PRN (20:25)
[2017-06-14] MEDS ORDERED: FEXOFENADINE HCL PO SCH (21:00)
[2017-06-14] MEDS: PATCH REMOVAL 1 EA PATCH TD SCH (21:44)
[2017-06-15] MEDS: LEVOTHYROXINE 125 MCG TAB PO SCH (05:01)
[2017-06-15] MEDS: MEROPENEM 1 GM in NS 100 ML IV SCH ×3 (05:02→21:58)
[2017-06-15 05:37] LABS: ABSOLUTE NRBC COUNT 0.02 10^3/uL (0-0.01); ADD DIFF? YES; ATYPICAL LYMPHOCYTE FLAG 0 (0-99); FRAGMENT RBC FLAG 20 (0-99); HEMATOCRIT 20.1 % (38.0-47.0); LEFT SHIFT FLG 0 (0-99); LIPEMIA HEMOLYSIS FLAG 80 (0-99); MEAN CELL HEMOGLOBIN 33.8 pg (27.9-34.1); MEAN CELL HEMOGLOBIN CONCENTR. 32.8 g/dL (32.4-36.7); MEAN CELL VOLUME 103.1 fL (81.5-99.8); MEAN PLATELET VOLUME 11.4 fL (8.7-11.7); NRBC-AUTO% 0.1 % (0.0-0.2); PLATELET CLUMPS FLAG 0 (0-99); RED BLOOD CELL COUNT 1.95 10^6/uL (4.18-5.33)
[2017-06-15 05:39] LABS: ADD MORPH? NO; ADD SCAN? NO; HEMOGLOBIN 6.6 g/dL (12.6-16.3); PLATELET COUNT 49 10^3/uL (150-400); RED CELL DISTRIBUTION WIDTH 21.5 % (11.5-15.2)
[2017-06-15 06:02] LABS: ANION GAP 7 mEq/L (8-16); CALCIUM 8.8 mg/dL (8.5-10.4); CARBON DIOXIDE 25 mEq/l (22-31); CHLORIDE 109 mEq/L (97-110); GLOMERULAR FILTRATION RATE 54; GLUCOSE 131 mg/dL (70-100); POTASSIUM 3.4 mEq/L (3.5-5.2); SODIUM 141 mEq/L (134-144)
[2017-06-15 06:45] LABS: MACROCYTES 1+; MICROCYTES 1+; PLATELET ESTIMATE DECREASED (ADEQ)
[2017-06-15 07:45] LABS: HEMATOCRIT 20.8 % (38.0-47.0); HEMOGLOBIN 6.7 g/dL (12.6-16.3); MEAN CELL HEMOGLOBIN 33.2 pg (27.9-34.1); MEAN CELL HEMOGLOBIN CONCENTR. 32.2 g/dL (32.4-36.7); RED BLOOD CELL COUNT 2.02 10^6/uL (4.18-5.33); RED CELL DISTRIBUTION WIDTH 21.7 % (11.5-15.2)
[2017-06-15] MEDS ORDERED: POTASSIUM CL 20 MEQ TAB PO ONE (08:13)
[2017-06-15] MEDS: AZITHROMYCIN IV 500 MG in D5W 250 ML IV SCH (08:23)
[2017-06-15] MEDS ORDERED: NON-FORMULARY NEW DRUG (Glucosam/Chondr/Collagn/Hyalur [Glucosamine & Chondroitin Cap] 1 E PO SCH (09:00)
[2017-06-15] MEDS ORDERED: ASCORBIC ACID 300 MG PO SCH (09:00)
[2017-06-15] MEDS: ALPRAZolam 0.5 MG TAB PO SCH ×2 (09:38→13:39)
[2017-06-15] MEDS: buPROPion 100 MG TAB PO SCH ×2 (09:38→20:23)
[2017-06-15] MEDS: METHENAMINE HIPP 1 GM TAB PO SCH ×2 (09:38→20:24)
[2017-06-15] MEDS: CETIRIZINE 10 MG TAB PO SCH (09:38)
[2017-06-15] MEDS: MULTIVITAMINS 1 EACH TAB PO SCH (09:39)
[2017-06-15] MEDS: PANTOPRAZOLE SODIUM 40 MG TAB PO SCH (09:39)
[2017-06-15] MEDS: ASCORBIC ACID 250 MG TAB PO SCH (09:39)
[2017-06-15] MEDS: GLUCOSAMINE/CHONDROITIN CAP PO SCH (09:40)
[2017-06-15] MEDS: POLYETHYLENE GLYCOL 3350 17 GM PKT PO SCH ×2 (09:40→14:36)
[2017-06-15] MEDS: LIDOCAINE 5% 1 EA PATCH TD SCH (09:40)
--- NOTE | 2017-06-15 10:48 | PCMIDPN ---
Assessment/Plan: Assessment/Plan: * Left lingular /lower lobe pneumonia with immunosuppression due to chemotherapy / underlying AML: Chest CT reveals consolidation in lingula and left lower lobe. Appearance more consolidative then ground-glass as would be expected for drug induced pulmonary toxicity. Patient at risk for opportunistic processes given underlying immunosuppression including fungal infection and less typical pathogens such as Nocardia. Respiratory pathogen panel by PCR is negative. Plan to continue meropenem and azithromycin. Follow- up urine Legionella antigen as available. Will also check serum Aspergillus antigen, cryptococcal antigen, Coccidioides antibody, and urine histoplasma antigen. Will obtain pulmonary consultation to assess for bronchoscopy as patient currently not producing sputum and at risk for opportunistic processes which may be more difficult to define. * Multiple drug allergies: Tolerating meropenem well to date. Time spent, greater than 35 minutes, of which greater than half was spent in education/counseling/coordination of care related to pneumonia in the setting of immunosuppression and AML including further diagnostic evaluation and plan of care. 06/15/17 10:43 Subjective: Patient previously seen by infectious disease service in late February/March for neutropenic enterocolitis. She ultimately completed a course of ertapenem on . Those symptoms have fully resolved. Patient now readmitted with complaint of fever, dry cough, and dyspnea over last few days. Patient notes temperature to 100.1 at home. No associated rigors. Feels completely wiped out. No recent travel or animal exposure. Previously lived in [place] and [place] many years ago. Patient notes that does have frequent respiratory problems and unclear if has respiratory infection present. Patient currently receiving chemotherapy with Vidaza in notes that she did have an episode of fever and chills with her 3rd cycle. Patient with left upper extremity PICC line which has been without erythema, drainage or tenderness. Allergies: Levaquin associated with throat closure, sulfonamides associated with facial swelling, cefuroxime associated with excessive somnolence Social: No recent travel or animal exposure. Admission history and physical, oncology consultation, and prior medical history all reviewed today. Objective: Vital Signs Temp Pulse Resp BP Pulse Ox 37.7 C 96 18 118/62 98 06/15/17 08:00 06/15/17 08:00 06/15/17 08:00 06/15/17 08:00 06/15/17 08:00 Microbiology 06/14/17 15:30 Respiratory Panel (PCR) - Final Nasal, Sinus - Swab No Organism Detected Laboratory Results 06/15/17 05:50 06/15/17 05:00 06/14/17 06/15/17 06/16/17 05:59 05:59 05:59 Intake Total 3170 Output Total 1450 Balance 1720 Meropenem # 1 Azithromycin # 2 Blood cultures x2 pending Chest CT shows lingular and left lower lobe consolidative changes; reviewed and interpreted by me with Radiology today Respiratory pathogen PCR panel negative Urine Legionella antigen pending - Physical Exam General Appearance: alert, non-toxic, other ( fatigued appearance) EENT: other ( no mucositis), No thrush, No conjunctival petechiae Respiratory: crackles ( left base) Neck: supple Cardiac/Chest: regular rate, rhythm Abdomen: non-tender, No distended Skin: No embolic lesions - Line/s LUE PICC Lines: No drainage, No erythema ICD10 Worksheet Patient Problems: Problems Problem Status Onset Pneumonia Acute AML (acute myeloid leukemia) Acute CHF (congestive heart failure) Acute Cardiomegaly Acute Colitis Acute Hypoxia Acute LBBB (left bundle branch block) Acute Pancytopenia Acute Peripheral edema Acute Sepsis Acute
[2017-06-15] MEDS: ENOXAPARIN 40 MG/0.4 ML SYR SC SCH (11:46)
[2017-06-15] MEDS ORDERED: ONDANSETRON DISINTEGRATING 4 MG TAB PO PRN (12:10)
[2017-06-15] MEDS ORDERED: PROMETHAZINE HCL 25 MG/ML INJ IVP PRN (12:10)
[2017-06-15] MEDS: ONDANSETRON 4 MG/2 ML VIAL IVP PRN (12:22)
--- NOTE | 2017-06-15 13:14 | SOAPPROG ---
SOAP Progress Note Assessment/Plan: Assessment: 1.) LLL pneumonia, community acquired, started on Meropenem. Appreciate ID and Pulmonary input. 2.) MDS on Vidaza, cycle 4, with multiple identifed mutations (+), for potential start of Sorafenib when stable 3.) Profound anemia secondary to # 2, in need of transfusion support. 4.) COPD Plan: 1.) Appreciate ID and Pulmonary input. 2.) Continue antibotic therapy 3.) Will transfuse 2 U PRBCs, irradiated 4.) Repeat CXR to assess clearing of infectious process. 5.) Follow sx. and labs and VS. 06/15/17 13:14 Subjective: Feels absolutely worn out, fatigued. Stable resp. status, without overwhelming cough/dyspnea/pleuritic CP or sputum production. Objective: Afebrile, VSS as noted here. HEENT- pale, anicteric, no oral lesion Neck- supple Chest- consolidation in mid posterior lung reddy on L CVS- RSR, no extra HS ABD- soft, NT BS+, no mass or HSM EXT- minimal edema, warm, well perfused Labs as noted here: Hgb 6.7, PLT 56, WBC 16.94 BUN/Cr 14/1.0, K+ 3.4, glu 131 Vital Signs Temp Pulse Resp BP Pulse Ox 37.7 C 97 18 120/59 L 98 06/15/17 11:39 06/15/17 11:39 06/15/17 11:39 06/15/17 11:39 06/15/17 11:39 Microbiology 06/14/17 15:30 Respiratory Panel (PCR) - Final Nasal, Sinus - Swab No Organism Detected Laboratory Results 06/15/17 05:50 06/15/17 05:00 06/14/17 06/15/17 06/16/17 05:59 05:59 05:59 Intake Total 3170 Output Total 1450 Balance 1720 PT 14.8 SEC (12.0-15.0) 06/14/17 12:13 INR 1.16 (0.83-1.16) 06/14/17 12:13 ICD10 Worksheet Patient Problems: Problems Problem Status Onset Pneumonia Acute AML (acute myeloid leukemia) Acute CHF (congestive heart failure) Acute Cardiomegaly Acute Colitis Acute Hypoxia Acute LBBB (left bundle branch block) Acute Pancytopenia Acute Peripheral edema Acute Sepsis Acute
[2017-06-15] MEDS ORDERED: ACETAMINOPHEN 325 MG TAB PO ONE (13:18)
[2017-06-15] MEDS ORDERED: diphenhydrAMINE 25 MG CAP PO ONE (13:18)
[2017-06-15] MEDS: ACETAMINOPHEN 325 MG TAB PO PRN ×3 (13:43→21:57)
--- NOTE | 2017-06-15 14:06 | HOSPPROG ---
Hospitalist Progress Note Assessment/Plan: #Sepsis: e/v PNA, CT despite normal procalcitonin. Appreciate Dr. Montemayor's evaluation. At risk for opportunistic infection. Labs pending. Dr. Lizama consulted for bronch. Cont Meropenem, Azithro #LLL PNA: plan as above #Leukocytosis: due to above #Pancytopenia: due to chemo. Transfuse irradiated RBCs today #AML: MDS conversion. Cycle 4 Vidaza #Symptomatic anemia: transfuse #Nausea: PRN antiemetics #Left leg swelling: no DVT #Chronic hip pain: trial Lidoderm #Hypothyroidism: LT4 #Compensated diastolic HF: caution with IVFs #Diet: regular #Disp: warrants inpt admission with sepsis, requires IV abx, bronch Time spent on visit: 45 min bedside with patient and discussing with Dr. Arteaga and Dr. Montemayor Subjective: weak, CHANG, nauseated Objective: Vital Signs Temp Pulse Resp BP Pulse Ox 37.7 C 97 18 120/59 L 98 06/15/17 11:39 06/15/17 11:39 06/15/17 11:39 06/15/17 11:39 06/15/17 11:39 Microbiology 06/14/17 15:30 Respiratory Panel (PCR) - Final Nasal, Sinus - Swab No Organism Detected Laboratory Results 06/15/17 05:50 06/15/17 05:00 06/14/17 06/15/17 06/16/17 05:59 05:59 05:59 Intake Total 3170 Output Total 1450 Balance 1720 PT 14.8 SEC (12.0-15.0) 06/14/17 12:13 INR 1.16 (0.83-1.16) 06/14/17 12:13 - Physical Exam Constitutional: other (tired, pale) Eyes: pale conjunctiva Ears, Nose, Mouth, Throat: moist mucous membranes, hearing normal Cardiovascular: regular rate and rhythym, no murmur, rub, or gallop Respiratory: no respiratory distress, no rales or rhonchi Gastrointestinal: normoactive bowel sounds, soft, non-tender abdomen Genitourinary: no bladder fullness Skin: warm Musculoskeletal: full muscle strength Neurologic: AAOx3, CN II-XII Intact Psychiatric: flat affect ICD10 Worksheet Patient Problems: Problems Problem Status Onset Pneumonia Acute AML (acute myeloid leukemia) Acute CHF (congestive heart failure) Acute Cardiomegaly Acute Colitis Acute Hypoxia Acute LBBB (left bundle branch block) Acute Pancytopenia Acute Peripheral edema Acute Sepsis Acute
[2017-06-15] MEDS: BENEFIBER/NUTRISOURCE FIBER PKT 1 EACH PO SCH (20:23)
[2017-06-15] MEDS: CALCIUM CARBONATE 500 MG TAB PO SCH (20:24)
[2017-06-15] MEDS: NORTRIPTYLINE HCL 50 MG CAP PO SCH (20:24)
[2017-06-15] MEDS: PATCH REMOVAL 1 EA PATCH TD SCH (21:56)
--- NOTE | 2017-06-16 00:05 | GCON ---
[f rep st] CONSULTATION CHEST CONSULTATION REASON FOR CONSULTATION: Pneumonia HISTORY OF PRESENTING ILLNESS: The patient is a very pleasant 76-year-old white female with extensi ve past medical history including AML for which she is on cycle 4 of chemo, pulmonary hypertension, depression, diastolic heart failure, pancytopenia, left bundle-branch block, hypothyroidism. She de veloped chills and fever as well as fatigue shortly after receiving chemotherapy. She also had incr easing breathlessness. She was brought to the emergency room, found to have pneumonia, and admitted . In discussion with the patient, the patient states she feels somewhat better. She admits to a la ug that is mildly productive, but there is no hemoptysis. Her fevers continue. There is no nausea vomiting, or diarrhea. She denies any chest pain. PAST MEDICAL HISTORY: Again, significant for MDS with conversion to AML, status post chemotherapy. History of neutropenic enterocolitis. Pulmonary hypertension. Depression. Diastolic heart failur e. Left bundle branch block. Pancytopenia. Hypothyroidism. PAST SURGERIES: Has had lumpectomies, a right total knee arthroplasty, cholecystectomy, and a C-sec tion x2. SOCIAL HISTORY: No history of tobacco use. No alcohol use. She resides in [place] [facility] . She has excellent family support. PHYSICAL EXAM: VITAL SIGNS: Blood pressure is 120/59, pulse 97, respiration 18, temperature 37.7, oxygen saturation 98% on 2 L. GENERAL: She is a well-developed 76-year-old white female who is res ting comfortably on supplemental oxygen. HEENT: Eyes: PERRLA, EOMI. Throat shows no erythema or tonsillar hypertrophy. NECK: Supple. No cervical adenopathy. HEART: Regular rate and rhythm wit hout murmurs, rubs, gallops. LUNGS: Few bibasilar crackles but no wheeze. ABDOMEN: Soft, nontend er. Bowel sounds are present in all 4 quadrants. EXTREMITIES: No clubbing, cyanosis or edema. LABORATORIES: White count is 16, hemoglobin 6.7, hematocrit 20, platelet count is 56. Sodium 141, potassium 3.4, chloride 109, CO2 25, BUN 14, creatinine 1, glucose is 131. CT scan of the chest fabian ws focal pneumonia in the lingula and left lower lobe. IMPRESSION: 1. Acute myelogenous leukemia, status post chemotherapy. 2. Dyspnea. 3. Lingula and left lower lobe pneumonia in an immunocompromised patient. RECOMMENDATIONS: We will perform fiberoptic bronchoscopy as soon as possible. /[id number]/MODL
[2017-06-16] MEDS: MEROPENEM 1 GM in NS 100 ML IV SCH ×3 (04:55→20:48)
[2017-06-16] MEDS: ACETAMINOPHEN 325 MG TAB PO PRN ×2 (04:55→10:45)
[2017-06-16] MEDS: LEVOTHYROXINE 125 MCG TAB PO SCH (04:56)
[2017-06-16 06:46] LABS: ADD DIFF? YES; ADD MORPH? YES; ATYPICAL LYMPHOCYTE FLAG 0 (0-99); FRAGMENT RBC FLAG 0 (0-99); HEMOGLOBIN 7.4 g/dL (12.6-16.3); LEFT SHIFT FLG 0 (0-99); LIPEMIA HEMOLYSIS FLAG 80 (0-99); MEAN CELL HEMOGLOBIN CONCENTR. 33.6 g/dL (32.4-36.7); MEAN CELL VOLUME 98.2 fL (81.5-99.8); PLATELET CLUMPS FLAG 10 (0-99); RED BLOOD CELL COUNT 2.24 10^6/uL (4.18-5.33)
[2017-06-16 06:48] LABS: PLATELET COUNT 48 10^3/uL (150-400); RED CELL DISTRIBUTION WIDTH 21.7 % (11.5-15.2)
[2017-06-16 06:56] LABS: ANION GAP 7 mEq/L (8-16); CALCIUM 8.6 mg/dL (8.5-10.4); CARBON DIOXIDE 24 mEq/l (22-31); CHLORIDE 110 mEq/L (97-110); CREATININE 0.9 mg/dL (0.6-1.0); GLOMERULAR FILTRATION RATE > 60; GLUCOSE 134 mg/dL (70-100); POTASSIUM 3.5 mEq/L (3.5-5.2); SODIUM 141 mEq/L (134-144)
[2017-06-16 07:54] LABS: ADD SCAN? NO
[2017-06-16 07:58] LABS: MACROCYTES 1+; MICROCYTES 1+; PLATELET ESTIMATE DECREASED (ADEQ)
[2017-06-16] MEDS: AZITHROMYCIN IV 500 MG in D5W 250 ML IV SCH (09:18)
[2017-06-16] MEDS: PANTOPRAZOLE SODIUM 40 MG TAB PO SCH (09:19)
[2017-06-16] MEDS: ALPRAZolam 0.5 MG TAB PO SCH ×2 (09:21→17:01)
[2017-06-16] MEDS: buPROPion 100 MG TAB PO SCH ×3 (09:26→20:48)
[2017-06-16] MEDS: ASCORBIC ACID 250 MG TAB PO SCH (09:26)
[2017-06-16] MEDS: METHENAMINE HIPP 1 GM TAB PO SCH ×2 (09:27→20:48)
[2017-06-16] MEDS: ENOXAPARIN 40 MG/0.4 ML SYR SC SCH (09:27)
[2017-06-16] MEDS: GLUCOSAMINE/CHONDROITIN CAP PO SCH (09:27)
[2017-06-16] MEDS: MULTIVITAMINS 1 EACH TAB PO SCH (09:27)
[2017-06-16] MEDS: CETIRIZINE 10 MG TAB PO SCH (09:27)
[2017-06-16] MEDS: POLYETHYLENE GLYCOL 3350 17 GM PKT PO SCH ×2 (09:28→17:00)
--- NOTE | 2017-06-16 11:11 | SOAPPROG ---
SOAP Progress Note Assessment/Plan: Assessment: 1.) LLL pneumonia, community acquired, started on Meropenem. Appreciate ID and Pulmonary input. 2.) MDS on Vidaza, cycle 4, with multiple identifed mutations (+), for potential start of Sorafenib when stable 3.) Profound anemia secondary to # 2, in need of transfusion support. 4.) Headache, new onset , focal and with photophobia- unknown etiology Plan: 1.) To order Stat CT of head w/ and W/O IV contrast. Assess for bleed. space occupying lesion, mass, shift, abscess. 2.) Appreciate ID and Pulmonary input. 3.) Continue antibotic therapy 4.) Will transfuse 2 U PRBCs, irradiated 5.) Repeat CXR to assess clearing of infectious process. 6.) Follow sx. and labs and VS. 06/16/17 11:08 Subjective: Pt with significant focal R temporal region headache of worsening severity with photophobia, but without N/V or focal weakness or seizure activity. No hiccups. Objective: Afebrile, VSS HEENT- pupils respond to light, no facial assymetry Neck- supple Chest- focal rhonchi at L mid lung CVS- RSR, no extra HS ABD- soft, NT no mass or HSM EXT- warm, well perfused. Labs as noted here: Hgb 7.4, PLT 48 WBC 14.43 Vital Signs Temp Pulse Resp BP Pulse Ox 36.9 C 93 17 125/74 H 90 L 06/16/17 08:55 06/16/17 08:55 06/16/17 08:55 06/16/17 08:55 06/16/17 08:55 Laboratory Results 06/16/17 06:20 06/16/17 06:20 06/15/17 06/16/17 06/17/17 05:59 05:59 05:59 Intake Total 3170 2845 Output Total 1450 Balance 1720 2845 PT 14.8 SEC (12.0-15.0) 06/14/17 12:13 INR 1.16 (0.83-1.16) 06/14/17 12:13 ICD10 Worksheet Patient Problems: Problems Problem Status Onset Pneumonia Acute AML (acute myeloid leukemia) Acute CHF (congestive heart failure) Acute Cardiomegaly Acute Colitis Acute Hypoxia Acute LBBB (left bundle branch block) Acute Pancytopenia Acute Peripheral edema Acute Sepsis Acute
[2017-06-16] MEDS: ESTRADIOL 42.5 GM CRTUBE VG SCH (11:14)
[2017-06-16] MEDS ORDERED: IOPAMIDOL (ISOVUE-300) 100 ML BTL ONE (11:21)
[2017-06-16] MEDS: ONDANSETRON 4 MG/2 ML VIAL IVP PRN (12:01)
[2017-06-16] MEDS ORDERED: ALBUTEROL 3 ML DEYVIAL ONE (13:10)
[2017-06-16] MEDS ORDERED: LIDOCAINE 2% JELLY 5 ML TUBE ONE (13:11)
[2017-06-16] MEDS ORDERED: LIDOCAINE HCL 4% TOPICAL SOLN 50ML ONE (13:11)
[2017-06-16] MEDS ORDERED: MIDAZOLAM 2 MG/2 ML VIAL ONE (13:13)
[2017-06-16] MEDS ORDERED: fentaNYL 100 MCG/2 ML INJ ONE (13:14)
[2017-06-16] MEDS ORDERED: LIDOCAINE 1% 300 MG/30 ML SDV ONE ×2 (13:24→13:35)
--- NOTE | 2017-06-16 15:06 | PDINTPN ---
[employer] Progress Note Assessment/Plan: Assessment/plan: * AML status post cycle 4 of chemotherapy * Pulmonary hypertension * Diastolic heart failure * Pneumonitis-etiology which is unclear -bronch today Subjective: Complains of sinus congestion. Continues to cough. There is no chest pain. Objective: Vital Signs Temp Pulse Resp BP Pulse Ox 36.9 C 93 15 126/69 H 96 06/16/17 08:55 06/16/17 08:55 06/16/17 14:30 06/16/17 14:50 06/16/17 14:50 Laboratory Results 06/16/17 06:20 06/16/17 06:20 06/15/17 06/16/17 06/17/17 05:59 05:59 05:59 Intake Total 3170 2845 Output Total 1450 Balance 1720 2845 PT 14.8 SEC (12.0-15.0) 06/14/17 12:13 INR 1.16 (0.83-1.16) 06/14/17 12:13 Physical Exam - Physical Exam General Appearance: alert, mild distress EENT: PERRL/EOMI Respiratory: crackles (Left base), No respiratory distress, No stridor, No wheezing Cardiac/Chest: normal peripheral pulses, regular rate, rhythm Abdomen: normal bowel sounds, non-tender, soft Pelvic Exam: deferred Rectal: deferred ICD10 Worksheet Patient Problems: Problems Problem Status Onset Pneumonia Acute AML (acute myeloid leukemia) Acute CHF (congestive heart failure) Acute Cardiomegaly Acute Colitis Acute Hypoxia Acute LBBB (left bundle branch block) Acute Pancytopenia Acute Peripheral edema Acute Sepsis Acute
[2017-06-16 15:37] LABS: PNEUMOCYSTIS REQUEST RECEIVED
--- NOTE | 2017-06-16 15:58 | HOSPPROG ---
Hospitalist Progress Note Assessment/Plan: #Sepsis: e/v PNA, CT despite normal procalcitonin. At risk for opportunistic infection, bronched today. Cont Meropenem, Azithro #LLL PNA: plan as above #Leukocytosis: due to above #CHANG: new today, CTH negative #Pancytopenia: 2 units 06/15 #AML: MDS conversion. Cycle 4 Vidaza #Symptomatic anemia: s/p 2 units #Nausea: PRN antiemetics #Left leg swelling: no DVT #Chronic hip pain: trial Lidoderm #Hypothyroidism: LT4 #Compensated diastolic HF: caution with IVFs #Diet: regular #Disp: warrants inpt admission with sepsis, requires IV abx, bronch Subjective: severe CHANG this mornining. Very weak and more coughing Objective: Vital Signs Temp Pulse Resp BP Pulse Ox 37.5 C 93 18 120/61 95 06/16/17 15:28 06/16/17 08:55 06/16/17 15:20 06/16/17 15:25 06/16/17 15:25 Laboratory Results 06/16/17 06:20 06/16/17 06:20 06/15/17 06/16/17 06/17/17 05:59 05:59 05:59 Intake Total 3170 2845 15 Output Total 1450 Balance 1720 2845 15 PT 14.8 SEC (12.0-15.0) 06/14/17 12:13 INR 1.16 (0.83-1.16) 06/14/17 12:13 - Physical Exam Constitutional: other (ill-appearing, pale. Head covered with blanket) Eyes: PERRL Ears, Nose, Mouth, Throat: moist mucous membranes Cardiovascular: tachycardia Respiratory: other (crackles left base) Gastrointestinal: normoactive bowel sounds Genitourinary: no bladder fullness Skin: warm Musculoskeletal: full muscle strength Neurologic: AAOx3, CN II-XII Intact Psychiatric: interacting appropriately ICD10 Worksheet Patient Problems: Problems Problem Status Onset Pneumonia Acute AML (acute myeloid leukemia) Acute CHF (congestive heart failure) Acute Cardiomegaly Acute Colitis Acute Hypoxia Acute LBBB (left bundle branch block) Acute Pancytopenia Acute Peripheral edema Acute Sepsis Acute
[2017-06-16] MEDS ORDERED: LISINOPRIL 10 MG TAB PO PRN (17:25)
[2017-06-16] MEDS: POTASSIUM CL 20 MEQ TAB PO SCH (17:34)
[2017-06-16] MEDS: FUROSEMIDE 40 MG TAB PO SCH ×2 (17:34→20:48)
[2017-06-16] MEDS: LIDOCAINE 5% 1 EA PATCH TD SCH (17:35)
--- NOTE | 2017-06-16 17:40 | PCMIDPN ---
Assessment/Plan: # Left lingular /lower lobe pneumonia with immunosuppression due to chemotherapy / underlying AML: Chest CT reviewed. DDX with underlying immunosuppression broad - fungal infection and less typical pathogens such as Nocardia, PCP although pattern not typical. Generally stable with no low- grade temperature since admission, stable O2 requirement, ANC 2000 -- continue meropenem and azithromycin. Meropenem for broad coverage of pneumonia including Pseudomonas in a patient with immune compromised and recent antibiotic therapy with carbapenem. Patient with limited antibiotic options due to antibiotic allergy -- duration of antibiotic therapy unclear at this time # Multiple drug allergies: Tolerating meropenem well to date Micro Respiratory pathogen panel by PCR is negative. Legionella antigen : negative CMV,Aspergillus antigen, cryptococcal antigen, Coccidioides antibody, and urine histoplasma antigen: pending blood cultures /: No growth today Subjective: patient feels slightly better than admission, still with cough no GI symptoms Objective: Vital Signs Temp Pulse Resp BP Pulse Ox 37.4 C 104 H 16 121/56 H 92 06/16/17 15:53 06/16/17 15:53 06/16/17 15:53 06/16/17 15:53 06/16/17 15:53 Laboratory Results 06/16/17 06:20 06/16/17 06:20 06/15/17 06/16/17 06/17/17 05:59 05:59 05:59 Intake Total 3170 2845 15 Output Total 1450 Balance 1720 2845 15 - Physical Exam General Appearance: alert, no apparent distress EENT: No scleral icterus, No thrush Respiratory: crackles (L base, ), No accessory muscle use Cardiac/Chest: regular rate, rhythm Extremities: pedal edema Abdomen: non-tender, soft Skin: pallor, No rash Neuro/Psych: alert, normal mood/affect, oriented x 3 - Line/s LUE PICC Lines: No drainage, No erythema ICD10 Worksheet Patient Problems: Problems Problem Status Onset Pneumonia Acute AML (acute myeloid leukemia) Acute CHF (congestive heart failure) Acute Cardiomegaly Acute Colitis Acute Hypoxia Acute LBBB (left bundle branch block) Acute Pancytopenia Acute Peripheral edema Acute Sepsis Acute
[2017-06-16 19:12] LABS: CMV DNA DETECTION AND QUANTIFI Undetected IU/mL (Undetected)
[2017-06-16] MEDS: CALCIUM CARBONATE 500 MG TAB PO SCH (20:48)
[2017-06-16] MEDS: NORTRIPTYLINE HCL 50 MG CAP PO SCH (20:48)
[2017-06-16] MEDS: BENEFIBER/NUTRISOURCE FIBER PKT 1 EACH PO SCH (21:03)
[2017-06-16] MEDS: PATCH REMOVAL 1 EA PATCH TD SCH (21:03)
[2017-06-16 21:07] LABS: CYTOLOGY REQUISITION RECEIVED
[2017-06-17] MEDS: MEROPENEM 1 GM in NS 100 ML IV SCH ×3 (06:22→22:25)
[2017-06-17] MEDS: LEVOTHYROXINE 125 MCG TAB PO SCH (06:22)
[2017-06-17 06:44] LABS: ADD DIFF? YES; ADD MORPH? YES; ADD SCAN? NO; ATYPICAL LYMPHOCYTE FLAG 0 (0-99); FRAGMENT RBC FLAG 0 (0-99); HEMATOCRIT 20.9 % (38.0-47.0); HEMOGLOBIN 7.1 g/dL (12.6-16.3); LEFT SHIFT FLG 0 (0-99); LIPEMIA HEMOLYSIS FLAG 90 (0-99); MEAN CELL HEMOGLOBIN 33.2 pg (27.9-34.1); MEAN CELL VOLUME 97.7 fL (81.5-99.8); MEAN PLATELET VOLUME 12.1 fL (8.7-11.7); PLATELET CLUMPS FLAG 10 (0-99); PLATELET COUNT 50 10^3/uL (150-400); RED BLOOD CELL COUNT 2.14 10^6/uL (4.18-5.33)
[2017-06-17 06:46] LABS: RED CELL DISTRIBUTION WIDTH 21.2 % (11.5-15.2)
[2017-06-17 06:54] LABS: ANION GAP 9 mEq/L (8-16); CALCIUM 8.3 mg/dL (8.5-10.4); CARBON DIOXIDE 27 mEq/l (22-31); CHLORIDE 106 mEq/L (97-110); CREATININE 0.9 mg/dL (0.6-1.0); GLOMERULAR FILTRATION RATE > 60; GLUCOSE 110 mg/dL (70-100); SODIUM 142 mEq/L (134-144)
[2017-06-17 08:07] LABS: MACROCYTES 1+; PLATELET ESTIMATE DECREASED (ADEQ); SCHISTOCYTES 1+
[2017-06-17] MEDS ORDERED: FUROSEMIDE 40 MG TAB PO SCH (09:00)
--- NOTE | 2017-06-17 09:46 | PCMIDPN ---
Assessment/Plan: # Left lingular /lower lobe pneumonia with immunosuppression due to chemotherapy / underlying AML and now low ANC @700. Clinically improving, AF. Difficult to interpret WBC in light of underlying malignancy/chemo. -- continue meropenem for broad coverage of pneumonia including Pseudomonas in a patient with immune compromised and recent antibiotic therapy with carbapenem. Also, patient with limited antibiotic options due to antibiotic allergies --tentatively plan 7-10 days antibiotics for PNA in immunocompromised host --plan 5 days azithro, stop date 06/18. Changed to PO yesterday --increase activity, taper O2 as feasible today # Multiple drug allergies: Tolerating meropenem well to date Micro Respiratory pathogen panel by PCR is negative. Legionella antigen : negative CMV,Aspergillus antigen, PJP smear, cryptococcal antigen, Coccidioides antibody , nocardia smear, and urine histoplasma antigen: pending blood cultures 12/18: No growth today BAL 06/16: GPC on gram stain, cx pending meds meropenem 1gm IV q8h #3 azithromycin 500mg daily #[address] Posadas. Subjective: feeling better today more energy thinking clearer less SOB Objective: Vital Signs Temp Pulse Resp BP Pulse Ox 37.1 C 81 14 115/61 97 06/17/17 04:00 06/17/17 04:00 06/17/17 04:00 06/17/17 04:00 06/17/17 04:00 Microbiology 06/16/17 14:25 Gram Stain - Final Lung Bilateral - Bronchial Washings Laboratory Results 06/17/17 06:21 06/17/17 06:21 06/16/17 06/17/17 06/18/17 05:59 05:59 05:59 Intake Total 2845 1385 Balance 2845 1385 - Physical Exam General Appearance: alert, no apparent distress EENT: pale conjunctiva, No thrush Respiratory: crackles (L base 1/[address] way up) Neck: supple Cardiac/Chest: regular rate, rhythm, systolic murmur Extremities: No pedal edema Abdomen: non-tender, soft Skin: pallor, No rash Neuro/Psych: alert, normal mood/affect, oriented x 3 - Line/s LUE PICC Lines: No drainage, No erythema ICD10 Worksheet Patient Problems: Problems Problem Status Onset Pneumonia Acute AML (acute myeloid leukemia) Acute CHF (congestive heart failure) Acute Cardiomegaly Acute Colitis Acute Hypoxia Acute LBBB (left bundle branch block) Acute Pancytopenia Acute Peripheral edema Acute Sepsis Acute
[2017-06-17] MEDS: CETIRIZINE 10 MG TAB PO SCH (09:59)
[2017-06-17] MEDS: ALPRAZolam 0.5 MG TAB PO SCH ×2 (10:00→14:14)
[2017-06-17] MEDS: MULTIVITAMINS 1 EACH TAB PO SCH (10:00)
[2017-06-17] MEDS: ASCORBIC ACID 250 MG TAB PO SCH (10:00)
[2017-06-17] MEDS: METHENAMINE HIPP 1 GM TAB PO SCH ×2 (10:00→20:59)
[2017-06-17] MEDS: PANTOPRAZOLE SODIUM 40 MG TAB PO SCH (10:00)
[2017-06-17] MEDS: buPROPion 100 MG TAB PO SCH ×2 (10:01→20:58)
[2017-06-17] MEDS: ENOXAPARIN 40 MG/0.4 ML SYR SC SCH (10:01)
[2017-06-17] MEDS: POLYETHYLENE GLYCOL 3350 17 GM PKT PO SCH ×2 (10:01→14:14)
[2017-06-17] MEDS: GLUCOSAMINE/CHONDROITIN CAP PO SCH (10:01)
[2017-06-17] MEDS: AZITHROMYCIN 250 MG TAB PO SCH (10:01)
[2017-06-17] MEDS: LIDOCAINE 5% 1 EA PATCH TD SCH (10:03)
--- NOTE | 2017-06-17 10:10 | HOSPPROG ---
Hospitalist Progress Note Assessment/Plan: #Sepsis: e/v PNA, CT despite normal procalcitonin. At risk for opportunistic infection, * . Cont Meropenem, Azithro * Status post bronch #LLL PNA: plan as above #Leukocytosis: * Improving #CHANG: * Resolved #Pancytopenia: 2 units 06/15 #AML: MDS conversion. Cycle 4 Vidaza #Symptomatic anemia: s/p 2 units #Nausea: PRN antiemetics #Left leg swelling: no DVT * Chronic #Chronic hip pain: trial Lidoderm #Hypothyroidism: LT4 #Compensated diastolic HF: caution with IVFs #Diet: regular #Disp: warrants inpt admission with sepsis * Possible home tomorrow Subjective: Feels a lot better. Objective: Vital Signs Temp Pulse Resp BP Pulse Ox 37.1 C 81 14 115/61 97 06/17/17 04:00 06/17/17 04:00 06/17/17 04:00 06/17/17 04:00 06/17/17 04:00 Microbiology 06/16/17 14:25 Gram Stain - Final Lung Bilateral - Bronchial Washings Laboratory Results 06/17/17 06:21 06/17/17 06:21 06/16/17 06/17/17 06/18/17 05:59 05:59 05:59 Intake Total 2845 1385 Balance 2845 1385 PT 14.8 SEC (12.0-15.0) 06/14/17 12:13 INR 1.16 (0.83-1.16) 06/14/17 12:[address] Quijano CT scan personally reviewed and interpreted - Physical Exam Constitutional: no apparent distress, appears nourished, not in pain Eyes: anicteric sclera, EOMI Ears, Nose, Mouth, Throat: moist mucous membranes, hearing normal, ears appear normal Cardiovascular: regular rate and rhythym, no murmur, rub, or gallop, edema ( Trace) Respiratory: no respiratory distress, other (Slight rhonchi left base) Gastrointestinal: normoactive bowel sounds, soft, non-tender abdomen, no palpable masses Skin: warm Neurologic: AAOx3 Psychiatric: interacting appropriately, not anxious, not encephalopathic, thought process linear ICD10 Worksheet Patient Problems: Problems Problem Status Onset Pneumonia Acute AML (acute myeloid leukemia) Acute CHF (congestive heart failure) Acute Cardiomegaly Acute Colitis Acute Hypoxia Acute LBBB (left bundle branch block) Acute Pancytopenia Acute Peripheral edema Acute Sepsis Acute
[2017-06-17] MEDS: POTASSIUM CL 20 MEQ TAB PO SCH ×3 (10:26→21:04)
[2017-06-17] MEDS: FUROSEMIDE 20 MG TAB PO SCH (10:28)
[2017-06-17] MEDS: FUROSEMIDE 40 MG TAB PO SCH ×2 (10:53→20:58)
--- NOTE | 2017-06-17 12:03 | SOAPPROG ---
SOAP Progress Note Assessment/Plan: Assessment: 1.) LLL pneumonia, community acquired, started on Meropenem Day 3 + Zithromax Day 4. Appreciate ID and Pulmonary input. 2.) MDS on Vidaza, cycle 4, with multiple identified mutations (+), for potential start of Sorafenib when stable. Does not need further transfusion support as of 06/17/17. 3.) Profound Headache- MRI shows no significant findings. CHANG markedly improved. 4.) Hypokalemia- will replete Plan: 1.) To order Stat CT of head w/ and W/O IV contrast. Assess for bleed. space occupying lesion, mass, shift, abscess. 2.) Appreciate ID and Pulmonary input. 3.) Continue antibiotic therapy- Meropenem IV Q 8 hours + Zithromax po QD 4.) Follow sx. and labs and VS. 5.) Replete K+ Possible for discharge in next 48 hours. 06/17/17 12:03 Subjective: Headache has resolved and feels significantly better. No new sx. Resp sx. improving. Objective: at bedside. Pt. alert and talkative, and in NAD HEENT- pale, anicteric, no oral lesions Neck- supple Chest- focal rales at L lung base , posteriorly CVS- RSR, no extra HS ABD- soft, NT, no mass or HSM EXT- mild edema in both LE Labs: Hgb 7.1, PLT 50, WBC 8.81, K+ 3.0 Bronch specimens show no definitive (+) findings. Vital Signs Temp Pulse Resp BP Pulse Ox 37.0 C 88 18 110/54 L 92 06/17/17 08:00 06/17/17 08:00 06/17/17 08:00 06/17/17 08:00 06/17/17 08:00 Microbiology 06/16/17 14:25 Gram Stain - Final Lung Bilateral - Bronchial Washings Laboratory Results 06/17/17 06:21 06/17/17 06:21 06/16/17 06/17/17 06/18/17 05:59 05:59 05:59 Intake Total 2845 1385 Balance 2845 1385 PT 14.8 SEC (12.0-15.0) 06/14/17 12:13 INR 1.16 (0.83-1.16) 06/14/17 12:13 ICD10 Worksheet Patient Problems: Problems Problem Status Onset Pneumonia Acute AML (acute myeloid leukemia) Acute CHF (congestive heart failure) Acute Cardiomegaly Acute Colitis Acute Hypoxia Acute LBBB (left bundle branch block) Acute Pancytopenia Acute Peripheral edema Acute Sepsis Acute
--- NOTE | 2017-06-17 14:47 | SOAPPROG ---
SOAP Progress Note Assessment/Plan: Assessment/plan: * AML status post cycle 4 of chemotherapy * Pulmonary hypertension * Diastolic heart failure * Pneumonitis-etiology which is unclear. Clinically she is markedly improved -bronch results pending Subjective: Looks and feels much better. Her cough is diminished. She is less breathless. Her headache has resolved Objective: Vital Signs Temp Pulse Resp BP Pulse Ox 37.0 C 88 18 110/54 L 92 06/17/17 08:00 06/17/17 08:00 06/17/17 08:00 06/17/17 08:00 06/17/17 08:00 Microbiology 06/16/17 14:25 Mycobacterial Smear (VANNESSA) - Final Lung Bilateral - Bronchial Washings 06/16/17 14:25 Gram Stain - Final Lung Bilateral - Bronchial Washings Laboratory Results 06/17/17 06:21 06/17/17 06:21 06/16/17 06/17/17 06/18/17 05:59 05:59 05:59 Intake Total 2845 1385 Balance 2845 1385 PT 14.8 SEC (12.0-15.0) 06/14/17 12:13 INR 1.16 (0.83-1.16) 06/14/17 12:13 Physical Exam - Physical Exam General Appearance: WD/WN, alert, no apparent distress EENT: PERRL/EOMI, normal ENT inspection, pharynx normal, TMs normal Neck: non-tender, full range of motion, supple, normal inspection Respiratory: crackles (Few basilar), No respiratory distress, No stridor, No wheezing Cardiac/Chest: normal peripheral pulses, regular rate, rhythm Abdomen: normal bowel sounds, non-tender, soft Pelvic Exam: deferred Rectal: deferred Skin: normal color, warm/dry Extremities: normal range of motion, non-tender, normal inspection, normal capillary refill ICD10 Worksheet Patient Problems: Problems Problem Status Onset Pneumonia Acute AML (acute myeloid leukemia) Acute CHF (congestive heart failure) Acute Cardiomegaly Acute Colitis Acute Hypoxia Acute LBBB (left bundle branch block) Acute Pancytopenia Acute Peripheral edema Acute Sepsis Acute
[2017-06-17] MEDS: NORTRIPTYLINE HCL 50 MG CAP PO SCH (20:57)
[2017-06-17] MEDS: CALCIUM CARBONATE 500 MG TAB PO SCH (20:58)
[2017-06-17] MEDS: BENEFIBER/NUTRISOURCE FIBER PKT 1 EACH PO SCH (21:03)
[2017-06-17] MEDS: PATCH REMOVAL 1 EA PATCH TD SCH (21:04)
[2017-06-18] MEDS: MEROPENEM 1 GM in NS 100 ML IV SCH (05:02)
[2017-06-18] MEDS: LEVOTHYROXINE 125 MCG TAB PO SCH (05:02)
[2017-06-18 05:13] LABS: ANION GAP 7 mEq/L (8-16); CALCIUM 8.6 mg/dL (8.5-10.4); CARBON DIOXIDE 28 mEq/l (22-31); CHLORIDE 107 mEq/L (97-110); CREATININE 0.9 mg/dL (0.6-1.0); GLOMERULAR FILTRATION RATE > 60; GLUCOSE 106 mg/dL (70-100); POTASSIUM 3.4 mEq/L (3.5-5.2); SODIUM 142 mEq/L (134-144)
[2017-06-18 06:48] LABS: HEMATOCRIT 20.8 % (38.0-47.0); LIPEMIA HEMOLYSIS FLAG 80 (0-99); MEAN CELL HEMOGLOBIN 32.7 pg (27.9-34.1); MEAN CELL HEMOGLOBIN CONCENTR. 33.2 g/dL (32.4-36.7); MEAN CELL VOLUME 98.6 fL (81.5-99.8); PLATELET CLUMPS FLAG 0 (0-99); RED BLOOD CELL COUNT 2.11 10^6/uL (4.18-5.33)
[2017-06-18 06:56] LABS: HEMOGLOBIN 6.9 g/dL (12.6-16.3); PLATELET COUNT 44 10^3/uL (150-400); RED CELL DISTRIBUTION WIDTH 20.3 % (11.5-15.2)
[2017-06-18 07:37] LABS: PLATELET ESTIMATE DECREASED (ADEQ)
[2017-06-18] MEDS: AZITHROMYCIN 250 MG TAB PO SCH (10:03)
[2017-06-18] MEDS: PANTOPRAZOLE SODIUM 40 MG TAB PO SCH (10:04)
[2017-06-18] MEDS: buPROPion 100 MG TAB PO SCH ×2 (10:04→21:58)
[2017-06-18] MEDS: ASCORBIC ACID 250 MG TAB PO SCH (10:04)
[2017-06-18] MEDS: ALPRAZolam 0.5 MG TAB PO SCH ×2 (10:04→14:02)
[2017-06-18] MEDS: GLUCOSAMINE/CHONDROITIN CAP PO SCH (10:04)
[2017-06-18] MEDS: POTASSIUM CL 20 MEQ TAB PO SCH ×3 (10:04→21:57)
[2017-06-18] MEDS: METHENAMINE HIPP 1 GM TAB PO SCH ×2 (10:04→21:57)
[2017-06-18] MEDS: MULTIVITAMINS 1 EACH TAB PO SCH (10:05)
[2017-06-18] MEDS: ENOXAPARIN 40 MG/0.4 ML SYR SC SCH (10:05)
[2017-06-18] MEDS: POLYETHYLENE GLYCOL 3350 17 GM PKT PO SCH ×2 (10:05→14:21)
[2017-06-18] MEDS: CETIRIZINE 10 MG TAB PO SCH (10:05)
[2017-06-18] MEDS: LIDOCAINE 5% 1 EA PATCH TD SCH (10:05)
[2017-06-18] MEDS: FUROSEMIDE 20 MG TAB PO SCH (10:05)
[2017-06-18] MEDS: ESTRADIOL 42.5 GM CRTUBE VG SCH (10:28)
[2017-06-18 12:16] LABS: ALBUMIN 2.8 g/dL (3.5-5.0); BILIRUBIN,TOTAL 0.6 mg/dL (0.1-1.4); BILIRUBIN-CONJUGATED 0.3 mg/dL (0.0-0.5); BILIRUBIN-UNCONJUGATED 0.3 mg/dL (0.0-1.1); TOTAL PROTEIN 5.1 g/dL (6.3-8.2)
--- NOTE | 2017-06-18 12:18 | PCMIDPN ---
Assessment/Plan: # Left lingular /lower lobe pneumonia with immunosuppression due to chemotherapy / underlying AML and now low ANC @700. Clinically improving, AF. Difficult to interpret WBC in light of underlying malignancy/chemo. -- step-down to ertapenem with clinical improvement and plan total 7 days total, stop date June 21 2017. limited antibiotic options due to antibiotic allergies --plan 5 days azithro, stop date today 06/18. # Multiple drug allergies: Tolerating meropenem well to date # 1 loose BM: Patient is on MiraLax, would continue to monitor diarrhea. Micro Respiratory pathogen panel by PCR is negative. Legionella antigen : negative CMV,Aspergillus antigen, PJP smear, cryptococcal antigen, Coccidioides antibody , nocardia smear, and urine histoplasma antigen: pending blood cultures 12/18: No growth today BAL 06/16: GPC on gram stain, cx pending meds meropenem 1gm IV q8h #4/7 azithromycin 500mg daily #[address] Ceron and Dr. Arteaga Subjective: patient feeling significantly improved. O2 sat on room air is 95% she noted some gum bleeding yesterday with flossing her ambulation is back to baseline 1 large loose BM yesterday Objective: Vital Signs Temp Pulse Resp BP Pulse Ox 36.9 C 82 18 115/67 98 06/18/17 11:54 06/18/17 11:54 06/18/17 11:54 06/18/17 11:54 06/18/17 11:54 Microbiology 06/16/17 14:25 Gram Stain - Final Lung Bilateral - Bronchial Washings 06/16/17 14:25 Mycobacterial Smear (VANNESSA) - Final Lung Bilateral - Bronchial Washings Laboratory Results 06/18/17 06:10 06/18/17 04:47 06/17/17 06/18/17 06/19/17 05:59 05:59 05:59 Intake Total 1385 1500 103 Balance 1385 1500 103 - Physical Exam General Appearance: alert, no apparent distress EENT: pale conjunctiva, No scleral icterus, No pharyngeal erythema, No tonsillar exudate, No thrush Respiratory: other ( crackles noted yesterday have resolved), No respiratory distress, No accessory muscle use Neck: supple Cardiac/Chest: regular rate, rhythm Extremities: pedal edema ( trace) Abdomen: non-tender, soft Skin: pallor, No rash Neuro/Psych: alert, normal mood/affect, oriented x 3 - Line/s LUE PICC Lines: No drainage, No erythema ICD10 Worksheet Patient Problems: Problems Problem Status Onset Pneumonia Acute AML (acute myeloid leukemia) Acute CHF (congestive heart failure) Acute Cardiomegaly Acute Colitis Acute Hypoxia Acute LBBB (left bundle branch block) Acute Pancytopenia Acute Peripheral edema Acute Sepsis Acute
--- NOTE | 2017-06-18 12:23 | PDINTPN ---
[employer] Progress Note Assessment/Plan: Assessment/plan: * AML status post cycle 4 of chemotherapy * Pulmonary hypertension * Diastolic heart failure * Pneumonitis-etiology which is unclear. Clinically she is markedly improved -bronch results pending * Anemia * PT/OT Subjective: Sitting up in chair. Comfortable. Cough is markedly better. Objective: Vital Signs Temp Pulse Resp BP Pulse Ox 36.9 C 82 18 115/67 98 06/18/17 11:54 06/18/17 11:54 06/18/17 11:54 06/18/17 11:54 06/18/17 11:54 Microbiology 06/16/17 14:25 Gram Stain - Final Lung Bilateral - Bronchial Washings 06/16/17 14:25 Mycobacterial Smear (VANNESSA) - Final Lung Bilateral - Bronchial Washings Laboratory Results 06/18/17 06:10 06/18/17 04:47 06/17/17 06/18/17 06/19/17 05:59 05:59 05:59 Intake Total 1385 1500 103 Balance 1385 1500 103 PT 14.8 SEC (12.0-15.0) 06/14/17 12:13 INR 1.16 (0.83-1.16) 06/14/17 12:13 Physical Exam - Physical Exam General Appearance: alert EENT: PERRL/EOMI, normal ENT inspection Neck: non-tender, full range of motion, supple, normal inspection Respiratory: crackles (Few), No wheezing Cardiac/Chest: normal peripheral pulses, regular rate, rhythm Peripheral Pulses: 2+: carotid (R), carotid (L), femoral (R), femoral (L), dorsalis-pedis (R), dorsalis-pedis (L) Abdomen: normal bowel sounds, non-tender, soft Pelvic Exam: deferred Rectal: deferred Skin: normal color, warm/dry ICD10 Worksheet Patient Problems: Problems Problem Status Onset Pneumonia Acute AML (acute myeloid leukemia) Acute CHF (congestive heart failure) Acute Cardiomegaly Acute Colitis Acute Hypoxia Acute LBBB (left bundle branch block) Acute Pancytopenia Acute Peripheral edema Acute Sepsis Acute
[2017-06-18] MEDS ORDERED: ACETAMINOPHEN 500 MG TAB PO ONE (12:33)
[2017-06-18] MEDS ORDERED: FUROSEMIDE 20 MG/2 ML VIAL IVP ONE (12:38)
[2017-06-18] MEDS: ERTAPENEM 1 GM in NS 100 ML IV SCH (14:00)
--- NOTE | 2017-06-18 17:14 | HOSPPROG ---
Hospitalist Progress Note Assessment/Plan: DIAGNOSES: -acute hypoxemic respiratory failure -acute pneumonitis of uncertain etiology, infectious versus leukemia related ( no organisms found on blood cultures, bronchoscopy, respiratory pathogen panel) -pancytopenia with profound neutropenia related to cancer chemotherapy -AML She remains afebrile and her respiratory status continues to improve Today her anemia is worse and will require transfusion of 2 units of red cells I reviewed the patient's condition and plan with Dr. Ronna Quijano PLANS: Transfusion Continue current empiric antibiotic Continue occupational and physical therapy SUBJECTIVE: Not short of breath, no chest pain no cough, no chills or sweats Walking better Eating well OBJECTIVE Vitals reviewed: Stable without fever Exam: alert oriented skin warm dry color ok resps not labored lungs clear BSs heart regular abd soft nondistended nontender, bowel sounds present limbs warm, no edema iv site ok Objective: Vital Signs Temp Pulse Resp BP Pulse Ox 36.9 C 77 16 112/69 100 06/18/17 15:23 06/18/17 15:23 06/18/17 15:23 06/18/17 15:23 06/18/17 15:23 Microbiology 06/16/17 14:25 Gram Stain - Final Lung Bilateral - Bronchial Washings 06/16/17 14:25 Mycobacterial Smear (VANNESSA) - Final Lung Bilateral - Bronchial Washings Laboratory Results 06/18/17 06:10 06/18/17 04:47 06/17/17 06/18/17 06/19/17 06:59 06:59 06:59 Intake Total 1385 1603 Balance 1385 1603 PT 14.8 SEC (12.0-15.0) 06/14/17 12:13 INR 1.16 (0.83-1.16) 06/14/17 12:13 ICD10 Worksheet Patient Problems: Problems Problem Status Onset Pneumonia Acute AML (acute myeloid leukemia) Acute CHF (congestive heart failure) Acute Cardiomegaly Acute Colitis Acute Hypoxia Acute LBBB (left bundle branch block) Acute Pancytopenia Acute Peripheral edema Acute Sepsis Acute
[2017-06-18] MEDS: diphenhydrAMINE 25 MG CAP PO SCH ×2 (17:44→22:42)
[2017-06-18] MEDS: NORTRIPTYLINE HCL 50 MG CAP PO SCH (21:56)
[2017-06-18] MEDS: CALCIUM CARBONATE 500 MG TAB PO SCH (21:58)
[2017-06-18] MEDS: FUROSEMIDE 40 MG TAB PO SCH (21:58)
[2017-06-18] MEDS: BENEFIBER/NUTRISOURCE FIBER PKT 1 EACH PO SCH (21:59)
[2017-06-18] MEDS: PATCH REMOVAL 1 EA PATCH TD SCH (22:00)
[2017-06-18] MEDS ORDERED: ALTEPLASE 2 MG VIAL IVP PRN (23:36)
[2017-06-19 00:44] LABS: NOCARDIA STAIN RESULT See Comments
[2017-06-19] MEDS: LEVOTHYROXINE 125 MCG TAB PO SCH (05:05)
[2017-06-19 05:14] LABS: HEMATOCRIT 27.7 % (38.0-47.0); HEMOGLOBIN 9.4 g/dL (12.6-16.3); MEAN CELL HEMOGLOBIN 31.5 pg (27.9-34.1); MEAN CELL HEMOGLOBIN CONCENTR. 33.9 g/dL (32.4-36.7); RED BLOOD CELL COUNT 2.98 10^6/uL (4.18-5.33)
[2017-06-19 05:55] LABS: ALANINE AMINOTRANSFERASE 51 IU/L (9-52); ALKALINE PHOSPHATASE 78 IU/L (38-126); ANION GAP 8 mEq/L (8-16); ASPARTATE AMINOTRANSFERASE 24 IU/L (14-46); BILIRUBIN,TOTAL 0.8 mg/dL (0.1-1.4); CALCIUM 8.9 mg/dL (8.5-10.4); CARBON DIOXIDE 30 mEq/l (22-31); CHLORIDE 102 mEq/L (97-110); CREATININE 0.9 mg/dL (0.6-1.0); GLOMERULAR FILTRATION RATE > 60; GLUCOSE 102 mg/dL (70-100); POTASSIUM 3.5 mEq/L (3.5-5.2); SODIUM 140 mEq/L (134-144); TOTAL PROTEIN 5.8 g/dL (6.3-8.2)
[2017-06-19] MEDS: diphenhydrAMINE 25 MG CAP PO SCH ×2 (06:01→11:55)
--- NOTE | 2017-06-19 07:42 | SOAPPROG ---
SOAP Progress Note Assessment/Plan: Assessment: 1.) LLL pneumonia, community acquired. Appreciate ID and Pulmonary input. Now off Zithromax and switched to Ertapenem. Plan to continue this through . 2.) MDS on Vidaza, cycle 4, with multiple identified mutations (+), for potential start of Sorafenib when stable. Does not need further transfusion support as of 06/19/17. Tolerated transfusion on 06/18 quite well, and with nice increment rise in H/H as of this AM labs. 3.) Hypokalemia- repleted 4.) Pulm HTN 5.) Pneumonitis - sx. resolving 6.) Hypoxemia- determine if supplemental home O2 needed prior to discharge. D/ W patient this AM. Plan: 1.) Appreciate ID and Pulmonary input. 2.) Continue antibiotic therapy- Ertapenem through 06/21/17 3.) Follow sx. and labs and VS. 4.) Replete K+ 5.) Encourag3 ambulation. Delay Sorafenib until after discharge. To follow up with Dr. Zheng Jones in our dept. once discharged. Possible for discharge as of 06/21. 06/19/17 07:38 Subjective: Stable by sx. this AM. Transfusion went well, without reaction No new sx. No pleuritic CP or resp. sx. Objective: Afebrile, VSS as noted here HEENT- anicteric,no oral lesions Neck- supple Chest-minimal rhonchi L mid lung posteriorly, other lung reddy clear CVS- RSR, no extra HS ABD- soft, BS+, NT, nondistended EXT- no change, minimal LE edema bilaterally, skin intact Labs: note Hgb up to 9.4 today. PLT 59 WBC 4.27, K+ 3.5 Vital Signs Temp Pulse Resp BP Pulse Ox 36.8 C 70 16 120/70 96 06/19/17 04:00 06/19/17 04:00 06/19/17 04:00 06/19/17 04:00 06/19/17 04:00 Microbiology 06/16/17 14:25 Gram Stain - Final Lung Bilateral - Bronchial Washings Bronchial Washings Culture - Final Anna Albicans Presumptive Laboratory Results 06/19/17 05:04 06/19/17 05:04 06/18/17 06/19/17 06/20/17 05:59 05:59 05:59 Intake Total 1500 2503 Output Total 4 Balance 1500 2499 PT 14.8 SEC (12.0-15.0) 06/14/17 12:13 INR 1.16 (0.83-1.16) 06/14/17 12:13 ICD10 Worksheet Patient Problems: Problems Problem Status Onset Pneumonia Acute AML (acute myeloid leukemia) Acute CHF (congestive heart failure) Acute Cardiomegaly Acute Colitis Acute Hypoxia Acute LBBB (left bundle branch block) Acute Pancytopenia Acute Peripheral edema Acute Sepsis Acute
[2017-06-19] MEDS: LIDOCAINE 5% 1 EA PATCH TD SCH (08:59)
[2017-06-19] MEDS: MULTIVITAMINS 1 EACH TAB PO SCH (08:59)
[2017-06-19] MEDS: ENOXAPARIN 40 MG/0.4 ML SYR SC SCH (08:59)
[2017-06-19] MEDS: ERTAPENEM 1 GM in NS 100 ML IV SCH (08:59)
[2017-06-19] MEDS: POTASSIUM CL 20 MEQ TAB PO SCH ×3 (08:59→20:12)
[2017-06-19] MEDS: FUROSEMIDE 20 MG TAB PO SCH (09:00)
[2017-06-19] MEDS: METHENAMINE HIPP 1 GM TAB PO SCH ×2 (09:00→20:12)
[2017-06-19] MEDS: GLUCOSAMINE/CHONDROITIN CAP PO SCH (09:00)
[2017-06-19] MEDS: PANTOPRAZOLE SODIUM 40 MG TAB PO SCH (09:00)
[2017-06-19] MEDS: ALPRAZolam 0.5 MG TAB PO SCH ×2 (09:00→14:36)
[2017-06-19] MEDS: buPROPion 100 MG TAB PO SCH ×2 (09:00→20:11)
[2017-06-19] MEDS: ASCORBIC ACID 250 MG TAB PO SCH (09:00)
[2017-06-19] MEDS: CETIRIZINE 10 MG TAB PO SCH (09:00)
[2017-06-19] MEDS: POLYETHYLENE GLYCOL 3350 17 GM PKT PO SCH ×2 (09:01→14:36)
--- NOTE | 2017-06-19 12:57 | SOAPPROG ---
SOAP Progress Note Assessment/Plan: Assessment/plan: * AML status post cycle 4 of chemotherapy * Pulmonary hypertension * Diastolic heart failure * Respiratory-on room air at this time. * Pneumonitis-etiology which is unclear. Clinically she continues to improve -bronch results negative with the exception of Anna. Cytology negative * Anemia * PT/OT Subjective: Sitting up in chair. Resting comfortably. Denies any dyspnea, cough or production of sputum. Objective: Vital Signs Temp Pulse Resp BP Pulse Ox 36.6 C 82 18 124/80 H 95 06/19/17 07:41 06/19/17 12:00 06/19/17 12:00 06/19/17 07:41 06/19/17 12:00 Microbiology 06/16/17 14:25 Gram Stain - Final Lung Bilateral - Bronchial Washings Bronchial Washings Culture - Final Anna Albicans Presumptive Laboratory Results 06/19/17 05:04 06/19/17 05:04 06/18/17 06/19/17 06/20/17 05:59 05:59 05:59 Intake Total 1500 2503 Output Total 4 Balance 1500 2499 PT 14.8 SEC (12.0-15.0) 06/14/17 12:13 INR 1.16 (0.83-1.16) 06/14/17 12:13 Physical Exam - Physical Exam General Appearance: alert, no apparent distress EENT: PERRL/EOMI, normal ENT inspection, pharynx normal, TMs normal Neck: non-tender, full range of motion, supple, normal inspection Respiratory: crackles (Few basilar), No respiratory distress, No stridor, No wheezing Cardiac/Chest: normal peripheral pulses, regular rate, rhythm Peripheral Pulses: 2+: carotid (R), carotid (L), femoral (R), femoral (L), dorsalis-pedis (R), dorsalis-pedis (L) Abdomen: normal bowel sounds, non-tender, soft Pelvic Exam: deferred Rectal: deferred Skin: normal color, warm/dry Neuro/Psych: no motor/sensory deficits, alert, normal mood/affect, oriented x 3 ICD10 Worksheet Patient Problems: Problems Problem Status Onset Pneumonia Acute AML (acute myeloid leukemia) Acute CHF (congestive heart failure) Acute Cardiomegaly Acute Colitis Acute Hypoxia Acute LBBB (left bundle branch block) Acute Pancytopenia Acute Peripheral edema Acute Sepsis Acute
--- NOTE | 2017-06-19 17:09 | HOSPPROG ---
Hospitalist Progress Note Assessment/Plan: DIAGNOSES: -acute hypoxemic respiratory failure -acute pneumonitis of uncertain etiology, infectious versus leukemia related ( no organisms found on blood cultures, bronchoscopy, respiratory pathogen panel) -pancytopenia with profound neutropenia related to cancer chemotherapy -AML -no sepsis I reviewed the patient's condition and plan today with Dr. Ronna Quijano PLANS: Continue current empiric antibiotic Continue occupational and physical therapy plan on discharge after completion of antibiotic SUBJECTIVE: essentially no change in symptoms today No dyspnea or fever symptoms OBJECTIVE Vitals reviewed: Stable without fever Exam: alert oriented skin warm dry color ok resps not labored lungs clear BSs heart regular abd soft nondistended nontender, bowel sounds present limbs warm, no edema iv site ok laboratory data: Expected response with good rise in hemoglobin after transfusions last evening Objective: Vital Signs Temp Pulse Resp BP Pulse Ox 37.1 C 79 16 108/60 96 06/19/17 15:37 06/19/17 15:37 06/19/17 15:37 06/19/17 15:37 06/19/17 15:37 Microbiology 06/14/17 13:40 Blood Culture - Final Blood 06/16/17 14:25 Gram Stain - Final Lung Bilateral - Bronchial Washings Bronchial Washings Culture - Final Anna Albicans Presumptive Laboratory Results 06/19/17 05:04 06/19/17 05:04 06/18/17 06/19/17 06/20/17 06:59 06:59 06:59 Intake Total 1603 2400 Output Total 4 Balance 1603 2396 PT 14.8 SEC (12.0-15.0) 06/14/17 12:13 INR 1.16 (0.83-1.16) 06/14/17 12:13 ICD10 Worksheet Patient Problems: Problems Problem Status Onset Pneumonia Acute AML (acute myeloid leukemia) Acute CHF (congestive heart failure) Acute Cardiomegaly Acute Colitis Acute Hypoxia Acute LBBB (left bundle branch block) Acute Pancytopenia Acute Peripheral edema Acute Sepsis Acute
[2017-06-19] MEDS: BENEFIBER/NUTRISOURCE FIBER PKT 1 EACH PO SCH (20:09)
[2017-06-19] MEDS: NORTRIPTYLINE HCL 50 MG CAP PO SCH (20:10)
[2017-06-19] MEDS: PATCH REMOVAL 1 EA PATCH TD SCH (20:10)
[2017-06-19] MEDS: FUROSEMIDE 40 MG TAB PO SCH (20:11)
[2017-06-19] MEDS: CALCIUM CARBONATE 500 MG TAB PO SCH (20:12)
[2017-06-20] MEDS: LEVOTHYROXINE 125 MCG TAB PO SCH (05:03)
[2017-06-20 05:11] LABS: HEMOGLOBIN 9.9 g/dL (12.6-16.3); MEAN CELL HEMOGLOBIN 31.9 pg (27.9-34.1); MEAN CELL HEMOGLOBIN CONCENTR. 34.1 g/dL (32.4-36.7); MEAN CELL VOLUME 93.5 fL (81.5-99.8); RED BLOOD CELL COUNT 3.1 10^6/uL (4.18-5.33); RED CELL DISTRIBUTION WIDTH 19.7 % (11.5-15.2)
[2017-06-20 05:33] LABS: ALANINE AMINOTRANSFERASE 47 IU/L (9-52); ALBUMIN 3.3 g/dL (3.5-5.0); ALKALINE PHOSPHATASE 78 IU/L (38-126); ANION GAP 12 mEq/L (8-16); ASPARTATE AMINOTRANSFERASE 22 IU/L (14-46); BILIRUBIN,TOTAL 0.6 mg/dL (0.1-1.4); CALCIUM 8.9 mg/dL (8.5-10.4); CARBON DIOXIDE 28 mEq/l (22-31); CHLORIDE 101 mEq/L (97-110); CREATININE 0.9 mg/dL (0.6-1.0); GLOMERULAR FILTRATION RATE > 60; GLUCOSE 153 mg/dL (70-100); POTASSIUM 3.2 mEq/L (3.5-5.2); SODIUM 141 mEq/L (134-144)
[2017-06-20] MEDS: FUROSEMIDE 20 MG TAB PO SCH (09:35)
[2017-06-20] MEDS: PANTOPRAZOLE SODIUM 40 MG TAB PO SCH (09:36)
[2017-06-20] MEDS: CETIRIZINE 10 MG TAB PO SCH (09:36)
[2017-06-20] MEDS: POTASSIUM CL 20 MEQ TAB PO SCH ×3 (09:36→20:42)
[2017-06-20] MEDS: buPROPion 100 MG TAB PO SCH ×2 (09:36→20:43)
[2017-06-20] MEDS: ASCORBIC ACID 250 MG TAB PO SCH (09:36)
[2017-06-20] MEDS: MULTIVITAMINS 1 EACH TAB PO SCH (09:36)
[2017-06-20] MEDS: METHENAMINE HIPP 1 GM TAB PO SCH ×2 (09:36→20:41)
[2017-06-20] MEDS: ALPRAZolam 0.5 MG TAB PO SCH ×2 (09:36→15:14)
[2017-06-20] MEDS: GLUCOSAMINE/CHONDROITIN CAP PO SCH (09:36)
[2017-06-20] MEDS: LIDOCAINE 5% 1 EA PATCH TD SCH (09:37)
[2017-06-20] MEDS: ENOXAPARIN 40 MG/0.4 ML SYR SC SCH (09:37)
[2017-06-20] MEDS: POLYETHYLENE GLYCOL 3350 17 GM PKT PO SCH ×2 (09:38→15:14)
[2017-06-20] MEDS: ESTRADIOL 42.5 GM CRTUBE VG SCH (09:38)
[2017-06-20] MEDS: ERTAPENEM 1 GM in NS 100 ML IV SCH (09:44)
--- NOTE | 2017-06-20 16:04 | HOSPPROG ---
Hospitalist Progress Note Assessment/Plan: DIAGNOSES: -acute hypoxemic respiratory failure -acute pneumonitis of uncertain etiology, infectious versus leukemia related ( no organisms found on blood cultures, bronchoscopy, respiratory pathogen panel) -pancytopenia with profound neutropenia related to cancer chemotherapy -AML -no sepsis PLANS: Continue current empiric antibiotic - She will complete 7 days of antibiotics for her respiratory illness tomorrow this June 21; anticipate discharge home after that tomorrow Continue occupational and physical therapy SUBJECTIVE: overall feels notably better today no cough shortness of breath or chest discomfort no fever symptoms OBJECTIVE Vitals reviewed: Stable without fever Exam: alert oriented skin warm dry color ok resps not labored lungs clear BSs heart regular abd soft nondistended nontender, bowel sounds present limbs warm, no edema iv site ok laboratory data: stable red cell and platelet counts, stable renal function potassium slightly low 3.2 Chest x-ray, my personal interpretation results: Objective: Vital Signs Temp Pulse Resp BP Pulse Ox 36.8 C 78 16 112/60 95 06/20/17 15:56 06/20/17 15:56 06/20/17 15:56 06/20/17 15:56 06/20/17 15:56 Microbiology 06/14/17 13:40 Blood Culture - Final Blood Laboratory Results 06/20/17 04:58 06/20/17 04:58 06/19/17 06/20/17 06/21/17 06:59 06:59 06:59 Intake Total 2400 1800 500 Output Total 4 5 Balance 2396 1795 500 PT 14.8 SEC (12.0-15.0) 06/14/17 12:13 INR 1.16 (0.83-1.16) 06/14/17 12:13 ICD10 Worksheet Patient Problems: Problems Problem Status Onset Pneumonia Acute AML (acute myeloid leukemia) Acute CHF (congestive heart failure) Acute Cardiomegaly Acute Colitis Acute Hypoxia Acute LBBB (left bundle branch block) Acute Pancytopenia Acute Peripheral edema Acute Sepsis Acute
[2017-06-20] MEDS: FUROSEMIDE 40 MG TAB PO SCH ×2 (20:43→20:51)
[2017-06-20] MEDS: CALCIUM CARBONATE 500 MG TAB PO SCH (20:43)
[2017-06-20] MEDS: NORTRIPTYLINE HCL 50 MG CAP PO SCH (20:44)
[2017-06-20] MEDS: BENEFIBER/NUTRISOURCE FIBER PKT 1 EACH PO SCH (20:45)
[2017-06-20] MEDS: PATCH REMOVAL 1 EA PATCH TD SCH (20:49)
[2017-06-21] MEDS: LEVOTHYROXINE 125 MCG TAB PO SCH (04:42)
[2017-06-21] MEDS ORDERED: PROTOCOL POTASSIUM 1 DOSE MISC PRN (08:44)
[2017-06-21] MEDS ORDERED: PROTOCOL MAGNESIUM 1 DOSE IV PRN (08:44)
[2017-06-21] MEDS: POLYETHYLENE GLYCOL 3350 17 GM PKT PO SCH ×2 (08:44→16:30)
[2017-06-21] MEDS: GLUCOSAMINE/CHONDROITIN CAP PO SCH (08:45)
[2017-06-21] MEDS: POTASSIUM CL 20 MEQ TAB PO SCH ×2 (08:45→11:24)
[2017-06-21] MEDS: PANTOPRAZOLE SODIUM 40 MG TAB PO SCH (08:45)
[2017-06-21] MEDS: buPROPion 100 MG TAB PO SCH (08:46)
[2017-06-21] MEDS: ALPRAZolam 0.5 MG TAB PO SCH ×2 (08:46→14:42)
[2017-06-21] MEDS: CETIRIZINE 10 MG TAB PO SCH (08:46)
[2017-06-21] MEDS: FUROSEMIDE 20 MG TAB PO SCH (08:46)
[2017-06-21] MEDS: MULTIVITAMINS 1 EACH TAB PO SCH (08:47)
[2017-06-21] MEDS: METHENAMINE HIPP 1 GM TAB PO SCH (08:47)
[2017-06-21] MEDS: ASCORBIC ACID 250 MG TAB PO SCH (08:48)
[2017-06-21] MEDS: ENOXAPARIN 40 MG/0.4 ML SYR SC SCH (09:55)
[2017-06-21] MEDS: ERTAPENEM 1 GM in NS 100 ML IV SCH (10:09)
[2017-06-21] MEDS: LIDOCAINE 5% 1 EA PATCH TD SCH (10:10)
[2017-06-21 10:19] LABS: HEMATOCRIT 32.5 % (38.0-47.0); HEMOGLOBIN 10.8 g/dL (12.6-16.3); MEAN CELL HEMOGLOBIN 31.7 pg (27.9-34.1); MEAN CELL HEMOGLOBIN CONCENTR. 33.2 g/dL (32.4-36.7); MEAN CELL VOLUME 95.3 fL (81.5-99.8); RED BLOOD CELL COUNT 3.41 10^6/uL (4.18-5.33)
[2017-06-21 10:45] LABS: MAGNESIUM 2.1 mg/dL (1.6-2.3); POTASSIUM 3.8 mEq/L (3.5-5.2)
[2017-06-21 11:10] VITALS: BP 124/72; PULSE 82; RESP 15; TEMP 98.2; O2SAT 94
--- NOTE | 2017-06-21 12:48 | SOAPPROG ---
SOAP Progress Note Assessment/Plan: Assessment: 1) MDS / AML (on Vidaza) 2) LLL PNA (completing course of Ertapenem) Plan: Patient will complete final dose of Ertapenem today. She will be discharged later today. No indication for transfusion today. I will notify Dr. Jones of her discharge and we will arrange Oncology follow up. Case d/w Dr. Leger. 06/21/17 12:22 06/21/17 12:49 Subjective: Feels well. Will complete Abx today. Wants to go home. Objective: Vital Signs Temp Pulse Resp BP Pulse Ox 36.8 C 82 15 124/72 H 94 06/21/17 11:08 06/21/17 11:08 06/21/17 11:08 06/21/17 11:08 06/21/17 11:08 Laboratory Results 06/21/17 10:10 06/21/17 10:02 06/20/17 06/21/17 06/22/17 05:59 05:59 05:59 Intake Total 1800 1386 500 Output Total 5 Balance 1795 1386 500 PT 14.8 SEC (12.0-15.0) 06/14/17 12:13 INR 1.16 (0.83-1.16) 06/14/17 12:13 - Time Spent With Patient Time Spent With Patient: 15 minutes Physical Exam - Physical Exam General Appearance: alert, no apparent distress EENT: PERRL/EOMI Skin: normal color Neuro/Psych: alert, normal mood/affect ICD10 Worksheet Patient Problems: Problems Problem Status Onset Pneumonia Acute AML (acute myeloid leukemia) Acute CHF (congestive heart failure) Acute Cardiomegaly Acute Colitis Acute Hypoxia Acute LBBB (left bundle branch block) Acute Pancytopenia Acute Peripheral edema Acute Sepsis Acute
--- NOTE | 2017-06-21 15:51 | PDIAF ---
- Diagnosis Code Status: Full Code - Medication Management Discharge Medications: Medications to Continue on Transfer Pantoprazole Sodium [Protonix 40mg (*)] 40 mg PO DAILY 03/15/13 [Last Taken ] Methenamine Fabian [Hiprex 1 gm (*)] 0.5 gm PO BID 04/24/16 [Last Taken 06/13/17] ALPRAZolam [Xanax 0.5 MG (*)] 0.25 mg PO DAILY@14 11/03/16 [Last Taken 06/13/17] Calcium Carbonate [Oyster Shell Calcium 500 mg (*)] 500 mg PO HS 11/03/16 [Last Taken 06/13/17] FEXOFENADINE HCL 90 mg PO BID 11/03/16 [Last Taken 06/14/17] Levothyroxine [Synthroid 125 mcg (*)] 125 mcg PO DAILY06 11/03/16 [Last Taken ] Multivitamins [Multivitamin (*)] 1 each PO DAILY 11/03/16 [Last Taken 06/13/17] Nortriptyline HCl [Pamelor 50 mg (*)] 100 mg PO HS 11/03/16 [Last Taken 06/13/17 ] buPROPion [Wellbutrin 100mg (*)] 100 mg PO BID 11/03/16 [Last Taken 06/14/17] ALPRAZolam [Xanax 0.5 MG (*)] 0.5 mg PO DAILY 02/12/17 [Last Taken 06/14/17] Ondansetron [Zofran Odt] 8 mg PO BID PRN 02/24/17 [Last Taken 06/14/17] Furosemide [Lasix 40 MG (*)] 40 mg PO BID #60 tab 03/04/17 [Last Taken 05/20/17 11:30] Lisinopril 5 mg PO DAILY PRN 03/14/17 [Last Taken 05/20/17 12:00] Ascorbic Acid [Vitamin C] 300 mg PO DAILY 06/14/17 [Last Taken 06/13/17] Estradiol [Estrace] 1 elinor VG EVERY OTHER DAY 06/14/17 [Last Taken Unknown] Furosemide [Lasix 40 MG (*)] 20 mg PO DAILY 06/14/17 [Last Taken Unknown] Glucosam/Chondr/Collagn/Hyalur [Glucosamine & Chondroitin Cap] 1 each PO DAILY 06/14/17 [Last Taken 06/13/17] Guar Gum [Benefiber/Nutrisource Fiber (*)] 1 each PO HS 06/14/17 [Last Taken Unknown] Hydrocodone/Acetaminophen [Hydrocodon-Acetaminophen 5-325] 1 - 2 each PO Q6H PRN 06/14/17 [Last Taken 06/13/17] Methylphenidate HCl [Ritalin 5mg (*)] 5 mg PO TID@08,,06/14/17 [Last Taken 06/14/17] Nitrofurantoin Macrocrystal [Nitrofurantoin] 100 mg PO DAILY PRN 06/14/17 [Last Taken 06/07/17] Polyethylene Glycol 3350 [Miralax 17 gm (*)] 17 gm PO BID@,06/14/17 [Last Taken Unknown] Potassium Chloride 20 meq PO BID 06/14/17 [Last Taken Unknown] Potassium Chloride 40 meq PO DAILY@12 06/14/17 [Last Taken Unknown] Basket Person Antibiotics: none Discharge Medications: Refer to the Discharge Home Medication list for PRN reason. PICC Care - Routine: N/A - Orders Services needed: Registered Nurse, Master Bulk Station Operator, Physical Therapy Home Care Face to Face: done 06/21/2017 Isolation Type: n/a Oxygen: none Diet Recommendation: no restrictions on diet Diet Texture: Regular Texture Diet Tube feeding: n/a [place]: Not applicable Activity/Weight Bearing Restrictions: per PT recommendations - Follow Up Care Current Providers and Referrals: Airam Doan MD [Primary Care Provider] - follow up in 1 week Zheng Jones MD [Medical Doctor] - 1-2 days
[2017-06-22 07:27] LABS: COCCIDIOIDES ANTIBODY SERUM Negative (Negative); COCCIDIOIDES IGG IMMUNODIF Negative (Negative); COCCIDIOIDES IGM IMMUNODIF Negative (Negative)
== END 2017-06-21 14:58 | disposition home health service (06) | DRG 871 ==
LOC: F1N 14:11
PROVIDERS: ADMIT Internal Medicine Pulmonary Disease; ATTEND Internal Medicine
PROC: 30233N1 Transfusion of Nonautologous Red Blood Cells into Peripheral Vein, Percutaneous Approach (ICD-10-PCS; principal; 2017-06-15)
DX: A41.9 Sepsis, unspecified organism (principal); J18.8 Other pneumonia, unspecified organism; C92.00 Acute myeloblastic leukemia, not having achieved remission; I11.0 Hypertensive heart disease with heart failure; I50.32 Chronic diastolic (congestive) heart failure; E03.9 Hypothyroidism, unspecified; I44.7 Left bundle-branch block, unspecified; Z96.652 Presence of left artificial knee joint; Z96.651 Presence of right artificial knee joint
CPT/HCPCS: 86635-90; 86860-90; 86922-90; 87385-90; 87449-90; 87497-90; 96374; 97110-GP; 97116-GP; 97162-GP; 97166-GO; 97530-GP; 97535-GO; G8978-GP-CJ; G8979-GP-CI; G8987-GO-CJ; G8988-GO-CI; G8989-GO-CI; J0171; J0456; J1335; J1650; J1940; J2185; J2250; J2405; J2997; J3010; J3370; P9016; P9040; Q9967

== ENCOUNTER → 2017-07-14 | Outpatient (CLI) | payer OTHER, MEDICARE ==
[~2017-07-14] MED LIST changes: +diphenhydrAMINE 25 MG CAP PO ONE
== END ==
LOC: FOBOP 09:17
PROVIDERS: ATTEND Internal Medicine Hematology & Oncology
PROC: 30233N1 Transfusion of Nonautologous Red Blood Cells into Peripheral Vein, Percutaneous Approach (ICD-10-PCS; principal; 2017-07-14)
DX: D53.9 Nutritional anemia, unspecified (principal); D46.9 Myelodysplastic syndrome, unspecified; C92.90 Myeloid leukemia, unspecified, not having achieved remission; D61.818 Other pancytopenia
CPT/HCPCS: 36430; P9016; P9040

== ENCOUNTER 2017-07-31 13:22 | Inpatient (IN) | payer OTHER, MEDICARE ==
[2017-07-31] MEDS ORDERED: ACETAMINOPHEN 325 MG TAB PO ONE (14:26)
[2017-07-31] MEDS ORDERED: NS 500 ML IV ONE (14:42)
[2017-07-31] MEDS ORDERED: ONDANSETRON 4 MG/2 ML VIAL ONE (14:42)
[2017-07-31] MEDS ORDERED: ONDANSETRON 4 MG/2 ML VIAL IVP ONE (14:42)
--- NOTE | 2017-07-31 14:54 | EDPHY ---
General - History Smoking Status: Never smoked Narrative: CHIEF COMPLAINT: Fever, flu-like symptoms, diarrhea HISTORY OF PRESENT ILLNESS: Patient complains of 1 day history of diarrhea, flu-like symptoms, fever, chills and nausea. 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 She has felt sick for the past 2 days. This has been increasingly worsening. Constant duration. [id number] at 1st. Now moderate to severe. The diarrhea is constant, with 6 episodes in the last 24 hours. Nonbloody. No emesis. No chest pain but she does have a mild cough, runny nose and generalized malaise. She was seen at her oncologist's office today. They do multiple laboratory studies including blood cultures and a flu swab. She was sent to the emergency department due to neutropenic fever. No other associated complaints or modifying factors. REVIEW OF SYSTEMS: Ten systems reviewed and are negative unless otherwise noted in the HPI PAST MEDICAL HISTORY: AML, neutropenic fever, hypertension, right-sided heart failure, left hip osteoarthritis. Medications reviewed PAST SURGICAL HISTORY: Reviewed SOCIAL HISTORY: Nonsmoker. [place] her spouse FAMILY HISTORY: Noncontributory EXAMINATION General Appearance: Alert, no distress, frail Head: normocephalic, atraumatic Eyes: Pupils equal and round, no conjunctival pallor or injection ENT, Mouth: Mucous membranes moist. Mild erythema. No edema. Uvula is midline. Airway is widely patent Neck: Normal inspection, supple, non-tender Respiratory: Mild rhonchi. No wheezing, crackles, diminishment or consolidation. Cardiovascular: Tachycardic rate. Regular rhythm. Gastrointestinal: Abdomen is soft and nontender. No distention. No tympany. No rigidity. Back: non-tender, no bony abnormalities Neurological: GCS 15. A&O, nonfocal, normal gait Skin: Warm and dry, no rash no petechiae or purpura Extremities: Nontender, no pedal edema Psychiatric: Mood and affect normal DIFFERENTIAL DIAGNOSES: Including but not limited to neutropenic fever, pneumonia, sepsis, C difficile colitis, influenza she is, respiratory infection, upper respiratory infection MDM: 2:20 p.m. ML patient with neutropenic fever. She is awake and alert. She is not hypotensive. She is tachycardic and febrile. She had blood cultures x2, CBC, CMP, influenza swabs obtained at [facility]. She has not yet had a lactic acid, chest x-ray, urinalysis or GI pathogen panel. I have ordered these. She does meet SIRS criteria. She is in no acute distress. 2:30 p.m. I discussed the case with the nurse practitioner at [facility], Heidi. She informed me that she did not formally evaluate the patient and that I should contact Dr. Desai for further care. Dr. Desai has been paged. 3:05 p.m. We have elected to start the patient on ertapenem as we await discussion with Oncology. 3:15 p.m. Case discussed with Dr. Desai. He recommends meropenem. He will provide consultation. Proceed with admission to the hospital. Chest x-ray is clear without pneumonia. Lactic acid normal. I did review her laboratory studies from this morning. There is no leukocytosis. She does have neutropenia with fever. She has urinalysis that is not been performed. She has a gastro pathogen panel that not been performed. 3:30 p.m. Case discussed with hospitalist Dr. Levine. Patient has been admitted to her and stable condition to [facility] bed. 4:30 p.m. Patient is admitted and already in her inpatient bed. Flu test has returned as negative. Hospitalist will follow up on the urinalysis and gastro pathogen panel. (Stephen West) Medical Decision Making: I have discussed this patient with Rafat torres and with Oncology. This patient is meeting criteria for neutropenic fever and sepsis. Laboratory studies are pending. Flu swab in GI probes are pending also. We will empirically treat her with ertapenem. Cultures have been drawn from her PICC line. Patient is remaining hemodynamically stable. She will be admitted to the hospitalists with Oncology consult (Alfosno Pérez) - Diagnostics Imaging Results: Imaging Impressions Chest X-Ray 07/31/17 14:17 Impression: Clear lungs. No pneumonia. - Objective Vital Signs: Initial Vital Signs Temperature (C) 101.3 F H 07/31/17 13:45 Heart Rate 107 H 07/31/17 13:45 Respiratory Rate 14 07/31/17 13:45 Blood Pressure 98/65 L 07/31/17 13:45 O2 Sat (%) 92 07/31/17 13:45 O2 Delivery Mode Room Air Allergies/Adverse Reactions: cefuroxime [Cefuroxime] Allergy (Severe, Verified 06/14/17 13:43) SYNCOPE Cephalosporins Allergy (Severe, Verified 06/14/17 13:43) THROAT SWELLING fructooligosaccharides (FOS) [From Probiotic & Acidophilus] Allergy (Severe, Verified 06/14/17 13:43) LIPS SWELL, CRACK, REDDENED AREA BURNING FEELING Lactobacillus Combo No.3 [From Probiotic & Acidophilus] Allergy (Severe, Verified 06/14/17 13:43) LIPS SWELL, CRACK, REDDENED AREA BURNING FEELING Pantethine [From Probiotic & Acidophilus] Allergy (Severe, Verified 06/14/17 13: 43) LIPS SWELL, CRACK, REDDENED AREA BURNING FEELING Sulfa (Sulfonamide Antibiotics) Allergy (Severe, Verified 06/14/17 13:43) THROAT SWELLING, ANAPHYLACTIC ciprofloxacin Allergy (Unknown, Verified 07/14/17 09:49) CRUSHING CHANG, SYNCOPE levofloxacin Allergy (Unknown, Verified 07/14/17 09:49) THROAT SWELLING fructooligosaccharides Allergy (Unknown, Uncoded 06/26/17 15:30) fructooligosaccharides (FOS) Allergy (Unknown, Uncoded 06/22/17 08:07) LIPS SWELL, CRACK, REDDENED AREA BURNING FEELING Lactobacillus Combo No.3 Allergy (Unknown, Uncoded 06/22/17 08:07) LIPS SWELL, CRACK, REDDENED AREA BURNING FEELING Pantethine Allergy (Unknown, Uncoded 06/22/17 08:07) LIPS SWELL, CRACK, REDDENED AREA BURNING FEELING Home Medications: Medication Instructions Recorded Pantoprazole Sodium [Protonix 40mg 40 mg PO DAILY 03/15/13 (*)] Methenamine Fabian [Hiprex 1 gm (*)] 0.5 gm PO BID 04/24/16 Calcium Carbonate [Oyster Shell 500 mg PO HS 11/03/16 Calcium 500 mg (*)] FEXOFENADINE HCL 90 mg PO BID 11/03/16 Multivitamins [Multivitamin (*)] 1 each PO DAILY 11/03/16 Nortriptyline HCl [Pamelor 50 mg 100 mg PO HS 11/03/16 (*)] buPROPion [Wellbutrin 100mg (*)] 100 mg PO BID 11/03/16 Ondansetron [Zofran Odt] 8 mg PO BID PRN 02/24/17 Lisinopril 5 mg PO DAILY PRN 03/14/17 Estradiol [Estrace] 1 elinor VG Q2D 06/14/17 Glucosam/Chondr/Collagn/Hyalur 1 each PO DAILY 06/14/17 [Glucosamine & Chondroitin Cap] Guar Gum [Benefiber/Nutrisource 5 each PO HS 06/14/17 Fiber (*)] Methylphenidate HCl [Ritalin 5mg 5 mg PO DAILY@06/14/17 (*)] Nitrofurantoin Macrocrystal 100 mg PO DAILY PRN 06/14/17 [Nitrofurantoin] Polyethylene Glycol 3350 [Miralax 17 gm PO BID@,06/14/17 17 gm (*)] Potassium Chloride 20 meq PO BID@,06/14/17 Potassium Chloride 40 meq PO DAILY@06/14/17 Docusate Sodium [Colace 100 MG (*)] 100 mg PO DAILY PRN 07/31/17 Furosemide [Lasix 20 MG (*)] 20 mg PO DAILY@07/31/17 Furosemide [Lasix 40 MG (*)] 40 mg PO BID@08,07/31/17 Herbals/Supplements -Info Only 1 ea PO DAILY 07/31/17 Hydrocodone/Acetaminophen [[place] 1.5 each PO BID 07/31/17 5/325 (*)] Hydrocodone/Acetaminophen [[place] 2 tab PO DAILY@07/31/17 5/325 (*)] Levothyroxine [Synthroid 137 mcg 137 mcg PO DAILY06 07/31/17 (*)] Sorafenib Tosylate [Nexavar] 400 mg PO BID 07/31/17 methYLPHENIDATE HCL [Ritalin 10mg 10 mg PO DAILY@07/31/17 (*)] Laboratory Results: 07/31/17 07/31/17 14:35 14:35 PT 15.3 SEC H SEC (12.0-15.0) INR 1.21 H (0.83-1.16) APTT 34.1 SEC SEC (23.0-38.0) VBG Lactic Acid 1.0 mmol/L mmol/L (0.7-2.1) Medications Given: Discontinued Medications Acetaminophen (Tylenol) 650 mg PO EDNOW ONE Stop: 07/31/17 14:27 Last Admin: 07/31/17 14:45 Dose: 650 mg Sodium Chloride (Ns) 500 mls @ 0 mls/hr IV EDNOW ONE; Wide Open PRN Reason: Protocol Stop: 07/31/17 14:43 Last Admin: 07/31/17 14:45 Dose: 500 mls Ertapenem 1 gm/ Sodium (Chloride) 100 mls @ 200 mls/hr IV EDNOW ONE PRN Reason: Protocol Stop: 07/31/17 15:34 Last Admin: 07/31/17 15:41 Dose: Not Given Meropenem 1 gm/ Sodium (Chloride) 120 mls @ 120 mls/hr IV EDNOW ONE PRN Reason: Protocol Stop: 07/31/17 16:09 Last Admin: 07/31/17 15:37 Dose: 120 mls Ondansetron HCl (Zofran) 4 mg IVP EDNOW ONE Stop: 07/31/17 14:43 Last Admin: 07/31/17 14:45 Dose: 4 mg Departure - Departure Disposition: [facility] Inpatient Acute Clinical Impression: Neutropenic fever Condition: Good
[2017-07-31 14:58] LABS: APTT 34.1 SEC (23.0-38.0)
[2017-07-31] MEDS ORDERED: ERTAPENEM 1 GM in NS 100 ML IV ONE (15:05)
[2017-07-31] MEDS ORDERED: MEROPENEM 1 GM in NS 100 ML IV ONE (15:10)
[2017-07-31 15:20] LABS: INR 1.21 (0.83-1.16); PROTIME(PATIENT) 15.3 SEC (12.0-15.0)
[2017-07-31] MEDS ORDERED: ACETAMINOPHEN 325 MG TAB PO PRN (16:18)
[2017-07-31] MEDS ORDERED: ONDANSETRON 4 MG/2 ML VIAL IVP PRN (16:18)
[2017-07-31] MEDS ORDERED: ONDANSETRON DISINTEGRATING 4 MG TAB PO PRN (16:18)
[2017-07-31] MEDS ORDERED: HYDROmorphONE/DILAUDID 1 MG/ML INJ IVP PRN (16:18)
[2017-07-31] MEDS ORDERED: PROMETHAZINE HCL 25 MG/ML INJ IVP PRN (16:18)
[2017-07-31] MEDS ORDERED: oxyCODONE IR 5 MG TAB PO PRN (16:18)
[2017-07-31] MEDS ORDERED: NON-FORMULARY NEW DRUG (Ondansetron [Zofran Odt] 8 MG) PO PRN (16:20)
[2017-07-31] MEDS ORDERED: LISINOPRIL 5 MG TAB PO PRN (16:20)
[2017-07-31] MEDS ORDERED: DOCUSATE SODIUM 100 MG CAP PO PRN (16:20)
[2017-07-31] MEDS ORDERED: NS 1,000 ML IV SCH (16:30)
[2017-07-31] MEDS ORDERED: NITROFURANTOIN 50 MG CAP PO PRN (16:45)
--- NOTE | 2017-07-31 17:59 | PDGENHP ---
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 She was initially treated with Aranesp and her disease was refractory to this. Last BM biopsy showed 16% blasts. She has another BM biopsy scheduled for next Thursday. She most recently completed her last cycle of Azacytidine and was started on Sorafenib by [facility] oncologist. This is known to cause diarrhea and when her diarrhea started 2 days ago, she began taking Immodium. Denies hematochezia or melanotic stools. She denies associated abdominal pain or vomiting. She does suffer from nausea. She noted a low grade fever this morning and presented to the ED where her temp was 100.5. She endorses nasal congestion and rhinorrhea, but no cough, chest pain or SOB. She had a negative flu swab at [facility]. Her last use of antibiotics was 6 weeks ago, at which time she was treated for 7 days. Prior to that, she was admitted for neutropenic enterocolitis and received a prolonged course of Ertapenem. Upon my evaluation, her vital signs are stable and she appears relatively non- toxic. She is admitted for further evaluation and management of neutropenic fever. History Information - Allergies/Home Medication List Allergies/Adverse Reactions: cefuroxime [Cefuroxime] Allergy (Severe, Verified 06/14/17 13:43) SYNCOPE Cephalosporins Allergy (Severe, Verified 06/14/17 13:43) THROAT SWELLING fructooligosaccharides (FOS) [From Probiotic & Acidophilus] Allergy (Severe, Verified 06/14/17 13:43) LIPS SWELL, CRACK, REDDENED AREA BURNING FEELING Lactobacillus Combo No.3 [From Probiotic & Acidophilus] Allergy (Severe, Verified 06/14/17 13:43) LIPS SWELL, CRACK, REDDENED AREA BURNING FEELING Pantethine [From Probiotic & Acidophilus] Allergy (Severe, Verified 06/14/17 13: 43) LIPS SWELL, CRACK, REDDENED AREA BURNING FEELING Sulfa (Sulfonamide Antibiotics) Allergy (Severe, Verified 06/14/17 13:43) THROAT SWELLING, ANAPHYLACTIC ciprofloxacin Allergy (Unknown, Verified 07/14/17 09:49) CRUSHING CHANG, SYNCOPE levofloxacin Allergy (Unknown, Verified 07/14/17 09:49) THROAT SWELLING fructooligosaccharides Allergy (Unknown, Uncoded 06/26/17 15:30) fructooligosaccharides (FOS) Allergy (Unknown, Uncoded 06/22/17 08:07) LIPS SWELL, CRACK, REDDENED AREA BURNING FEELING Lactobacillus Combo No.3 Allergy (Unknown, Uncoded 06/22/17 08:07) LIPS SWELL, CRACK, REDDENED AREA BURNING FEELING Pantethine Allergy (Unknown, Uncoded 06/22/17 08:07) LIPS SWELL, CRACK, REDDENED AREA BURNING FEELING Home Medications: Pantoprazole Sodium [Protonix 40mg (*)] 40 mg PO DAILY 03/15/13 [Last Taken ] Methenamine Fabian [Hiprex 1 gm (*)] 0.5 gm PO BID 04/24/16 [Last Taken 4 Days Ago ~07/27/17] Calcium Carbonate [Oyster Shell Calcium 500 mg (*)] 500 mg PO HS 11/03/16 [Last Taken 06/13/17] FEXOFENADINE HCL 90 mg PO BID 11/03/16 [Last Taken 07/29/17] Multivitamins [Multivitamin (*)] 1 each PO DAILY 11/03/16 [Last Taken 07/29/17] Nortriptyline HCl [Pamelor 50 mg (*)] 100 mg PO HS 11/03/16 [Last Taken 07/29/17 ] buPROPion [Wellbutrin 100mg (*)] 100 mg PO BID 11/03/16 [Last Taken 07/31/17] Ondansetron [Zofran Odt] 8 mg PO BID PRN 02/24/17 [Last Taken 07/31/17] Lisinopril 5 mg PO DAILY PRN 03/14/17 [Last Taken 07/30/17] Estradiol [Estrace] 1 elinor VG Q2D 06/14/17 [Last Taken 07/29/17] Glucosam/Chondr/Collagn/Hyalur [Glucosamine & Chondroitin Cap] 1 each PO DAILY 06/14/17 [Last Taken 07/29/17] Guar Gum [Benefiber/Nutrisource Fiber (*)] 5 each PO HS 06/14/17 [Last Taken ] Methylphenidate HCl [Ritalin 5mg (*)] 5 mg PO DAILY@13 30/17 [Last Taken ] Nitrofurantoin Macrocrystal [Nitrofurantoin] 100 mg PO DAILY PRN 06/14/17 [Last Taken 06/07/17] Polyethylene Glycol 3350 [Miralax 17 gm (*)] 17 gm PO BID@06/14/17 [Last Taken Unknown] Potassium Chloride 20 meq PO BID@,06/14/17 [Last Taken 07/29/17 17:00] Potassium Chloride 40 meq PO DAILY@06/14/17 [Last Taken 07/29/17] Docusate Sodium [Colace 100 MG (*)] 100 mg PO DAILY PRN 07/31/17 [Last Taken Unknown] Furosemide [Lasix 20 MG (*)] 20 mg PO DAILY@07/31/17 [Last Taken 07/29/17] Furosemide [Lasix 40 MG (*)] 40 mg PO BID@,07/31/17 [Last Taken 07/30/17 08 :00] Herbals/Supplements -Info Only 1 ea PO DAILY 07/31/17 [Last Taken Unknown] Hydrocodone/Acetaminophen [[place] 5/325 (*)] 1.5 each PO BID 07/31/17 [Last Taken 07/30/17 21:00] Hydrocodone/Acetaminophen [[place] 5/325 (*)] 2 tab PO DAILY@07/31/17 [Last Taken 07/30/17] Levothyroxine [Synthroid 137 mcg (*)] 137 mcg PO DAILY06 07/31/17 [Last Taken 125mcg] Sorafenib Tosylate [Nexavar] 400 mg PO BID 07/31/17 [Last Taken 07/30/17 21:00] methYLPHENIDATE HCL [Ritalin 10mg (*)] 10 mg PO DAILY@07/31/17 [Last Taken ] I have personally reviewed and updated: family history, medical history, social history, surgical history - Past Medical History Additional medical history: 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 pulmonary hypertension. macrocytic anemia. pancytopenia 2/2 chemo. hypothyroidism. diastolic CHF (negative lexiscan 10/2016). ADD. h/o ischemic colitis. h/o neutropenic enterocolitis. hypothyroidism. LBBB. hip arthritis - Surgical History Additional surgical history: lumpectomy. cholecystectomy. R hip replacement. L TKA. bowel resection for an episode of ischemic bowel. appendectomy - Family History Positive for: non-pertinent - Social History Smoking Status: Never smoked Alcohol Use: None Drug Use: None Additional social history: Patient lives with her , requires 2 canes for ambulation Review of Systems Review of Systems: ROS: 10pt was reviewed & negative except for what was stated in HPI & below Physical Exam Physical Exam: Temp Pulse Resp BP Pulse Ox 38.5 C H 88 20 119/64 97 07/31/17 13:45 07/31/17 15:51 07/31/17 15:51 07/31/17 15:51 07/31/17 15:51 Constitutional: no apparent distress Eyes: PERRL Ears, Nose, Mouth, Throat: moist mucous membranes Cardiovascular: regular rate and rhythym, no murmur, rub, or gallop Respiratory: no respiratory distress, clear to auscultation Gastrointestinal: normoactive bowel sounds, soft, non-tender abdomen Skin: warm Musculoskeletal: full muscle strength Neurologic: AAOx3 Psychiatric: interacting appropriately Lab Data & Imaging Review PT 15.3 SEC (12.0-15.0) H 07/31/17 14:35 INR 1.21 (0.83-1.16) H 07/31/17 14:35 APTT 34.1 SEC (23.0-38.0) 07/31/17 14:35 VBG Lactic Acid 1.0 mmol/L (0.7-2.1) 07/31/17 14:35 Chest X-Ray results: no infiltrate Visualized and Interpreted imaging results: Yes Assessment & Plan Assessment: Neutropenic fever (Acute) - ANC 648. She meets 2/4 SIRS criteria for sepsis with fever and tachycardia. Considered C diff with diarrhea, though this may be secondary to chemo and her abdomen is non-tender. Also consider PICC line infection. CXR neg. UA pending. -GI pathogen panel pending, start po vanc if positive for C diff -Cont Meropenem for now -Consider addition of Vanco if condition worsens -Follow BC[facility]'s MDS --> AML - followed by Dr. Jones. Oncology has consulted. -holding Sorafenib for now -repeat BM biopsy at [facility] Thursday Pancytopenia - hgb 8.6 from 10. Plts 35K without e/o bleeding. -no transfusion needs at this time, monitor closely Hyponatremia - mild, suspect hypovolemic -NS and recheck in am Hypokalemia - replace, recheck Hypothyroidism - cont synthroid Chronic pain due to hip arthritis - cont outpt pain regimen Full code Dispo - inpt, expect will require >48 hrs hospitalization for management of neutropenic fever, diarrhea, and AML
[2017-07-31] MEDS ORDERED: POTASSIUM CL 20 MEQ TAB PO ONE (18:19)
--- NOTE | 2017-07-31 19:31 | GCON ---
[f rep st] CONSULTATION PRIMARY ONCOLOGIST: Dr. Zheng Jones. REASON FOR CONSULTATION: Evaluation management for acute myelogenous leukemia. HISTORY OF PRESENT ILLNESS: Patient was diagnosed in September 2016 with refractory anemia, initially treated with Aranesp. 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 She has been on 5 days of cytidine and received her 5th cycle first week of July. She was admitted to [facility] about 6 weeks ago with pneumonia. She was referred to Dr. Phillips at the [facility], who started her on sorafenib. The hope is to try to get her leukemia in remission and have her qualify for transplant if possible. 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 Her last marrow does show FLT 3, 2 to ET2, RUNX1 and FF3B1 mutations. She has had some loose stools associated with the sorafenib since starting which she has been on for about a month. Generally, it is controlled with Imodium. Over the last 3 days or so she has been helton ving more diarrhea and then she has had associated chills last 2 days along with nausea but no vomiti ng. She has been in the office a couple times, received fluids. She denied any associated fevers un til this morning. Diarrhea is not controlled with Imodium, but she denies any abdominal pain or cram ping. She has chronic left hip pain, but no other sites of pain. Since she was neutropenic and had a fever, she was admitted to the hospital. ALLERGIES: She is allergic to cephalosporins, Levaquin, and sulfa. HOME MEDICATIONS: Brad at 4 mg twice daily. Docusate, herbs, Lasix, fexofenadine, estradiol, anay cium, [place], [place], glucosamine, furosemide, levothyroxine, [place], Ritalin, pantoprazole, multivitami n, methylphenidate, methenamine, lisinopril, potassium, MiraLAX, ondansetron, nortriptyline, nitrofur antoin and bupropion. CHRONIC ILLNESSES: 1. Include right congestive heart failure but no myocardial infarction. She also has left bundle br anch block. 2. Hypothyroidism. 3. Gastroesophageal reflux disease. 4. Previous ischemic colitis status post colectomy 10 years ago. 5. Osteoporosis. 6. Right lower extremity DVT after hip replacement. SURGICAL HISTORY: 1. Includes right hip replacement. 2. Left total knee replacement. 3. The partial bowel obstruction. 4. x2. 5. Hysterectomy without salpingo-oophorectomy. 6. Cholecystectomy. 7. Previous lumpectomy with Dr. Molina. No cancer. FAMILY HISTORY: Mother from lung cancer. Father from liver cancer. Two children in good health. SOCIAL HISTORY: She is . Denies tobacco or alcohol use. REVIEW OF SYSTEMS: 10-point review of systems performed. Pertinent positives HPI, otherwise negativ e. PHYSICAL EXAM: VITAL SIGNS: Temperature in the office was 100.7, pulse was 102, blood pressure is 1 74. T-max in the ER was 38.5. Current pulse is 88, blood pressure is 119/64. GENERAL: She is an elderly, chronically ill-appearing woman but in no distress. HEENT: Sclerae nonicteric. Oral mucos a is unremarkable. LUNGS: Clear. CARDIAC: Regular with a soft systolic murmur. ABDOMEN: Soft, no ntender. Bowel sounds are mildly hyperactive. EXTREMITIES: No edema. No petechiae. NEURO: Grossl y intact. LABS: White count the office was 1700 with an ANC of 700, hemoglobin is 8.6, platelet count was 37,0 00. Chemistries: BUN and creatinine 16/1.1. Sodium is down to 131 from 137, potassium is 3.1, bili joshi is up to 2.4. IMPRESSION: 1. Febrile neutropenia. 2. Acute myelogenous leukemia on 5 azacitidine, day 10 of cycle 5 and sorafenib. 3. Pancytopenia. Most likely the diarrhea is coming from the Brad although there does appear to be in acute exacerb ation. I have recommended holding Brad until her disease is under control. I also recommend hold ing Imodium until a C diff can be checked. I would not treat prophylactically for C diff, but defini tely treat it if she is positive. I spoke to the ER doctor and we discussed starting her on meropene m for a febrile neutropenia after cultures are drawn and to hydrate her gently. There is no acute in dication for transfusions today, but will continue to monitor her and transfuse as clinically indicat ed. White count is not too low, so we can watch but if she continues to drop, she might benefit from growth factor replacement. We will follow along with you while she is in the hospital. /[id number]/MODL
[2017-07-31] MEDS: NS W/ 20 KCl/L 1,000 ML IV SCH (20:26)
[2017-07-31] MEDS: SORAFENIB TOSYLATE 400 MG PO SCH (20:28)
[2017-07-31] MEDS: BENEFIBER/NUTRISOURCE FIBER PKT 1 EACH PO SCH (21:45)
[2017-07-31] MEDS: buPROPion 100 MG TAB PO SCH (21:48)
[2017-07-31] MEDS: HYDROCODONE/APAP 5/325 TAB PO SCH (21:49)
[2017-07-31] MEDS: CALCIUM CARBONATE 500 MG TAB PO SCH (21:51)
[2017-07-31] MEDS: METHENAMINE HIPP 1 GM TAB PO SCH (21:52)
[2017-07-31] MEDS: NORTRIPTYLINE HCL 50 MG CAP PO SCH (21:56)
[2017-07-31 23:00] LABS: COLOR YELLOW; LEUKOCYTE ESTERASE,URINE TRACE (NEGATIVE); NITRITE,URINE NEGATIVE (NEGATIVE)
[2017-07-31 23:11] LABS: MUCUS TRACE /lpf (NONE-1+); WBC,URINE 15-25 /hpf (0-3)
[2017-08-01] MEDS: NS W/ 20 KCl/L 1,000 ML IV SCH ×2 (03:44→14:48)
[2017-08-01] MEDS: MEROPENEM 1 GM in NS 100 ML IV SCH ×2 (03:45→14:48)
[2017-08-01 04:01] LABS: % IMMATURE GRANULYOCYTES 0.6 % (0.0-1.1); ABSOLUTE IMMATURE GRANULOCYTES 0.01 10^3/uL (0.00-0.10); ADD DIFF? NO; ADD MORPH? YES; ADD SCAN? NO; ATYPICAL LYMPHOCYTE FLAG 0 (0-99); FRAGMENT RBC FLAG 0 (0-99); HEMATOCRIT 18.8 % (38.0-47.0); LEFT SHIFT FLG 10 (0-99); LIPEMIA HEMOLYSIS FLAG 80 (0-99); MEAN CELL HEMOGLOBIN 31.6 pg (27.9-34.1); MEAN CELL VOLUME 95.9 fL (81.5-99.8); MEAN PLATELET VOLUME 11.8 fL (8.7-11.7); PLATELET CLUMPS FLAG 10 (0-99); RED BLOOD CELL COUNT 1.96 10^6/uL (4.18-5.33)
[2017-08-01 04:03] LABS: HEMOGLOBIN 6.2 g/dL (12.6-16.3); RED CELL DISTRIBUTION WIDTH 20.3 % (11.5-15.2)
[2017-08-01 04:05] LABS: PLATELET COUNT 26 10^3/uL (150-400)
[2017-08-01 04:35] LABS: ECHINOCYTES 1+
[2017-08-01 04:36] LABS: ELLIPTOCYTES 1+; PLATELET ESTIMATE DECREASED (ADEQ)
[2017-08-01 05:05] LABS: ALANINE AMINOTRANSFERASE 42 IU/L (9-52); ALBUMIN 2.6 g/dL (3.5-5.0); ALKALINE PHOSPHATASE 61 IU/L (38-126); ANION GAP 4 mEq/L (8-16); ASPARTATE AMINOTRANSFERASE 25 IU/L (14-46); BILIRUBIN,TOTAL 0.7 mg/dL (0.1-1.4); CALCIUM 7.8 mg/dL (8.5-10.4); CARBON DIOXIDE 29 mEq/l (22-31); CHLORIDE 103 mEq/L (97-110); CREATININE 0.8 mg/dL (0.6-1.0); GLOMERULAR FILTRATION RATE > 60; GLUCOSE 102 mg/dL (70-100); POTASSIUM 3.5 mEq/L (3.5-5.2); SODIUM 136 mEq/L (134-144); TOTAL PROTEIN 4.9 g/dL (6.3-8.2)
[2017-08-01] MEDS: LEVOTHYROXINE 137 MCG TAB PO SCH (06:03)
--- NOTE | 2017-08-01 07:01 | SOAPPROG ---
SOAP Progress Note Assessment/Plan: Assessment/Plan: 76 yo woman w AML originating from MDS most recently on azacitidine and sorafenib who p/w diarrhea/weakness and low grade fever 1. Fevers - resolved cultures pending on broad spectrum abx 2. Diarrhea - C.diff pending but feel likely from sorafenib which has been held already improved overnight 3. Pancytopenia - likely from underlying dz + therapy last aza given about 7 days ago will tx 2units PRBCs today - leukoreduced, irradiated, CMV negative will not start growth factor today from low ANC 4. AML - pending transplant eval at [facility] repeat BMBx this next week 08/01/17 06:54 08/01/17 06:56 08/01/17 06:56 Subjective: No acute events had formed stool overnight denies new issues Objective: Vital Signs Temp Pulse Resp BP Pulse Ox 36.6 C 80 16 106/60 91 L 08/01/17 03:54 08/01/17 03:54 08/01/17 03:54 08/01/17 03:54 08/01/17 03:54 Laboratory Results 08/01/17 03:40 08/01/17 03:40 07/31/17 08/01/17 08/02/17 05:59 05:59 05:59 Intake Total 1221 Balance 1221 PT 15.3 SEC (12.0-15.0) H 07/31/17 14:35 INR 1.21 (0.83-1.16) H 07/31/17 14:35 Gen - elderly woman, NAD HEENT - anicteric, O/p clear CV - RRR w systolc murmur Chest - clear anterorly Abd - soft, NT, BS+, full bladder Ext - mild bilateral edema ICD10 Worksheet Patient Problems: Problems Problem Status Onset Neutropenic fever Acute AML (acute myeloid leukemia) Acute CHF (congestive heart failure) Acute Cardiomegaly Acute Colitis Acute Hypoxia Acute LBBB (left bundle branch block) Acute Pancytopenia Acute Peripheral edema Acute Pneumonia Acute Sepsis Acute
[2017-08-01] MEDS: HYDROCODONE/APAP 5/325 TAB PO SCH ×3 (08:04→20:04)
[2017-08-01] MEDS: METHENAMINE HIPP 1 GM TAB PO SCH ×2 (08:06→20:03)
[2017-08-01] MEDS: GLUCOSAMINE/CHONDROITIN CAP PO SCH (08:07)
[2017-08-01] MEDS: buPROPion 100 MG TAB PO SCH ×2 (08:08→20:00)
[2017-08-01] MEDS: PANTOPRAZOLE SODIUM 40 MG TAB PO SCH (08:08)
[2017-08-01] MEDS: MULTIVITAMINS 1 EACH TAB PO SCH (08:09)
[2017-08-01] MEDS: CETIRIZINE 10 MG TAB PO SCH (08:09)
[2017-08-01] MEDS: ENOXAPARIN 40 MG/0.4 ML SYR SC SCH (08:10)
[2017-08-01] MEDS: POLYETHYLENE GLYCOL 3350 17 GM PKT PO SCH ×2 (09:01→12:48)
[2017-08-01] MEDS: SORAFENIB TOSYLATE 400 MG PO SCH ×2 (09:02→19:53)
--- NOTE | 2017-08-01 16:31 | HOSPPROG ---
Hospitalist Progress Note Assessment/Plan: Neutropenic fever (Acute) - ANC 648. Sepsis physiology resolved. Suspect diarrhea and fever secondary to chemo. GI pathogen panel negative. CXR neg. UA pending. -Cont Meropenem for now, consider d/c'ing if BCx's remain neg x48 hrs -Consider addition of Vanco if condition worsens given presence of PICC Diarrhea - resolved since stopping Sorafenib. -Cont IVF's -prn immodium ok with neg GI path panel MDS --> AML - followed by Dr. Jones. Oncology has consulted. -holding Sorafenib for now -repeat BM biopsy at [place] Thursday Pancytopenia - hgb 6.2 from 10. Plts 35K without e/o bleeding. -2 units prbc's transfused today, follow Hyponatremia - resolved with IVF's Hypokalemia - replace, recheck Hypothyroidism - cont synthroid Chronic pain due to hip arthritis - cont outpt pain regimen Full code Dispo - inpt, expect will require >48 hrs hospitalization for management of neutropenic fever, diarrhea, and AML Subjective: Pt feels much better. No more diarrhea since admission (sorafenib held). No fevers. Eating well. Objective: Vital Signs Temp Pulse Resp BP Pulse Ox 36.9 C 77 15 102/52 L 93 08/01/17 15:27 08/01/17 15:27 08/01/17 15:27 08/01/17 15:27 08/01/17 15:27 Microbiology 07/31/17 22:30 Gastrointestinal Tract Panel (PCR) - Final Stool No Organism Detected Laboratory Results 08/01/17 03:40 08/01/17 03:40 07/31/17 08/01/17 08/02/17 05:59 05:59 05:59 Intake Total 1221 Output Total 400 Balance 1221 -400 PT 15.3 SEC (12.0-15.0) H 07/31/17 14:35 INR 1.21 (0.83-1.16) H 07/31/17 14:35 - Physical Exam Constitutional: no apparent distress Eyes: PERRL Ears, Nose, Mouth, Throat: moist mucous membranes Cardiovascular: regular rate and rhythym Respiratory: no respiratory distress Gastrointestinal: normoactive bowel sounds, soft, non-tender abdomen Skin: warm Musculoskeletal: full muscle strength Neurologic: AAOx3 Psychiatric: interacting appropriately ICD10 Worksheet Patient Problems: Problems Problem Status Onset Neutropenic fever Acute AML (acute myeloid leukemia) Acute CHF (congestive heart failure) Acute Cardiomegaly Acute Colitis Acute Hypoxia Acute LBBB (left bundle branch block) Acute Pancytopenia Acute Peripheral edema Acute Pneumonia Acute Sepsis Acute
--- NOTE | 2017-08-01 18:09 | ASMTCMCOM ---
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 Pt is current with [facility] and [facility] for palliative. Pt currently goes to [facility] for fluids with anti-nausea meds. Discussed with LARS Alexander the possibility of pt getting IV fluids in the home through [facility]. Benjamin thinks it might be hard to do IV fludis PRM. LM with [facility] for them to consider. C/M will continue to follow. Date Signed: 08/01/2017 06:08 PM Electronically Signed By:Gabriela Madera LCSW
[2017-08-01] MEDS: BENEFIBER/NUTRISOURCE FIBER PKT 1 EACH PO SCH (20:01)
[2017-08-01] MEDS: NORTRIPTYLINE HCL 50 MG CAP PO SCH (20:02)
[2017-08-01] MEDS: CALCIUM CARBONATE 500 MG TAB PO SCH (20:03)
[2017-08-02] MEDS: NS W/ 20 KCl/L 1,000 ML IV SCH ×2 (02:01→11:41)
[2017-08-02] MEDS: MEROPENEM 1 GM in NS 100 ML IV SCH (03:41)
[2017-08-02 04:21] LABS: ADD DIFF? NO; ADD MORPH? NO; ADD SCAN? YES; ATYPICAL LYMPHOCYTE FLAG 0 (0-99); FRAGMENT RBC FLAG 0 (0-99); HEMATOCRIT 23.1 % (38.0-47.0); HEMOGLOBIN 7.8 g/dL (12.6-16.3); LEFT SHIFT FLG 0 (0-99); LIPEMIA HEMOLYSIS FLAG 90 (0-99); MEAN CELL HEMOGLOBIN 31.3 pg (27.9-34.1); MEAN CELL HEMOGLOBIN CONCENTR. 33.8 g/dL (32.4-36.7); MEAN CELL VOLUME 92.8 fL (81.5-99.8); MEAN PLATELET VOLUME 11.9 fL (8.7-11.7); PLATELET CLUMPS FLAG 0 (0-99); RED BLOOD CELL COUNT 2.49 10^6/uL (4.18-5.33); RED CELL DISTRIBUTION WIDTH 18.3 % (11.5-15.2)
[2017-08-02 04:42] LABS: PLATELET COUNT 28 10^3/uL (150-400)
[2017-08-02] MEDS: LEVOTHYROXINE 137 MCG TAB PO SCH (05:41)
[2017-08-02 07:07] LABS: SCAN POSITIVE
[2017-08-02 07:18] LABS: PLATELET ESTIMATE DECREASED (ADEQ)
[2017-08-02 07:42] LABS: ACANTHOCYTES 1+
[2017-08-02] MEDS ORDERED: ESTRADIOL 42.5 GM CRTUBE VG SCH (09:00)
[2017-08-02] MEDS: ENOXAPARIN 40 MG/0.4 ML SYR SC SCH (10:32)
[2017-08-02] MEDS: CETIRIZINE 10 MG TAB PO SCH (10:33)
[2017-08-02] MEDS: buPROPion 100 MG TAB PO SCH (10:33)
[2017-08-02] MEDS: PANTOPRAZOLE SODIUM 40 MG TAB PO SCH (10:33)
[2017-08-02] MEDS: METHENAMINE HIPP 1 GM TAB PO SCH (10:33)
[2017-08-02] MEDS: GLUCOSAMINE/CHONDROITIN CAP PO SCH (10:33)
[2017-08-02] MEDS: HYDROCODONE/APAP 5/325 TAB PO SCH ×2 (10:34→13:38)
[2017-08-02] MEDS: MULTIVITAMINS 1 EACH TAB PO SCH (10:34)
[2017-08-02] MEDS: SORAFENIB TOSYLATE 400 MG PO SCH (10:35)
[2017-08-02] MEDS: POLYETHYLENE GLYCOL 3350 17 GM PKT PO SCH ×2 (10:36→11:22)
[2017-08-02] MEDS ORDERED: PROCHLORPERAZINE MALEATE 10 MG TAB PO PRN (10:40)
[2017-08-02 11:53] VITALS: BP 122/62; PULSE 77; RESP 20; TEMP 98.5; O2SAT 97
[2017-08-02] MEDS ORDERED: POTASSIUM CL 20 MEQ TAB PO SCH ×2 (12:15→17:00)
--- NOTE | 2017-08-02 13:40 | ASMTCMCOM ---
CM Note CM Note Notes: CM reviewed chart, pt is being discharged today with BC and continuing w/ Munira at [facility]. CM notified [facility] and [facility] of pts D/C. CM met w/ pt and for dispo planning. Pt requested resources for transportation agencies to get to medical appointments and other non medical appointments. CM provided pt w/ transportation resources. CM faxed over d/c orders to [facility] per their request (F#: [phone]). CM provided BC RN w/ number to provide report upon d/c. CM available for any changes. Date Signed: 08/02/2017 01:39 PM Electronically Signed By:GLORIA Olvera
[2017-08-02] MEDS ORDERED: FUROSEMIDE 20 MG TAB PO SCH (17:00)
--- NOTE | 2017-08-02 21:36 | GDS ---
[f rep st] DISCHARGE SUMMARY DISCHARGE DIAGNOSES: 1. Neutropenic fever. 2. Diarrhea, likely secondary to chemotherapy. 3. Myelodysplastic syndrome-induced acute myelogenous leukemia. 4. Pancytopenia, chronic, secondary to chemotherapy. 5. Hyponatremia, resolved. 6. Hypokalemia, resolved. 7. Hypothyroidism. 8. Chronic pain. CONSULTANTS: Dr. Suzette Desai, Oncology. HISTORY: For details, please see the history and physical dated July 31, 2017. In brief, the martha donald is a 76-year-old female with history of myelodysplastic syndrome converted to AML, who present ed to the emergency department with 2 days of watery diarrhea and fever. She was [facility] to the the [facility] for further management. HOSPITAL COURSE: The patient was admitted to the Cancer Care Unit. Her absolute neutrophil count on admission was 648. She met 2/4 SIRS criteria for sepsis with fever and tachycardia. She was given IV fluids, started on meropenem. A GI pathogen panel was negative. Blood cultures remained negative for greater than 48 hours. It is ultimately thought her diarrhea was secondary to the chemotherapy agent sorafenib, which was held during this hospitalization. The patient wishes to resume her sorafe nib and will use Imodium to manage her diarrhea and also plan for p.r.n. IV fluid infusions through [facility]. She has a repeat bone marrow biopsy planned for Thursday at the [facility]. On the day of discharge, she was hemodynamically stable, she has had no further diarrheal sy mptoms, and wishes to go home. DISPOSITION: The patient is discharged home in stable condition. FOLLOWUP: 1. Dr. Zheng Jones at [facility]. 2. Dr. Airam Doan, Primary Care. DISCHARGE MEDICATIONS: Please see [employer] for completed outpatient medication list. She will severo nue all other outpatient medications as previously prescribed. /[id number]/MODL
[2017-08-03] MEDS ORDERED: FUROSEMIDE 40 MG TAB PO SCH (08:00)
== END 2017-08-02 13:37 | disposition home or self-care (01) | DRG 391 ==
LOC: F1N 16:10
PROVIDERS: ADMIT Internal Medicine; ATTEND Hospitalist
PROC: 30243N1 Transfusion of Nonautologous Red Blood Cells into Central Vein, Percutaneous Approach (ICD-10-PCS; principal; 2017-08-01)
DX: R19.7 Diarrhea, unspecified (principal); D70.1 Agranulocytosis secondary to cancer chemotherapy; T45.1X5A Adverse effect of antineoplastic and immunosuppressive drugs, initial encounter; C92.90 Myeloid leukemia, unspecified, not having achieved remission; D61.810 Antineoplastic chemotherapy induced pancytopenia; E87.1 Hypo-osmolality and hyponatremia; R65.10 Systemic inflammatory response syndrome (SIRS) of non-infectious origin without acute organ dysfunction; I44.7 Left bundle-branch block, unspecified; I50.9 Heart failure, unspecified; E03.9 Hypothyroidism, unspecified; K21.9 Gastro-esophageal reflux disease without esophagitis; M81.0 Age-related osteoporosis without current pathological fracture; E87.5 Hyperkalemia; G89.29 Other chronic pain; M16.12 Unilateral primary osteoarthritis, left hip; Z79.891 Long term (current) use of opiate analgesic; Z96.652 Presence of left artificial knee joint; Z96.641 Presence of right artificial hip joint; Z86.718 Personal history of other venous thrombosis and embolism; Z90.49 Acquired absence of other specified parts of digestive tract
CPT/HCPCS: 96365; 97166-GO; G8987-GO-CJ; G8988-GO-CI; J1335; J1650; J2185; J2405; J2550; P9016; P9040

== ENCOUNTER → 2017-08-22 | Outpatient (CLI) | payer OTHER, MEDICARE | LOC: FIMAGING 10:43 | PROVIDERS: ATTEND Family Medicine | DX: Z12.31 Encounter for screening mammogram for malignant neoplasm of breast (principal); C95.90 Leukemia, unspecified not having achieved remission | CPT/HCPCS: G0202 ==

== ENCOUNTER → 2017-08-28 | Outpatient (CLI) | payer OTHER, MEDICARE | LOC: FIMAGING 13:26 | PROVIDERS: ATTEND Family Medicine | DX: R92.0 Mammographic microcalcification found on diagnostic imaging of breast (principal) | CPT/HCPCS: G0206 ==

== ENCOUNTER → 2017-10-15 | Outpatient (CLI) | payer OTHER, MEDICARE ==
[~2017-10-15] MED LIST changes: -ACETAMINOPHEN 325 MG TAB PO ONE; +DEPO METHYLPREDNISOLONE 80 MG/ML SDV ONE; +IOPAMIDOL (ISOVUE 370) 100 ML BTL IV ONE; +LIDOCAINE 1% 300 MG/30 ML SDV ONE; +ROPIVACAINE HCL 150 MG/30 ML INJ ONE; -diphenhydrAMINE 25 MG CAP PO ONE
== END ==
LOC: FIMAGING 12:30
PROVIDERS: ATTEND Orthopaedic Surgery
PROC: 3E0U3BZ Introduction of Anesthetic Agent into Joints, Percutaneous Approach (ICD-10-PCS; principal; 2017-10-15)
PROC: 3E0U33Z Introduction of Anti-inflammatory into Joints, Percutaneous Approach (ICD-10-PCS; principal; 2017-10-15)
DX: M16.12 Unilateral primary osteoarthritis, left hip (principal)
CPT/HCPCS: 20610; J1040; J2795; Q9967

== ENCOUNTER 2017-11-21 12:04 | Inpatient (IN) | payer OTHER, MEDICARE ==
--- NOTE | 2017-11-21 12:18 | CPEKG ---
Heart Rate: 112 RR Interval: 536 P-R Interval: 148 QRSD Interval: 142 QT Interval: 352 QTC Interval: 481 P [place]: 7 QRS [place]: -45 T Wave [place]: 90 EKG Severity - ABNORMAL ECG - EKG Impression: SINUS TACHYCARDIA EKG Impression: LEFT BUNDLE BRANCH BLOCK Electronically Signed By: Yossi Main 21-Nov-2017 13:00:54
--- NOTE | 2017-11-21 12:33 | EDPHY ---
H & P Time Seen by Provider: 11/21/17 12:30 HPI/ROS: CHIEF COMPLAINT: Fever and chills HISTORY OF PRESENT ILLNESS: Patient was started 2 days ago on Macrobid for urinary tract infection. She is currently on a Nexavar oral chemotherapy for leukemia. Last night she developed fever chills associated with 2 episodes of loose stool and diarrhea. Today she has fever and chills which are severe. Associated with the cough with a little bit of phlegm but no shortness of breath and some nausea but no vomiting and some diarrhea but no blood in the stool. No recent foreign travel. No sore throat or headache. No skin rash. Not better or worse with anything. REVIEW OF SYSTEMS: Eye: no change in vision ENT: no sore throat Cardiac: no chest pain or syncope Pulmonary: HPI not short of breath Abdomen: HPI Musculoskeletal: no back pain Skin: no rash Neuro: no headache Constitutional: HPI : See HPI A comprehensive 10 point review of systems is otherwise negative aside from elements mentioned in the history of present illness. PAST MEDICAL HISTORY: Includes leukemia, hypertension, thyroid, cholecystectomy , partial colectomy, hysterectomy. Left knee and right hip replacement. Social history: , nonsmoker General Appearance: Alert and conversant, cooperative. Eyes: No scleral icterus. ENT, Mouth: Slightly dry mucous membranes otherwise pharynx is normal. Respiratory: Normal respiratory effort, breath sounds equal, lungs are clear to auscultation. Cardiovascular: Regular rate and rhythm. Gastrointestinal: Abdomen is soft and non tender. Neurological: Alert, face symmetric, normal motor and sensory in extremities. Skin: Warm and dry, no rashes. Left AC PICC line site appears clean dry and intact. Musculoskeletal: No peripheral edema. Psychiatric: Not agitated. Emergency Department course/MDM: Differential broad and includes but is not limited to Clostridium difficile, pyelonephritis, pneumonia, influenza, other viral infection, sepsis. Plan for urine, chest x-ray, respiratory panel testing, stool testing. IV fluid hydration and Tylenol for fever. 1317: Chest xray reviewed with pneumonia R lung, middle and lower lobe. Patient told me she can tolerate and has taken penicillins before, without reaction, Zosyn IV ordered for pulmonary infection in this immunocompromised patient currently on chemotherapy. She does meet SIRS criteria, but does not appear to have severe sepsis or septic shock at this time. Smoking Status: Never smoked Constitutional: Initial Vital Signs Temperature (C) 38.7 C H 11/21/17 12:04 Heart Rate 118 H 11/21/17 12:04 Respiratory Rate 18 11/21/17 12:04 Blood Pressure 150/79 H 11/21/17 12:04 O2 Sat (%) 86 L 11/21/17 12:04 O2 Delivery Mode Room Air Allergies/Adverse Reactions: cefuroxime [Cefuroxime] Allergy (Severe, Verified 06/14/17 13:43) SYNCOPE Cephalosporins Allergy (Severe, Verified 06/14/17 13:43) THROAT SWELLING Lactobacillus Combo No.3 [From Probiotic & Acidophilus] Allergy (Severe, Verified 06/14/17 13:43) LIPS SWELL, CRACK, REDDENED AREA BURNING FEELING Sulfa (Sulfonamide Antibiotics) Allergy (Severe, Verified 06/14/17 13:43) THROAT SWELLING, ANAPHYLACTIC ciprofloxacin Allergy (Unknown, Verified 07/14/17 09:49) CRUSHING CHANG, SYNCOPE levofloxacin Allergy (Unknown, Verified 07/14/17 09:49) THROAT SWELLING fructooligosaccharides Allergy (Unknown, Uncoded 06/26/17 15:30) fructooligosaccharides (FOS) Allergy (Unknown, Uncoded 06/22/17 08:07) LIPS SWELL, CRACK, REDDENED AREA BURNING FEELING Pantethine Allergy (Unknown, Uncoded 06/22/17 08:07) LIPS SWELL, CRACK, REDDENED AREA BURNING FEELING Home Medications: Medication Instructions Recorded Pantoprazole Sodium [Protonix 40mg 40 mg PO DAILY 03/15/13 (*)] Methenamine Fabian [Hiprex 1 gm (*)] 0.5 gm PO BID 04/24/16 Calcium Carbonate [Oyster Shell 500 mg PO HS 11/03/16 Calcium 500 mg (*)] FEXOFENADINE HCL 90 mg PO BID 11/03/16 Multivitamins [Multivitamin (*)] 1 each PO DAILY 11/03/16 Nortriptyline HCl [Pamelor 50 mg 100 mg PO HS 11/03/16 (*)] buPROPion [Wellbutrin 100mg (*)] 100 mg PO BID 11/03/16 Ondansetron [Zofran Odt] 8 mg PO TID PRN 02/24/17 Lisinopril 5 mg PO DAILY PRN 03/14/17 Estradiol [Estrace] 1 elinor VG MWF 06/14/17 Glucosam/Chondr/Collagn/Hyalur 1 each PO DAILY 06/14/17 [Glucosamine & Chondroitin Cap] Guar Gum [Benefiber/Nutrisource 6 packet PO HS 06/14/17 Fiber (*)] Methylphenidate HCl [Ritalin 5mg 5 mg PO DAILY@13 06/14/17 (*)] Polyethylene Glycol 3350 [Miralax 17 gm PO BID@08,14 06/14/17 17 gm (*)] Potassium Chloride 20 meq PO BID@08,17 06/14/17 Potassium Chloride 40 meq PO DAILY@12 06/14/17 Docusate Sodium [Colace 100 MG (*)] 100 - 200 mg PO DAILY PRN 07/31/17 Furosemide [Lasix 20 MG (*)] 20 mg PO DAILY@17 07/31/17 Furosemide [Lasix 40 MG (*)] 40 mg PO BID@08,12 07/31/17 Herbals/Supplements -Info Only 1 ea PO DAILY 07/31/17 Hydrocodone/Acetaminophen [[place] 1 each PO Q4H PRN 07/31/17 5/325 (*)] Levothyroxine [Synthroid 137 mcg 137 mcg PO DAILY06 07/31/17 (*)] Sorafenib Tosylate [Nexavar] 400 mg PO BID 07/31/17 methYLPHENIDATE HCL [Ritalin 10mg 10 mg PO DAILY@08 07/31/17 (*)] oxyCODONE HCL [Oxycontin] 10 mg PO Q12H 11/21/17 Medical Decision Making - Diagnostics EKG Interpretation: 12-lead EKG interpreted by me; official reading is in trace master. My interpretation is sinus tachycardia with left bundle branch block. Imaging Results: Imaging Impressions Chest X-Ray 11/21/17 12:44 Impression: Right lower lung pneumonia. Results called and discussed with KARELY RUSSELL M.D. on 11/21/2017 at 13:19 Differential Diagnosis: Differential considered including but not limited to pneumonia, C diff, influenza, UTI. Consult/Admit Bed Type: [place] to admit Critical Care Time: Critical care time spent by me, Dr. Russell, exclusively with the care of this patient was 35 minutes, exclusive of PA or DINING ROOM HOST/HOSTESS time and exclusive of separate procedures. The organ system at risk was infectious and pulmonary and I ordered supplemental oxygen, IV fluids, IV antibiotics, multiple diagnostics, consultation with Hospitalist; to stabilize the patient and prevent worsening of the patient's condition. - Data Points Laboratory Results: Laboratory Results 11/21/17 12:25 11/21/17 12:25 11/21/17 11/21/17 11/21/17 12:25 12:25 12:25 WBC RBC Hgb Hct MCV MCH MCHC RDW Plt Count MPV Neut % (Auto) Lymph % (Auto) [place] % (Auto) Eos % (Auto) Baso % (Auto) Nucleat RBC Rel Count Absolute Neuts (auto) Absolute Lymphs (auto) Absolute Monos (auto) Absolute Eos (auto) Absolute Basos (auto) Absolute Nucleated RBC Immature Gran % Immature Gran # PT 15.2 SEC H SEC (12.0-15.0) INR 1.18 H (0.83-1.16) APTT 33.7 SEC SEC (23.0-38.0) VBG Lactic Acid Sodium 139 mEq/L mEq/L (134-144) Potassium 3.9 mEq/L mEq/L (3.5-5.2) Chloride 100 mEq/L mEq/L (97-110) Carbon Dioxide 29 mEq/l mEq/l (22-31) Anion Gap 10 mEq/L mEq/L (8-16) BUN 10 mg/dL mg/dL (7-23) Creatinine 0.8 mg/dL mg/dL (0.6-1.0) Estimated GFR > 60 Glucose 147 mg/dL H mg/dL (70-100) Calcium 9.1 mg/dL mg/dL (8.5-10.4) Total Bilirubin 0.8 mg/dL mg/dL (0.1-1.4) Procalcitonin Pending 11/21/17 11/21/17 12:25 12:25 WBC 2.34 10^3/uL L 10^3/uL (3.80-9.50) RBC 2.69 10^6/uL L 10^6/uL (4.18-5.33) Hgb 10.1 g/dL L g/dL (12.6-16.3) Hct 29.4 % L % (38.0-47.0) MCV 109.3 fL H fL (81.5-99.8) MCH 37.5 pg H pg (27.9-34.1) MCHC 34.4 g/dL g/dL (32.4-36.7) RDW 19.6 % H % (11.5-15.2) Plt Count 216 10^3/uL 10^3/uL (150-400) MPV 10.7 fL fL (8.7-11.7) Neut % (Auto) 70.0 % % (39.3-74.2) Lymph % (Auto) 9.4 % L % (15.0-45.0) [place] % (Auto) 18.4 % H % (4.5-13.0) Eos % (Auto) 0.0 % L % (0.6-7.6) Baso % (Auto) 1.3 % % (0.3-1.7) Nucleat RBC Rel Count 0.0 % % (0.0-0.2) Absolute Neuts (auto) 1.64 10^3/uL L 10^3/uL (1.70-6.50) Absolute Lymphs (auto) 0.22 10^3/uL L 10^3/uL (1.00-3.00) Absolute Monos (auto) 0.43 10^3/uL 10^3/uL (0.30-0.80) Absolute Eos (auto) 0.00 10^3/uL L 10^3/uL (0.03-0.40) Absolute Basos (auto) 0.03 10^3/uL 10^3/uL (0.02-0.10) Absolute Nucleated RBC 0.00 10^3/uL 10^3/uL (0-0.01) Immature Gran % 0.9 % % (0.0-1.1) Immature Gran # 0.02 10^3/uL 10^3/uL (0.00-0.10) PT INR APTT VBG Lactic Acid 1.3 mmol/L mmol/L (0.7-2.1) Sodium Potassium Chloride Carbon Dioxide Anion Gap BUN Creatinine Estimated GFR Glucose Calcium Total Bilirubin Procalcitonin Microbiology Results: MICROBIOLOGY 11/21/17 13:00 Nasal, Sinus - Swab Respiratory Panel (PCR) - Final No Organism Detected Medications Given: Discontinued Medications Acetaminophen (Tylenol) 650 mg PO EDNOW ONE Stop: 11/21/17 12:45 Last Admin: 11/21/17 13:33 Dose: 650 mg Sodium Chloride (Ns) 1,900 mls @ 3,800 mls/hr 30 ml/kg infuse over 30 min ( 1900 ml) IV EDNOW ONE PRN Reason: Protocol Stop: 11/21/17 13:13 Last Admin: 11/21/17 13:02 Dose: 1,900 mls Piperacillin/Tazobactam/Dextrose (Zosyn (Premix)) 100 mls @ 200 mls/hr IV EDNOW ONE PRN Reason: Protocol Stop: 11/21/17 13:47 Last Admin: 11/21/17 14:15 Dose: 100 mls Departure - Departure Disposition: [facility] Inpatient Acute Clinical Impression: Pneumonia Qualifiers: Pneumonia type: due to unspecified organism Laterality: right Lung location: unspecified part of lung Qualified Code(s): J18.9 - Pneumonia, unspecified organism Condition: Fair
[2017-11-21] MEDS ORDERED: NS 1,900 ML IV ONE (12:44)
[2017-11-21] MEDS ORDERED: ACETAMINOPHEN 325 MG TAB PO ONE (12:44)
[2017-11-21 12:52] LABS: PLATELET COUNT 216 10^3/uL (150-400)
[2017-11-21 13:01] LABS: INR 1.18 (0.83-1.16); PROTIME(PATIENT) 15.2 SEC (12.0-15.0)
[2017-11-21] MEDS ORDERED: PIPERACILLIN/TAZO 4.5 GM/DEX 100 ML IV ONE (13:18)
[2017-11-21] MEDS ORDERED: ACETAMINOPHEN 325 MG TAB PO PRN (13:57)
[2017-11-21] MEDS ORDERED: ONDANSETRON DISINTEGRATING 4 MG TAB PO PRN (13:57)
[2017-11-21] MEDS ORDERED: ONDANSETRON 4 MG/2 ML VIAL IVP PRN (13:57)
[2017-11-21] MEDS ORDERED: HYDROCODONE/APAP 5/325 TAB PO PRN (14:36)
--- NOTE | 2017-11-21 15:13 | GHP ---
[f rep st] HISTORY AND PHYSICAL DATE OF ADMISSION: 11/21/2017 CHIEF COMPLAINT: Fevers, cough. HISTORY OF PRESENT ILLNESS: A 77-year-old female with history of MDS with conversion to AML, currently on chemotherapy, currently on Nexavar, oral care of chemotherapy. She was started on Macrobid 2 days ago for a urinary tract infection. After taking a couple doses, she said she had diarrhea and a gurgly abdominal discomfort. She had a fever this morning of 103.5, felt chilled. She had 2 episodes of diarrhea on . This is intermittent with her chemo per her report. She thinks exacerbated by the Macrobid. Developed myalgias, headache, and a productive cough this morning. States that her daughter has been ill with a cold or pneumonia. No recent travel. Denies rash or sore throat. No abdominal pain, dysuria, or suprapubic pain. The patient has had a PICC line in the left arm for 8 months. REVIEW OF SYSTEMS: I completed a 10-point review of systems, negative except as noted in HPI. MDS with conversion to AML, chronic pain, history of neutropenic enterocolitis, warranting prolonged IV antibiotics, completed in March 2017, pulmonary hypertension, depression, diastolic heart failure, hypothyroidism. SURGERIES: Several breast lumpectomies, right TKA, cholecystectomy, x2, partial colectomy, hip replacement. SOCIAL HISTORY: Lives with her in [place]. Denies alcohol, tobacco, or illicits. FAMILY HISTORY: Several strokes on maternal and paternal sides. Mother of lung cancer. Father of liver cancer. HOME MEDICATIONS: OxyContin 10 mg q.12, Zofran as needed, Estrace vaginally Thursday, Thursday, Thursday. Benefiber, docusates, Ritalin 10 mg daily, Wellbutrin 100 mg b.i.d., Nexavar 400 mg b.i.d., potassium 40 mEq at noon, 20 mg b.i.d., MiraLAX, Protonix 40 mg daily, nortriptyline 100 mg q.h.s., multivitamin, lisinopril 5 mg daily p.r.n., levothyroxine 137 mcg daily, [place] p.r.n., Lasix 40 mg b.i.d., 20 mg at 1700, fexofenadine 90 mg b.i.d., calcium carbonate. ALLERGIES: Multiple antibiotic allergies, please see [facility] for list. PHYSICAL EXAMINATION: VITAL SIGNS: Temperature 38.7, blood pressure 150s/79, heart rate 118, respirations 18, 86% on room air, 99% on 2 L. GENERAL: Ill appearing, pale, lying in bed, no acute distress. HEENT: PERRLA. Dry mucous membranes. Oropharynx is minimally erythematous. No exudates. CV: Tachy, but regular. No murmurs, gallops, rubs. LUNGS: Crackles right base. ABDOMEN: Soft, nontender, nondistended. Positive bowel sounds. : No [place]. No CVA or suprapubic tenderness. MUSCULOSKELETAL: 5/5 upper and lower extremity strength. PICC line left upper extremity. No signs of erythema or tenderness at insertion site. SKIN: Warm, dry. No ulceration or rash. NEURO: 2 through 12 intact. PSYCH: Alert and oriented x3. LABS: WBC is 2.3, hemoglobin 10, hematocrit 29, platelets 216, absolute neutrophil count 1.6. Sodium 139, potassium 3.9, chloride 100, carbon dioxide 29, creatinine 0.8, glucose 147, calcium 9.1. Labs pending: UA, urine culture , blood cultures, GI panel, Legionella, procalcitonin. Chest x-ray is personally reviewed by me, right middle lobe infiltrate, spine sign. ASSESSMENT AND PLAN: 1. Sepsis: Tachycardic with fever and infiltrate on CXR. Treat broadly for healthcare-associated pneumonia, as hospitalized mid-July. Cover with vancomycin and Meropenem given number of allergies. (she tolerated Meropenem last stay) Add Azithro for atypical coverage. Confirm with procalcitonin. Was being treated for E coli UTI, sensitive to Meropenem. Pending: repeat UA, Legionella, Strep Ag, GI PCR. 2. Tachycardia: secondary to acute infection and fever. We will hydrate, as dry on exam. 3. Myelodysplastic syndrome with conversion acute myeloid leukemia, is currently on oral chemo. We will hold this evening's dose. 4. Depression. Resume home medications. 5. Hypothyroidism, Synthroid. 6. Hypertension. We will hold antihypertensives given sepsis. 7. Compensated diastolic heart failure. No evidence of volume overload. 8. Chronic pain, resume OxyContin. 9. Diet: Regular. 10. Deep venous thrombosis prophylaxis, Lovenox. DISPOSITION: Patient warrants inpatient admission given acute sepsis, likely pneumonia, requiring IV antibiotics and fluids and further culture studies. /[id number]/MODL MTDD
--- NOTE | 2017-11-21 15:33 | PDMN ---
Medical Necessity Medical necessity: C/M review: est. > 2 MN LOS for eval and TX of acute and persistent sepsis, lilely pneumonia, tachycardia, fever requiring ongoing IV Vancomycin, IV fluids, pulse oximetry, supplemental O2, comorbid myelodysplastic syndrome with conversion to acute myeloid leukemia on current oral chemotherapy, depression, hypothyroidism, hypertension, compensated diastolic heart failure, chronic pain, history left arm PICC present on admit, hospitalization for neutrapenic fever and diarrhea per H/P.
[2017-11-21] MEDS ORDERED: AZITHROMYCIN 250 MG TAB PO SCH (16:30)
[2017-11-21] MEDS ORDERED: VANCOMYCIN 1.25 GM in D5W 250 ML IV SCH (17:00)
[2017-11-21] MEDS ORDERED: PIPERACILLIN/TAZO 3.375 GM/DEX 50 ML IV SCH (18:00)
[2017-11-21] MEDS: METHENAMINE HIPP 1 GM TAB PO SCH (20:52)
[2017-11-21] MEDS: buPROPion 100 MG TAB PO SCH (20:53)
[2017-11-21] MEDS: CALCIUM CARBONATE 500 MG TAB PO SCH (20:53)
[2017-11-21] MEDS: NORTRIPTYLINE HCL 50 MG CAP PO SCH (20:54)
[2017-11-21] MEDS: MEROPENEM 1 GM in NS 100 ML IV SCH (20:55)
--- NOTE | 2017-11-22 00:39 | GCON ---
[f rep st] CONSULTATION HEMATOLOGY/ONCOLOGY INITIAL VISIT. PRIMARY ONCOLOGIST: Zheng Jones MD. REASON FOR VISIT: Evaluation management of AML. 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 She progressed from mild dysplasia to AML in February 2017. She was receiving azacytidine and had her 5th cycle first week of July, and was admitted to the hospital in, I believe, June with pneumonia. She saw Dr. Phillips at the [facility] for second opinion, and evaluation showed that her disease expressed a FLT3 mutation, a TET2 mutation, RUNX1 and FF3B1 mutation. She was started on sorafenib in July and tolerated it well. She has had occasional loose stools, which she has been able to control that with some over- the-counter medications. She was admitted to the hospital in July with febrile neutropenia, but has not been in the hospital since that time. She has continued azacytidine. Her last dose was November 06, 2017. She was in the office on Thursday the complaining of possible UTI. She reported that, but actually the records indicate that she was in on the , and her urine was worrisome for a urinary tract infection. She was growing E coli that was sensitive to multiple treatments and, I believe, she received nitrofurantoin recently for the infection. She was not having fevers at home. Since starting Macrobid, she started having diarrhea, and then starting last night she developed a cough with really foul-tasting sputum. She was up all night with the cough and aches and headache. She denied any fever, but reports dry mouth and a sore throat. She is fairly sleepy today, so her history is not precise, so some of the information is taken from the records. ALLERGIES: She is allergic to cefuroxime, cephalosporins, lactobacillus, sulfa , ciprofloxacin, levofloxacin. HOME MEDICATIONS: Include oxycodone, ondansetron, estradiol, Benefiber, docusate, Ritalin, bupropion, sorafenib 400 mg twice daily, oral potassium, MiraLAX, pantoprazole, nortriptyline, multivitamin, Hiprex, lisinopril, levothyroxine, Anabel, glucosamine, furosemide, fexofenadine, and calcium carbonate. CHRONIC ILLNESSES: Include: 1. MDS developing into FLT3 positive AML, currently controlled on sorafenib plus 5-azacytidine. 2. History of right congestive heart failure. No history of [place]. 3. Left bundle branch block. 4. Hypothyroidism. 5. GERD. 6. Previous ischemic colitis, status post colectomy 10 years ago. 7. Osteoporosis. 8. Previous history of right lower extremity DVT after hip replacement. SURGICAL HISTORY: Includes: 1. Right hip replacement. 2. Left total knee replacement. 3. Surgery for possible bowel obstruction. 4. . 5. Hysterectomy. 6. Lumpectomy by Dr. Molina. No cancer next. 7. Cholecystectomy. FAMILY HISTORY: Significant for lung cancer in her mother and liver cancer in her father. SOCIAL HISTORY: She is . Does not drink or smoke. REVIEW OF SYSTEMS: 10-point Review of Systems performed. Pertinent positives as per HPI. It was difficult and some obtained from the chart, as well. PHYSICAL EXAM: VITAL SIGNS: On arrival, her T-max was 38.7, pulse 118, blood pressure 150/79. Currently, her temperature is 36.8, pulse is 90, and blood pressure is 111/61. GENERAL: Pale, ill-appearing, elderly woman, but in no distress. HEENT: Sclerae nonicteric. Oral mucosa is dry, but no mucositis. LUNGS: Reveal some rhonchi with crackles on the right. CARDIAC: Tachycardic with a soft murmur. ABDOMEN: Soft without hepatosplenomegaly. EXTREMITIES: No peripheral lymphadenopathy. NEURO: Showed no focal findings, just generalized weak and fatigue. LABS: White count 2300, ANC is 1600, hemoglobin is 10.1, platelet count of 216, 000. Potassium is now back to normal at 3.9. Other chemistries unremarkable. Her white count on Thursday was 2900, with an ANC of 1400, so she is fairly stable. Her last LFTs were unremarkable. UA showed E coli, sensitive to Macrobid. Respiratory panel was unremarkable. Blood cultures are pending. IMAGING STUDIES: Chest x-ray shows a right lower lobe pneumonia. IMPRESSION: 1. Right lower lobe pneumonia. 2. Myelodysplasia, progressing into FLT3-positive acute myeloid leukemia, on sorafenib and 5-azacytidine. 3. Mild pancytopenia. 4. Recent urinary tract infection. IMPRESSION AND PLAN: Her last chemotherapy was just over 2 weeks ago, and her blood counts appear to be pretty stable. Fortunately, she is not neutropenic, but she is at risk for infections. Dr. Hendrix has recommended vancomycin and meropenem, given the number of allergies. Of note, the UTI was sensitive to meropenem, so should cover that, as well. There is no need for transfusions, but she can be transfused if clinically indicated. As for the sorafenib, it can worsen diarrhea, so I have recommend holding until her diarrhea resolves and she is better. We will follow along with you while she is in the hospital. /[id number]/MODL MTDD
[2017-11-22] MEDS: LR 1,000 ML IV SCH (05:13)
[2017-11-22] MEDS: LEVOTHYROXINE 137 MCG TAB PO SCH (05:14)
[2017-11-22] MEDS: MEROPENEM 1 GM in NS 100 ML IV SCH ×3 (05:14→21:21)
[2017-11-22 05:36] LABS: PLATELET COUNT 171 10^3/uL (150-400)
--- NOTE | 2017-11-22 08:41 | HOSPPROG ---
Hospitalist Progress Note Assessment/Plan: #Sepsis: resolved. -Suspect urinary source vs PNA. Infiltrate on CXR, but negative procalcitonin. Negative resp PCR, Will stop Vanc. -Cont Rupert which covers PNA and recent E coli infection. Cont Azithro for atypicals -Strep/Legionella pending. Blood/urine cultures negative #Acute hypoxic resp failure: due to above #Recent UTI: Ecoli, sensitive to Meropenem #Diarrhea: suspect chemo-related. Hold until this improves #Fever: none today. Negative cultures thus far. Plan as above #Leukopenia/Anemia: due to chemo, no transfusion needed #Hypothyroidism: LT4 #Diet: regular #DVT ppx: Lovenox #Disp: cont inpatient admission for IV abx, fluids Subjective: feeling much better, less cough Objective: Vital Signs Temp Pulse Resp BP Pulse Ox 36.6 C 78 16 117/61 99 11/22/17 04:00 11/22/17 04:00 11/22/17 04:00 11/22/17 04:00 11/22/17 04:00 Laboratory Results 11/22/17 05:15 11/22/17 05:15 11/21/17 11/22/17 11/23/17 05:59 05:59 05:59 Intake Total 3500 Output Total 900 Balance 2600 PT 15.2 SEC (12.0-15.0) H 11/21/17 12:25 INR 1.18 (0.83-1.16) H 11/21/17 12:25 - Physical Exam Constitutional: other (appears brighter today) Eyes: PERRL Ears, Nose, Mouth, Throat: moist mucous membranes Cardiovascular: regular rate and rhythym, no murmur, rub, or gallop Respiratory: no respiratory distress, No no rales or rhonchi, No expiratory wheeze, No inspiratory crackles, No rhonchi Gastrointestinal: normoactive bowel sounds Genitourinary: no bladder fullness Skin: warm Musculoskeletal: full muscle strength, other (LUE PICC without signs infection) Neurologic: AAOx3, CN II-XII Intact Psychiatric: interacting appropriately ICD10 Worksheet Patient Problems: Problems Problem Status Onset Pneumonia Acute AML (acute myeloid leukemia) Acute CHF (congestive heart failure) Acute Cardiomegaly Acute Colitis Acute Hypoxia Acute LBBB (left bundle branch block) Acute Neutropenic fever Acute Pancytopenia Acute Peripheral edema Acute Sepsis Acute
[2017-11-22] MEDS ORDERED: Herbals/Supplements -Info Only PO SCH (09:00)
[2017-11-22] MEDS: METHENAMINE HIPP 1 GM TAB PO SCH ×2 (09:16→21:17)
[2017-11-22] MEDS: buPROPion 100 MG TAB PO SCH ×2 (09:16→21:19)
[2017-11-22] MEDS: AZITHROMYCIN 250 MG TAB PO SCH (09:16)
[2017-11-22] MEDS: PANTOPRAZOLE SODIUM 40 MG TAB PO SCH (09:17)
[2017-11-22] MEDS: CETIRIZINE 10 MG TAB PO SCH (09:17)
[2017-11-22] MEDS: GLUCOSAMINE/CHONDROITIN CAP PO SCH (09:17)
[2017-11-22] MEDS: MULTIVITAMINS 1 EACH TAB PO SCH (09:17)
[2017-11-22] MEDS: ENOXAPARIN 40 MG/0.4 ML SYR SC SCH (09:18)
--- NOTE | 2017-11-22 12:02 | SOAPPROG ---
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 * Pancytopenia: labs are ok today. No need for transfusion today * URI with SSRI - possible bacterial pneumonia: Negative resp viral PCR; much better; cultures still negative. Agree with stopping vancomycin. * UTI: e.coli and covered with current abx * Diarrhea: better; continue to hold sorafenib another day or two. Subjective: Feeling much better. Appetite is better. Denies diarrhea. Cough and sputum is better. Objective: Vital Signs Temp Pulse Resp BP Pulse Ox 36.8 C 84 16 119/69 95 11/22/17 11:31 11/22/17 11:31 11/22/17 11:31 11/22/17 11:31 11/22/17 11:31 Laboratory Results 11/22/17 05:15 11/22/17 05:15 11/21/17 11/22/17 11/23/17 05:59 05:59 05:59 Intake Total 3500 Output Total 900 Balance 2600 PT 15.2 SEC (12.0-15.0) H 11/21/17 12:25 INR 1.18 (0.83-1.16) H 11/21/17 12:25 Physical Exam - Physical Exam General Appearance: no apparent distress EENT: pharynx normal Respiratory: lungs clear Cardiac/Chest: regular rate, rhythm, systolic murmur Abdomen: normal bowel sounds, non-tender, soft ICD10 Worksheet Patient Problems: Problems Problem Status Onset Pneumonia Acute AML (acute myeloid leukemia) Acute CHF (congestive heart failure) Acute Cardiomegaly Acute Colitis Acute Hypoxia Acute LBBB (left bundle branch block) Acute Neutropenic fever Acute Pancytopenia Acute Peripheral edema Acute Sepsis Acute
[2017-11-22] MEDS ORDERED: PROCHLORPERAZINE MALEATE 5 MG TAB PO PRN (14:35)
--- NOTE | 2017-11-22 14:46 | ASMTCMCOM ---
CM Note CM Note Notes: Chart reviewed. Pt 77 year old female with AML, on chemo developed UTI and began having diarrhea from antibiotic. She normally lives I with her and is current with [facility] home health care. Plan at dc would be home with resumption of HHC. no therapy notes in cart. CM to follow. Date Signed: 11/22/2017 02:46 PM Electronically Signed By:Ioana Keen RN
[2017-11-22] MEDS: NORTRIPTYLINE HCL 50 MG CAP PO SCH (21:17)
[2017-11-22] MEDS: CALCIUM CARBONATE 500 MG TAB PO SCH (21:20)
[2017-11-23] MEDS: LEVOTHYROXINE 137 MCG TAB PO SCH (05:06)
[2017-11-23] MEDS: MEROPENEM 1 GM in NS 100 ML IV SCH ×2 (05:10→13:11)
[2017-11-23] MEDS: LR 1,000 ML IV SCH (05:11)
[2017-11-23 05:35] LABS: PLATELET COUNT 197 10^3/uL (150-400)
[2017-11-23] MEDS ORDERED: ESTRADIOL 42.5 GM CRTUBE VG SCH (08:00)
[2017-11-23] MEDS: AZITHROMYCIN 250 MG TAB PO SCH (09:53)
[2017-11-23] MEDS: METHENAMINE HIPP 1 GM TAB PO SCH (09:53)
[2017-11-23] MEDS: buPROPion 100 MG TAB PO SCH (09:54)
[2017-11-23] MEDS: MULTIVITAMINS 1 EACH TAB PO SCH (09:54)
[2017-11-23] MEDS: PANTOPRAZOLE SODIUM 40 MG TAB PO SCH (09:54)
[2017-11-23] MEDS: CETIRIZINE 10 MG TAB PO SCH (09:54)
[2017-11-23] MEDS: GLUCOSAMINE/CHONDROITIN CAP PO SCH (09:54)
[2017-11-23 11:27] VITALS: BP 121/76; PULSE 89; RESP 18; TEMP 98.2; O2SAT 93
--- NOTE | 2017-11-23 12:01 | HOSPPROG ---
Hospitalist Progress Note Assessment/Plan: #Sepsis: resolved. -Suspect urinary source vs PNA. Infiltrate on CXR, but negative procalcitonin. Negative resp PCR, Will stop Vanc. -has completed 5 days abx for UTI (macrobid and leora here). That should be sufficient -will continue 3 more days abx to cover for PNA. Azithro/Augmentin to cover for CAP. Has many allergies, but she denies PCN allergy and tolerated Augmentin here at [facility] 02/2017 without issue #Acute hypoxic resp failure: due to above #Recent UTI: Ecoli, sensitive to Meropenem #Diarrhea: suspect chemo-related. Hold until this improves #Fever: none today. Negative cultures thus far. Plan as above #Leukopenia/Anemia: due to chemo, no transfusion needed #Hypothyroidism: LT4 #Diet: regular #DVT ppx: Lovenox #Disp: DC today Subjective: walking the unit. No fever Objective: Vital Signs Temp Pulse Resp BP Pulse Ox 36.8 C 89 18 121/76 H 93 11/23/17 11:26 11/23/17 11:26 11/23/17 11:26 11/23/17 11:26 11/23/17 11:26 Laboratory Results 11/23/17 05:20 11/22/17 05:15 11/22/17 11/23/17 11/24/17 05:59 05:59 05:59 Intake Total 3500 4107 Output Total 900 501 Balance 2600 3606 PT 15.2 SEC (12.0-15.0) H 11/21/17 12:25 INR 1.18 (0.83-1.16) H 11/21/17 12:25 - Physical Exam Constitutional: no apparent distress Eyes: PERRL, EOMI Ears, Nose, Mouth, Throat: moist mucous membranes, hearing normal Cardiovascular: regular rate and rhythym Respiratory: no respiratory distress Gastrointestinal: normoactive bowel sounds, soft, non-tender abdomen Genitourinary: no bladder fullness Skin: warm Musculoskeletal: full muscle strength Neurologic: AAOx3 ICD10 Worksheet Patient Problems: Problems Problem Status Onset AML (acute myeloid leukemia) Acute CHF (congestive heart failure) Acute Cardiomegaly Acute Colitis Acute Hypoxia Acute LBBB (left bundle branch block) Acute Neutropenic fever Acute Pancytopenia Acute Peripheral edema Acute Pneumonia Acute Sepsis Acute
[2017-11-23] MEDS: ENOXAPARIN 40 MG/0.4 ML SYR SC SCH (12:50)
--- NOTE | 2017-11-23 13:01 | SOAPPROG ---
SOAP Progress Note Assessment/Plan: Assessment: 1.) Resolving influenza pneumonitis 2.) E. Coli UTI- needs two more day of ABX. 3.) AML, FLT3 (+) on Vidaza and Sorafenib. To see Dr. Jones this week in the office for further assessment/planning. Plan: Home today. Hold Sorafenib until 11/26/ at least. Finish oral Abx for UTI. Pt has appt. at [facility] with Dr. Jones later this week. D/W patient and her . 11/23/17 12:58 Subjective: Feeling better, with no new sx. Diarrhea not a problem today. Feels well enough to go home. Objective: Afebrile, VSS as noted here. HEENT- pale, anicteric, no oral lesions Neck- supple Chest- clear. CVS- RSR, No extra HS ABD- soft, NT , no mass or HSM EXT- no edema and skin intact Labs as noted here: E. Coli UTI noted. Vital Signs Temp Pulse Resp BP Pulse Ox 36.8 C 89 18 121/76 H 93 11/23/17 11:26 11/23/17 11:26 11/23/17 11:26 11/23/17 11:26 11/23/17 11:26 Laboratory Results 11/23/17 05:20 11/22/17 05:15 11/22/17 11/23/17 11/24/17 05:59 05:59 05:59 Intake Total 3500 4107 Output Total 900 501 Balance 2600 3606 PT 15.2 SEC (12.0-15.0) H 11/21/17 12:25 INR 1.18 (0.83-1.16) H 11/21/17 12:25 ICD10 Worksheet Patient Problems: Problems Problem Status Onset Pneumonia Acute AML (acute myeloid leukemia) Acute CHF (congestive heart failure) Acute Cardiomegaly Acute Colitis Acute Hypoxia Acute LBBB (left bundle branch block) Acute Neutropenic fever Acute Pancytopenia Acute Peripheral edema Acute Sepsis Acute
--- NOTE | 2017-11-23 13:26 | ASMTCMCOM ---
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 Currently still on IV Antibiotics. Continue to anticipate discharge back home with resumption of HC. Case Management will continue to follow. Date Signed: 11/23/2017 01:25 PM Electronically Signed By:Tiffanie Sol RN
--- NOTE | 2017-11-23 13:36 | PDIAF ---
- Diagnosis Diagnosis: UTI, PNA Code Status: Full Code - Medication Management Discharge Medications: Medications to Continue on Transfer Pantoprazole Sodium [Protonix 40mg (*)] 40 mg PO DAILY 03/15/13 [Last Taken 04/02] Methenamine Fabian [Hiprex 1 gm (*)] 0.5 gm PO BID 04/24/16 [Last Taken 11/20/17] Calcium Carbonate [Oyster Shell Calcium 500 mg (*)] 500 mg PO 11/03/16 [Last Taken 11/20/17] FEXOFENADINE HCL 90 mg PO BID 11/03/16 [Last Taken 11/20/17] Multivitamins [Multivitamin (*)] 1 each PO DAILY 11/03/16 [Last Taken 11/20/17] Nortriptyline HCl [Pamelor 50 mg (*)] 100 mg PO HS 11/03/16 [Last Taken 11/20/17 ] buPROPion [Wellbutrin 100mg (*)] 100 mg PO BID 11/03/16 [Last Taken 11/20/17] Ondansetron [Zofran Odt] 8 mg PO TID PRN 02/24/17 [Last Taken 11/20/17] Lisinopril 5 mg PO DAILY PRN 03/14/17 [Last Taken 11/20/17] Estradiol [Estrace] 1 elinor [facility] 06/14/17 [Last Taken 11/20/17] Glucosam/Chondr/Collagn/Hyalur [Glucosamine & Chondroitin Cap] 1 each PO DAILY 06/14/17 [Last Taken 11/20/17] Guar Gum [Benefiber/Nutrisource Fiber (*)] 6 packet PO 06/14/17 [Last Taken 11/20/17] Methylphenidate HCl [Ritalin 5mg (*)] 5 mg PO DAILY@06/14/17 [Last Taken 04/02] Polyethylene Glycol 3350 [Miralax 17 gm (*)] 17 gm PO BID@,06/14/17 [Last Taken 11/20/17] Potassium Chloride 20 meq PO BID@,06/14/17 [Last Taken 11/20/17] Potassium Chloride 40 meq PO DAILY@06/14/17 [Last Taken 11/20/17] Docusate Sodium [Colace 100 MG (*)] 100 - 200 mg PO DAILY PRN 07/31/17 [Last Taken 11/20/17] Furosemide [Lasix 20 MG (*)] 20 mg PO DAILY@17 07/31/17 [Last Taken 11/20/17] Furosemide [Lasix 40 MG (*)] 40 mg PO BID@08,12 07/31/17 [Last Taken 11/20/17] Herbals/Supplements -Info Only 1 ea PO DAILY 07/31/17 [Last Taken 11/20/17] Hydrocodone/Acetaminophen [[place] 5/325 (*)] 1 each PO Q4H PRN 07/31/17 [Last Taken 11/20/17] Levothyroxine [Synthroid 137 mcg (*)] 137 mcg PO DAILY06 07/31/17 [Last Taken ] Sorafenib Tosylate [Nexavar] 400 mg PO BID 07/31/17 [Last Taken 11/20/17] methYLPHENIDATE HCL [Ritalin 10mg (*)] 10 mg PO DAILY@08 07/31/17 [Last Taken ] oxyCODONE HCL [Oxycontin] 10 mg PO BID@11/21/17 [Last Taken 11/20/17] Amoxicillin/Clavulanate Pot [Augmentin 875 MG TAB (*)] 875 mg PO BID #6 tab 07/03 [Last Taken Unknown] Azithromycin 250 mg PO DAILY #3 tablet 11/23/17 [Last Taken Unknown] Discharge Medications: Refer to the Discharge Home Medication list for PRN reason. - Orders Services needed: Home Care, Registered Nurse, Master Right Of Way Clearer, Physical Therapy Home Care Face to Face: I certify that this patient was under my care and that I had the required [id number] encounter meeting the encounter requirements on the discharge day. My findings support the fact that the patient is homebound as defined in Home Care Face to Face Continued: CMS Chapter 7 Medicare Benefits Manual 30.1.1 , The condition of the patient is such that there exists a normal inability to leave home and consequently, leaving home would require a considerable and taxing effort. Isolation Type: Chemotherapy Isolation Diet Recommendation: no restrictions on diet Diet Texture: Regular Texture Diet - Follow Up Care Current Providers and Referrals: Patient,NotPresent [Unknown] - As per Instructions
--- NOTE | 2017-11-23 14:37 | GDS ---
[f rep st] DISCHARGE SUMMARY DISCHARGE DIAGNOSES: 1. Acute hypoxic respiratory failure. 2. Sepsis. 3. Recent urinary tract infection. 4. Pneumonia. 5. Diarrhea. 6. Fever. 7. Leukopenia/anemia. 8. Hypothyroidism. 9. 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 HISTORY OF PRESENT ILLNESS: A pleasant 77-year-old female with a history of MDS with conversion to AML, currently on chemotherapy with Nexavar, who was just started on Macrobid 2 days ago for a urinary tract infection. After a couple doses, she said she had diarrhea and a gurgly abdominal discomfort. She had a fever on the morning of admission of 103 and felt chilled. She had 2 episodes of diarrhea on . She developed myalgias, headache, and a productive cough, morning of admission. States that her daughter has also been ill with upper respiratory infection. HOSPITAL COURSE BY PROBLEM: 1. Sepsis: Initially tachycardic, with fever and infiltrate on chest x-ray. Negative influenza or other viruses. Procalcitonin was negative. However, the patient did have infiltrate on x-ray, was treated with azithromycin, meropenem here, given multiple antibiotic allergies. She significantly improved clinically. We will continue coverage for community-acquired pneumonia for 3 more days with Augmentin and azithromycin. She denies allergy to amoxicillin or penicillin. Per record review, she received Augmentin at the hospital in February 2017 without issue. She was given strict return precautions if any reactions to the antibiotics, including shortness of breath, dizziness, or difficulty swallowing. 2. Community-acquired pneumonia: Again, antibiotics as above. 3. UTI: She has received an adequate amount of antibiotics here plus the 2 doses of Macrobid as an outpatient. It was positive E coli on culture. 4. Tachycardia: Resolved with IV fluids. 5. Compensated diastolic heart failure: No evidence of volume overload. She was actually dehydrated. Held her diuretics while here. She may resume these at discharge. 6. AML, conversion from MDS: Resume home oral chemotherapy per Oncology. DISPOSITION: The patient is stable for discharge home. NEW MEDICATIONS: Augmentin and azithromycin for 3 days. FOLLOWUP: 1. Primary care physician. 2. Her primary oncologist. PHYSICAL EXAMINATION: VITAL SIGNS: Today, temperature 36.8, blood pressure 121 /76, heart rate 80s, respirations 18. 92% on room air. GENERAL: Appears much brighter. More color in her face. HEENT: PERRLA. Moist mucous membranes. CV : Regular rate, rhythm. No murmurs, gallops, rubs. No lower extremity edema. LUNGS: Clear. A few rhonchi. ABDOMEN: Soft, nontender, nondistended. Positive bowel sounds. : No [place]. MUSCULOSKELETAL: 5/5 upper and lower extremity strength. Walking with her walker. NEURO: 2 through 12 intact. PSYCH: Alert and oriented x3. /[id number]/MODL MTDD
--- NOTE | 2017-11-23 15:41 | ASDISCHSUM ---
Discharge Information Plan Status:Home with Home Health Medically Cleared to Leave: Discharge Date:11/23/2017 03:36 PM CM D/C Disposition:Home Health Service ADT D/C Disposition:Home, Routine, Self-Care Projected Discharge Date:11/23/2017 11:00 AM Transportation at D/C:Family Discharge Delay Reason: Follow-Up Date:11/23/2017 11:00 AM Discharge Slot: Final Diagnosis: Placement Information Referral Type:*Home Health Care Services Referral ID:[id number] Provider Name:[facility] Address 1:[address] [facility] [address] Address 2: City:[place] Selection Factors: State:[place] Patient Contact Information Contact Name:MAYCO Relationship: Address:[address] Work Phone: City:[place] Alternate Phone: State/Zip Code:[place] [address] Email: Financial Information Financial Class: Primary Plan Desc:MEDICARE INPATIENT Primary Plan Number:[id number] Secondary Plan Desc:[employer]/MDR SUPPLEMENT Secondary Plan Number:[id number] Assessment Information LACE LACE Acuity / Level of Care Answers: Was the patient admitted to hospital via the emergency department? Yes: Comorbidities - select Answers: Any tumor (including all that apply lymphoma or leukemia) Emergency dept visits in Answers: 1 last 6 months Score: 6 Date Signed: 11/21/2017 03:06 PM Electronically Signed By:Kalani Gates RN [facility] CM Progress Note CM Note CM Note Notes: Chart reviewed. Pt 77 year old female with AML, on chemo developed UTI and began having diarrhea from antibiotic. She normally lives I with her and is current with [facility] home health care. Plan at dc would be home with resumption of C. no therapy notes in cart. CM to follow. 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 Currently still on IV Antibiotics. Continue to anticipate discharge back home with resumption of [facility]. Case Management will continue to follow. Date Signed: 11/23/2017 01:25 PM Electronically Signed By:Tiffanie Sol RN Case Management Discharge Plan Note Case Management Discharge Discharge Order Complete? Answers: Yes Patient to Obtain Answers: via Family Medications Transportation Arranged Answers: Family/Friends Transport will Pick (Date 11/23/2017 12:00 AM & Time) Faxed Final Orders Answers: Yes Discharge Comments Notes: Met with patient to discuss disharge plan. Patient would like to discharge home with and resume services with [facility]. Alerted Mabel at [facility] of discharge, all orders online and sent via [employer]. at hospital and will transport home. IM signed. Date Signed: 11/23/2017 01:54 PM Electronically Signed By:Tiffanie Sol RN Intervention Information Intervention Type:*IM-Signed Date of Service:11/23/2017 01:51 PM Patient Type:Inpatient Staff Member:LARS Sol Janessa Hours: Discipline: Severity: Comment:
== END 2017-11-23 15:36 | disposition home or self-care (01) | DRG 871 ==
LOC: EDUNIT# → F1N 15:34
PROVIDERS: ADMIT Internal Medicine Pulmonary Disease; ATTEND Internal Medicine
DX: A41.9 Sepsis, unspecified organism (principal); J18.9 Pneumonia, unspecified organism; J96.01 Acute respiratory failure with hypoxia; N39.0 Urinary tract infection, site not specified; B96.20 Unspecified Escherichia coli [E. coli] as the cause of diseases classified elsewhere; C92.90 Myeloid leukemia, unspecified, not having achieved remission; D64.81 Anemia due to antineoplastic chemotherapy; R19.7 Diarrhea, unspecified; E03.9 Hypothyroidism, unspecified; G89.29 Other chronic pain; I50.30 Unspecified diastolic (congestive) heart failure; F32.9 Major depressive disorder, single episode, unspecified; I44.7 Left bundle-branch block, unspecified; K21.9 Gastro-esophageal reflux disease without esophagitis; I10 Essential (primary) hypertension; Z86.718 Personal history of other venous thrombosis and embolism; Z96.652 Presence of left artificial knee joint; Z96.641 Presence of right artificial hip joint
CPT/HCPCS: 87449-90; J1650; J2185; J2543; J3370

== ENCOUNTER 2017-12-14 19:11 | Emergency (ER) | payer OTHER, MEDICARE ==
--- NOTE | 2017-12-14 20:14 | EDPHY ---
H & P Time Seen by Provider: 12/14/17 19:34 HPI/ROS: CHIEF COMPLAINT: Diarrhea HISTORY OF PRESENT ILLNESS: Patient is a 77-year-old female with a history of AML undergoing chemotherapy who presents to the emergency department with new onset of diarrhea. Patient states that she had a bone marrow biopsy on Thursday. 4 days prior to that she had become constipated and impacted. When she returned home from the bone marrow biopsy she took 60 mL of milk of magnesia. Since that time she has been having diarrhea. She states that on Thursday she had diarrhea approximately once every hour. It is clear and runny. There is no visible blood. It is not black. She has no abdominal pain. She has intermittent mild nausea and vomiting. This is been persistent since she has been on her chemotherapy. She is not lightheaded or dizzy. No chest pain or shortness of breath. Patient also states that she has a "tickle in her throat" that causes her to cough. After coughing episode she feels nauseated. REVIEW OF SYSTEMS: My complete review of systems is negative except as mentioned in the HPI. Past Medical/Surgical History: Includes AML, hypertension, nephritis, hypothyroidism, beta radiation exposure from work, right-sided CHF, elevated uric acid levels, left bundle branch block Past surgical history: Cholecystectomy, partial colectomy, hysterectomy, left knee replacement, right hip replacement Social history: Patient does not smoke. She is . Smoking Status: Never smoked Physical Exam: 36.7, 117/80, 102, 17, 90% on room air GENERAL: No acute distress, alert. HEENT: Eyes normal to inspection, normal pharynx, no signs of dehydration. NECK: [No thyromegaly, no lymphadenopathy, supple. RESPIRATORY: Clear to auscultation bilaterally, no rales, rhonchi or wheezing. CVS: Regular rate and rhythm, no rubs, murmurs, or gallops. ABDOMEN: Soft, nontender, nondistended, no organomegaly. Benign BACK: Normal to inspection, no CVA tenderness. SKIN: Normal color, no rash, warm, dry. No pallor. EXTREMITIES: Mild bilateral pedal edema, no calf tenderness, no Homans sign or cords, no joint swelling. NEURO/PSYCH: Alert and oriented x3, normal mood and affect, normal motor sensory exam. No obvious cranial nerve deficit. Constitutional: Initial Vital Signs Temperature (C) 36.7 C 12/14/17 19:14 Heart Rate 102 H 12/14/17 19:14 Respiratory Rate 17 12/14/17 19:14 Blood Pressure 117/88 H 12/14/17 19:14 O2 Sat (%) 90 L 12/14/17 19:14 O2 Delivery Mode Room Air Allergies/Adverse Reactions: cefuroxime [Cefuroxime] Allergy (Severe, Verified 06/14/17 13:43) SYNCOPE Cephalosporins Allergy (Severe, Verified 06/14/17 13:43) THROAT SWELLING Lactobacillus Combo No.3 [From Probiotic & Acidophilus] Allergy (Severe, Verified 06/14/17 13:43) LIPS SWELL, CRACK, REDDENED AREA BURNING FEELING Sulfa (Sulfonamide Antibiotics) Allergy (Severe, Verified 06/14/17 13:43) THROAT SWELLING, ANAPHYLACTIC ciprofloxacin Allergy (Unknown, Verified 07/14/17 09:49) CRUSHING CHANG, SYNCOPE levofloxacin Allergy (Unknown, Verified 07/14/17 09:49) THROAT SWELLING fructooligosaccharides Allergy (Unknown, Uncoded 06/26/17 15:30) fructooligosaccharides (FOS) Allergy (Unknown, Uncoded 06/22/17 08:07) LIPS SWELL, CRACK, REDDENED AREA BURNING FEELING Pantethine Allergy (Unknown, Uncoded 06/22/17 08:07) LIPS SWELL, CRACK, REDDENED AREA BURNING FEELING Home Medications: Medication Instructions Recorded Pantoprazole Sodium [Protonix 40mg 40 mg PO DAILY 03/15/13 (*)] Methenamine Fabian [Hiprex 1 gm (*)] 0.5 gm PO BID 04/24/16 Calcium Carbonate [[place] 500 mg PO HS 11/03/16 Calcium 500 mg (*)] FEXOFENADINE HCL 90 mg PO BID 11/03/16 Multivitamins [Multivitamin (*)] 1 each PO DAILY 11/03/16 Nortriptyline HCl [Pamelor 50 mg 100 mg PO HS 11/03/16 (*)] buPROPion [Wellbutrin 100mg (*)] 100 mg PO BID 11/03/16 Ondansetron [Zofran Odt] 8 mg PO TID PRN 02/24/17 Lisinopril 5 mg PO DAILY PRN 03/14/17 Estradiol [Estrace] 1 elinor VG MWF 06/14/17 Glucosam/Chondr/Collagn/Hyalur 1 each PO DAILY 06/14/17 [Glucosamine & Chondroitin Cap] Guar Gum [Benefiber/Nutrisource 6 packet PO HS 06/14/17 Fiber (*)] Methylphenidate HCl [Ritalin 5mg 5 mg PO DAILY@13 06/14/17 (*)] Polyethylene Glycol 3350 [Miralax 17 gm PO BID@08,14 06/14/17 17 gm (*)] Potassium Chloride 20 meq PO BID@08,17 06/14/17 Potassium Chloride 40 meq PO DAILY@12 06/14/17 Docusate Sodium [Colace 100 MG (*)] 100 - 200 mg PO DAILY PRN 07/31/17 Furosemide [Lasix 20 MG (*)] 20 mg PO DAILY@17 07/31/17 Furosemide [Lasix 40 MG (*)] 40 mg PO BID@08,12 07/31/17 Herbals/Supplements -Info Only 1 ea PO DAILY 07/31/17 Hydrocodone/Acetaminophen [[place] 1 each PO Q4H PRN 07/31/17 5/325 (*)] Levothyroxine [Synthroid 137 mcg 137 mcg PO DAILY06 07/31/17 (*)] Sorafenib Tosylate [Nexavar] 400 mg PO BID 07/31/17 methYLPHENIDATE HCL [Ritalin 10mg 10 mg PO DAILY@08 07/31/17 (*)] oxyCODONE HCL [Oxycontin] 10 mg PO BID@05,17 11/21/17 Amoxicillin/Clavulanate Pot 875 mg PO BID #6 tab 11/23/17 [Augmentin 875 MG TAB (*)] Azithromycin 250 mg PO DAILY #3 tablet 11/23/17 Medical Decision Making - Diagnostics Imaging Results: Imaging Impressions Chest X-Ray 12/14/17 20:19 Impression: Clearing of the right lower lobe pneumonia. No other findings for acute cardiopulmonary abnormality. ED Course/Re-evaluation: In the emergency department I discussed possible etiologies with the patient. I answered all her questions. An IV was placed. Laboratory studies and chest x -ray were ordered. The white count was 6.4. Hematocrit was 33. Platelets 160. The chemistry panel was remarkable for low potassium at 3.2. The patient was able to give a stool sample. This was sent to the lab. This will not be available this evening. Based on the patient's low potassium she was given 60 mEq orally. I rechecked the patient while here. She was doing well. She only had 1 bowel movement during her time in the emergency department. On repeat exam her abdomen was completely benign. Recommend the patient take Imodium when she returns home. She will follow up with Dr. Jones in the morning. She understands that her stool cultures are pending. She is given warnings prior to leaving. Differential Diagnosis: My differential includes but is not limited to infectious diarrhea, reaction to a laxative, medication reaction, C diff, dehydration, pneumonia, bronchitis - Data Points Laboratory Results: Laboratory Results 12/14/17 21:05 12/14/17 21:05 12/14/17 12/14/17 21:05 21:05 WBC 6.47 10^3/uL 10^3/uL (3.80-9.50) RBC 3.23 10^6/uL L 10^6/uL (4.18-5.33) Hgb 11.1 g/dL L g/dL (12.6-16.3) Hct 33.3 % L % (38.0-47.0) MCV 103.1 fL H fL (81.5-99.8) MCH 34.4 pg H pg (27.9-34.1) MCHC 33.3 g/dL g/dL (32.4-36.7) RDW 23.5 % H % (11.5-15.2) Plt Count 160 10^3/uL 10^3/uL (150-400) MPV TNP Neut % (Auto) 64.5 % % (39.3-74.2) Lymph % (Auto) 24.0 % % (15.0-45.0) [place] % (Auto) 10.7 % % (4.5-13.0) Eos % (Auto) 0.0 % L % (0.6-7.6) Baso % (Auto) 0.5 % % (0.3-1.7) Nucleat RBC Rel Count 0.0 % % (0.0-0.2) Absolute Neuts (auto) 4.18 10^3/uL 10^3/uL (1.70-6.50) Absolute Lymphs (auto) 1.55 10^3/uL 10^3/uL (1.00-3.00) Absolute Monos (auto) 0.69 10^3/uL 10^3/uL (0.30-0.80) Absolute Eos (auto) 0.00 10^3/uL L 10^3/uL (0.03-0.40) Absolute Basos (auto) 0.03 10^3/uL 10^3/uL (0.02-0.10) Absolute Nucleated RBC 0.00 10^3/uL 10^3/uL (0-0.01) Immature Gran % 0.3 % % (0.0-1.1) Immature Gran # 0.02 10^3/uL 10^3/uL (0.00-0.10) Platelet Estimate ADEQUATE (ADEQ) Polychromasia 1+ H Hypochromasia 1+ H Tear Drop Cells 1+ H Oval Macrocytes 1+ H Elliptocytes 1+ H Keratocytes 1+ H Sodium 138 mEq/L mEq/L (135-145) Potassium 3.2 mEq/L L mEq/L (3.5-5.2) Chloride 100 mEq/L mEq/L (97-110) Carbon Dioxide 25 mEq/l mEq/l (22-31) Anion Gap 13 mEq/L mEq/L (8-16) BUN 11 mg/dL mg/dL (7-23) Creatinine 0.8 mg/dL mg/dL (0.6-1.0) Estimated GFR > 60 Glucose 137 mg/dL H mg/dL (70-100) Calcium 9.6 mg/dL mg/dL (8.5-10.4) Total Bilirubin 0.9 mg/dL mg/dL (0.1-1.4) Conjugated Bilirubin 0.4 mg/dL mg/dL (0.0-0.5) Unconjugated Bilirubin 0.5 mg/dL mg/dL (0.0-1.1) AST 35 IU/L IU/L (14-46) ALT 49 IU/L IU/L (9-52) Alkaline Phosphatase 84 IU/L IU/L (38-126) Total Protein 6.9 g/dL g/dL (6.3-8.2) Albumin 4.1 g/dL g/dL (3.5-5.0) Lipase 63 IU/L IU/L (23-300) Medications Given: Discontinued Medications Sodium Chloride (Ns) 1,000 mls @ 0 mls/hr IV EDNOW ONE; Wide Open PRN Reason: Protocol Stop: 12/14/17 20:17 Last Admin: 12/14/17 21:04 Dose: 1,000 mls Ondansetron HCl (Zofran) 4 mg IVP EDNOW ONE Stop: 12/14/17 22:17 Last Admin: 12/14/17 22:19 Dose: 4 mg Potassium Chloride (Potassium Chloride Oral Liquid) 60 meq PO EDNOW ONE Stop: 12/14/17 22:03 Last Admin: 12/14/17 22:09 Dose: 60 meq Departure - Departure Disposition: Home, Routine, Self-Care Clinical Impression: Diarrhea Qualifiers: Diarrhea type: unspecified type Qualified Code(s): R19.7 - Diarrhea, unspecified AML (acute myeloid leukemia) Qualifiers: Leukemia Active/Remission status: without remission Qualified Code(s): C92.00 - Acute myeloblastic leukemia, not having achieved remission Condition: Good Instructions: Acute Diarrhea (ED) Additional Instructions: Return with increasing abdominal pain, fever, bloody diarrhea or any other concerns. You have your stool test pending. Referrals: Airam Doan MD [Primary Care Provider] - As per Instructions Zheng Jones MD [Medical Doctor] - As per Instructions
[2017-12-14] MEDS ORDERED: NS 1,000 ML IV ONE (20:16)
[2017-12-14 21:16] LABS: PLATELET COUNT 160 10^3/uL (150-400)
[2017-12-14 21:51] VITALS: RESP 16
[2017-12-14] MEDS ORDERED: POTASSIUM CL 20 MEQ/15 ML UDCUP PO ONE (22:02)
[2017-12-14] MEDS ORDERED: ONDANSETRON 4 MG/2 ML VIAL ONE (22:14)
[2017-12-14] MEDS ORDERED: ONDANSETRON 4 MG/2 ML VIAL IVP ONE (22:16)
[2017-12-14 22:18] VITALS: BP 117/90; PULSE 94; O2SAT 93
[2017-12-14] MEDS ORDERED: HYDROmorphONE/DILAUDID 1 MG/ML INJ ONE (22:32)
[2017-12-14 22:45] VITALS: TEMP 98.2
== END 2017-12-14 23:09 | disposition home or self-care (01) ==
DX: R19.7 Diarrhea, unspecified (principal); C92.00 Acute myeloblastic leukemia, not having achieved remission; E86.9 Volume depletion, unspecified; I10 Essential (primary) hypertension; I50.9 Heart failure, unspecified
CPT/HCPCS: 71046; 96374; 96375; 99284; J1170; J1642; J2405

== ENCOUNTER → 2018-01-25 | Outpatient (CLI) | payer OTHER, MEDICARE ==
[~2018-01-25] MED LIST changes: +DEPO METHYLPREDNISOLONE 40 MG/ML SDV ONE; -DEPO METHYLPREDNISOLONE 80 MG/ML SDV ONE
== END ==
LOC: FIMAGING 17:03
PROVIDERS: ATTEND Orthopaedic Surgery
PROC: 3E0U3BZ Introduction of Anesthetic Agent into Joints, Percutaneous Approach (ICD-10-PCS; principal; 2018-01-25)
DX: M16.12 Unilateral primary osteoarthritis, left hip (principal)
CPT/HCPCS: 20610; J1030; J2795; Q9967

== ENCOUNTER → 2018-02-11 | Outpatient (CLI) | payer OTHER, MEDICARE | LOC: BHFA 14:00 | PROVIDERS: ATTEND Internal Medicine Cardiovascular Disease | DX: I45.10 Unspecified right bundle-branch block (principal); I50.9 Heart failure, unspecified ==

== ENCOUNTER 2018-04-30 11:10 | Outpatient (CLI) | payer OTHER, MEDICARE | END 2018-04-30 16:20 | disposition home or self-care (01) | LOC: FOBOP 11:10 | PROVIDERS: ATTEND Internal Medicine Hematology & Oncology | PROC: 30233N1 Transfusion of Nonautologous Red Blood Cells into Peripheral Vein, Percutaneous Approach (ICD-10-PCS; principal; 2018-04-30) | DX: D46.9 Myelodysplastic syndrome, unspecified (principal) | CPT/HCPCS: 36430; P9016; P9040 ==

== ENCOUNTER → 2018-05-28 | Outpatient (CLI) | payer OTHER, MEDICARE | LOC: FIMAGING 09:44 | PROVIDERS: ATTEND Orthopaedic Surgery | PROC: 3E0U33Z Introduction of Anti-inflammatory into Joints, Percutaneous Approach (ICD-10-PCS; principal; 2018-05-28) | PROC: 3E0U3BZ Introduction of Anesthetic Agent into Joints, Percutaneous Approach (ICD-10-PCS; 2018-05-28) | DX: M16.12 Unilateral primary osteoarthritis, left hip (principal) | CPT/HCPCS: 20610; 77002; J1030; J2795; Q9967 ==

== ENCOUNTER → 2018-08-06 | Day surgery (SDC) | payer OTHER, MEDICARE | END | disposition home or self-care (01) | LOC: FIMAGING 14:33 | PROVIDERS: ATTEND Nurse Practitioner | DX: Z45.2 Encounter for adjustment and management of vascular access device (principal); D46.21 Refractory anemia with excess of blasts 1 | CPT/HCPCS: 36584; 77001; C1751 ==

== ENCOUNTER → 2018-11-26 | Outpatient (CLI) | payer OTHER, MEDICARE | LOC: FIMAGING 11:55 | PROVIDERS: ATTEND Orthopaedic Surgery | PROC: 3E0U3GC Introduction of Other Therapeutic Substance into Joints, Percutaneous Approach (ICD-10-PCS; principal; 2018-11-26) | DX: M25.552 Pain in left hip (principal) | CPT/HCPCS: 20610; J1030; J2795; Q9967 ==

== ENCOUNTER 2019-01-25 22:43 | Observation (INO) | payer OTHER, MEDICARE ==
[2019-01-25] MEDS ORDERED: NS 1,000 ML IV ONE (23:30)
--- NOTE | 2019-01-25 23:39 | EDPHY ---
H & P Stated Complaint: bright red blood in stool x1 hour Time Seen by Provider: 01/25/19 23:39 HPI/ROS: HPI CHIEF COMPLAINT: Bloody stool. HISTORY OF PRESENT ILLNESS: This patient very pleasant 78-year-old female has a history of AML, currently on chemotherapy, the patient's oncologist is Dr. Jones, she presents emergency room with bright red blood per rectum. The patient reports that she was straining with large bowel movement that she was able to have however noticed about a tsp of bright red blood per rectum. She denies any vomiting, denies any abdominal pain. She distally reports that she thinks she may have a urinary tract infection. She states that she has a urine sample at her primary care doctor's office dropped off yesterday to be run. She otherwise feels well. This bright red blood per rectum scared her and she decided come the emergency room due to this concern. Past Medical History: Significant medical history for sepsis, hypoxic respiratory failure, UTI, pneumonia, diarrhea, fever, AML, myelodysplastic syndrome Past Surgical History: Denies recent surgical history Social History: Denies drugs alcohol tobacco. Family History: Noncontributory ROS REVIEW OF SYSTEMS: 10 Systems were reviewed and negative with the exception of the elements mentioned in the history of present illness. Exam Constitutional elderly, frail, triage nursing summary reviewed, vital signs reviewed, awake/alert. Eyes normal conjunctivae and sclera, EOMI, PERRLA. HENT normal inspection, atraumatic, moist mucus membranes, no epistaxis, neck supple/ no meningismus, no raccoon eyes. Respiratory clear to auscultation bilaterally, normal breath sounds, no respiratory distress, no wheezing. Cardiovascular rate normal, regular rhythm, no murmur, no edema, distal pulses normal. Gastrointestinal rectal exam performed: Leeanne RN at bedside, BRBPR, small amount no stool in vault, no black stool, soft, non-tender, no rebound, no guarding, normal bowel sounds, no distension, no pulsatile mass. Genitourinary no CVA tenderness. Musculoskeletal no midline vertebral tenderness, full range of motion, no calf swelling, no tenderness of extremities, no meningismus, good pulses, neurovascularly intact. Skin pink, warm, & dry, no rash, skin atraumatic. Neurologic awake, alert and oriented x 3, AAOx3, moves all 4 extremities equally, motor intact, sensory intact, CN II-XII intact, normal cerebellar, normal vision, normal speech. Psychiatric normal mood/affect. Heme/Lymph/Immune no lymphadenopathy. Differential Diagnosis: Includes but is not limited to in a particular order constipation, hemorrhoidal bleed, colitis, proctitis, anal fissure, urinary tract infection, dehydration Medical Decision Making: Plan for this patient IV establishment with IV fluid bolus, basic labs, type and screen, rectal exam, urinalysis Re-evaluation: 0410: Patient agrees for hospital admission for urinary tract infection, nausea , generalized weakness, very blood per rectum the area Source: Patient - Personal History Current Tetanus/Diphtheria Vaccine: Yes Tetanus Vaccine Date: 2014 - Medical/Surgical History Hx Asthma: No Hx Chronic Respiratory Disease: No Hx Diabetes: No Hx Cardiac Disease: Yes Hx Renal Disease: Yes Hx Cirrhosis: No Hx Alcoholism: No Hx HIV/AIDS: No Hx Splenectomy or Spleen Trauma: No Other PMH: Acute myeloid leukemia,HTN, NEPHRITIS, HYPOTHYROID, blue, , PARTIAL COLOCTEMY,HYSTERECTOMY, L KNEE REPLACEMENT, R HIP REPLACEMENT, BETA RADIATION EXPOSURE FROM WORK, R SIDED CHF, elevated uric acid levels, left bundle branch block. - Social History Smoking Status: Never smoked Constitutional: Initial Vital Signs Temperature (C) 37.1 C 01/25/19 22:45 Heart Rate 90 01/25/19 22:45 Respiratory Rate 16 01/25/19 22:45 Blood Pressure 137/84 H 01/25/19 22:45 O2 Sat (%) 93 01/25/19 22:45 O2 Delivery Mode Room Air Allergies/Adverse Reactions: cefuroxime [Cefuroxime] Allergy (Severe, Verified 01/25/19 22:49) SYNCOPE Cephalosporins Allergy (Severe, Verified 01/25/19 22:49) THROAT SWELLING Lactobacillus Combo No.3 [From Probiotic & Acidophilus] Allergy (Severe, Verified 01/25/19 22:49) LIPS SWELL, CRACK, REDDENED AREA BURNING FEELING Sulfa (Sulfonamide Antibiotics) Allergy (Severe, Verified 01/25/19 22:49) THROAT SWELLING, ANAPHYLACTIC ciprofloxacin Allergy (Unknown, Verified 01/25/19 22:49) CRUSHING CHANG, SYNCOPE levofloxacin Allergy (Unknown, Verified 01/25/19 22:49) THROAT SWELLING fructooligosaccharides Allergy (Unknown, Uncoded 06/26/17 15:30) fructooligosaccharides (FOS) Allergy (Unknown, Uncoded 06/22/17 08:07) LIPS SWELL, CRACK, REDDENED AREA BURNING FEELING Pantethine Allergy (Unknown, Uncoded 06/22/17 08:07) LIPS SWELL, CRACK, REDDENED AREA BURNING FEELING Home Medications: Medication Instructions Recorded Pantoprazole Sodium [Protonix 40mg 40 mg PO DAILY 03/15/13 (*)] FEXOFENADINE HCL 90 mg PO BID 11/03/16 Nortriptyline HCl [Pamelor 50 mg 100 mg PO HS 11/03/16 (*)] buPROPion [Wellbutrin 100mg (*)] 100 mg PO BID 11/03/16 Ondansetron [Zofran Odt] 8 mg PO TID 02/24/17 Methylphenidate HCl [Ritalin 5mg 5 mg PO DAILY@06/14/17 (*)] Polyethylene Glycol 3350 [Miralax 17 gm PO DAILY PRN 06/14/17 17 gm (*)] Docusate Sodium [Colace 100 MG (*)] 100 - 200 mg PO DAILY PRN 07/31/17 Herbals/Supplements -Info Only 1 ea PO DAILY 07/31/17 Hydrocodone/Acetaminophen [[place] 1 each PO Q4H PRN 07/31/17 5/325 (*)] Levothyroxine [Synthroid 137 mcg 137 mcg PO DAILY06 07/31/17 (*)] Sorafenib Tosylate [Nexavar] 400 mg PO BID 07/31/17 methYLPHENIDATE HCL [Ritalin 10mg 10 mg PO DAILY@07/31/17 (*)] oxyCODONE HCL [Oxycontin] 10 mg PO BID@11/21/17 ALPRAZolam [Xanax 0.25 MG (*)] 0.25 mg PO DAILY@01/26/19 ALPRAZolam [Xanax 0.5 MG (*)] 0.5 mg PO DAILY@01/26/19 Cephalexin [Keflex (*)] 500 mg PO BID 01/26/19 Furosemide [Lasix 40 MG (*)] 40 mg PO DAILY 01/26/19 Guar Gum [Benefiber/Nutrisource 1 each PO DAILY PRN 01/26/19 Fiber (*)] LORazepam [Ativan (*)] 0.5 mg PO TID 01/26/19 Loperamide HCl [Imodium 2 mg (*)] 2 mg PO PRN PRN 01/26/19 Sennosides/Docusate Sodium 1 each PO DAILY PRN 01/26/19 [Senna-S Tablet] Medical Decision Making - Data Points Laboratory Results: Laboratory Results 01/26/19 00:15 01/26/19 00:15 Medications Given: Enoxaparin Sodium (Lovenox) 40 mg SC DAILY [facility] Stop: 07/25/19 08:59 Last Admin: 01/26/19 20:24 Dose: Not Given Ondansetron HCl (Zofran) 4 mg IVP Q4HRS PRN PRN Reason: Nausea/Vomiting, Can't Take PO Stop: 07/25/19 03:43 Last Admin: 01/26/19 08:12 Dose: 4 mg Oxycodone HCl (Oxycontin) 10 mg PO BID@05,17 [facility] Stop: 02/05/19 16:59 Last Admin: 01/26/19 20:24 Dose: Not Given Senna/Docusate Sodium (Senokot-S) 1 - 2 tab PO BID MICHELE PRN Reason: Protocol Stop: 07/25/19 08:59 Last Admin: 01/26/19 08:12 Dose: 2 tab Discontinued Medications Sodium Chloride (Ns) 1,000 mls @ 0 mls/hr IV EDNOW ONE; Wide Open PRN Reason: Protocol Stop: 01/25/19 23:31 Last Admin: 01/26/19 00:23 Dose: 1,000 mls Piperacillin/Tazobactam/Dextrose (Zosyn (Premix)) 100 mls @ 200 mls/hr IV EDNOW ONE PRN Reason: Protocol Stop: 01/26/19 03:53 Last Admin: 01/26/19 04:30 Dose: 100 mls Sodium Chloride (Ns) 500 mls @ 0 mls/hr IV ONCE ONE PRN Reason: Wide Open Stop: 01/26/19 03:31 Last Admin: 01/26/19 03:35 Dose: 500 mls Piperacillin/Tazobactam/Dextrose (Zosyn 3.375 Gm (Premix)) 50 mls @ 100 mls/hr IV Q6H MICHELE PRN Reason: Protocol Stop: 02/25/19 10:29 Last Admin: 01/26/19 20:31 Dose: Not Given Ondansetron HCl (Zofran) 4 mg IVP EDNOW ONE Stop: 01/26/19 01:53 Last Admin: 01/26/19 02:11 Dose: Not Given Polyethylene Glycol/Electrolytes (Gavilyte - G) 4,000 ml PO ONCE ONE Stop: 01/26/19 16:01 Last Admin: 01/26/19 20:24 Dose: Not Given Promethazine HCl (Phenergan) 6.25 mg IVP ONCE ONE Stop: 01/26/19 02:02 Last Admin: 01/26/19 02:07 Dose: 6.25 mg Departure - Departure Disposition: [facility] Inpatient Acute Clinical Impression: Dehydration, Rectal bleeding UTI (urinary tract infection) Qualifiers: Urinary tract infection type: acute cystitis Hematuria presence: without hematuria Qualified Code(s): N30.00 - Acute cystitis without hematuria Anemia Qualifiers: Anemia type: other cause Other causes of anemia: other cause, not classified Qualified Code(s): D64.89 - Other specified anemias Condition: Fair
[2019-01-26 00:48] LABS: PLATELET COUNT 237 10^3/uL (150-400)
[2019-01-26 00:52] LABS: INR 1.15 (0.83-1.16); PROTIME(PATIENT) 14.2 SEC (12.0-15.0)
[2019-01-26] MEDS ORDERED: ONDANSETRON 4 MG/2 ML VIAL IVP ONE (01:52)
[2019-01-26] MEDS ORDERED: PROMETHAZINE HCL 25 MG/ML INJ IVP ONE (02:01)
[2019-01-26] MEDS ORDERED: PIPERACILLIN/TAZO 4.5 GM/DEX 100 ML IV ONE (03:24)
[2019-01-26] MEDS ORDERED: NS 500 ML IV ONE (03:30)
[2019-01-26] MEDS ORDERED: ACETAMINOPHEN 325 MG TAB PO PRN (03:44)
[2019-01-26] MEDS ORDERED: ONDANSETRON DISINTEGRATING 4 MG TAB PO PRN (03:44)
[2019-01-26] MEDS ORDERED: ONDANSETRON 4 MG/2 ML VIAL IVP PRN (03:44)
--- NOTE | 2019-01-26 04:16 | PDGENHP ---
History and Physical - Chief Complaint Abdominal pain, nausea, dysuria - History of Present Illness 78 yo F w/ AML and arthritis presents with dysuria, abdominal pain, and nausea. She tells me these symptoms started on Thursday. She dropped off a urine sample with her PCP on Thursday. This urine culture available in our EMR revealed >100k GNRs. Her symptoms have progressed until today when she developed significant nausea and L flank pain as well. She denies fevers or chills. She does not meet SIRS criteria in the ED. Additionally, she has been quite constipated. She was straining significantly to have a BM today and noticed about a teaspoon of bright red blood. This is the first time this has occurred. Case discussed with ED physician Dr. Auguste; records reviewed and summarized above. History Information - Allergies/Home Medication List Allergies/Adverse Reactions: cefuroxime [Cefuroxime] Allergy (Severe, Verified 01/25/19 22:49) SYNCOPE Cephalosporins Allergy (Severe, Verified 01/25/19 22:49) THROAT SWELLING Lactobacillus Combo No.3 [From Probiotic & Acidophilus] Allergy (Severe, Verified 01/25/19 22:49) LIPS SWELL, CRACK, REDDENED AREA BURNING FEELING Sulfa (Sulfonamide Antibiotics) Allergy (Severe, Verified 01/25/19 22:49) THROAT SWELLING, ANAPHYLACTIC ciprofloxacin Allergy (Unknown, Verified 01/25/19 22:49) CRUSHING CHANG, SYNCOPE levofloxacin Allergy (Unknown, Verified 01/25/19 22:49) THROAT SWELLING fructooligosaccharides Allergy (Unknown, Uncoded 06/26/17 15:30) fructooligosaccharides (FOS) Allergy (Unknown, Uncoded 06/22/17 08:07) LIPS SWELL, CRACK, REDDENED AREA BURNING FEELING Pantethine Allergy (Unknown, Uncoded 06/22/17 08:07) LIPS SWELL, CRACK, REDDENED AREA BURNING FEELING Home Medications: Pantoprazole Sodium [Protonix 40mg (*)] 40 mg PO DAILY 03/15/13 [Last Taken 04/02] Methenamine Fabian [Hiprex 1 gm (*)] 0.5 gm PO BID 04/24/16 [Last Taken 11/20/17] Calcium Carbonate [[place] Calcium 500 mg (*)] 500 mg PO HS 11/03/16 [Last Taken 11/20/17] FEXOFENADINE HCL 90 mg PO BID 11/03/16 [Last Taken 11/20/17] Multivitamins [Multivitamin (*)] 1 each PO DAILY 11/03/16 [Last Taken 11/20/17] Nortriptyline HCl [Pamelor 50 mg (*)] 100 mg PO HS 11/03/16 [Last Taken 11/20/17 ] buPROPion [Wellbutrin 100mg (*)] 100 mg PO BID 11/03/16 [Last Taken 11/20/17] Ondansetron [Zofran Odt] 8 mg PO TID PRN 02/24/17 [Last Taken 11/20/17] Lisinopril 5 mg PO DAILY PRN 03/14/17 [Last Taken 11/20/17] Estradiol [Estrace] 1 elinor [facility] 06/14/17 [Last Taken 11/20/17] Glucosam/Chondr/Collagn/Hyalur [Glucosamine & Chondroitin Cap] 1 each PO DAILY 06/14/17 [Last Taken 11/20/17] Guar Gum [Benefiber/Nutrisource Fiber (*)] 6 packet PO 06/14/17 [Last Taken 11/20/17] Methylphenidate HCl [Ritalin 5mg (*)] 5 mg PO DAILY@06/14/17 [Last Taken 04/02] Polyethylene Glycol 3350 [Miralax 17 gm (*)] 17 gm PO BID@,14 06/14/17 [Last Taken 11/20/17] Potassium Chloride 20 meq PO BID@,06/14/17 [Last Taken 11/20/17] Potassium Chloride 40 meq PO DAILY@06/14/17 [Last Taken 11/20/17] Docusate Sodium [Colace 100 MG (*)] 100 - 200 mg PO DAILY PRN 07/31/17 [Last Taken 11/20/17] Furosemide [Lasix 20 MG (*)] 20 mg PO DAILY@07/31/17 [Last Taken 11/20/17] Herbals/Supplements -Info Only 1 ea PO DAILY 07/31/17 [Last Taken 11/20/17] Hydrocodone/Acetaminophen [[place] 5/325 (*)] 1 each PO Q4H PRN 07/31/17 [Last Taken 11/20/17] Levothyroxine [Synthroid 137 mcg (*)] 137 mcg PO DAILY06 07/31/17 [Last Taken ] Sorafenib Tosylate [Nexavar] 400 mg PO BID 07/31/17 [Last Taken 11/20/17] methYLPHENIDATE HCL [Ritalin 10mg (*)] 10 mg PO DAILY@08 07/31/17 [Last Taken ] oxyCODONE HCL [Oxycontin] 10 mg PO BID@,11/21/17 [Last Taken 11/20/17] I have personally reviewed and updated: family history, medical history - Past Medical History cancer Additional medical history: 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 pulmonary hypertension. macrocytic anemia. pancytopenia 2/2 chemo. hypothyroidism. diastolic CHF (negative lexiscan 10/2016). ADD. h/o ischemic colitis. h/o neutropenic enterocolitis. hypothyroidism. LBBB. hip arthritis - Surgical History Additional surgical history: lumpectomy. cholecystectomy. R hip replacement. L TKA. bowel resection for an episode of ischemic bowel. appendectomy - Family History Positive for: cancer, stroke - Social History Smoking Status: Never smoked Additional social history: Patient lives with her , requires 2 canes for ambulation Review of Systems Review of Systems: ROS: 10pt was reviewed & negative except for what was stated in HPI & below Physical Exam Physical Exam: Temp Pulse Resp BP Pulse Ox 37.1 C 83 18 157/94 H 94 01/25/19 22:45 01/26/19 02:09 01/26/19 02:09 01/26/19 02:09 01/26/19 02:09 Constitutional: chronically ill appearing, uncomfortable Eyes: PERRL, EOMI Ears, Nose, Mouth, Throat: moist mucous membranes, no oral mucosal ulcers Cardiovascular: regular rate and rhythym, no murmur, rub, or gallop Respiratory: no respiratory distress, clear to auscultation Gastrointestinal: normoactive bowel sounds, tenderness (Suprapubic, L flank) Skin: warm, normal color Musculoskeletal: full muscle strength, no muscle tenderness Neurologic: AAOx3, CN II-XII Intact Psychiatric: interacting appropriately, not anxious Lab Data & Imaging Review 01/26/19 00:15 01/26/19 00:15 WBC 3.73 10^3/uL (3.80-9.50) L 01/26/19 00:15 RBC 2.74 10^6/uL (4.18-5.33) L 01/26/19 00:15 Hgb 9.1 g/dL (12.6-16.3) L 01/26/19 00:15 Hct 28.3 % (38.0-47.0) L 01/26/19 00:15 MCV 103.3 fL (81.5-99.8) H 01/26/19 00:15 MCH 33.2 pg (27.9-34.1) 01/26/19 00:15 MCHC 32.2 g/dL (32.4-36.7) L 01/26/19 00:15 RDW 25.7 % (11.5-15.2) H 01/26/19 00:15 Plt Count 237 10^3/uL (150-400) 01/26/19 00:15 MPV 11.1 fL (8.7-11.7) 01/26/19 00:15 Neut % (Auto) 47.5 % (39.3-74.2) 01/26/19 00:15 Lymph % (Auto) 39.9 % (15.0-45.0) 01/26/19 00:15 [place] % (Auto) 9.9 % (4.5-13.0) 01/26/19 00:15 Eos % (Auto) 1.1 % (0.6-7.6) 01/26/19 00:15 Baso % (Auto) 1.3 % (0.3-1.7) 01/26/19 00:15 Nucleat RBC Rel Count 0.0 % (0.0-0.2) 01/26/19 00:15 Absolute Neuts (auto) 1.77 10^3/uL (1.70-6.50) 01/26/19 00:15 Absolute Lymphs (auto) 1.49 10^3/uL (1.00-3.00) 01/26/19 00:15 Absolute Monos (auto) 0.37 10^3/uL (0.30-0.80) 01/26/19 00:15 Absolute Eos (auto) 0.04 10^3/uL (0.03-0.40) 01/26/19 00:15 Absolute Basos (auto) 0.05 10^3/uL (0.02-0.10) 01/26/19 00:15 Absolute Nucleated RBC 0.00 10^3/uL (0-0.01) 01/26/19 00:15 Immature Gran % 0.3 % (0.0-1.1) 01/26/19 00:15 Immature Gran # 0.01 10^3/uL (0.00-0.10) 01/26/19 00:15 Platelet Estimate ADEQUATE (ADEQ) 01/26/19 00:15 Basophilic Stippling 1+ H 01/26/19 00:15 Tear Drop Cells 1+ H 01/26/19 00:15 Oval Macrocytes 2+ H 01/26/19 00:15 Acanthocytes (Spur) 2+ H 01/26/19 00:15 Schistocytes 1+ H 01/26/19 00:15 PT 14.2 SEC (12.0-15.0) 01/26/19 00:15 INR 1.15 (0.83-1.16) 01/26/19 00:15 APTT 34.1 SEC (23.0-38.0) 01/26/19 00:15 VBG Lactic Acid 1.9 mmol/L (0.7-2.1) 01/26/19 00:15 Sodium 137 mEq/L (135-145) 01/26/19 00:15 Potassium 3.7 mEq/L (3.5-5.2) 01/26/19 00:15 Chloride 105 mEq/L (97-110) 01/26/19 00:15 Carbon Dioxide 26 mEq/l (22-31) 01/26/19 00:15 Anion Gap 6 mEq/L (6-14) 01/26/19 00:15 BUN 18 mg/dL (7-23) 01/26/19 00:15 Creatinine 0.7 mg/dL (0.6-1.0) 01/26/19 00:15 Estimated GFR > 60 01/26/19 00:15 Glucose 114 mg/dL (70-100) H 01/26/19 00:15 Calcium 8.7 mg/dL (8.5-10.4) 01/26/19 00:15 Total Bilirubin 1.0 mg/dL (0.1-1.4) 01/26/19 00:15 Conjugated Bilirubin 0.3 mg/dL (0.0-0.5) 01/26/19 00:15 Unconjugated Bilirubin 0.7 mg/dL (0.0-1.1) 01/26/19 00:15 AST 37 IU/L (14-46) 01/26/19 00:15 ALT 46 IU/L (9-52) 01/26/19 00:15 Alkaline Phosphatase 106 IU/L (38-126) 01/26/19 00:15 Total Protein 5.7 g/dL (6.3-8.2) L 01/26/19 00:15 Albumin 3.4 g/dL (3.5-5.0) L 01/26/19 00:15 Lipase 81 IU/L (23-300) 01/26/19 00:15 Urine Color BOYD 01/26/19 03:00 Urine Appearance CLEAR 01/26/19 03:00 Urine pH 7.0 (5.0-7.5) 01/26/19 03:00 Ur Specific [place] 1.005 (1.002-1.030) 01/26/19 03:00 Urine Protein NEGATIVE (NEGATIVE) 01/26/19 03:00 Urine Ketones NEGATIVE (NEGATIVE) 01/26/19 03:00 Urine Blood 1+ (NEGATIVE) H 01/26/19 03:00 Urine Nitrate POSITIVE (NEGATIVE) H 01/26/19 03:00 Urine Bilirubin NEGATIVE (NEGATIVE) 01/26/19 03:00 Urine Urobilinogen 4.0 EU (0.2-1.0) H 01/26/19 03:00 Ur Leukocyte Esterase 1+ (NEGATIVE) H 01/26/19 03:00 Urine RBC NONE SEEN /hpf (0-3) 01/26/19 03:00 Urine WBC 15-25 /hpf (0-3) H 01/26/19 03:00 Ur Epithelial Cells NONE SEEN /lpf (NONE-1+) 01/26/19 03:00 Urine Bacteria TRACE /hpf (NONE SEEN) H 01/26/19 03:00 Urine Glucose NEGATIVE (NEGATIVE) 01/26/19 03:00 Patient ABO/Rh O POSITIVE 01/26/19 00:45 Antibody Screen NEGATIVE 01/26/19 00:45 Assessment & Plan Assessment: 78 yo F w/ AML presents with UTI. Plan: 1. UTI - Likely cystitis noting no SIRS criteria but she does have L flank pain , so may be early pyelonephritis as well. Urine culture from Thursday through PCP demonstrates >100k lactose fermenting GNRs. She has an allergy to cephalosporins and her last cultures have shown ampicillin resistant E. Coli. - Zosyn IV pending urine culture - Repeat urine culture ordered - Anti-emetics PRN 2. BRBPR - Teaspoon amount in the setting of significant straining during a BM. This is her first episode. - Will schedule bowel regimen - Follow up w/ PCP if persistent may need colonoscopy 3. AML - On sorafenib as an outpatient 4. Leukopenia, anemia - Chronic in setting of leukemia Diet - Regular Code - Full Ppx - LMWH Dispo - Admit under observation status
[2019-01-26] MEDS ORDERED: MAGNESIUM HYDROXIDE 30 ML UDCUP PO PRN (04:19)
[2019-01-26] MEDS ORDERED: LACTULOSE 20 GM/30 ML UDCUP PO PRN (04:19)
[2019-01-26] MEDS ORDERED: POLYETHYLENE GLYCOL 3350 17 GM PKT PO PRN ×2 (04:19→18:59)
[2019-01-26] MEDS ORDERED: BISACODYL 10 MG SUPP PR PRN (04:19)
[2019-01-26] MEDS: SENNOSIDES/DOCUSATE SODIUM TAB PO SCH ×2 (08:12→21:56)
[2019-01-26] MEDS: ENOXAPARIN 40 MG/0.4 ML SYR SC SCH ×2 (09:51→20:24)
[2019-01-26] MEDS: PIPERACILLIN/TAZO 3.375 GM/DEX 50 ML IV SCH ×2 (10:06→20:31)
--- NOTE | 2019-01-26 10:06 | ASMTCMCOM ---
CM Note CM Note Notes: Chart reviewed. Patient with history of ALL admitted via ed with symptoms of UTI and flank pain as well as report of bright red blood per rectum after straining for stool. Has used [facility] for HHC needs in the past. Normally lives independently with . CM to follow for needs. Plan: TBD Date Signed: 01/26/2019 10:05 AM Electronically Signed By:Ioana Keen RN
[2019-01-26] MEDS ORDERED: PEG 3350/NA SULF,BICARB,CL/KCL (GAVILYTE-G) 4000 ML BTL PO ONE ×2 (16:00)
[2019-01-26] MEDS ORDERED: PEG 3350/NA SULF,BICARB,CL/KCL (GAVILYTE-G) 4000 ML BTL ONE (16:30)
[2019-01-26] MEDS ORDERED: DOCUSATE SODIUM 100 MG CAP PO PRN (18:59)
[2019-01-26] MEDS ORDERED: HYDROCODONE/APAP 5/325 TAB PO PRN (18:59)
[2019-01-26] MEDS ORDERED: SENNOSIDES/DOCUSATE SODIUM TAB PO PRN (18:59)
[2019-01-26] MEDS ORDERED: BENEFIBER/NUTRISOURCE FIBER PKT 1 EACH PO PRN (18:59)
[2019-01-26] MEDS ORDERED: LOPERAMIDE HCL 2 MG CAP PO PRN (18:59)
--- NOTE | 2019-01-26 19:45 | SOAPPROG ---
SOAP Progress Note Assessment/Plan: Assessment: Plan: Subjective: PCP round I saw her on 01/24/2019 as an outpt, PCP is Dr Janiya Doan. Ucx done 01/24 is e coli, sens to keflex. She was RXd Keflex on Thursday. I stopped in and visited with her and . She is feeling much better but quite constipated, drinking golytly. Hoping to go home tomorrow, I discussed with Dr Richardson. Objective: Vital Signs Temp Pulse Resp BP Pulse Ox 98.2 F 90 18 152/90 H 91 L 01/26/19 08:01 01/26/19 08:01 01/26/19 08:01 01/26/19 08:01 01/26/19 08:01 01/25/19 01/26/19 01/27/19 11:59 11:59 11:59 Intake Total 1600 Output Total 250 Balance 1350 PT 14.2 SEC (12.0-15.0) 01/26/19 00:15 INR 1.15 (0.83-1.16) 01/26/19 00:15 ICD10 Worksheet Patient Problems: Problems Problem Status Onset Anemia Acute Dehydration Acute Rectal bleeding Acute UTI (urinary tract infection) Acute AML (acute myeloid leukemia) Acute CHF (congestive heart failure) Acute Cardiomegaly Acute Colitis Acute Hypoxia Acute LBBB (left bundle branch block) Acute Neutropenic fever Acute Pancytopenia Acute Peripheral edema Acute Pneumonia Acute Sepsis Acute
[2019-01-26] MEDS ORDERED: NORTRIPTYLINE HCL 50 MG CAP PO SCH (21:00)
[2019-01-26] MEDS: buPROPion 100 MG TAB PO SCH (21:56)
[2019-01-26] MEDS: ONDANSETRON DISINTEGRATING 4 MG TAB PO SCH (21:56)
[2019-01-26] MEDS: SORAFENIB TOSYLATE 400 MG PO SCH (22:52)
[2019-01-26] MEDS: LORazepam 0.5 MG TAB PO SCH (23:07)
[2019-01-27] MEDS ORDERED: LEVOTHYROXINE 137 MCG TAB PO SCH (06:00)
[2019-01-27] MEDS ORDERED: ALPRAZolam 0.25 MG TAB PO SCH ×2 (08:00→13:00)
[2019-01-27] MEDS: ONDANSETRON DISINTEGRATING 4 MG TAB PO SCH (08:42)
[2019-01-27] MEDS: LORazepam 0.5 MG TAB PO SCH (08:42)
[2019-01-27] MEDS: buPROPion 100 MG TAB PO SCH (08:42)
[2019-01-27] MEDS: ENOXAPARIN 40 MG/0.4 ML SYR SC SCH (08:43)
[2019-01-27] MEDS ORDERED: PANTOPRAZOLE SODIUM 40 MG TAB PO SCH (09:00)
[2019-01-27] MEDS ORDERED: FUROSEMIDE 40 MG TAB PO SCH (09:00)
[2019-01-27] MEDS ORDERED: Herbals/Supplements -Info Only PO SCH (09:00)
[2019-01-27] MEDS ORDERED: CETIRIZINE 10 MG TAB PO SCH (09:00)
[2019-01-27 09:13] VITALS: BP 129/73
[2019-01-27] MEDS: SENNOSIDES/DOCUSATE SODIUM TAB PO SCH (09:56)
[2019-01-27] MEDS: SORAFENIB TOSYLATE 400 MG PO SCH (09:57)
--- NOTE | 2019-01-27 10:39 | GDS ---
[f rep st] DISCHARGE SUMMARY ALL DIAGNOSES: 1. Urinary tract infection due to Escherichia coli. 2. Constipation. 3. Bright red blood per rectum. 4. Amyotrophic lateral sclerosis. 5. Mild leukopenia, which is chronic. 6. Anemia, chronic. HOSPITAL COURSE: 78-year-old female admitted with urinary tract infection, as well as constipation. She also had some bright red blood per rectum. Urine culture revealed E coli, which is sensitive to Keflex. She will be given a total of a 7 day course of antibiotics to cover this. She did receive broad-spectrum antibiotics as an inpatient. She had some constipation and bright red blood per rectum. I did a rectal exam, which showed no bloo d. She got aggressive bowel treatment and her constipation is relieved. She had no blood with bowel movements. She has significant problems, being on chronic narcotics, with constipation and diarrhea intermittently. We worked on a regimen to help her control this, which may need to be adjusted in t he future. She is followed for chronic AML by Dr. Jones. She is currently on sorafenib. BILLING: I spent more than 30 minutes on the day of discharge coordinating care. DISPOSITION: She is discharged in stable condition. FOLLOWUP: With Dr. Jones, as well as Dr. Doan, her primary care physician. /[id number]/MOD
--- NOTE | 2019-01-27 11:31 | ASMTLACE ---
LACE Length of stay for Answers: 1 day current admission Comorbidities - select Answers: Any tumor (including all that apply lymphoma or leukemia) Congestive heart failure # of Emergency department Answers: 1-2 visits in the last 6 months Score: 6 Date Signed: 01/27/2019 11:30 AM Electronically Signed By:Ioana Keen RN
--- NOTE | 2019-01-27 11:33 | ASMTDCNOTE ---
Case Management Discharge Discharge Order Complete? Answers: Yes Patient to Obtain Answers: via Family Medications Transportation Arranged Answers: Family/Friends Family Notified Answers: Yes Discharge Comments Notes: PAtient medically cleared for discharge to home no current needs at this time. Date Signed: 01/27/2019 11:33 AM Electronically Signed By:Ioana Keen RN
== END 2019-01-27 12:18 | disposition home or self-care (01) ==
LOC: F1N 01-26 05:21
PROVIDERS: ADMIT Student in an Organized Health Care Education/Training Program; ATTEND Student in an Organized Health Care Education/Training Program
DX: N39.0 Urinary tract infection, site not specified (principal); B96.20 Unspecified Escherichia coli [E. coli] as the cause of diseases classified elsewhere; K59.00 Constipation, unspecified; K62.5 Hemorrhage of anus and rectum; G12.21 Amyotrophic lateral sclerosis; D72.819 Decreased white blood cell count, unspecified; D64.9 Anemia, unspecified; E86.9 Volume depletion, unspecified
CPT/HCPCS: 96361; 96372; 96374; 96375; 96376; 97165; 99285; G0378; J0690; J1650; J2405; J2543; J2550

== ENCOUNTER → 2019-02-02 | Outpatient (CLI) | payer OTHER, MEDICARE ==
[~2019-02-02] MED LIST changes: -DEPO METHYLPREDNISOLONE 40 MG/ML SDV ONE; +DEPO METHYLPREDNISOLONE 80 MG/ML SDV ONE
== END ==
LOC: FIMAGING 09:41
PROVIDERS: ATTEND Orthopaedic Surgery
PROC: 3E0U3BZ Introduction of Anesthetic Agent into Joints, Percutaneous Approach (ICD-10-PCS; principal; 2019-02-02)
PROC: 3E0U33Z Introduction of Anti-inflammatory into Joints, Percutaneous Approach (ICD-10-PCS; 2019-02-02)
DX: M16.12 Unilateral primary osteoarthritis, left hip (principal); Z72.0 Tobacco use
CPT/HCPCS: 20610; J1040; J2795; Q9967

== ENCOUNTER → 2019-02-07 | Outpatient (CLI) | payer OTHER, MEDICARE | LOC: BHFA 10:45 | PROVIDERS: ATTEND Internal Medicine Cardiovascular Disease | DX: I50.9 Heart failure, unspecified (principal) ==

== ENCOUNTER 2019-02-25 15:50 | Observation (INO) | payer OTHER, MEDICARE ==
[2019-02-25] MEDS ORDERED: NS 1,000 ML IV ONE (16:39)
[2019-02-25] MEDS: ATROPINE SULFATE 1 MG/ML VIAL IVP ONE ×2 (16:49→17:14)
[2019-02-25 17:01] LABS: PLATELET COUNT 160 10^3/uL (150-400)
[2019-02-25] MEDS ORDERED: ONDANSETRON 4 MG/2 ML VIAL IVP ONE (18:08)
--- NOTE | 2019-02-25 18:16 | EDPHY ---
H & P Stated Complaint: Abnml EKG/CC Time Seen by Provider: 02/25/19 16:16 HPI/ROS: CHIEF COMPLAINT: Episodes of near-syncope HISTORY OF PRESENT ILLNESS: This is a 78-year-old female with a significant history of chronic AML, right-sided congestive heart failure, hypertension, left bundle-branch block, and recently diagnosed with Clostridium difficile who presents reporting that she had 4 episodes today day of what sounds like near syncope. Patient describes abrupt onset of pressure at the crown of her head followed by dizziness, feeling like her heart rate was too shallow, an overall feeling limp. She reports she felt like this she might faint. This happened 4 times this morning with the last episode around 10:00 a.m.. Patient evidently has been at home, resting until she went to [facility] for further evaluation. She was noted at the [facility] to have an EKG demonstrating sinus arrhythmia. She was referred to the emergency department for further evaluation. Patient denies any significant fevers or chills recently. She has been nauseous secondary to the oral vancomycin as well as to her chemotherapeutic agent. Denies any hematemesis or blood in the stools. Denies any chest pain. No shortness of breath. REVIEW OF SYSTEMS: A comprehensive 10 system review of systems was reviewed and is otherwise negative aside from elements mentioned in the history of present illness and medical decision making. PAST MEDICAL HISTORY: AML, hypertension, multiple surgeries including partial colectomy, cholecystectomy, hysterectomy, orthopedic surgeries including knee and hip replacements. SOCIAL HISTORY: Here with her . VITAL SIGNS Reviewed by me. GENERAL: Somewhat pale, anxious, reports feeling dizzy when she sits up. HEENT: Atraumatic. Eyes: No icterus, no injection. Mouth: moist mucous membranes. No erythema or lesions. Neck: supple with no adenopathy. LUNGS: Clear to auscultation bilaterally, no wheezes, rhonchi or rales. CARDIAC: Slightly irregular, no rubs murmurs or gallops auscultated. ABDOMEN: Soft, nontender, nondistended, bowel sounds normal. BACK: No CVA tenderness. EXTREMITIES: No trauma. No edema. Range of motion is normal throughout. NEURO: Alert and oriented, grossly nonfocal. SKIN: Warm and dry, no rash. PSYCHIATRIC: Normal mentation, no agitation. - Personal History Current Tetanus/Diphtheria Vaccine: Yes Tetanus Vaccine Date: 2014 - Medical/Surgical History Hx Asthma: No Hx Chronic Respiratory Disease: No Hx Diabetes: No Hx Cardiac Disease: Yes Hx Renal Disease: Yes Hx Cirrhosis: No Hx Alcoholism: No Hx HIV/AIDS: No Hx Splenectomy or Spleen Trauma: No Other PMH: Acute myeloid leukemia,HTN, NEPHRITIS, HYPOTHYROID, blue, , PARTIAL COLOCTEMY,HYSTERECTOMY, L KNEE REPLACEMENT, R HIP REPLACEMENT, BETA RADIATION EXPOSURE FROM WORK, R SIDED CHF, elevated uric acid levels, left bundle branch block. - Social History Smoking Status: Never smoked Constitutional: Initial Vital Signs Temperature (C) 36.9 C 02/25/19 16:00 Heart Rate 89 02/25/19 16:00 Respiratory Rate 20 02/25/19 16:00 Blood Pressure 117/68 02/25/19 16:00 O2 Sat (%) 95 02/25/19 16:00 O2 Delivery Mode Room Air Allergies/Adverse Reactions: cefuroxime [Cefuroxime] Allergy (Severe, Verified 02/25/19 16:02) SYNCOPE Cephalosporins Allergy (Severe, Verified 02/25/19 16:02) THROAT SWELLING Lactobacillus Combo No.3 [From Probiotic & Acidophilus] Allergy (Severe, Verified 02/25/19 16:02) LIPS SWELL, CRACK, REDDENED AREA BURNING FEELING Sulfa (Sulfonamide Antibiotics) Allergy (Severe, Verified 02/25/19 16:02) THROAT SWELLING, ANAPHYLACTIC ciprofloxacin Allergy (Unknown, Verified 02/25/19 16:02) CRUSHING CHANG, SYNCOPE levofloxacin Allergy (Unknown, Verified 02/25/19 16:02) THROAT SWELLING fructooligosaccharides Allergy (Unknown, Uncoded 02/25/19 16:02) fructooligosaccharides (FOS) Allergy (Unknown, Uncoded 02/25/19 16:02) LIPS SWELL, CRACK, REDDENED AREA BURNING FEELING Pantethine Allergy (Unknown, Uncoded 02/25/19 16:02) LIPS SWELL, CRACK, REDDENED AREA BURNING FEELING Home Medications: Medication Instructions Recorded Pantoprazole Sodium [Protonix 40mg 40 mg PO DAILY 03/15/13 (*)] FEXOFENADINE HCL 90 mg PO DAILY 11/03/16 Nortriptyline HCl [Pamelor 50 mg 100 mg PO HS 11/03/16 (*)] buPROPion [Wellbutrin 100mg (*)] 100 mg PO BID 11/03/16 Ondansetron [Zofran Odt] 8 mg PO TID 02/24/17 Methylphenidate HCl [Ritalin 5mg 5 mg PO DAILY@06/14/17 (*)] Polyethylene Glycol 3350 [Miralax 17 gm PO DAILY PRN 06/14/17 17 gm (*)] Hydrocodone/Acetaminophen [[place] 1 each PO Q4H PRN 07/31/17 5/325 (*)] Sorafenib Tosylate [Nexavar] 400 mg PO BID 07/31/17 methYLPHENIDATE HCL [Ritalin 10mg 10 mg PO DAILY@07/31/17 (*)] oxyCODONE HCL [Oxycontin] 10 mg PO BID@ PRN 11/21/17 ALPRAZolam [Xanax 0.25 MG (*)] 0.25 mg PO DAILY@01/26/19 ALPRAZolam [Xanax 0.5 MG (*)] 0.5 mg PO DAILY@01/26/19 Loperamide HCl [Imodium 2 mg (*)] 2 mg PO PRN PRN cap 01/27/19 LORazepam [Ativan (*)] 0.5 mg PO TID PRN 02/25/19 Levothyroxine [Synthroid 125 mcg 125 mcg PO DAILY06 02/25/19 (*)] Furosemide [Lasix 20 MG (*)] 20 mg PO EVERY OTHER DAY #0 02/26/19 Vancomycin [Vancomycin Oral Liquid] 125 mg PO QID #1 udl 02/26/19 Medical Decision Making - Diagnostics EKG Interpretation: 12-LEAD EKG: Please see the full report in [facility]. My interpretation: Sinus rhythm, left bundle branch block, PACs. Imaging Results: Impression: 1. Clear lungs. No acute process or change since November 2017 2. Cardiomegaly. No failure or effusion. Dictated By: Rafa Nance MD Imaging: I viewed and interpreted images myself ED Course/Re-evaluation: IV was placed in the patient received some normal saline. She does tell me that she received a L normal saline while she was at [facility] as well. Labs were drawn. Shortly thereafter the patient was noted to become bradycardic to 22. Patient' s monitor continued indicate bradycardia as well as sinus pauses, however, on further evaluation the patient actually had heart rate in the 50s to 60s, but the monitor was not picking up her complexes as they are quite low voltage. Bedside troponin is negative. Bedside ultrasound performed by myself: Limited transthoracic echocardiogram: The pericardium was visualized and found to be positive for pericardial fluid. The study was positive for pericardial effusion. Procedure was performed by myself. Please see the ultrasound database for hard copy images. Cardiology was contacted. Dr. Arnie Izquierdo evaluated the patient in the emergency department. Stat echocardiogram was ordered. Stat echocardiogram demonstrates small to mild effusion with no tamponade physiology. Patient will be admitted to the hospitalist service for further cardiac monitoring. Case discussed with Dr. Ashlyn Morales. Disposition: Inpatient PCU Diagnosis: Near syncope, bradycardia, pericardial effusion Condition: Fair. Differential Diagnosis: Differential diagnosis for the patient's presenting complaints was considered including but not limited to cardiac tamponade, dehydration, Syncope including but not limited to vasovagal syncope, arrhythmia, dehydration , and blood loss. - Data Points Laboratory Results: Laboratory Results 02/25/19 16:30 02/25/19 16:30 Medications Given: Discontinued Medications Alprazolam (Xanax) 0.25 mg PO DAILY@13 [facility] Stop: 08/25/19 12:59 Last Admin: 02/26/19 12:00 Dose: 0.25 mg Alprazolam (Xanax) 0.5 mg PO DAILY@08 MICHELE Stop: 08/25/19 07:59 Last Admin: 02/26/19 10:02 Dose: 0.5 mg Atropine Sulfate (Atropine Sulfate) 1 mg IVP EDNOW ONE Stop: 02/25/19 16:40 Last Admin: 02/25/19 17:14 Dose: Not Given Bupropion HCl (Wellbutrin) 100 mg PO BID MICHELE Stop: 08/24/19 20:59 Last Admin: 02/26/19 10:02 Dose: 100 mg Cetirizine HCl (Zyrtec) 10 mg PO DAILY MICHELE Stop: 08/25/19 08:59 Last Admin: 02/26/19 10:01 Dose: 10 mg Enoxaparin Sodium (Lovenox) 40 mg SC DAILY MICHELE Stop: 08/25/19 08:59 Last Admin: 02/26/19 08:58 Dose: 40 mg Sodium Chloride (Ns) 1,000 mls @ 0 mls/hr IV EDNOW ONE; Wide Open PRN Reason: Protocol Stop: 02/25/19 16:40 Last Admin: 02/25/19 16:54 Dose: 1,000 mls Potassium Chloride/Sodium Chloride (Ns W/ 20 Kcl/L) 1,000 mls @ 100 mls/hr IV CONT MICHELE Stop: 08/24/19 19:29 Last Admin: 02/26/19 09:59 Dose: 1,000 mls Levothyroxine Sodium (Synthroid) 125 mcg PO DAILY06 [facility]LE Stop: 08/25/19 05:59 Last Admin: 02/26/19 06:07 Dose: 125 mcg Methylphenidate HCl (Ritalin) 10 mg PO DAILY@08 MIC[facility]LE Stop: 08/25/19 07:59 Last Admin: 02/26/19 10:01 Dose: 10 mg Methylphenidate HCl (Ritalin) 5 mg PO DAILY@13 MICHELE Stop: 08/25/19 12:59 Last Admin: 02/26/19 12:00 Dose: 5 mg Miscellaneous Medication (Sorafenib Tosylate [Nexavar]) 400 mg PO BID MICHELE Stop: 08/24/19 20:59 Last Admin: 02/26/19 10:03 Dose: Not Given Nortriptyline HCl (Pamelor) 100 mg PO HS [facility] Stop: 08/24/19 20:59 Last Admin: 02/25/19 21:18 Dose: 100 mg Ondansetron HCl (Zofran) 4 mg IVP EDNOW ONE Stop: 02/25/19 18:09 Last Admin: 02/25/19 18:11 Dose: 4 mg Ondansetron HCl (Zofran Odt) 8 mg PO TID MICHELE Stop: 08/24/19 21:59 Last Admin: 02/26/19 16:06 Dose: 8 mg Oxycodone HCl (Oxycontin) 10 mg PO BID@05,17 PRN PRN Reason: Pain, Moderate Stop: 03/08/19 04:59 Last Admin: 02/26/19 10:01 Dose: 10 mg Pantoprazole Sodium (Protonix) 40 mg PO DAILY MICHELE Stop: 08/25/19 08:59 Last Admin: 02/26/19 08:57 Dose: 40 mg Vancomycin HCl (Vancomycin Oral Liquid) 125 mg PO QID MICHELE PRN Reason: Protocol Stop: 03/27/19 20:59 Last Admin: 02/26/19 16:05 Dose: 125 mg Point of Care Test Results: Chemistry 02/25/19 16:53 POC Troponin I 0.01 ng/mL ng/mL (0.00-0.08) Departure - Departure Disposition: [facility] In[facility] Acute Condition: Fair
--- NOTE | 2019-02-25 18:27 | GCON ---
[f rep st] CONSULTATION DATE OF CONSULTATION: 02/25/2019 REFERRING PHYSICIAN: Odette Miller MD INDICATIONS: Dizziness. HISTORY OF PRESENT ILLNESS: The patient is a 78-year-old female followed in the outpatient setting b maryam Bansal. Her cardiovascular history is significant for chronic diastolic congestive heart failure. She was last seen in our office as recently as January 05. At that time, she was thought to be euvolemic to dry on exam and her Lasix dose was adjusted such that it was decreased. Additiona lly, she has a history of a left bundle branch block. 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 She is maintained chronically on chemoth erapy with Nexavar and azacitidine. Additionally, she has a history of C difficile enterocolitis and chronic diarrhea, for which she is taking vancomycin. She states that she has not been feeling well for the last several days. Today, she had multiple epi sodes of dizziness. These occurred with significant changes in posture. One occurred while she was on the toilet. Another occurred when she was trying to get up out of a chair. She had a sensation o f head fullness associated with lightheadedness that resolved when she would sit down. She had no ch est pain, palpitations, or dyspnea with these events. As a result[facility] S he was seen there, placed on a monitor and was administered a liter of IV fluids. Because she had an irregular electrocardiogram, she was advised to come to the emergency department here. On arrival here, she was hemodynamically stable. Initial blood pressure 117/68 with a heart rate of 89, O2 saturations on room air of 95%. She was afebrile. Her initial electrocardiogram demonstrated sinus rhythm with frequent atrial and ventricular ectopy. She had a left axis deviation with a left bundle branch block. Because of her symptoms, a bedside ultrasound was performed by robbie Frost suggested a pericardial effusion and as a result, we were consulted. On my arrival, she was hem odynamically stable and conversive. We performed a formal echocardiogram. There is a full and separ ately detailed report on the chart. This indicated a normal ejection fraction, no evidence of signif icant valvular heart disease and a small pericardial effusion, which was more organized anteriorly. She had no Doppler indications of pericardial tamponade. PAST MEDICAL HISTORY: 1. AML, as described above. 2. History of anemia associated with her diagnosis of AML. 3. Chronic diastolic congestive heart failure. 4. History of DVT. 5. History of GERD. 6. Hyperlipidemia. 7. Hypertension. 8. C difficile colitis. 9. Hypothyroidism. 10. Chronic left bundle branch block. 11. Osteoarthritis. 12. Osteoporosis. PAST SURGICAL HISTORY: 1. She has had a previous section. 2. Cholecystectomy. 3. Partial colectomy. 4. Right total hip arthroplasty. 5. Hysterectomy. 6. Left total knee replacement. 7. Left breast lumpectomy. 8. Pilonidal cyst. 9. Tonsillectomy. 10. Venous surgery. HOME MEDICATIONS: These are detailed on the chart and not repeated here. ALLERGIES: She is allergic to cephalosporins. FAMILY HISTORY: At this point is noncontributory. SOCIAL HISTORY: She is and accompanied by her . She does not smoke currently. She h as never used alcohol or drugs. At her baseline, she is not active. REVIEW OF SYSTEMS: A full 10-point review of systems was performed and is otherwise negative. PHYSICAL EXAMINATION: VITAL SIGNS: Her current blood pressure is 149/79 with a resting heart rate o f between 90 and 70 beats per minute. Her oxygen saturations on room air are 99%. She is afebrile. GENERAL: She is a chronically ill, very thin female in no acute distress. HEENT: No jugular venou s distention, adenopathy, or thyromegaly. RESPIRATORY: She speaks in full sentences, using no acces maximo muscles. On auscultation, she has clear lung reddy bilaterally. CARDIAC: Precordial inspecti on indicates an emaciated precordium. Her PMI is not displaced. On auscultation, she has a regular rate and rhythm without murmurs, gallops, or rubs. ABDOMEN: Soft with no masses or hepatosplenomega ly. She has a nonpalpable aorta. EXTREMITIES: Demonstrate trivial lower extremity edema. NEUROLOG IC: She is alert and oriented with a pleasant mood and affect. She moves all 4 limbs spontaneously. DATABASE: Her chest x-ray demonstrates a normal cardiac silhouette. No evidence of infiltrates or e ffusions. Her ECG demonstrates sinus rhythm with frequent PACs, left axis deviation, left bundle bra nch block. Her white blood cell count is 3.31, hemoglobin 8.7 and hematocrit 27.6 with a platelet co unt of 160,000. These are at her baseline. Sodium 136, potassium 3.9, BUN 10, creatinine 0.6, gluco se 120. AST is 53 with an ALT of 65. Total protein 5.4, albumin 3.2. IMPRESSION: The patient is a pleasant 78-year-old female seen in the emergency department with sympt oms of dizziness. She, as an outpatient, has been followed given her history of chronic diastolic co ngestive heart failure and a chronic left bundle branch block. We were consulted regarding concerns about her dizziness and the possibility of pericardial tamponade. In reviewing her echocardiogram, robbie uriarte she has a small pericardial effusion, which appears to be more organized anteriorly, there is no evidence of pericardial compressive hemodynamics. Therefore, I think her dizziness is unrelated to this small pericardial effusion. In talking to her, I think it is very likely that she is dehydrated . She has been adjusting her Lasix dose at home and has had chronic diarrhea. Additionally, at the present time, there is no indication of an underlying acute coronary syndrome or arrhythmia. RECOMMENDATIONS: 1. She will be admitted to the hospitalist service. 2. She will be hydrated overnight. 3. Her home medications will be continued. 4. At this point, we will sign off. Please re-consult if needed. /[id number]/MODL
--- NOTE | 2019-02-25 18:42 | ECHO ---
[email or web address] [place] [id number] Main: [phone] Echocardiography Examination Transthoracic Name: KEITH NOONAN MR#: [id number] Study Date: 02/25/2019 Study Time: 05:32 PM Date of : 1940 Age: 78 year(s) Height: 167.6 cm (66 in.) Weight: 56.7 kg (125 lb.) BSA: 1.64 m2 Gender: Female Examination: Echo Contrast: Image Quality: Rhythm: Heart Rate: BP: 148 mmHg/79 mmHg Indication: Bradycardia/pauses/effusion Procedure Staff Referring Physician: Aircraft Stress Analyst: Nano Sosa [facility] Reading Physician: Arnie Izquierdo MD Requesting Provider: Indication: Bradycardia/pauses/effusion Conclusions This is a limited echocardiogram performed to evaluate a possible pericardial effusion and tamponade. Patient was in sinus rhythm at time of study. The left ventricular size and systolic function appear to be normal. Valvular structures are grossly normal. There is a small circumferential pericardial effusion with a small area of about 1/2 cm of organization along the right ventricular free wall. There are no indications of pericardial compressive hemodynamics. Findings Pericardium: A small anterior pericardial effusion is present with echogenicity within with no collapse of the RA or RV.. Exam Details Procedure Ordered: Echo (No Signature Object) Patient: KEITH NOONAN Study Date: 02/25/2019 Page 1 of 1 05:32 PM [id number]
--- NOTE | 2019-02-25 19:14 | CPEKG ---
Test Reason : OPEN Blood Pressure : / mmHG Vent. Rate : 098 BPM Atrial Rate : 086 BPM P-R Int : 179 ms QRS Dur : 145 ms QT Int : 410 ms P-R-T Axes : 073 -61 101 degrees QTc Int : 524 ms Sinus rhythm Atrial premature complexes in couplets Left bundle branch block Confirmed by Ernestina Kemp ([id number]) on 02/25/2019 7:14:18 PM Referred By: Odette Miller Confirmed By:Ernestina Kemp
--- NOTE | 2019-02-25 19:14 | PDGENHP ---
History and Physical - Chief Complaint near syncope - History of Present Illness 78 yo female with h/o AML, diastolic HF, hypertension and recent C diff presents to ED with near syncope. She started Flagyl for c diff diarrhea 7 days ago. She says her diarrhea persists, but has decreased in frequency, just 1-3 loose stools per day. She notes decreased oral intake and some nausea since starting the Flagyl. This morning, when she viri from supine to seated position, she felt a pulsing feeling in her head and felt very lightheaded and faint. She did not lose consciousness, but felt her body going limp. This persisted and she went to the [facility], where an EKG was done and due to abnormalities on her EKG, she was sent to the ED. In the ED, a bedside u/s revealed a pericardial effusion. Cardiology consult was obtained and a formal u /s showed a small pericardial effusion without e/o tamponade. She was given IVF 's and is admitted for further management. History Information - Allergies/Home Medication List Allergies/Adverse Reactions: cefuroxime [Cefuroxime] Allergy (Severe, Verified 02/25/19 16:02) SYNCOPE Cephalosporins Allergy (Severe, Verified 02/25/19 16:02) THROAT SWELLING Lactobacillus Combo No.3 [From Probiotic & Acidophilus] Allergy (Severe, Verified 02/25/19 16:02) LIPS SWELL, CRACK, REDDENED AREA BURNING FEELING Sulfa (Sulfonamide Antibiotics) Allergy (Severe, Verified 02/25/19 16:02) THROAT SWELLING, ANAPHYLACTIC ciprofloxacin Allergy (Unknown, Verified 02/25/19 16:02) CRUSHING CHANG, SYNCOPE levofloxacin Allergy (Unknown, Verified 02/25/19 16:02) THROAT SWELLING fructooligosaccharides Allergy (Unknown, Uncoded 02/25/19 16:02) fructooligosaccharides (FOS) Allergy (Unknown, Uncoded 02/25/19 16:02) LIPS SWELL, CRACK, REDDENED AREA BURNING FEELING Pantethine Allergy (Unknown, Uncoded 02/25/19 16:02) LIPS SWELL, CRACK, REDDENED AREA BURNING FEELING Home Medications: Pantoprazole Sodium [Protonix 40mg (*)] 40 mg PO DAILY 03/15/13 [Last Taken 11/03] FEXOFENADINE HCL 90 mg PO DAILY 11/03/16 [Last Taken 02/23/19] Nortriptyline HCl [Pamelor 50 mg (*)] 100 mg PO HS 11/03/16 [Last Taken 02/24/19 ] buPROPion [Wellbutrin 100mg (*)] 100 mg PO BID 11/03/16 [Last Taken 02/25/19 AM DOSE only] Ondansetron [Zofran Odt] 8 mg PO TID 02/24/17 [Last Taken 02/25/19] Methylphenidate HCl [Ritalin 5mg (*)] 5 mg PO DAILY@06/14/17 [Last Taken 10/04] Polyethylene Glycol 3350 [Miralax 17 gm (*)] 17 gm PO DAILY PRN 06/14/17 [Last Taken 01/25/19 14:00] Hydrocodone/Acetaminophen [Fannin 5/325 (*)] 1 each PO Q4H PRN 07/31/17 [Last Taken 11/20/17] Sorafenib Tosylate [Nexavar] 400 mg PO BID 07/31/17 [Last Taken 01/25/19 09:00] methYLPHENIDATE HCL [Ritalin 10mg (*)] 10 mg PO DAILY@07/31/17 [Last Taken ] oxyCODONE HCL [Oxycontin] 10 mg PO BID@ PRN 11/21/17 [Last Taken 02/24/19] ALPRAZolam [Xanax 0.25 MG (*)] 0.25 mg PO DAILY@01/26/19 [Last Taken 02/24/19 ] ALPRAZolam [Xanax 0.5 MG (*)] 0.5 mg PO DAILY@01/26/19 [Last Taken 02/25/19] Furosemide [Lasix 20 MG (*)] 20 mg PO DAILY 02/25/19 [Last Taken 02/24/19] LORazepam [Ativan (*)] 0.5 mg PO TID PRN 02/25/19 [Last Taken 02/23/19] Levothyroxine [Synthroid 125 mcg (*)] 125 mcg PO DAILY06 02/25/19 [Last Taken ] metroNIDAZOLE [Flagyl 500 mg (*)] 500 mg PO TID 02/25/19 [Last Taken 02/25/19 AM DOSE ONLY] I have personally reviewed and updated: family history, medical history, social history, surgical history - Past Medical History cancer Additional medical history: 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 pulmonary hypertension. macrocytic anemia. pancytopenia 2/2 chemo. hypothyroidism. diastolic CHF (negative lexiscan 10/2016). ADD. h/o ischemic colitis. h/o neutropenic enterocolitis. hypothyroidism. LBBB. hip arthritis - Surgical History Additional surgical history: lumpectomy. cholecystectomy. R hip replacement. L TKA. bowel resection for an episode of ischemic bowel. appendectomy - Family History Positive for: cancer, stroke - Social History Smoking Status: Never smoked Additional social history: Patient lives with her , requires 2 canes for ambulation Review of Systems Review of Systems: ROS: 10pt was reviewed & negative except for what was stated in HPI & below Physical Exam Physical Exam: Temp Pulse Resp BP Pulse Ox 36.8 C 81 14 140/69 H 95 02/25/19 18:45 02/25/19 18:45 02/25/19 18:45 02/25/19 18:45 02/25/19 18:45 Constitutional: no apparent distress Eyes: PERRL Ears, Nose, Mouth, Throat: moist mucous membranes Cardiovascular: regular rate and rhythym Respiratory: no respiratory distress, clear to auscultation Gastrointestinal: normoactive bowel sounds, soft, non-tender abdomen Skin: warm Musculoskeletal: full muscle strength Neurologic: AAOx3 Psychiatric: interacting appropriately Lab Data & Imaging Review 02/25/19 16:30 02/25/19 16:30 WBC 3.31 10^3/uL (3.80-9.50) L 02/25/19 16:30 RBC 2.60 10^6/uL (4.18-5.33) L 02/25/19 16:30 Hgb 8.7 g/dL (12.6-16.3) L 02/25/19 16:30 Hct 27.6 % (38.0-47.0) L 02/25/19 16:30 MCV 106.2 fL (81.5-99.8) H 02/25/19 16:30 MCH 33.5 pg (27.9-34.1) 02/25/19 16:30 MCHC 31.5 g/dL (32.4-36.7) L 02/25/19 16:30 RDW 27.6 % (11.5-15.2) H 02/25/19 16:30 Plt Count 160 10^3/uL (150-400) 02/25/19 16:30 MPV TNP 02/25/19 16:30 Neut % (Auto) 39.3 % (39.3-74.2) 02/25/19 16:30 Lymph % (Auto) 46.2 % (15.0-45.0) H 02/25/19 16:30 Grimes % (Auto) 13.6 % (4.5-13.0) H 02/25/19 16:30 Eos % (Auto) 0.0 % (0.6-7.6) L 02/25/19 16:30 Baso % (Auto) 0.6 % (0.3-1.7) 02/25/19 16:30 Nucleat RBC Rel Count 0.6 % (0.0-0.2) H 02/25/19 16:30 Absolute Neuts (auto) 1.30 10^3/uL (1.70-6.50) L 02/25/19 16:30 Absolute Lymphs (auto) 1.53 10^3/uL (1.00-3.00) 02/25/19 16:30 Absolute Monos (auto) 0.45 10^3/uL (0.30-0.80) 02/25/19 16:30 Absolute Eos (auto) 0.00 10^3/uL (0.03-0.40) L 02/25/19 16:30 Absolute Basos (auto) 0.02 10^3/uL (0.02-0.10) 02/25/19 16:30 Absolute Nucleated RBC 0.02 10^3/uL (0-0.01) H 02/25/19 16:30 Immature Gran % 0.3 % (0.0-1.1) 02/25/19 16:30 Immature Gran # 0.01 10^3/uL (0.00-0.10) 02/25/19 16:30 Polychromasia 2+ H 02/25/19 16:30 Hypochromasia 2+ H 02/25/19 16:30 Basophilic Stippling 2+ H 02/25/19 16:30 Microcytic Cells 2+ H 02/25/19 16:30 Pappenheimer Bodies 2+ H 02/25/19 16:30 Tear Drop Cells 2+ H 02/25/19 16:30 Oval Macrocytes 1+ H 02/25/19 16:30 Elliptocytes 1+ H 02/25/19 16:30 Schistocytes 2+ H 02/25/19 16:30 Sodium 139 mEq/L (135-145) 02/25/19 16:30 Potassium 3.9 mEq/L (3.5-5.2) 02/25/19 16:30 Chloride 106 mEq/L (97-110) 02/25/19 16:30 Carbon Dioxide 26 mEq/l (22-31) 02/25/19 16:30 Anion Gap 7 mEq/L (6-14) 02/25/19 16:30 BUN 10 mg/dL (7-23) 02/25/19 16:30 Creatinine 0.6 mg/dL (0.6-1.0) 02/25/19 16:30 Estimated GFR > 60 02/25/19 16:30 Glucose 120 mg/dL (70-100) H 02/25/19 16:30 Calcium 8.5 mg/dL (8.5-10.4) 02/25/19 16:30 Total Bilirubin 0.5 mg/dL (0.1-1.4) 02/25/19 16:30 Conjugated Bilirubin 0.4 mg/dL (0.0-0.5) 02/25/19 16:30 Unconjugated Bilirubin 0.1 mg/dL (0.0-1.1) 02/25/19 16:30 AST 53 IU/L (14-46) H 02/25/19 16:30 ALT 65 IU/L (9-52) H 02/25/19 16:30 Alkaline Phosphatase 83 IU/L (38-126) 02/25/19 16:30 POC Troponin I 0.01 ng/mL (0.00-0.08) 02/25/19 16:53 Total Protein 5.4 g/dL (6.3-8.2) L 02/25/19 16:30 Albumin 3.2 g/dL (3.5-5.0) L 02/25/19 16:30 Lipase 106 IU/L (23-300) 02/25/19 16:30 Visualized and Interpreted Chest x-ray results: Yes Chest X-Ray results: no infiltrate Visualized and Interpreted EKG results: Yes EKG Interpretation: Positive for: left bundle branch block Assessment & Plan Assessment: Near syncope - thought 2/2 volume depletion, possibly related to recent C diff dx / diarrhea -IVF's overnight -check orthostatic VS in am Pericardial effusion - no e/o tamponade, reviewed cardiology notes, ?could this be related to her malignancy Chronic diastolic HF - appears dry on exam, had lasix dose recently reduced -hold diuretics, favor IV hydration overnight Bradycardia - per ED doc, her HR drifted down to 20's on monitor, though sounds like monitor wasn't picking up a dimunitive QRS complex so unclear if this was real -monitor on telemetry H/O C diff - change flagyl to po vanc as she has been nauseous with poor oral intake, could be side effect of flagyl. She is on day 7 of 10. 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 Jones -cont home chemo H/O Pancytopenia - 2/2 chemo. Not neutropenic. No indication for transfusion, plts ok. -follow LBBB - this is chronic DVT PPLX - Lovenox Full code Dispo - obs
[2019-02-25] MEDS ORDERED: ONDANSETRON 4 MG/2 ML VIAL IVP PRN (19:25)
[2019-02-25] MEDS ORDERED: ACETAMINOPHEN 325 MG TAB PO PRN (19:25)
[2019-02-25] MEDS ORDERED: ONDANSETRON DISINTEGRATING 4 MG TAB PO PRN (19:25)
[2019-02-25] MEDS ORDERED: DOCUSATE SODIUM 100 MG CAP PO PRN (20:34)
[2019-02-25] MEDS ORDERED: HYDROCODONE/APAP 5/325 TAB PO PRN (20:34)
[2019-02-25] MEDS ORDERED: POLYETHYLENE GLYCOL 3350 17 GM PKT PO PRN (20:34)
[2019-02-25] MEDS ORDERED: LORazepam 0.5 MG TAB PO PRN (20:34)
[2019-02-25] MEDS ORDERED: SENNOSIDES/DOCUSATE SODIUM TAB PO PRN (20:38)
[2019-02-25] MEDS ORDERED: NORTRIPTYLINE HCL 50 MG CAP PO SCH (21:00)
[2019-02-25] MEDS: VANCOMYCIN 125 MG/2.5 ML UDL PO SCH (21:17)
[2019-02-25] MEDS: buPROPion 100 MG TAB PO SCH (21:18)
[2019-02-25] MEDS: SORAFENIB TOSYLATE 400 MG PO SCH (21:21)
[2019-02-25] MEDS: ONDANSETRON DISINTEGRATING 4 MG TAB PO SCH (23:59)
[2019-02-26] MEDS: NS W/ 20 KCl/L 1,000 ML IV SCH ×2 (00:04→09:59)
[2019-02-26 05:55] LABS: PLATELET COUNT 147 10^3/uL (150-400)
[2019-02-26] MEDS ORDERED: LEVOTHYROXINE 125 MCG TAB PO SCH (06:00)
[2019-02-26] MEDS: VANCOMYCIN 125 MG/2.5 ML UDL PO SCH ×3 (06:08→16:05)
[2019-02-26] MEDS ORDERED: ALPRAZolam 0.25 MG TAB PO SCH ×2 (08:00→13:00)
[2019-02-26] MEDS ORDERED: PANTOPRAZOLE SODIUM 40 MG TAB PO SCH (09:00)
[2019-02-26] MEDS ORDERED: ENOXAPARIN 40 MG/0.4 ML SYR SC SCH (09:00)
[2019-02-26] MEDS ORDERED: CETIRIZINE 10 MG TAB PO SCH (09:00)
[2019-02-26] MEDS: ONDANSETRON DISINTEGRATING 4 MG TAB PO SCH ×2 (10:01→16:06)
[2019-02-26] MEDS: buPROPion 100 MG TAB PO SCH (10:02)
[2019-02-26] MEDS: SORAFENIB TOSYLATE 400 MG PO SCH (10:03)
--- NOTE | 2019-02-26 10:26 | SOAPPROG ---
SOAP Progress Note Assessment/Plan: Assessment: 78-year-old female with a history of chronic diastolic congestive heart failure and arrhythmia in the form of PACs and PVCs admitted through the emergency department yesterday with symptoms of dizziness. A bedside echocardiogram in the emergency department suggested a pericardial effusion and tamponade however this was not confirmed by a formal echocardiogram. It is thought that her symptoms were related to dehydration which was brought on by the use of diuretics and concomitant C difficile enterocolitis. With hydration and treatment of her C difficile she has improved overnight. Plan: At the present time, I think that she can be discharged home from a cardiac perspective. I do not think she requires any further cardiovascular treatments or diagnostic testing. She can follow-up with Dr. Mauricio Monzon and her oncologist in the outpatient setting. 02/26/19 10:25 Subjective: She states that she is feeling much better today. Symptoms of dizziness and lightheadedness have now resolved. Additionally, following a change in her medications from Flagyl to oral vancomycin her appetite has improved and nausea has resolved. On telemetry she has been in sinus rhythm with occasional extrasystoles and no significant arrhythmias. Objective: Vital Signs Temp Pulse Resp BP Pulse Ox 36.6 C 84 12 128/71 H 94 02/26/19 08:23 02/26/19 08:23 02/26/19 08:23 02/26/19 08:23 02/26/19 08:23 Laboratory Results 02/26/19 05:00 02/26/19 05:00 02/25/19 02/26/19 02/27/19 05:59 05:59 05:59 Intake Total 2100 Output Total 300 200 Balance 1800 -200 Physical Exam - Physical Exam General Appearance: no apparent distress, thin Neck: non-tender, full range of motion Respiratory: chest non-tender, lungs clear Cardiac/Chest: normal peripheral pulses, regular rate, rhythm, edema (Trace edema), other (Occasional extrasystoles) Peripheral Pulses: 2+: carotid (R), carotid (L) Abdomen: non-tender, soft Pelvic Exam: deferred Rectal: deferred ICD10 Worksheet Patient Problems: Problems Problem Status Onset AML (acute myeloid leukemia) Acute Anemia Acute CHF (congestive heart failure) Acute Cardiomegaly Acute Colitis Acute Dehydration Acute Hypoxia Acute LBBB (left bundle branch block) Acute Neutropenic fever Acute Pancytopenia Acute Peripheral edema Acute Pneumonia Acute Rectal bleeding Acute Sepsis Acute UTI (urinary tract infection) Acute
[2019-02-26 12:07] VITALS: BP 124/70
--- NOTE | 2019-02-26 13:52 | ASMTCMCOM ---
CM Note CM Note Notes: CM reviewed chart. CM met with patient and . Patient lives at home with her . PT recommended home care. Patient decline PT home care. Patient will discharge independently when medically stable. Plan: Independent Date Signed: 02/26/2019 01:51 PM Electronically Signed By:Thi Roman
--- NOTE | 2019-02-26 14:14 | PDDCSUM ---
Discharge Summary Discharge Summary: HPI: The patient is a 78 yo female admitted with near syncope. See below for details. She has C-Diff and meds were adjusted. She is now back to baseline and will be d/c home f/u: with PCP next week F/u: with Cardiology in 2-4 weeks DDX Near syncope - thought 2/2 volume depletion, possibly related to recent C diff dx / diarrhea -IVF's overnight were provided Pericardial effusion - no e/o tamponade, reviewed cardiology notes, ?could this be related to her malignancy. Cardiology consulted, no medications were changed. Chronic diastolic HF - Lasix adjusted to 20mg every other day Bradycardia - per ED doc, her HR drifted down to 20's on monitor, though sounds like monitor wasn't picking up a dimunitive QRS complex so unclear if this was real -monitor on telemetry -no recurrence H/O C diff - change flagyl to po vanc as she has been nauseous with poor oral intake, could be side effect of flagyl. 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 Jones -cont home chemo H/O Pancytopenia - 2/2 chemo. Not neutropenic. No indication for transfusion, plts ok. -follow Exam: NAD AAOX3 RRR CTA B S/NT/ND MEDS: SEE MED REC TOTAL TIME SPENT ON D/C IS 35 MINS
== END 2019-02-26 17:10 | disposition home or self-care (01) ==
LOC: F2W 18:45
PROVIDERS: ADMIT Hospitalist; ATTEND Hospitalist
DX: A04.72 Enterocolitis due to Clostridium difficile, not specified as recurrent (principal); E86.0 Dehydration; I31.3 Pericardial effusion (noninflammatory); C92.00 Acute myeloblastic leukemia, not having achieved remission; D61.810 Antineoplastic chemotherapy induced pancytopenia; I50.32 Chronic diastolic (congestive) heart failure; I11.0 Hypertensive heart disease with heart failure; E03.9 Hypothyroidism, unspecified; Z96.652 Presence of left artificial knee joint; Z96.641 Presence of right artificial hip joint
CPT/HCPCS: 71045; 93005; 93306; 96361; 96365; 96366; 96372; 96375; 97116; 97161; 97165; 97535; 99285; G0378; J0461; J1650; J2405; 84484-ER

== ENCOUNTER 2019-04-27 12:18 | Day surgery (SDC) | payer OTHER, MEDICARE | END 2019-04-27 17:01 | disposition home or self-care (01) | LOC: FSGY 12:18 ==

== ENCOUNTER → 2019-05-06 | Outpatient (CLI) | payer OTHER, MEDICARE | LOC: FIMAGING 08:59 ==